=== PATIENT | female | born 1950 | race American Indian/Alaskan Native ===

== ENCOUNTER 2018-07-09 12:23 | Outpatient (RCR) | payer OTHER, SELFPAY ==
--- NOTE | 2018-07-09 16:00 | PT.OPPOC ---
Current Diagnoses Pain in right shoulder (07/09/18) Provider Visit Care Team Role Provider Type Gustavo Eng MD Attending Provider Physician Primary Care Provider Specialty: Internal Medicine Address: [address] [place] [address], [id number] Email: [email or web address] Plan Of Care PT-OP-T Assessment and Plan Start: 07/08/18 13:45 Freq: Status: Active Protocol: Document 07/09/18 13:00 AMB (Rec: 07/14/18 07:05 AMB [email or web address]) Physical Therapy Assessment Rehab Potential Rehabilitation Potential Good Evaluation Complexity Number of Personal Factors/Comorbidities 1-2 Number of Body Systems Impaired 4 or More Clinical Presentation at Evaluation Stable Impairments Impairments Pain Posture ROM Strength Goals Two Impairment pain with ADLS Short Term Goal (STG) Nayely will improve her strength to 4+/5 in all planes so that she can make her bed without pain. STG Duration 4 weeks Switch Cleaner Goal (LTG) Nayely will lift 10 pounds to shoulder height without an increase in pain. LTG Duration 8 weeks One Impairment ROM Short Term Goal (STG) Nayely will improve her right shoulder active abduction to 130 degrees without pain. STG Duration 4 weeks Group Home Goal (LTG) Nayely will improve her internal rotation and extension so that she can don her bra without an increase in shoulder pain. LTG Duration 8 weeks Progress Towards Goals Progress Towards Goals Slow Progress due to Activity Tolerance Assessment Summary Assessment Nayely attends physical therapy with right shoulder pain that has been present for 7 months . Unfortunately she was only able to stay for 30 minutes due to a work engagement, so the evaluation was shortened. She presents to physical therapy with weakness, pain, and reduced range of motion consistent with glenohumeral impingement likely due to rotator cuff weakness/ repetitive strain, although other impairements should be ruled in/out as her physical therapy progresses. Physical Therapy Plan Frequency and Duration Frequency of Treatment 2x/Week Duration of Treatment 8 weeks Plan of Care Start Date 07/14/18 Plan of Care End Date 09/08/18 Therapeutic Interventions Therapeutic Interventions Home Exercise Program Joint Mobilizations Manual Therapy Neuromuscular Re-education Self-Care/Home Management Therapeutic Activities Therapeutic Exercises Modalities Cold Pack/Ice Massage Electric Stimulation Hot Packs Ultrasound Next Visit Focus/Plan Next Note Type Treatment Note Next Visit Plan Special tests as needed, then progress HEP with light strengthening to begin to assess pt's tolerance Plan of Care Dates Plan of Care Start Date 07/14/18 Plan of Care End Date 09/08/18 Please Sign and Return: I have reviewed this Plan of Care and certify that the skilled therapy services above are required to meet the patient?s needs. Physician Signature Date Printed Name and Credentials Clinical Instructor Signature Printed Name and Credentials
--- NOTE | 2018-07-09 16:00 | PT.OIE ---
Current Diagnoses Pain in right shoulder (07/09/18) Past Medical History (Last Updated 09/08/17 @ 10:33 by Lavinia Cabrera) Depression (Chronic) Anxiety (Chronic) Chronic headaches (Chronic) Past Surgical History (Last Updated 05/18/18 @ 10:14 by Gustavo Eng MD) History of ankle surgery (Inactive) Provider Visit Care Team Role Provider Type Gustavo Eng MD Attending Provider Physician Primary Care Provider Specialty: Internal Medicine Address: [address] [place] [address], [facility] Email: [email or web address] Physical Therapy Initial Evaluation PT-OP-A Visit Information Start: 07/08/18 13:45 Freq: Status: Active Protocol: Document 07/09/18 13:00 AMB (Rec: 07/13/18 07:10 AMB [email or web address]) Out-Patient Physical Therapy Visit Information Visit Information Visit Type Initial Evaluation Visit Note pt had to leave 15 minutes early Visit Start Time 13:00 Visit Stop Time 13:30 Total Visit Minutes 30 Visit Number 1 Evaluation Information Evaluation Date 07/09/18 PT-OP-B Current Condition Start: 07/08/18 13:45 Freq: Status: Active Protocol: Document 07/09/18 13:00 AMB (Rec: 07/14/18 06:50 AMB [email or web address]) Current Condition History of Current Condition Onset Date November Current Complaints R shoulder pain History of Current Condition Nayely reports insidious onset right shoulder pain. Worse with lifting, pushing, and rotating (like to reach the back of her head, or behind her back). She is right hand dominant. The pain radiates up into her neck and down into her elbow. 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 Treatment Goals Patient/Caregiver Goals Reduce pain, be able to move the arm without pain Prior Functional Status Baseline Function- ADL's Independent Baseline Function- Mobility Independent Current Functional Impairments (Reported) 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- ADL's pain with dressing (donning bra). Pain with making the bed, lifting carrying. 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 Personal Factors Other Personal Factors That May Effect Headaches, neck pain, Therapy/Recovery dizziness, depression PT-OP-C Subjective Start: 07/08/18 13:45 Freq: Status: Active Protocol: Document 07/09/18 13:00 AMB (Rec: 07/14/18 06:50 AMB [email or web address]) Patient Questionnaires Quick Dash- Upper Extremity Quick Dash UE Score 63 Quick Dash UE Impairment 60 to 79% Impaired (Score 60- 79) OP-PT Pain Assessment Pain Assessment Grid Paper Pain Assessment Grid Completed Yes Location Right Shoulder Pain Location Details anterior/ lateral shoulder Intensity 3 Scale Used Numeric (1 - 10) PT-OP-J Posture/Palpation/Skin Start: 07/08/18 13:45 Freq: Status: Active Protocol: Document 07/09/18 13:00 AMB (Rec: 07/13/18 07:31 AMB [email or web address]) Posture Evaluation Comments Posture Comments Slight forward head/ rounded shoulders Palpation Assessment Location One Palpation Location right shoulder Palpation Findings Soft Tissue Tightness Muscle Guarding Tenderness Palpation Details Tenderness at biceps insertion and deltoid, radiating into upper trap and down into the elbow PT-OP-K Range of Motion Start: 07/08/18 13:45 Freq: Status: Active Protocol: Document 07/09/18 13:00 AMB (Rec: 07/13/18 07:31 AMB [email or web address]) Shoulder Goniometric Range of Motion Shoulder Measured in Degrees Left Active Testing Position Sitting Flexion 170 Abduction 130 External Rotation at 0 degrees Abduction 75 Right Active Testing Position Sitting Flexion 150 Extension 70 Abduction 110 External Rotation at 0 degrees Abduction 50 PT-OP-M Strength Start: 07/08/18 13:45 Freq: Status: Active Protocol: Document 07/09/18 13:00 AMB (Rec: 07/13/18 07:31 AMB [email or web address]) Shoulder Strength Shoulder Manual Muscle Testing Right Flexion 4 Good Abduction (C5) 4- Good- External Rotation 4- Good- Internal Rotation 4+ Good+ PT-OP-Q Treatments Start: 07/08/18 13:45 Freq: Status: Active Protocol: Document 07/09/18 13:00 AMB (Rec: 07/14/18 06:51 AMB [email or web address]) Therapeutic Exercises Standing Exercises 2 Standing Exercise Name ER isometric Reps/Minutes 3x5 1 Standing Exercise Name UT stretch Reps/Minutes 30x2 PT-OP-T Assessment and Plan Start: 07/08/18 13:45 Freq: Status: Active Protocol: Document 07/09/18 13:00 AMB (Rec: 05/29/19 07:05 AMB [email or web address]) Physical Therapy Assessment Rehab Potential Rehabilitation Potential Good Evaluation Complexity Number of Personal Factors/Comorbidities 1-2 Number of Body Systems Impaired 4 or More Clinical Presentation at Evaluation Stable Impairments Impairments Pain Posture ROM Strength Goals Two Impairment pain with ADLS Short Term Goal (STG) Nayely will improve her strength to 4+/5 in all planes so that she can make her bed without pain. STG Duration 4 weeks Medical Appointment Clerk Goal (LTG) Nayely will lift 10 pounds to shoulder height without an increase in pain. LTG Duration 8 weeks One Impairment ROM Short Term Goal (STG) Nayely will improve her right shoulder active abduction to 130 degrees without pain. STG Duration 4 weeks Intermediate Goal (LTG) Nayely will improve her internal rotation and extension so that she can don her bra without an increase in shoulder pain. LTG Duration 8 weeks Progress Towards Goals Progress Towards Goals Slow Progress due to Activity Tolerance Assessment Summary Assessment Nayely attends physical therapy with right shoulder pain that has been present for 7 months . Unfortunately she was only able to stay for 30 minutes due to a work engagement, so the evaluation was shortened. She presents to physical therapy with weakness, pain, and reduced range of motion consistent with glenohumeral impingement likely due to rotator cuff weakness/ repetitive strain, although other impairments should be ruled in/out as her physical therapy progresses. Physical Therapy Plan Frequency and Duration Frequency of Treatment 2x/Week Duration of Treatment 8 weeks Plan of Care Start Date 07/14/18 Plan of Care End Date 09/08/18 Therapeutic Interventions Therapeutic Interventions Home Exercise Program Joint Mobilizations Manual Therapy Neuromuscular Re-education Self-Care/Home Management Therapeutic Activities Therapeutic Exercises Modalities Cold Pack/Ice Massage Electric Stimulation Hot Packs Ultrasound Next Visit Focus/Plan Next Note Type Treatment Note Next Visit Plan Special tests as needed, then progress HEP with light strengthening to begin to assess pt's tolerance
--- NOTE | 2018-08-11 15:51 | PT.OPDS ---
Current Diagnoses Pain in right shoulder (07/09/18) Provider Visit Care Team Role Provider Type Gustavo Eng MD Attending Provider Physician Primary Care Provider Specialty: Internal Medicine Address: [address] [place] [address], [address] Email: [email or web address] Visit Number Visit Number 1 Discharge Summary PT-OP-B Current Condition Start: 07/08/18 13:45 Freq: Status: Active Protocol: Document 07/09/18 13:00 AMB (Rec: 07/14/18 06:50 AMB [email or web address]) Current Condition History of Current Condition Onset Date October Current Complaints R shoulder pain History of Current Condition Nayely reports insidious onset right shoulder pain. Worse with lifting, pushing, and rotating (like to reach the back of her head, or behind her back). She is right hand dominant. The pain radiates up into her neck and down into her elbow. 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 Treatment Goals Patient/Caregiver Goals Reduce pain, be able to move the arm without pain Prior Functional Status Baseline Function- ADL's Independent Baseline Function- Mobility Independent Current Functional Impairments (Reported) 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- ADL's pain with dressing (donning bra). Pain with making the bed, lifting carrying. 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 Personal Factors Other Personal Factors That May Effect Headaches, neck pain, Therapy/Recovery dizziness, depression PT-OP-C Subjective Start: 07/08/18 13:45 Freq: Status: Active Protocol: Document 07/09/18 13:00 AMB (Rec: 07/14/18 06:50 AMB [email or web address]) Patient Questionnaires Quick Dash- Upper Extremity Quick Dash UE Score 63 Quick Dash UE Impairment 60 to 79% Impaired (Score 60- 79) OP-PT Pain Assessment Pain Assessment Grid Paper Pain Assessment Grid Completed Yes Location Right Shoulder Pain Location Details anterior/ lateral shoulder Intensity 3 Scale Used Numeric (1 - 10) PT-OP-J Posture/Palpation/Skin Start: 07/08/18 13:45 Freq: Status: Active Protocol: Document 07/09/18 13:00 AMB (Rec: 07/13/18 07:31 AMB [email or web address]) Posture Evaluation Comments Posture Comments Slight forward head/ rounded shoulders Palpation Assessment Location One Palpation Location right shoulder Palpation Findings Soft Tissue Tightness Muscle Guarding Tenderness Palpation Details Tenderness at biceps insertion and deltoid, radiating into upper trap and down into the elbow PT-OP-K Range of Motion Start: 07/08/18 13:45 Freq: Status: Active Protocol: Document 07/09/18 13:00 AMB (Rec: 07/13/18 07:31 AMB [email or web address]) Shoulder Goniometric Range of Motion Shoulder Left Active Testing Position Sitting Flexion 170 Abduction 130 External Rotation at 0 degrees Abduction 75 Right Active Testing Position Sitting Flexion 150 Extension 70 Abduction 110 External Rotation at 0 degrees Abduction 50 PT-OP-M Strength Start: 07/08/18 13:45 Freq: Status: Active Protocol: Document 07/09/18 13:00 AMB (Rec: 07/13/18 07:31 AMB [email or web address]) Shoulder Strength Shoulder Manual Muscle Testing Right Flexion 4 Good Abduction (C5) 4- Good- External Rotation 4- Good- Internal Rotation 4+ Good+ PT-OP-T Assessment and Plan Start: 07/08/18 13:45 Freq: Status: Active Protocol: Document 08/11/18 15:49 AMB (Rec: 08/11/18 15:51 AMB [email or web address]) Physical Therapy Assessment Assessment Summary Assessment Nayely has not been seen since her initial evaluation she has canceled and no showed multiple appointments. Her voicemail is full so we have not been able to contact her. She would need a new MD referral to return to PT in the future. Physical Therapy Plan Discharge Physical Therapy Discharge Reasons No Longer Attending PT
== END 2018-08-12 10:48 | disposition home or self-care (01) ==
LOC: PHYS 12:23
PROVIDERS: PCP Internal Medicine; Visit Provider Internal Medicine
DX: M25.511 Pain in right shoulder (principal)
CPT/HCPCS: 97161

== ENCOUNTER → 2018-08-03 08:29 | Outpatient (CLI) | payer OTHER, SELFPAY ==
[2018-08-03 09:38] LABS: Alanine Aminotransferase 14 IU/L (9-52); Albumin Globulin Ratio 1.6 (1.0-2.8); Alkaline Phosphatase 84 U/L (38-126); Aspartate Aminotransferase 21 IU/L (14-36); BUN Creatinine Ratio 10.9 (6-22); Bilirubin Total 0.6 mg/dL (0.2-1.3); Blood Urea Nitrogen 12 mg/dL (7-17); Carbon Dioxide 30 mmol/L (22-32); Chloride 109 mmol/L (98-107); Cholesterol 189 mg/dL (140-199); Estimated Glomerular Filt Rate 49.5 mL/min (>60); Globulin 2.5 g/dL (1.7-4.1); Glucose 93 mg/dL (80-110); HDL Cholesterol 78 mg/dL (40-60); HEMOLYSIS < 15 (0-50); LDL Cholesterol Calculated 91 mg/dL (<100); Potassium 5.2 mmol/L (3.4-5.1); Sodium 143 mmol/L (137-145); Total Protein 6.5 g/dL (6.3-8.2); Triglycerides 99 mg/dL (35-150)
== END ==
PROVIDERS: PCP Internal Medicine; Visit Provider Internal Medicine
DX: F41.9 Anxiety disorder, unspecified (principal); R51 Headache; Z13.1 Encounter for screening for diabetes mellitus; Z13.6 Encounter for screening for cardiovascular disorders
CPT/HCPCS: 36415; 80053; 80061

== ENCOUNTER 2019-01-25 09:46 | Day surgery (SDC) | payer OTHER, SELFPAY ==
--- NOTE | 2019-01-25 | PATH_ITS ---
[facility] Accession Number: [id number] . 01 Material submitted: . colon - CECUM BIOPSY . 02 Diagnosis: Cecum, Biopsy: Tubular adenoma. MRV 01/27/2019 1233 Local . 02 Electronically signed: . Romana Orta MD, Pathologist NPI- [id number] . 01 Gross description: . CECUM BIOPSY: Received in formalin are multiple fragment(s) of bustillo, soft tissue measuring 0.6 x 0.6 x 0.1 cm in aggregate submitted entirely in 1 cassette(s) /QBJ 01/26/2019 0203 Local . 02 Pathologist provided ICD-10: D12.0 . 02 CPT . 073965 Performed at: 01 [facility] [address] [id number] MD Addison Calixto MD Phone: [phone] Performed at: 02 [facility] [address] [place], [place] [id number] MD Romana Orta MD Phone: [phone]
[2019-01-25] MEDS: SODIUM CHLORIDE 0.9% 1,000 ML 200 ML IV (10:15)
[2019-01-25 10:21] VITALS: BP 138/78; PULSE 77; RESP 15; TEMP 36.1; O2SAT 93; BMI 32.2
--- NOTE | 2019-01-25 10:47 | PM.HP.1 ---
History of Present Illness History of Present Illness Date Patient Seen: 01/25/19 Time Patient Seen: 10:47 Chief complaint: [id number] Narrative: The patient is a woman here for her 1st colonoscopy. She is not any blood per rectum and has no family history of colon cancer Patient History Medical History Anxiety (Chronic) Chronic headaches (Chronic) Chronic renal failure, stage 3 (moderate) (Chronic) Depression (Chronic) Surgical History History of ankle surgery (Inactive) Family & Social History Social History: household members spouse Tobacco & Substance use: Smoking Status Current some day smoker Meds Home Medications and Allergies Home Medications Medication Instructions Recorded Confirmed Type triamcinolone acetonide 0.1 % 1 applictn TOP TID #80 gram 08/23/18 01/25/19 Rx topical cream citalopram 20 mg tablet 30 mg PO QDAY #135 tab 12/10/18 01/25/19 Rx sodium,potassium,mag sulfates 17.5 177 ml PO DAILY #354 ml 01/24/19 01/25/19 Rx gram-3.13 gram-1.6 gram oral soln Allergies Allergy/AdvReac Type Severity Reaction Status Date / Time No Known Drug Allergies Allergy Verified 01/25/19 10:12 Review of Systems Review of Systems ROS Unobtainable: All systems reviewed & are unremarkable except as noted in HPI and below Exam Vital Signs (past 8 hours): - 01/25/19 10:21 Temperature 97.0 F L Pulse Rate 77 Respiratory Rate 15 Blood Pressure 138/78 Pulse Oximetry 93 Oxygen Delivery Method Room Air Narrative Exam Narrative: Pleasant cooperative patient no apparent distress. Lungs are clear to auscultation. No rales or rhonchi. Heart regular rate and rhythm no murmur gallop. Abdomen is soft nontender without mass. No obvious hernias. Patient is alert and oriented x3. Assessment & Plan Assessment & Plan narrative: The patient for a screening colonoscopy. I have discussed the procedure with them. Risks of bleeding, perforation which would necessitate major operation, failure to find remove all lesions, the potential tattoo were all discussed. All questions were answered. They wished to proceed.
--- NOTE | 2019-01-25 10:49 | PM.PREOP ---
Pre-operative Note Interval Note History & Physical reviewed/Exam performed by Physician: Yes Changes to H&P: No ASA Class (for procedural sedation): II
--- NOTE | 2019-01-25 10:52 | PM.PREOP ---
Pre-operative Note Interval Note History & Physical reviewed/Exam performed by Physician: Yes Changes to H&P: No ASA Class (for procedural sedation): II
[2019-01-25] MEDS: fentaNYL 250 MCG/5 ML INJ IV (11:00)
[2019-01-25] MEDS: MIDAZOLAM 5 MG/5 ML VIAL IV (11:00)
--- NOTE | 2019-01-25 11:27 | PM.OP.ENDO ---
Operative Date/Time/Diagnoses Date of procedure: 01/25/19 Time of procedure: 11:27 Pre-op diagnosis: Screening exam Post-op diagnosis: same (Possible cecal polyp. Biopsies taken and residual cauterized. Extensive asencio colonic diverticulosis) Procedure & Clinicians Study performed: Colonoscopy with cold biopsy and snare/cauterization of lesion Same procedure as scheduled: Yes Indications: Screening. This is her 1st colonoscopy Surgeon: Jacinto Bustos Procedure Notes SCOAP/Timeout: Performed Procedure in detail: The patient was placed in the left lateral decubitus position and underwent IV sedation directed by the surgeon consisting of fentanyl and Versed. Digital exam was normal. The scope was inserted and advanced through the rectum into the sigmoid, descending, transverse, and ascending colon. Patient was noted to have a rather tortuous colon with extensive sigmoid diverticulosis. There were diverticuli scattered elsewhere throughout the colon.. The cecum was reached identified by the ileocecal valve and the appendiceal opening. The ileocecal valve was successfully cannulated. The terminal ileum was normal in appearance. There was a lesion in the cecum that I could not tell if it was a small polyp or just an irregularity in the mucosa but I biopsied it and cauterized and snared a small piece and cauterized any residual. The scope was gradually brought out. No other Polyps were found. The scope ultimately was retroflexed in the rectum. The appearance was normal go to end. The scope was removed and the patient tolerated the procedure well. Prep was good Scope withdrawal time: 7 minutes Sedation minutes: 27 Findings: diverticulosis and polyp (Cecum lesion) Specimen(s): other (Cecal lesion) Complications: none Post-procedure Recommendations: Colonscopy in 3 years (If the lesion in the cecum is not neoplastic than 10 years would be more appropriate) Follow up: as needed Disposition: PACU
[2019-01-25 11:33] VITALS: BP 135/71; PULSE 74; RESP 16; TEMP 36.4; O2SAT 93
[2019-01-25 11:34] VITALS: BP 144/81; PULSE 76; RESP 19; O2SAT 95
[2019-01-25 11:39] VITALS: BP 148/77; PULSE 73; RESP 15; TEMP 36.9; O2SAT 95
--- NOTE | 2019-01-25 11:47 | SUR.PHASEI ---
Patient completed an entire cup of juice and asking for more. Tolerating PO well. VSS. To Phase 2 in stable condition. Report given to DARREN Manzanares.
[2019-01-25 12:03] VITALS: BP 143/79; PULSE 71; RESP 16; TEMP 37; O2SAT 99
== END 2019-01-25 12:12 | disposition home or self-care (01) ==
PROVIDERS: PCP Internal Medicine; Visit Provider Specialist
PROC: 0DJD8ZZ Inspection of Lower Intestinal Tract, Via Natural or Artificial Opening Endoscopic (ICD-10-PCS; CPT 45378; principal; 2019-01-25 10:45)
DX: Z12.11 Encounter for screening for malignant neoplasm of colon (principal); F41.9 Anxiety disorder, unspecified; N18.3 Chronic kidney disease, stage 3 (moderate); F32.9 Major depressive disorder, single episode, unspecified; R51 Headache; F17.210 Nicotine dependence, cigarettes, uncomplicated; K57.30 Diverticulosis of large intestine without perforation or abscess without bleeding; D12.0 Benign neoplasm of cecum
CPT/HCPCS: 45385; 99152; J2250; J3010

== ENCOUNTER 2019-11-11 13:30 | Emergency (ER) | payer OTHER, SELFPAY ==
[2019-11-11] VITALS (12 sets, daily range): BP systolic 154–182; BP diastolic 71–89; PULSE 75–87; RESP 15–24; TEMP 36.4–36.7; O2SAT 94–97; BMI 33.2
--- NOTE | 2019-11-11 14:00 | DI.RAD.S_ITS ---
PROCEDURE: XR CHEST 1V INDICATIONS: shortness of breath TECHNIQUE: One view of the chest was acquired. COMPARISON: [facility], CHEST 2 VIEW, 06/23/2009, 8:45. [facility], CHEST 1 VIEW, 12/17/2014, 16:57. [facility], CHEST 2 VIEW, 06/02/2016, 14:27. FINDINGS: Surgical changes and devices: None. Lungs and pleura: On this semiupright portable chest examination, no large pneumothorax or large pleural effusions are seen. No focal infiltrates are seen. The lungs are hyperexpanded. Mediastinum: The cardiac contours are within normal limits. The aorta demonstrates calcification and tortuosity. Bones and chest wall: Age-appropriate bony degenerative changes are seen. S-shaped scoliotic curvature is seen. No suspicious bony lesions. Overlying soft tissues appear unremarkable. IMPRESSION: Hyperexpanded lungs, without an acute cardiopulmonary process identified. Dictated by: Renny Barrera M.D. on 11/11/2019 at 13:24 Approved by: Renny Barrera M.D. on 11/11/2019 at 13:25
[2019-11-11 14:08] LABS: Add Manual Diff / Slide Review NO; Basophils Absolute Auto 100 /uL (0-100); Basophils Percent Auto 0.7 % (0-2); Eosinophils Absolute Auto 100 /uL (0-450); Hematocrit 46.6 % (36-46); Hemoglobin 16.1 g/dL (12.0-16.0); Lymphocytes Absolute Auto 2300 /uL (1100-4500); Lymphocytes Percent Auto 24.6 % (25-40); Mean Corpuscular HGB Conc 34.5 % (30-36); Mean Corpuscular Hemoglobin 32.1 PG (26-34); Mean Corpuscular Volume 92.9 fL (80-100); Monocytes Absolute Auto 700 /uL (0-900); Monocytes Percent Auto 7.3 % (3-14); Neutrophils Absolute Auto 6300 /uL (1500-7000); Neutrophils Percent Auto 66.4 % (50-75); Platelet Count 326 X10^3/uL (150-400); Red Blood Cell Count 5.02 X10^6/uL (4.0-5.2); Red Cell Distribution Width 14.2 % (11.6-14.8); White Blood Cell Count 9.5 X10^3/uL (4.5-11.0)
[2019-11-11 14:11] LABS: Prothrombin Time 11.4 SECONDS (10.1-12.7)
[2019-11-11 14:20] LABS: Alanine Aminotransferase 18 IU/L (<35); Albumin 4.4 g/dL (3.5-5.0); Albumin Globulin Ratio 1.3 (1.0-2.8); Alkaline Phosphatase 116 U/L (38-126); Aspartate Aminotransferase 31 IU/L (14-36); BUN Creatinine Ratio 12.5 (6-22); Bilirubin Total 0.5 mg/dL (0.2-1.3); Blood Urea Nitrogen 10 mg/dL (7-17); Calcium 9.1 mg/dL (8.4-10.2); Carbon Dioxide 26 mmol/L (22-32); Chloride 107 mmol/L (98-107); Estimated Glomerular Filt Rate > 60.0 mL/min (>60); Globulin 3.3 g/dL (1.7-4.1); Glucose 91 mg/dL (80-110); HEMOLYSIS 15 (0-50); Potassium 3.9 mmol/L (3.4-5.1); Sodium 142 mmol/L (137-145); Total Protein 7.7 g/dL (6.3-8.2)
[2019-11-11 14:21] LABS: Lactate (Lactic Acid) 1.3 mmol/L (0.7-2.1)
[2019-11-11 14:30] LABS: NT-proBNP (BNP-Adult 18+) 99 pg/mL (<125)
[2019-11-11 14:45] LABS: Creatine Kinase 52 U/L (30-135)
[2019-11-11] MEDS: ALBUTEROL HFA 200 PUFF/18 GM INH (COVID POS/VENT PTS) INH (14:46)
[2019-11-11 14:57] LABS: Troponin I < 0.012 ng/mL (0.01-0.034)
[2019-11-11 15:06] LABS: COVID19 -Nasal RAPID Negative (Negative)
--- NOTE | 2019-11-11 15:22 | ED_ITS ---
HPI - SOB/Dyspnea <KEVIN Adames - Last Filed: 11/11/19 17:18> General Chief Complaint: Shortness of Breath/Dyspnea Stated Complaint: shortness of breath,pain in stomach Time Seen by Provider: 11/11/19 14:05 Source: patient Mode of arrival: Ambulatory Limitations: no limitations History of Present Illness HPI Narrative: The patient is a 69-year-old female former smoker with history of depression anxiety and headaches who presents with a chief complaint of shortness of breath over the past month. Who quit 6 months ago. She states that she has an occasional dry cough, occasionally clear mucus. No fevers nausea vomiting or diarrhea. States that she had normal bowel movements. Denies any chest pain, but complains of tight breathing. She has not taken anything at home to feel better. She is concerned that she might have COPD. States that she had some left lower quadrant pain earlier, but that is improved and she is here for her breathing today. She again reiterates that her primary concern is her breathing. She denies any lightheadedness or dizziness, palpitations swelling some of her extremities. Related Data Previous Rx's Medication Instructions Recorded triamcinolone acetonide 0.1 % 1 applictn TOP TID #80 gram 08/23/18 topical cream sodium,potassium,mag sulfates 17.5 177 ml PO DAILY #354 ml 01/24/19 gram-3.13 gram-1.6 gram oral soln triamcinolone acetonide 0.1 % 1 applictn TOP TID #80 gram 05/09/19 topical cream citalopram 40 mg tablet 40 mg PO DAILY #30 tab 05/27/19 albuterol sulfate 2 puff INHALATION Q4-6H PRN #18 11/11/19 gram prednisone 40 mg PO DAILY 5 Days #10 tab 11/11/19 Allergies Allergy/AdvReac Type Severity Reaction Status Date / Time No Known Drug Allergies Allergy Verified 02/22/19 10:14 Review of Systems <KEVIN Adames - Last Filed: 11/11/19 17:18> Review of Systems Narrative: GENERAL: Denies chills, fatigue, malaise, fever, sweats. HEENT: Denies sinus pain, ear pain, sore throat, difficulty swallowing, dizziness. RESPIRATORY: See HPI CARDIOVASCULAR: Denies chest pain, palpitations, orthopnea, edema, GASTROINTESTINAL: See HPI : Denies dysuria, frequency, incontinence, hematuria, urinary retention. MUSCULOSKELETAL: denies weakness, joint pain, or bony pain SKIN: Denies rash, skin lesions, or other NEUROLOGIC: Denies weakness, headache, numbness, change in speech, confusion, seizures, incoordination. PSYCHIATRIC: No concerning psychosocial issues. 12 point review of systems is negative except for those stated above Patient History <KEVIN Adames - Last Filed: 11/11/19 17:18> Medical History Anxiety (Chronic) Chronic headaches (Chronic) Chronic renal failure, stage 3 (moderate) (Chronic) Depression (Chronic) Surgical History History of ankle surgery (Inactive) Social History household members: spouse Smoking Status: Former smoker Smoking Status: Former smoker Substance Use Type: does not use Exam <KEVIN Adames - Last Filed: 11/11/19 17:18> Narrative Exam Narrative: GENERAL: This is a well-nourished, well-developed patient, no a cute distress HEAD: Atraumatic. Normocephalic. No temporal or scalp tenderness. EYES: Pupils equal round and reactive. Extraocular motions intact. No scleral icterus. No injection or drainage. ENT: Nose without bleeding, purulent drainage or septal hematoma. Throat without erythema, tonsillar hypertrophy or exudate. Uvula midline. Airway patent. NECK: Trachea midline. No JVD or lymphadenopathy. Supple, nontender, no meningeal signs. CARDIOVASCULAR: Regular rate and rhythm RESPIRATORY: Coarse bilaterally to auscultation. Breath sounds equal bilaterally. No wheezes, rales, or rhonchi. No cough. No increased respiratory effort. Speaking full sentences. No retractions or accessory muscle use. GASTROINTESTINAL: Abdomen soft, non-tender, nondistended. No hepato- splenomegaly, or palpable masses. No guarding. Active bowel sounds all 4 quadrants. EXTREMITIES: No clubbing, cyanosis, or edema. No joint tenderness, effusion, or edema noted. BACK: Nontender without deformity or crepitance. No flank tenderness. NEURO: AOx3. SKIN: No rash or erythema had visible skin Initial Vital Signs Initial Vital Signs: Vital Signs Temperature 98.0 F 11/11/19 13:33 Pulse Rate 87 11/11/19 13:33 Respiratory Rate 16 11/11/19 13:33 Blood Pressure 170/89 H 11/11/19 13:33 Pulse Oximetry 97 11/11/19 13:33 <Stefany Ugalde MD - Last Filed: 11/11/19 17:45> Initial Vital Signs Initial Vital Signs: Vital Signs Temperature 98.0 F 11/11/19 13:33 Pulse Rate 87 11/11/19 13:33 Respiratory Rate 16 11/11/19 13:33 Blood Pressure 170/89 H 11/11/19 13:33 Pulse Oximetry 97 11/11/19 13:33 Scores <KEVIN Adames - Last Filed: 11/11/19 17:18> GCS [place] coma scale eye opening: Spontaneous [place] coma scale verbal response: Orientated [place] coma scale motor response: Obey commands [place] coma scale total score: 15 Wells' Criteria for PE Clinical signs and symptoms of DVT: No PE is #1 Dx or equally likely: No Heart rate > 100: No Immobilization at least 3 days or surg in previous 4 weeks: No History of PE or DVT: No Hemoptysis: No Malignancy w/Treatment within 6 months or palliative: No Wells' PE Score total: 0 Course <KEVIN Adames - Last Filed: 11/11/19 17:18> Orders Ordered: ED Orders 11/11/19 13:54 Complete Blood Count AUTO DIFF Stat Comprehensive Metabolic Panel Stat Lactate (Lactic Acid) Stat NT-proBNP (BNP-Adult 18+) Stat Prothrombin Time INR Stat Troponin & CK Cardiac Panel Stat 11/11/19 14:00 XR chest 1V Stat EKG-12 Lead Stat RT Consult Eval and Treat Now 11/11/19 14:38 COVID19 -ED/INPAT/OR/L&D Stat 11/11/19 15:59 Troponin & CK Cardiac Panel Stat Discontinued Medications Albuterol (Ventolin Hfa (Vent/Covid R/O)) 2 puff INH NOW ONE Stop: 11/11/19 14:28 Last Admin: 11/11/19 14:46 Dose: 2 puff Documented by: HUGO Prednisone (Deltasone) 40 mg PO NOW ONE Stop: 11/11/19 15:33 Last Admin: 11/11/19 15:49 Dose: 40 mg Documented by: GUILLERMO Vital Signs Vital signs: Vital Signs - 8 hr 11/11/19 13:33 11/11/19 14:24 11/11/19 14:30 Temperature 98.0 F Pulse Rate 87 80 Respiratory Rate 16 22 Blood Pressure 170/89 H 182/83 H Pulse Oximetry 97 96 11/11/19 14:46 11/11/19 15:00 11/11/19 15:30 Temperature Pulse Rate 80 79 76 Respiratory Rate 16 22 24 Blood Pressure 154/71 H 165/83 H Pulse Oximetry 96 94 94 11/11/19 16:00 11/11/19 16:01 11/11/19 16:30 Temperature Pulse Rate 77 76 77 Respiratory Rate 22 21 21 Blood Pressure 166/77 H Pulse Oximetry 95 96 94 11/11/19 16:31 11/11/19 17:00 11/11/19 17:08 Temperature 97.6 F Pulse Rate 75 75 Respiratory Rate 15 16 Blood Pressure 154/73 H 158/73 H Pulse Oximetry 96 94 <Stefany Ugalde MD - Last Filed: 11/11/19 17:45> Orders Ordered: ED Orders 11/11/19 13:54 Complete Blood Count AUTO DIFF Stat Comprehensive Metabolic Panel Stat Lactate (Lactic Acid) Stat NT-proBNP (BNP-Adult 18+) Stat Prothrombin Time INR Stat Troponin & CK Cardiac Panel Stat 11/11/19 14:00 XR chest 1V Stat EKG-12 Lead Stat RT Consult Eval and Treat Now 11/11/19 14:38 COVID19 -ED/INPAT/OR/L&D Stat 11/11/19 15:59 Troponin & CK Cardiac Panel Stat Discontinued Medications Albuterol (Ventolin Hfa (Vent/Covid R/O)) 2 puff INH NOW ONE Stop: 11/11/19 14:28 Last Admin: 11/11/19 14:46 Dose: 2 puff Documented by: HUGO Prednisone (Deltasone) 40 mg PO NOW ONE Stop: 11/11/19 15:33 Last Admin: 11/11/19 15:49 Dose: 40 mg Documented by: GUILLERMO Vital Signs Vital signs: Vital Signs - 8 hr 11/11/19 13:33 11/11/19 14:24 11/11/19 14:30 Temperature 98.0 F Pulse Rate 87 80 Respiratory Rate 16 22 Blood Pressure 170/89 H 182/83 H Pulse Oximetry 97 96 11/11/19 14:46 11/11/19 15:00 11/11/19 15:30 Temperature Pulse Rate 80 79 76 Respiratory Rate 16 22 24 Blood Pressure 154/71 H 165/83 H Pulse Oximetry 96 94 94 11/11/19 16:00 11/11/19 16:01 11/11/19 16:30 Temperature Pulse Rate 77 76 77 Respiratory Rate 22 21 21 Blood Pressure 166/77 H Pulse Oximetry 95 96 94 11/11/19 16:31 11/11/19 17:00 11/11/19 17:08 Temperature 97.6 F Pulse Rate 75 75 Respiratory Rate 15 16 Blood Pressure 154/73 H 158/73 H Pulse Oximetry 96 94 MDM - SOB/Dyspnea <CHLOE Adames-BC - Last Filed: 11/11/19 17:18> Lab Data Attestation: I reviewed the patient's lab results. Result diagrams: 11/11/19 13:54 11/11/19 13:54 Labs: Lab Results 11/11/19 11/11/19 11/11/19 Range/Units 13:54 13:54 13:54 WBC 9.5 (4.5-11.0) X10^3/uL RBC 5.02 (4.0-5.2) X10^6/uL Hgb 16.1 H (12.0-16.0) g/dL Hct 46.6 H (36-46) % MCV 92.9 (80-100) fL MCH 32.1 (26-34) PG MCHC 34.5 (30-36) % RDW 14.2 (11.6-14.8) % Plt Count 326 (150-400) X10^3/uL Neut % (Auto) 66.4 (50-75) % Lymph % (Auto) 24.6 L (25-40) % [place] % (Auto) 7.3 (3-14) % Eos % (Auto) 1.0 L (2-4) % Baso % (Auto) 0.7 (0-2) % Neut # (Auto) 6300 (5091-9198) /uL Lymph # (Auto) 2300 (6835-9360) /uL [place] # (Auto) 700 (0-900) /uL Eos # (Auto) 100 (0-450) /uL Baso # (Auto) 100 (0-100) /uL PT 11.4 (10.1-12.7) SECONDS INR 1.0 (0.9-1.3) Sodium 142 (137-145) mmol/L Potassium 3.9 (3.4-5.1) mmol/L Chloride 107 (98-107) mmol/L Carbon Dioxide 26 (22-32) mmol/L BUN 10 (7-17) mg/dL Creatinine 0.80 (0.52-1.04) mg/dL Estimated GFR > 60.0 (>60) mL/min BUN/Creatinine Ratio 12.5 (6-22) Glucose 91 (80-110) mg/dL Lactate (0.7-2.1) mmol/L Calcium 9.1 (8.4-10.2) mg/dL Total Bilirubin 0.5 (0.2-1.3) mg/dL AST 31 (14-36) IU/L ALT 18 (<35) IU/L Alkaline Phosphatase 116 (38-126) U/L Total Creatine Kinase (30-135) U/L CK-MB (CK-2) CK-MB (CK-2) Rel Index Troponin I (0.01-0.034) ng/mL NT-Pro-B Natriuret Pep 99 (<125) pg/mL Total Protein 7.7 (6.3-8.2) g/dL Albumin 4.4 (3.5-5.0) g/dL Globulin 3.3 (1.7-4.1) g/dL Albumin/Globulin Ratio 1.3 (1.0-2.8) COVID-19 PCR (Negative) 11/11/19 11/11/19 11/11/19 Range/Units 13:54 13:54 14:38 WBC (4.5-11.0) X10^3/uL RBC (4.0-5.2) X10^6/uL Hgb (12.0-16.0) g/dL Hct (36-46) % MCV (80-100) fL MCH (26-34) PG MCHC (30-36) % RDW (11.6-14.8) % Plt Count (150-400) X10^3/uL Neut % (Auto) (50-75) % Lymph % (Auto) (25-40) % [place] % (Auto) (3-14) % Eos % (Auto) (2-4) % Baso % (Auto) (0-2) % Neut # (Auto) (3531-4199) /uL Lymph # (Auto) (8249-8829) /uL [place] # (Auto) (0-900) /uL Eos # (Auto) (0-450) /uL Baso # (Auto) (0-100) /uL PT (10.1-12.7) SECONDS INR (0.9-1.3) Sodium (137-145) mmol/L Potassium (3.4-5.1) mmol/L Chloride (98-107) mmol/L Carbon Dioxide (22-32) mmol/L BUN (7-17) mg/dL Creatinine (0.52-1.04) mg/dL Estimated GFR (>60) mL/min BUN/Creatinine Ratio (6-22) Glucose (80-110) mg/dL Lactate 1.3 (0.7-2.1) mmol/L Calcium (8.4-10.2) mg/dL Total Bilirubin (0.2-1.3) mg/dL AST (14-36) IU/L ALT (<35) IU/L Alkaline Phosphatase (38-126) U/L Total Creatine Kinase 52 (30-135) U/L CK-MB (CK-2) TNP CK-MB (CK-2) Rel Index TNP Troponin I < 0.012 (0.01-0.034) ng/mL NT-Pro-B Natriuret Pep (<125) pg/mL Total Protein (6.3-8.2) g/dL Albumin (3.5-5.0) g/dL Globulin (1.7-4.1) g/dL Albumin/Globulin Ratio (1.0-2.8) COVID-19 PCR Negative (Negative) 11/11/19 Range/Units 15:59 WBC (4.5-11.0) X10^3/uL RBC (4.0-5.2) X10^6/uL Hgb (12.0-16.0) g/dL Hct (36-46) % MCV (80-100) fL MCH (26-34) PG MCHC (30-36) % RDW (11.6-14.8) % Plt Count (150-400) X10^3/uL Neut % (Auto) (50-75) % Lymph % (Auto) (25-40) % [place] % (Auto) (3-14) % Eos % (Auto) (2-4) % Baso % (Auto) (0-2) % Neut # (Auto) (6074-4517) /uL Lymph # (Auto) (6405-2585) /uL [place] # (Auto) (0-900) /uL Eos # (Auto) (0-450) /uL Baso # (Auto) (0-100) /uL PT (10.1-12.7) SECONDS INR (0.9-1.3) Sodium (137-145) mmol/L Potassium (3.4-5.1) mmol/L Chloride (98-107) mmol/L Carbon Dioxide (22-32) mmol/L BUN (7-17) mg/dL Creatinine (0.52-1.04) mg/dL Estimated GFR (>60) mL/min BUN/Creatinine Ratio (6-22) Glucose (80-110) mg/dL Lactate (0.7-2.1) mmol/L Calcium (8.4-10.2) mg/dL Total Bilirubin (0.2-1.3) mg/dL AST (14-36) IU/L ALT (<35) IU/L Alkaline Phosphatase (38-126) U/L Total Creatine Kinase 46 (30-135) U/L CK-MB (CK-2) TNP CK-MB (CK-2) Rel Index TNP Troponin I < 0.012 (0.01-0.034) ng/mL NT-Pro-B Natriuret Pep (<125) pg/mL Total Protein (6.3-8.2) g/dL Albumin (3.5-5.0) g/dL Globulin (1.7-4.1) g/dL Albumin/Globulin Ratio (1.0-2.8) COVID-19 PCR (Negative) Imaging Data Chest x-ray: Radiologist's Impression: [address] [place] [id number] XRay Report Signed Patient: Betsy Tellez CMR#: [id number] : [id number]:[id number] Age/Sex: 69 / FDate of Service: 11/11/19 Loc: ED Accession Number: [id number] Procedure: XR chest 1V Ordering Provider: Stefany Ugalde MD PROCEDURE: XR CHEST 1V INDICATIONS: shortness of breath TECHNIQUE: One view of the chest was acquired. COMPARISON: [facility], , CHEST 2 VIEW, 06/23/2009, 8:45. [facility], CHEST 1 VIEW, 12/17/2014, 16:57. [facility], CHEST 2 VIEW, 06/02/2016, 14:27. FINDINGS: Surgical changes and devices: None. Lungs and pleura: On this semiupright portable chest examination, no large pneumothorax or large pleural effusions are seen. No focal infiltrates are seen. The lungs are hyperexpanded. Mediastinum: The cardiac contours are within normal limits. The aorta demonstrates calcification and tortuosity. Bones and chest wall: Age-appropriate bony degenerative changes are seen. S- shaped scoliotic curvature is seen. No suspicious bony lesions. Overlying soft tissues appear unremarkable. IMPRESSION: Hyperexpanded lungs, without an acute cardiopulmonary process identified. Dictated by: Renny Barrera M.D. on 11/11/2019 at 13:24 Approved by: Renny Barrera M.D. on 11/11/2019 at 13:25 ECG Data Attestation: I personally reviewed and interpreted this ECG as follows: Interpretation: Sinus rhythm. Ventricular rate 80. P.r. interval 134. QRS 82. Viewed by Dr Tram CHRIS Narrative Medical decision making narrative: The patient is a 61-year-old female who presents with a chief complaint of shortness of breath for a month. She is concerned that she might have COPD that is undiagnosed, and feels much improved after the above-stated therapies. Her initial troponin is negative, repeat her troponin is negative as well. Will score is 0. The patient feels much improved after the above-stated therapies and is requesting prescriptions for inhalers. I did give this to her. I also gave her a quick burst of steroids. Encouraged follow-up with primary care provider in the next few days as well as come back to emergency department for any acute concerns such as significant shortness of breath, chest pain, concern of heart attack or stroke. The patient tested negative for coronavirus in the emergency department today. Patient has no questions or concerns upon discharge and states understanding return precautions as well as follow-up care. <Stefany Ugalde MD - Last Filed: 11/11/19 17:45> Lab Data Labs: Lab Results 11/11/19 11/11/19 11/11/19 Range/Units 13:54 13:54 13:54 WBC 9.5 (4.5-11.0) X10^3/uL RBC 5.02 (4.0-5.2) X10^6/uL Hgb 16.1 H (12.0-16.0) g/dL Hct 46.6 H (36-46) % MCV 92.9 (80-100) fL MCH 32.1 (26-34) PG MCHC 34.5 (30-36) % RDW 14.2 (11.6-14.8) % Plt Count 326 (150-400) X10^3/uL Neut % (Auto) 66.4 (50-75) % Lymph % (Auto) 24.6 L (25-40) % [place] % (Auto) 7.3 (3-14) % Eos % (Auto) 1.0 L (2-4) % Baso % (Auto) 0.7 (0-2) % Neut # (Auto) 6300 (5107-6558) /uL Lymph # (Auto) 2300 (8909-2273) /uL [place] # (Auto) 700 (0-900) /uL Eos # (Auto) 100 (0-450) /uL Baso # (Auto) 100 (0-100) /uL PT 11.4 (10.1-12.7) SECONDS INR 1.0 (0.9-1.3) Sodium 142 (137-145) mmol/L Potassium 3.9 (3.4-5.1) mmol/L Chloride 107 (98-107) mmol/L Carbon Dioxide 26 (22-32) mmol/L BUN 10 (7-17) mg/dL Creatinine 0.80 (0.52-1.04) mg/dL Estimated GFR > 60.0 (>60) mL/min BUN/Creatinine Ratio 12.5 (6-22) Glucose 91 (80-110) mg/dL Lactate (0.7-2.1) mmol/L Calcium 9.1 (8.4-10.2) mg/dL Total Bilirubin 0.5 (0.2-1.3) mg/dL AST 31 (14-36) IU/L ALT 18 (<35) IU/L Alkaline Phosphatase 116 (38-126) U/L Total Creatine Kinase (30-135) U/L CK-MB (CK-2) CK-MB (CK-2) Rel Index Troponin I (0.01-0.034) ng/mL NT-Pro-B Natriuret Pep 99 (<125) pg/mL Total Protein 7.7 (6.3-8.2) g/dL Albumin 4.4 (3.5-5.0) g/dL Globulin 3.3 (1.7-4.1) g/dL Albumin/Globulin Ratio 1.3 (1.0-2.8) COVID-19 PCR (Negative) 11/11/19 11/11/19 11/11/19 Range/Units 13:54 13:54 14:38 WBC (4.5-11.0) X10^3/uL RBC (4.0-5.2) X10^6/uL Hgb (12.0-16.0) g/dL Hct (36-46) % MCV (80-100) fL MCH (26-34) PG MCHC (30-36) % RDW (11.6-14.8) % Plt Count (150-400) X10^3/uL Neut % (Auto) (50-75) % Lymph % (Auto) (25-40) % [place] % (Auto) (3-14) % Eos % (Auto) (2-4) % Baso % (Auto) (0-2) % Neut # (Auto) (5410-1687) /uL Lymph # (Auto) (0631-6960) /uL [place] # (Auto) (0-900) /uL Eos # (Auto) (0-450) /uL Baso # (Auto) (0-100) /uL PT (10.1-12.7) SECONDS INR (0.9-1.3) Sodium (137-145) mmol/L Potassium (3.4-5.1) mmol/L Chloride (98-107) mmol/L Carbon Dioxide (22-32) mmol/L BUN (7-17) mg/dL Creatinine (0.52-1.04) mg/dL Estimated GFR (>60) mL/min BUN/Creatinine Ratio (6-22) Glucose (80-110) mg/dL Lactate 1.3 (0.7-2.1) mmol/L Calcium (8.4-10.2) mg/dL Total Bilirubin (0.2-1.3) mg/dL AST (14-36) IU/L ALT (<35) IU/L Alkaline Phosphatase (38-126) U/L Total Creatine Kinase 52 (30-135) U/L CK-MB (CK-2) TNP CK-MB (CK-2) Rel Index TNP Troponin I < 0.012 (0.01-0.034) ng/mL NT-Pro-B Natriuret Pep (<125) pg/mL Total Protein (6.3-8.2) g/dL Albumin (3.5-5.0) g/dL Globulin (1.7-4.1) g/dL Albumin/Globulin Ratio (1.0-2.8) COVID-19 PCR Negative (Negative) 11/11/19 Range/Units 15:59 WBC (4.5-11.0) X10^3/uL RBC (4.0-5.2) X10^6/uL Hgb (12.0-16.0) g/dL Hct (36-46) % MCV (80-100) fL MCH (26-34) PG MCHC (30-36) % RDW (11.6-14.8) % Plt Count (150-400) X10^3/uL Neut % (Auto) (50-75) % Lymph % (Auto) (25-40) % [place] % (Auto) (3-14) % Eos % (Auto) (2-4) % Baso % (Auto) (0-2) % Neut # (Auto) (6585-1964) /uL Lymph # (Auto) (9889-4955) /uL [place] # (Auto) (0-900) /uL Eos # (Auto) (0-450) /uL Baso # (Auto) (0-100) /uL PT (10.1-12.7) SECONDS INR (0.9-1.3) Sodium (137-145) mmol/L Potassium (3.4-5.1) mmol/L Chloride (98-107) mmol/L Carbon Dioxide (22-32) mmol/L BUN (7-17) mg/dL Creatinine (0.52-1.04) mg/dL Estimated GFR (>60) mL/min BUN/Creatinine Ratio (6-22) Glucose (80-110) mg/dL Lactate (0.7-2.1) mmol/L Calcium (8.4-10.2) mg/dL Total Bilirubin (0.2-1.3) mg/dL AST (14-36) IU/L ALT (<35) IU/L Alkaline Phosphatase (38-126) U/L Total Creatine Kinase 46 (30-135) U/L CK-MB (CK-2) TNP CK-MB (CK-2) Rel Index TNP Troponin I < 0.012 (0.01-0.034) ng/mL NT-Pro-B Natriuret Pep (<125) pg/mL Total Protein (6.3-8.2) g/dL Albumin (3.5-5.0) g/dL Globulin (1.7-4.1) g/dL Albumin/Globulin Ratio (1.0-2.8) COVID-19 PCR (Negative) Discharge Plan Departure Patient Disposition: Home Clinical Impression: Dyspnea Qualifiers: Dyspnea type: unspecified Qualified Code(s): R06.00 - Dyspnea, unspecified Discharge Date/Time: 11/11/19 17:08 Instructions: How to Use a Metered-Dose Inhaler, DI for Shortness of Breath, How to Manage Shortness of Breath Activity Restrictions/Additional Instructions: Thank you for trusting us with your care today. As discussed, please follow-up with primary care provider in the next 48-72 hours. You may need further evaluation such as further heart investigation and/or pulmonary function testing. I sent 2 prescriptions to [facility], including albuterol as well as steroids. Please start the prednisone tomorrow as you already had a dose here in the emergency department. Today you tested negative for coronavirus Please come back to the emergency department for any acute concerns such as concern of heart attack, stroke, significant shortness of breath etcetera Prescriptions: New prednisone 20 mg tablet 40 mg PO DAILY 5 Days Qty: 10 RF: 0 albuterol sulfate 90 mcg/actuation HFA aerosol inhaler 2 puff INHALATION Q4-6H PRN (Reason: shortness of breath or wheezing) Qty: 18 RF: 0 No Action triamcinolone acetonide 0.1 % cream 1 applictn TOP TID Qty: 80 RF: 0 sodium,potassium,mag sulfates 17.5-3.13-1.6 gram recon soln 177 ml PO DAILY Qty: 354 RF: 0 triamcinolone acetonide 0.1 % cream 1 applictn TOP TID Qty: 80 RF: 0 citalopram 40 mg tablet 40 mg PO DAILY Qty: 30 RF: 2 Referrals: Gustavo Eng MD [Primary Care Provider] - <Stefany Ugalde MD - Last Filed: 11/11/19 17:45> Cosign ED Attending Cosignature Attestation: [facility] throughout this patient's visit. I agree with documentation as above. Stefany Ugadle MD
[2019-11-11] MEDS: predniSONE 20 MG TABLET 40 MG PO (15:49)
[2019-11-11 16:14] LABS: Creatine Kinase 46 U/L (30-135)
[2019-11-11 16:26] LABS: Troponin I < 0.012 ng/mL (0.01-0.034)
== END 2019-11-11 17:08 | disposition home or self-care (01) ==
PROVIDERS: Emergency Medicine; Emergency Provider Nurse Practitioner Family; PCP Internal Medicine
DX: R06.00 Dyspnea, unspecified (principal)
CPT/HCPCS: 36415; 71045; 80053; 82550; 83605; 83880; 84484; 85025; 85610; 87635; 93005; 94640; 99284; A9270

== ENCOUNTER → 2021-08-12 10:41 | Outpatient (CLI) | payer SELFPAY ==
[2021-08-12 13:37] LABS: Alanine Aminotransferase 12 IU/L (<35); Albumin Globulin Ratio 1.3 (1.0-2.8); Alkaline Phosphatase 110 U/L (38-126); Aspartate Aminotransferase 24 IU/L (14-36); BUN Creatinine Ratio 10.8 (6-22); Bilirubin Total 0.5 mg/dL (0.2-1.3); Blood Urea Nitrogen 8 mg/dL (7-17); Calcium 8.4 mg/dL (8.4-10.2); Carbon Dioxide 23 mmol/L (22-32); Chloride 110 mmol/L (98-107); Cholesterol 184 mg/dL (140-199); Estimated Glomerular Filt Rate > 60 mL/min (>60); Glucose 97 mg/dL (80-110); HDL Cholesterol 71 mg/dL (40-60); HEMOLYSIS < 15 (0-50); LDL Cholesterol Calculated 87 mg/dL (<100); Potassium 3.9 mmol/L (3.4-5.1); Sodium 141 mmol/L (137-145); Triglycerides 128 mg/dL (35-150)
== END ==
PROVIDERS: PCP Internal Medicine; Referring Provider Internal Medicine; Visit Provider Internal Medicine
DX: F33.41 Major depressive disorder, recurrent, in partial remission (principal); F41.9 Anxiety disorder, unspecified; N18.30 Chronic kidney disease, stage 3 unspecified
CPT/HCPCS: 36415; 80053; 80061

== ENCOUNTER 2023-09-03 08:44 | Emergency (ER) | payer MEDICARE, OTHER, SELFPAY ==
[2023-09-03 08:54] VITALS: BP 147/72; PULSE 93; RESP 18; TEMP 36.2; O2SAT 95; BMI 32.0
--- NOTE | 2023-09-03 09:26 | DI.RAD.S_ITS ---
PROCEDURE: XR RIBS LT MIN 3V W CXR1V INDICATIONS: Fall with rib pain TECHNIQUE: 2 views of the left ribs were acquired, along with a single view chest. COMPARISON: None. FINDINGS: Surgical changes and devices: None. Bones and chest wall: No fractures or dislocations. No suspicious bony lesions. Overlying soft tissues appear unremarkable. Lungs and pleura: No pleural effusions or pneumothorax. Lungs appear clear. Mediastinum: Mediastinal contours appear normal. Heart size is normal. IMPRESSION: No displaced rib fracture or pneumothorax. Dictated by: Bee Pleitez MD, PhD on 09/03/2023 at 9:41 Approved by: Bee Pleitez MD, PhD on 09/03/2023 at 9:44
--- NOTE | 2023-09-03 09:45 | ED_ITS ---
HPI - Fall General Chief Complaint: Fall Stated Complaint: fall, fever, L rib pain Time Seen by Provider: 09/03/23 09:25 Source: patient Mode of arrival: Family Vehicle History of Present Illness HPI Narrative: Patient is here for evaluation of left-sided rib pain after a fall that occurred sometime within the past 24-48 hours. She also was reporting chills. No urinary symptoms. One episode of diarrhea. She also thinks she has a sinus infection. Discomfort is reproducible with palpation left side of the chest. It hurts with any sort of movement. No skin changes. Related Data Previous Rx's Medication Instructions Recorded triamcinolone acetonide 0.1 % 1 applictn topical TID #80 grams 08/23/18 topical cream fluticasone propionate 50 2 spray intranasal BEDTIME #16 03/14/22 mcg/actuation nasal grams spray,suspension albuterol sulfate 90 mcg/actuation 2 puff inhalation Q4-6H PRN 06/22/23 aerosol inhaler shortness of breath or wheezing #18 grams citalopram 20 mg tablet 30 mg (1.5 x 20 mg) PO DAILY #135 06/22/23 tabs Allergies Allergy/AdvReac Type Severity Reaction Status Date / Time No Known Drug Allergies Allergy Verified 09/03/23 09:05 Review of Systems Review of Systems Narrative: See HPI Patient History Medical History Hx of adenomatous colonic polyps Chronic asthma Chronic renal failure, stage 3 (moderate) Depression Anxiety Chronic headaches Surgical History History of ankle surgery Social History household members: spouse Smoking Status: Former smoker Smoking Status: Former smoker alcohol intake frequency: 0-2 drinks per day Substance Use Type: does not use Exam Initial Vital Signs Initial Vital Signs: Vital Signs Temperature 97.2 F L 09/03/23 08:54 Pulse Rate 93 H 09/03/23 08:54 Respiratory Rate 18 09/03/23 08:54 Blood Pressure 147/72 H 09/03/23 08:54 Pulse Oximetry 95 09/03/23 08:54 Oxygen Delivery Method Room Air 09/03/23 08:54 HENMT Head: normal to inspection and normocephalic Chest Chest: No crepitus and tenderness (Left-sided lateral lower chest) Resp Effort & Inspection: normal respiratory effort Auscultation: clear to auscultation bilaterally Cardio Rate: regular rate Rhythm: regular rhythm Skin General: no rashes or lesions noted Neuro General: patient alert, patient awake and moves all extremities Extrem General: normal to inspection Course Orders Ordered: ED Orders 09/03/23 09:26 XR ribs LT min 3V w CXR1V Stat 09/03/23 09:43 Covid-19 + FLU A/B + RSV - PCR Stat 09/03/23 09:46 Basic Metabolic Panel Stat Complete Blood Count AUTO DIFF Stat 09/03/23 09:55 Urine Culture Stat Urine Microscopic Stat Vital Signs Vital signs: Vital Signs - 8 hr 09/03/23 08:54 Temperature 97.2 F L Pulse Rate 93 H Respiratory Rate 18 Blood Pressure 147/72 H Pulse Oximetry 95 Oxygen Delivery Method Room Air MDM - Fall Lab Data 09/03/23 09:46 09/03/23 09:46 Labs: Lab Results 09/03/23 09/03/23 09/03/23 Range/Units 09:43 09:46 09:55 WBC 11.6 H (4.5-11.0) X10^3/uL RBC 4.29 (4.0-5.2) X10^6/uL Hgb 13.6 (12.0-16.0) g/dL Hct 40.7 (36-46) % MCV 95.0 (80-100) fL MCH 31.7 (26-34) PG MCHC 33.4 (30-36) % RDW 14.0 (11.6-14.8) % Plt Count 264 (150-400) X10^3/uL Neut % (Auto) 81.9 H (50-75) % Lymph % (Auto) 9.7 L (25-40) % [place] % (Auto) 7.4 (3-14) % Eos % (Auto) 0.6 L (2-4) % Baso % (Auto) 0.4 (0-2) % Neut # (Auto) 9500 H (3954-5947) /uL Lymph # (Auto) 1100 (4138-4953) /uL [place] # (Auto) 900 (0-900) /uL Eos # (Auto) 100 (0-450) /uL Baso # (Auto) 0 (0-100) /uL Sodium 140 (137-145) mmol/L Potassium 3.7 (3.4-5.1) mmol/L Chloride 111 H (98-107) mmol/L Carbon Dioxide 24 (22-32) mmol/L BUN 14 (7-17) mg/dL Creatinine 0.75 (0.52-1.04) mg/dL Estimated GFR > 60 (>60) mL/min BUN/Creatinine Ratio 18.7 (6-22) Glucose 137 H (80-110) mg/dL Calcium 8.2 L (8.4-10.2) mg/dL Urine RBC 1-5/hpf (0-5/HPF) Urine WBC 5-10/hpf H (0-5/HPF) Ur Squamous Epith Cells 5-10 /hpf H (0-5/HPF) Urine Bacteria Many (>30) H (None) Ur Culture Indicated? Specimen cultured Vol Urine Centrifuged 10ml (spun) SARS-CoV-2 (PCR) Negative (Negative) Influenza A (RT-PCR) Flu a negative (NEGATIVE) Influenza B (RT-PCR) Flu b negative (NEGATIVE) RSV (PCR) Negative (Negative) Urine Dip Bedside Urine Glucose Negative Bedside Urine Bilirubin - Negative Bedside Urine Ketone - Negative Urine Specific [place] 1.030 Bedside Urine Occult Blood +++ Bedside Urine pH 5.5 Bedside Urine Protein +/- 15 Bedside Urine Urobilinogen - Negative Bedside Urine Nitrite + Positive Bedside Urine Leukocytes +/- 15 Esterase Imaging Data rib x-ray: Radiologist's Impression: PROCEDURE: XR RIBS LT MIN 3V W CXR1V INDICATIONS: Fall with rib pain TECHNIQUE: 2 views of the left ribs were acquired, along with a single view chest. COMPARISON: None. FINDINGS: Surgical changes and devices: None. Bones and chest wall: No fractures or dislocations. No suspicious bony lesions. Overlying soft tissues appear unremarkable. Lungs and pleura: No pleural effusions or pneumothorax. Lungs appear clear. Mediastinum: Mediastinal contours appear normal. Heart size is normal. IMPRESSION: No displaced rib fracture or pneumothorax. MDM Narrative Medical decision making narrative: X-ray shows no signs of rib fracture or pneumonia. Urine is not convincing for urinary tract infection. A culture was pending at the time of discharge. COVID and flu were all negative. Patient does not have another source of a potential infection noted on the exam today. There was no indication for antibiotics. I discussed all this with her. Discussed Tylenol and ibuprofen. Discussed return precautions follow-up instructions. She expressed understanding and agreement. Discharge Plan Departure Patient Disposition: Home Clinical Impression: Contusion of rib on left side Instructions: DI for Rib Contusion Activity Restrictions/Additional Instructions: Continue to take all of your medications as directed. You can take Tylenol and or ibuprofen for any body aches or chills. Be sure that you were increasing your fluid intake. Return to the emergency department for new or worsening symptoms. Prescriptions: No Action triamcinolone acetonide 0.1 % cream 1 applictn TOP TID Qty: 80 0RF Rx Instructions: Ok to fill once per MATJ. 08/23/18 fluticasone propionate 50 mcg/actuation spray,suspension 2 spray intranasal BEDTIME Qty: 16 0RF Rx Instructions: administer into each nostril citalopram 20 mg tablet 30 mg PO DAILY Qty: 135 3RF albuterol sulfate 90 mcg/actuation HFA aerosol inhaler 2 puff INHALATION Q4-6H PRN (Reason: shortness of breath or wheezing) Qty: 18 2RF Referrals: Gustavo Eng MD [Primary Care Provider] - Stand Alone Forms: Patient Portal/API
[2023-09-03 10:01] LABS: Add Manual Diff / Slide Review NO; Basophils Absolute Auto 0 /uL (0-100); Basophils Percent Auto 0.4 % (0-2); Eosinophils Absolute Auto 100 /uL (0-450); Eosinophils Percent Auto 0.6 % (2-4); Hematocrit 40.7 % (36-46); Hemoglobin 13.6 g/dL (12.0-16.0); Lymphocytes Absolute Auto 1100 /uL (1100-4500); Lymphocytes Percent Auto 9.7 % (25-40); Mean Corpuscular HGB Conc 33.4 % (30-36); Mean Corpuscular Hemoglobin 31.7 PG (26-34); Monocytes Absolute Auto 900 /uL (0-900); Monocytes Percent Auto 7.4 % (3-14); Neutrophils Absolute Auto 9500 /uL (1500-7000); Neutrophils Percent Auto 81.9 % (50-75); Platelet Count 264 X10^3/uL (150-400); Red Blood Cell Count 4.29 X10^6/uL (4.0-5.2); White Blood Cell Count 11.6 X10^3/uL (4.5-11.0)
[2023-09-03 10:15] LABS: BUN Creatinine Ratio 18.7 (6-22); Blood Urea Nitrogen 14 mg/dL (7-17); Calcium 8.2 mg/dL (8.4-10.2); Carbon Dioxide 24 mmol/L (22-32); Chloride 111 mmol/L (98-107); Estimated Glomerular Filt Rate > 60 mL/min (>60); Glucose 137 mg/dL (80-110); HEMOLYSIS 16 (0-50); Potassium 3.7 mmol/L (3.4-5.1); Sodium 140 mmol/L (137-145)
[2023-09-03 10:19] LABS: Urine Volume 10mL (spun)
[2023-09-03 10:23] LABS: Bacteria Urine Many (>30); Culture Indicated Urine Specimen Cultured; RBC Urine 1-5/HPF (0-5/HPF); Squamous Epithelial Cell Urine 5-10 /HPF (0-5/HPF); WBC Urine 5-10/HPF (0-5/HPF)
[2023-09-03 10:33] LABS: COVID-19 CEPHEID 4-PLEX PCR Negative (Negative); Influenza A - CEPHEID Flu A NEGATIVE (NEGATIVE); Influenza B - CEPHEID Flu B NEGATIVE (NEGATIVE); Respiratory Syncytial Virus Negative (Negative)
[2023-09-03 10:54] VITALS: BP 127/59; PULSE 90; O2SAT 96
== END 2023-09-03 11:12 | disposition home or self-care (01) ==
PROVIDERS: Emergency Provider Emergency Medicine; PCP Internal Medicine
DX: S20.212A Contusion of left front wall of thorax, initial encounter (principal); W18.30XA Fall on same level, unspecified, initial encounter; Z11.52 Encounter for screening for COVID-19
CPT/HCPCS: 0241U; 36415; 71101; 80048; 81003; 81015; 85025; 87077; 87086; 87186; 99282; 99284

== ENCOUNTER → 2024-04-15 10:50 | Outpatient (CLI) | payer MEDICARE, OTHER, SELFPAY ==
[2024-04-15 12:07] LABS: Add Manual Diff / Slide Review NO; Basophils Absolute Auto 0 /uL (0-100); Basophils Percent Auto 0.5 % (0-2); Eosinophils Absolute Auto 100 /uL (0-450); Eosinophils Percent Auto 1.1 % (2-4); Hemoglobin 14.2 g/dL (12.0-16.0); Lymphocytes Absolute Auto 1500 /uL (1100-4500); Lymphocytes Percent Auto 23.6 % (25-40); Mean Corpuscular HGB Conc 33.9 % (30-36); Mean Corpuscular Hemoglobin 32.1 PG (26-34); Mean Corpuscular Volume 94.7 fL (80-100); Monocytes Absolute Auto 500 /uL (0-900); Monocytes Percent Auto 7.4 % (3-14); Neutrophils Absolute Auto 4400 /uL (1500-7000); Neutrophils Percent Auto 67.4 % (50-75); Platelet Count 379 X10^3/uL (150-400); Red Blood Cell Count 4.43 X10^6/uL (4.0-5.2); Red Cell Distribution Width 14.3 % (11.6-14.8); White Blood Cell Count 6.5 X10^3/uL (4.5-11.0)
[2024-04-15 12:38] LABS: Alanine Aminotransferase 12 IU/L (<35); Albumin 3.9 g/dL (3.5-5.0); Albumin Globulin Ratio 1.4 (1.0-2.8); Alkaline Phosphatase 107 U/L (38-126); Aspartate Aminotransferase 22 IU/L (14-36); BUN Creatinine Ratio 16.9 (6-22); Bilirubin Total 0.6 mg/dL (0.2-1.3); Blood Urea Nitrogen 13 mg/dL (7-17); Calcium 8.6 mg/dL (8.4-10.2); Carbon Dioxide 20 mmol/L (22-32); Chloride 110 mmol/L (98-107); Estimated Glomerular Filt Rate > 60 mL/min (>60); Globulin 2.8 g/dL (1.7-4.1); Glucose 87 mg/dL (80-110); HEMOLYSIS < 15 (0-50); Potassium 4.1 mmol/L (3.4-5.1); Sodium 139 mmol/L (137-145); Total Protein 6.7 g/dL (6.3-8.2)
[2024-04-15 12:52] LABS: Erythrocyte Sedimentation Rate 7 MM/HR (0-20)
== END ==
PROVIDERS: PCP Internal Medicine; Referring Provider Internal Medicine; Visit Provider Internal Medicine
DX: R07.9 Chest pain, unspecified (principal)
CPT/HCPCS: 36415; 80053; 85025; 85651

== ENCOUNTER → 2024-04-20 14:25 | Outpatient (CLI) | payer MEDICARE, OTHER, SELFPAY ==
--- NOTE | 2024-04-20 14:26 | DI.US.S_ITS ---
PROCEDURE: US CAROTID DOPPLER BI INDICATIONS: dizziness TECHNIQUE: Color and pulse Doppler interrogation was performed of both carotid systems, with image documentation and velocity measurements. COMPARISON: None. FINDINGS: Stenosis calculations are based on SRU (Society of Radiologists in Ultrasound) criteria. The flow velocities and the arterial waveforms are normal within both carotid arterial systems. Minimal atherosclerotic plaque is seen on both sides. The estimated degree of internal carotid artery stenosis is less than 50%. Antegrade flow is confirmed within both vertebral arteries. IMPRESSION: No hemodynamically significant stenosis is seen. Dictated by: Renny Barrera M.D. on 04/20/2024 at 16:59 Approved by: Renny Barrera M.D. on 04/20/2024 at 16:59
== END ==
PROVIDERS: PCP Internal Medicine; Referring Provider Internal Medicine; Visit Provider Internal Medicine
DX: R42 Dizziness and giddiness (principal)
CPT/HCPCS: 93880

== ENCOUNTER 2024-05-25 14:46 | Emergency (ER) | payer MEDICARE, OTHER, SELFPAY ==
[2024-05-25 14:51] VITALS: BP 142/73; PULSE 104; RESP 17; TEMP 36.6; O2SAT 98
[2024-05-25 15:23] LABS: Add Manual Diff / Slide Review NO; Basophils Absolute Auto 100 /uL (0-100); Basophils Percent Auto 0.7 % (0-2); Eosinophils Absolute Auto 100 /uL (0-450); Eosinophils Percent Auto 0.8 % (2-4); Hematocrit 42.8 % (36-46); Hemoglobin 14.6 g/dL (12.0-16.0); Lymphocytes Absolute Auto 1200 /uL (1100-4500); Lymphocytes Percent Auto 14.2 % (25-40); Mean Corpuscular HGB Conc 34.1 % (30-36); Mean Corpuscular Hemoglobin 32.4 PG (26-34); Monocytes Absolute Auto 900 /uL (0-900); Monocytes Percent Auto 10.8 % (3-14); Neutrophils Absolute Auto 6200 /uL (1500-7000); Neutrophils Percent Auto 73.5 % (50-75); Platelet Count 474 X10^3/uL (150-400); Red Blood Cell Count 4.51 X10^6/uL (4.0-5.2); Red Cell Distribution Width 15.6 % (11.6-14.8); White Blood Cell Count 8.4 X10^3/uL (4.5-11.0)
[2024-05-25 15:32] LABS: INR 1.1 (0.9-1.3); Prothrombin Time 12.2 SECONDS (9.4-12.5)
[2024-05-25 15:34] LABS: PTT Partial Thromboplastin Tim 36 SECONDS (25.1-36.5)
[2024-05-25 15:42] LABS: Alanine Aminotransferase 15 IU/L (<35); Albumin 3.6 g/dL (3.5-5.0); Alkaline Phosphatase 98 U/L (38-126); Aspartate Aminotransferase 28 IU/L (14-36); BUN Creatinine Ratio 21.3 (6-22); Bilirubin Total 1.3 mg/dL (0.2-1.3); Blood Urea Nitrogen 16 mg/dL (7-17); Calcium 8.5 mg/dL (8.4-10.2); Carbon Dioxide 19 mmol/L (22-32); Chloride 110 mmol/L (98-107); Estimated Glomerular Filt Rate > 60 mL/min (>60); Globulin 3.7 g/dL (1.7-4.1); Glucose 148 mg/dL (80-110); Potassium 3.5 mmol/L (3.4-5.1); Sodium 139 mmol/L (137-145); Total Protein 7.3 g/dL (6.3-8.2)
[2024-05-25 15:43] LABS: HEMOLYSIS 66 (0-50)
--- NOTE | 2024-05-25 16:01 | DI.CT.S_ITS ---
PROCEDURE: CT ANGIO ABD/PEL GI BLEED INDICATIONS: GI bleed TECHNIQUE: After the administration of intravenous contrast, 2.5 mm thick sections acquired from the diaphragm to the symphysis. 10 mm maximum-intensity projection (MIP) reformats were then acquired. For radiation dose reduction, the following was used: automated exposure control. COMPARISON: None. FINDINGS: Image Quality: Diagnostic. Abdominal aorta: No aortic aneurysm or evidence of acute aortic syndrome. Mesenteric arteries: Patent without hemodynamically significant stenosis. Renal arteries: Moderate to severe non ostial right renal artery stenosis. Reference coronal reformat image 69 of series 9. Left renal artery is patent. OTHER: Lower Chest: No significant findings. Liver: There is a left lobe liver hemangioma which measures approximately 1.3 x 4.2 x 2.2 cm. Reference coronal image 39 of series 9 and axial image 35 of series 5. Also reference venous phase image 25 of series 11. Gallbladder: Completely filled with stones. No gallbladder wall thickening. No inflammatory change in the adjacent fat. Biliary ducts: No biliary dilation. Pancreas: No ductal dilation. Spleen: Size is within normal limits. Adrenal Glands: 2.1 cm lipid-laden left adrenal adenoma. Kidneys and Ureters: No hydronephrosis. No solid mass. No complex renal cystic lesion which requires follow up. Stomach and Bowel: Normal colonic caliber, without significant wall thickening. Extensive sigmoid diverticulosis without evidence of acute diverticulitis. No active extravasation during the study. Peritoneum: No abnormal intraperitoneal fluid. No free air. Ventral Wall: No hernia. Abdominal Nodes: No retroperitoneal or mesenteric adenopathy by size criteria. Vessels: Aorta and inferior vena cava are normal in size. Internal hemorrhoids are present. There is an associated dilated refluxing inferior mesenteric vein. PELVIS: Pelvic Organs: Unremarkable. Bladder: Unremarkable. Pelvic Nodes: No enlarged lymph nodes. Miscellaneous: No inguinal hernias are seen. Bones: No aggressive osseous abnormality. IMPRESSION: 1. No active extravasation occurred during the study. 2. Extensive sigmoid diverticulosis without evidence of acute diverticulitis. 3. 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 4. Gallbladder is filled with stones. 5. Incidental hemangioma, left lobe of liver, 4.2 cm. Dictated by: Trent Casey M.D. on 05/25/2024 at 16:31 Approved by: Trent Casey M.D. on 05/25/2024 at 16:40
[2024-05-25 16:17] LABS: Urine Volume 10mL (spun)
[2024-05-25 16:18] LABS: Amorphous Sediment Urine 2+; Bacteria Urine Many (>30); Culture Indicated Urine Specimen Cultured; RBC Urine 5-10/HPF (0-5/HPF); Squamous Epithelial Cell Urine 5-10 /HPF (0-5/HPF); WBC Urine 5-10/HPF (0-5/HPF)
[2024-05-25 17:42] LABS: Hematocrit 40.2 % (36-46); Hemoglobin 13.3 g/dL (12.0-16.0)
--- NOTE | 2024-05-25 17:52 | ED_ITS ---
HPI - GI Bleed General Chief complaint: GI Bleed Stated complaint: nausea and vomiting since 05/07 Time Seen by Provider: 05/25/24 16:01 History of Present Illness HPI Narrative: 74-year-old female denies prior history of gastrointestinal bleeding, she has had lower endoscopy screening years ago and recalls having colonic polyps which were removed, no GI cancers recalled, no upper endoscopy recalled, a few days ago she had nausea and vomiting of some small flecks of red blood. She has had intermittent lower abdominal discomfort, and bright red blood per rectum a couple of times, last bowel movement yesterday. No black or red stools. Related Data Previous Rx's Medication Instructions Recorded triamcinolone acetonide 0.1 % 1 applictn topical TID #80 grams 08/23/18 topical cream fluticasone propionate 50 2 spray intranasal BEDTIME #16 03/14/22 mcg/actuation nasal grams spray,suspension albuterol sulfate 90 mcg/actuation 2 puff inhalation Q4-6H PRN 06/22/23 aerosol inhaler shortness of breath or wheezing #18 grams citalopram 20 mg tablet 30 mg (1.5 x 20 mg) PO DAILY #135 06/22/23 tabs omeprazole 20 mg capsule,delayed 20 mg PO DAILY upper abdominal 05/25/24 release pain 30 days #30 caps Allergies Allergy/AdvReac Type Severity Reaction Status Date / Time No Known Drug Allergies Allergy Verified 05/25/24 14:57 Patient History Medical History Hx of adenomatous colonic polyps Chronic asthma Chronic renal failure, stage 3 (moderate) Depression Anxiety Chronic headaches Surgical History History of ankle surgery Social History household members: spouse Smoking Status: Former smoker Smoking Status: Former smoker alcohol intake frequency: 0-2 drinks per day Exam Narrative Exam Narrative: GENERAL: Well-developed patient, in mild distress. HEAD: Atraumatic. Normocephalic. EYES: Pupils equal round and reactive. Extraocular motions intact. No scleral icterus. No injection or drainage. ENT: Nose without bleeding, purulent drainage. Throat without erythema, tonsillar hypertrophy or exudate. Airway patent. NECK: Trachea midline. Non tender CARDIOVASCULAR: Regular rate and rhythm without murmurs, gallops, or rubs. RESPIRATORY: Clear to auscultation. Breath sounds equal bilaterally. No wheezes, rales, or rhonchi. GASTROINTESTINAL: Abdomen soft, non-tender, nondistended. EXTREMITIES: No edema or joint tenderness. BACK: Nontender without deformity or crepitance. No flank tenderness. NEURO: AOx3. Motor functions grossly nonfocal SKIN: No rash or erythema of visible areas Initial Vital Signs Initial Vital Signs: Vital Signs Temperature 98 F 05/25/24 14:51 Pulse Rate 104 H 05/25/24 14:51 Respiratory Rate 17 05/25/24 14:51 Blood Pressure 142/73 H 05/25/24 14:51 Pulse Oximetry 98 05/25/24 14:51 Oxygen Delivery Method Room Air 05/25/24 14:51 Course Orders Ordered: Discontinued Medications Ondansetron HCl (Ondansetron 4 Mg/2 Ml Inj) 4 mg IV NOW PRN PRN Reason: Nausea And Vomiting Ondansetron HCl (Ondansetron 4 Mg Odt) 4 mg SL NOW PRN PRN Reason: Nausea And Vomiting Ondansetron HCl (Ondansetron 4 Mg Odt Prepack) 1 bottle MISC DIRECTED ONE Stop: 05/25/24 18:38 Last Admin: 05/25/24 18:44 Dose: 1 bottle Documented By: HERMES Vital Signs Vital signs: Vital Signs - 8 hr 05/25/24 14:51 Temperature 98 F Pulse Rate 104 H Respiratory Rate 17 Blood Pressure 142/73 H Pulse Oximetry 98 Oxygen Delivery Method Room Air MDM - GI Bleed Lab Data Attestation: I reviewed the patient's lab results. Lab results narrative: White blood cell count 8400, hemoglobin 14.6, platelets 474,000. Glucose 148 normal. Electrolytes unremarkable. BUN and creatinine normal. Repeat hemoglobin 13.3. Liver functions normal. INR normal. 05/25/24 17:35 05/25/24 15:12 Labs: Lab Results 05/25/24 05/25/24 05/25/24 Range/Units 15:12 16:05 17:35 WBC 8.4 (4.5-11.0) X10^3/uL RBC 4.51 (4.0-5.2) X10^6/uL Hgb 14.6 13.3 (12.0-16.0) g/dL Hct 42.8 40.2 (36-46) % MCV 95.0 (80-100) fL MCH 32.4 (26-34) PG MCHC 34.1 (30-36) % RDW 15.6 H (11.6-14.8) % Plt Count 474 H (150-400) X10^3/uL Neut % (Auto) 73.5 (50-75) % Lymph % (Auto) 14.2 L (25-40) % [place] % (Auto) 10.8 (3-14) % Eos % (Auto) 0.8 L (2-4) % Baso % (Auto) 0.7 (0-2) % Neut # (Auto) 6200 (2120-7782) /uL Lymph # (Auto) 1200 (7250-1035) /uL [place] # (Auto) 900 (0-900) /uL Eos # (Auto) 100 (0-450) /uL Baso # (Auto) 100 (0-100) /uL PT 12.2 (9.4-12.5) SECONDS INR 1.1 (0.9-1.3) APTT 36 (25.1-36.5) SECONDS Sodium 139 (137-145) mmol/L Potassium 3.5 (3.4-5.1) mmol/L Chloride 110 H (98-107) mmol/L Carbon Dioxide 19 L (22-32) mmol/L BUN 16 (7-17) mg/dL Creatinine 0.75 (0.52-1.04) mg/dL Estimated GFR > 60 (>60) mL/min BUN/Creatinine Ratio 21.3 (6-22) Glucose 148 H (80-110) mg/dL Calcium 8.5 (8.4-10.2) mg/dL Total Bilirubin 1.3 (0.2-1.3) mg/dL AST 28 (14-36) IU/L ALT 15 (<35) IU/L Alkaline Phosphatase 98 (38-126) U/L Total Protein 7.3 (6.3-8.2) g/dL Albumin 3.6 (3.5-5.0) g/dL Globulin 3.7 (1.7-4.1) g/dL Albumin/Globulin Ratio 1.0 (1.0-2.8) Urine RBC 5-10/hpf H (0-5/HPF) Urine WBC 5-10/hpf H (0-5/HPF) Ur Squamous Epith Cells 5-10 /hpf H (0-5/HPF) Amorphous Sediment 2+ Urine Bacteria Many (>30) H (None) Ur Culture Indicated? Specimen cultured Vol Urine Centrifuged 10ml (spun) Urine Dip Bedside Urine Glucose Negative Bedside Urine Bilirubin ++ 2 Bedside Urine Ketone ++ 40 Urine Specific [place] 1.025 Bedside Urine Occult Blood ++ Bedside Urine pH 6.0 Bedside Urine Protein + 30 Bedside Urine Urobilinogen 1+ 2mg Bedside Urine Nitrite + Positive Bedside Urine Leukocytes ++ 125 Esterase MDM Narrative Medical decision making narrative: 74-year-old female with blood flecks emesis a few days ago, occasional blood with bowel movements. No fever, no abdominal discomfort on exam. Sirs screen negative. White blood cell count normal, hemoglobin good reserve 14 noted, normal platelets, normal INR. CT abdomen and pelvis imaging GI bleed protocol ordered. CT angiogram abdomen and pelvis, no obvious source of GI bleeding, diverticulosis with diverticulitis noted. See radiology report. Case discussed with surgery on-call Dr Morales, who does upper/lower endoscopies in this area, Dr. Morales, does not feel that patient needs to be admitted at this time and would advise patient follow up for outpatient endoscopy services for now. Discussed recommendation with patient/family, advised use of omeprazole for now, follow up for endoscopy. DC home with family. Return precautions discussed. Discharge Plan Departure Patient Disposition: Home Clinical Impression: Gastrointestinal bleeding Activity Restrictions/Additional Instructions: Recent emesis with blood flecks a few days ago, occasional rectal blood as well. Abdomen exam benign. Vital signs normal. Hemoglobin normal range, no coagulopathy, you are not on blood thinner medications. CT angiogram of the abdomen and pelvis showed no active bleeding, no active abdominopelvic process. Case discussed with surgery Dr. Morales here who felt that you did not need emergent upper or lower endoscopy at this time, but could be scheduled as an outpatient. We will treat with antinausea medication to use if needed. We will treat with antacids to use regularly until follow up arrange. Follow up with your regular doctor to reschedule your upper and/or lower endoscopy procedures. Return to this/nearest emergency department for any change worsening symptoms or any concerns prior. Prescriptions: New omeprazole 20 mg capsule,delayed release(DR/EC) 20 mg PO DAILY 30 Days Qty: 30 0RF No Action triamcinolone acetonide 0.1 % cream 1 applictn TOP TID Qty: 80 0RF Rx Instructions: Ok to fill once per MATJ. 08/23/18 fluticasone propionate 50 mcg/actuation spray,suspension 2 spray intranasal BEDTIME Qty: 16 0RF Rx Instructions: administer into each nostril citalopram 20 mg tablet 30 mg PO DAILY Qty: 135 3RF albuterol sulfate 90 mcg/actuation HFA aerosol inhaler 2 puff INHALATION Q4-6H PRN (Reason: shortness of breath or wheezing) Qty: 18 2RF Referrals: Gustavo Eng MD [Primary Care Provider] - Stand Alone Forms: Patient Portal/API/Survey
[2024-05-25] MEDS: ONDANSETRON 4 MG ODT PREPACK 1 BOTTLE MISC (18:44)
[2024-05-25 18:49] VITALS: BP 145/73; PULSE 100; RESP 20; TEMP 36.4; O2SAT 99
== END 2024-05-25 18:50 | disposition home or self-care (01) ==
PROVIDERS: Emergency Provider Emergency Medicine; PCP Internal Medicine
DX: K92.2 Gastrointestinal hemorrhage, unspecified (principal); R10.30 Lower abdominal pain, unspecified
CPT/HCPCS: 36415; 74174; 80053; 81003; 81015; 85014; 85018; 85025; 85610; 85730; 87077; 87086; 87186; 99283; 99284; Q9967

== ENCOUNTER 2024-06-16 11:24 | Emergency (ER) | payer MEDICARE, OTHER, SELFPAY ==
[2024-06-16] VITALS (9 sets, daily range): BP systolic 106–140; BP diastolic 57–74; PULSE 74–92; RESP 13–18; O2SAT 97–99; BMI 27.5
--- NOTE | 2024-06-16 11:28 | DI.RAD.S_ITS ---
PROCEDURE: XR CHEST 1V INDICATIONS: chest pain TECHNIQUE: One view of the chest was acquired. COMPARISON: [facility], CR, XR CHEST 1V, 11/11/2019, 14:03. FINDINGS: Surgical changes and devices: None. Lungs and pleura: Lungs are clear. No pleural effusions or pneumothorax. Mediastinum: Mediastinal contours appear normal. Heart size is enlarged. Bones and chest wall: No suspicious bony lesions. Overlying soft tissues appear unremarkable. IMPRESSION: No acute pulmonary process. Dictated by: Lesley Dimas M.D. on 06/16/2024 at 12:10 Approved by: Lesley Dimas M.D. on 06/16/2024 at 12:10
--- NOTE | 2024-06-16 11:30 | EKG_ITS ---
[address] [address] Test Date: 2024-06-16 Pat Name: Betsy Tellez Department: Room: Gender: Female R&D Engineer: NACHO : 1950 Requested By: Order Number: [id number] Reading MD: El Reyes Measurements Intervals [place] Rate: 83 P: 48 DE: 128 QRS: 10 QRSD: 84 T: 61 QT: 402 QTc: 472 Interpretive Statements Normal sinus rhythm Electronically Signed On 06-16-2024 17:06:32 PDT by El Reyes
[2024-06-16 11:42] LABS: Add Manual Diff / Slide Review NO; Basophils Absolute Auto 0 /uL (0-100); Basophils Percent Auto 0.4 % (0-2); Eosinophils Absolute Auto 0 /uL (0-450); Eosinophils Percent Auto 0.4 % (2-4); Hematocrit 42.7 % (36-46); Hemoglobin 14.4 g/dL (12.0-16.0); Lymphocytes Absolute Auto 1800 /uL (1100-4500); Lymphocytes Percent Auto 18.9 % (25-40); Mean Corpuscular HGB Conc 33.7 % (30-36); Mean Corpuscular Hemoglobin 32.2 PG (26-34); Mean Corpuscular Volume 95.6 fL (80-100); Monocytes Absolute Auto 800 /uL (0-900); Monocytes Percent Auto 8.4 % (3-14); Neutrophils Absolute Auto 6700 /uL (1500-7000); Neutrophils Percent Auto 71.9 % (50-75); Platelet Count 423 X10^3/uL (150-400); Red Blood Cell Count 4.47 X10^6/uL (4.0-5.2); Red Cell Distribution Width 16.2 % (11.6-14.8); White Blood Cell Count 9.4 X10^3/uL (4.5-11.0)
[2024-06-16 11:45] LABS: Prothrombin Time 11.7 SECONDS (9.4-12.5)
[2024-06-16 11:48] LABS: PTT Partial Thromboplastin Tim 34 SECONDS (25.1-36.5)
[2024-06-16 11:49] LABS: Alanine Aminotransferase 16 IU/L (<35); Albumin 3.3 g/dL (3.5-5.0); Alkaline Phosphatase 111 U/L (38-126); Aspartate Aminotransferase 28 IU/L (14-36); BUN Creatinine Ratio 21.3 (6-22); Bilirubin Total 0.9 mg/dL (0.2-1.3); Blood Urea Nitrogen 17 mg/dL (7-17); Calcium 8.7 mg/dL (8.4-10.2); Carbon Dioxide 21 mmol/L (22-32); Chloride 109 mmol/L (98-107); Creatine Kinase 29 U/L (30-135); Estimated Glomerular Filt Rate > 60 mL/min (>60); Globulin 3.4 g/dL (1.7-4.1); Glucose 156 mg/dL (70-99); HEMOLYSIS < 15 (0-50); Lipase 58 U/L (23-300); Magnesium 1.6 mg/dL (1.6-2.3); Potassium 3.6 mmol/L (3.4-5.1); Sodium 138 mmol/L (137-145); Total Protein 6.7 g/dL (6.3-8.2)
[2024-06-16 12:01] LABS: NT-proBNP (BNP-Adult 18+) 320 pg/mL (<125); Troponin I < 0.012 ng/mL (0.01-0.034)
--- NOTE | 2024-06-16 12:17 | ED.SYNCOPE ---
HPI - Syncope <Chaz Howard MD - Last Filed: 06/20/24 18:29> General Chief Complaint: Syncope Stated Complaint: Syncope Time Seen by Provider: 06/16/24 12:15 Source: patient Mode of arrival: EMS Limitations: no limitations History of Present Illness HPI narrative: This is a 74-year-old female brought in by EMS after having a near syncopal episode at a thrift store earlier today. Patient reports not feeling well complaining of nutritional issues for the last 5-6 weeks. She reports nausea and vomiting 3 times in the last 24 hours. No diarrhea. No abdominal pain. She does admit to having chills and sweats for the last 3 weeks. She denies cough but admits to shortness of breath for the last 4 weeks with some wheezing. She denies any chest pain. She denies any dysuria but she did complain of back pain earlier today. She denies alcohol or illicit drug use. She reportedly walks independently. This morning she had 5 spoonfuls of oatmeal for breakfast. She currently lives with her daughter. She is still mildly lightheaded and mildly nauseated at this time. Related Data Previous Rx's Medication Instructions Recorded triamcinolone acetonide 0.1 % 1 applictn topical TID #80 grams 08/23/18 topical cream fluticasone propionate 50 2 spray intranasal BEDTIME #16 03/14/22 mcg/actuation nasal grams spray,suspension albuterol sulfate 90 mcg/actuation 2 puff inhalation Q4-6H PRN 06/22/23 aerosol inhaler shortness of breath or wheezing #18 grams omeprazole 20 mg capsule,delayed 20 mg PO DAILY upper abdominal 05/25/24 release pain 30 days #30 caps ondansetron 4 mg disintegrating 4 mg PO Q8H PRN nausea and 05/27/24 tablet vomiting #7 tabs citalopram 20 mg tablet 30 mg (1.5 x 20 mg) PO DAILY #135 06/09/24 tabs nitrofurantoin 100 mg PO Q12H 5 days #10 caps 06/18/24 monohydrate/macrocrystals 100 mg capsule (Macrobid) Allergies Allergy/AdvReac Type Severity Reaction Status Date / Time No Known Drug Allergies Allergy Verified 06/03/24 10:31 Review of Systems <Chaz Howard MD - Last Filed: 06/20/24 18:29> Review of Systems ROS Unobtainable: All systems reviewed & are unremarkable except as noted in HPI and below Patient History <Chaz Howard MD - Last Filed: 06/20/24 18:29> Medical History Hx of adenomatous colonic polyps Chronic asthma Chronic renal failure, stage 3 (moderate) Depression Anxiety Chronic headaches Surgical History History of ankle surgery Social History household members: spouse Smoking Status: Never smoker Smoking Status: Never smoker alcohol intake frequency: 0-2 drinks per day Exam <Chaz Howard MD - Last Filed: 06/20/24 18:29> Narrative Exam Narrative: Focused physical exam as follows: General: Well developed, well nourished HEENT: pink palpebral conjunctiva, anicteric sclera, IMTALI, moist mucous membranes Lungs; no respiratory distress, clear to auscultation without wheezes or crackles; equal breath sounds Heart: normal rate, regular rhythm, no appreciable murmurs Abdomen: soft, nontender, no rebound or rigidity Extremities: no pedal edema Neuro: AAOx3, GCS 15, nonfocal exam Psyche: no SI/HI, normal affect Initial Vital Signs Initial Vital Signs: Vital Signs Pulse Rate 81 06/16/24 11:30 Respiratory Rate 16 06/16/24 11:30 Blood Pressure 127/60 06/16/24 11:30 Pulse Oximetry 97 06/16/24 11:30 Oxygen Delivery Method Room Air 06/16/24 11:30 <Manuela Lopez MD - Last Filed: 06/16/24 18:11> Initial Vital Signs Initial Vital Signs: Vital Signs Pulse Rate 81 06/16/24 11:30 Respiratory Rate 16 06/16/24 11:30 Blood Pressure 127/60 06/16/24 11:30 Pulse Oximetry 97 06/16/24 11:30 Oxygen Delivery Method Room Air 06/16/24 11:30 Course <Chaz Howard MD - Last Filed: 06/20/24 18:29> Course Course Narrative: Pt interviewed and examined. AAOx3. GCS 15. Nonfocal neuro exam. VS noted to be stable. Work up initiated. Bedside EKG showed no ST elevation or ectopy. Work up initiated. IVF bolus, Zofran ordered while awaiting studies. Labs reviewed - reassuring although still awaiting urine sample to rule out UTI. Orthostatic VS checked and positive. Additional IVF bolus ordered. Transferred care to Dr. Lopez @ 1630 with work up and disposition pending. Chaz Howard MD 06/16/24 1600 Orders Ordered: Discontinued Medications Sodium Chloride (Normal Saline 0.9%) 1,000 mls @ 1,000 mls/hr IV BOLUS ONE Stop: 06/16/24 13:37 Last Infusion: 06/16/24 15:11 Dose: Infused Documented By: Admin: 06/16/24 13:44 Dose: 1,000 mls/hr Documented By: BRENDAN Sodium Chloride (Normal Saline 0.9%) 1,000 mls @ 1,000 mls/hr IV BOLUS ONE Stop: 06/16/24 16:17 Last Infusion: 06/16/24 16:37 Dose: Infused Documented By: Admin: 06/16/24 15:22 Dose: 1,000 mls/hr Documented By: BRENDAN Ondansetron HCl (Ondansetron 4 Mg/2 Ml Inj) 4 mg IV NOW ONE Stop: 06/16/24 12:39 Last Admin: 06/16/24 13:45 Dose: 4 mg Documented By: CTS Vital Signs Vital signs: Vital Signs - 8 hr 06/16/24 11:30 06/16/24 11:30 06/16/24 12:00 Pulse Rate 81 84 79 Pulse Rate [Orthostatic Lying] Pulse Rate [Orthostatic Sitting] Pulse Rate [Orthostatic Standing] Respiratory Rate 16 18 16 Blood Pressure 127/60 132/63 127/59 L Blood Pressure [Orthostatic Lying] Blood Pressure [Orthostatic Sitting] Blood Pressure [Orthostatic Standing] Pulse Oximetry 97 98 97 Oxygen Delivery Method Room Air Room Air Room Air 06/16/24 13:00 06/16/24 13:30 06/16/24 14:00 Pulse Rate 75 75 74 Pulse Rate [Orthostatic Lying] Pulse Rate [Orthostatic Sitting] Pulse Rate [Orthostatic Standing] Respiratory Rate 13 17 15 Blood Pressure 121/58 L 132/59 L 128/60 Blood Pressure [Orthostatic Lying] Blood Pressure [Orthostatic Sitting] Blood Pressure [Orthostatic Standing] Pulse Oximetry 98 98 98 Oxygen Delivery Method Room Air Room Air Room Air 06/16/24 15:17 06/16/24 16:35 06/16/24 16:57 Pulse Rate 76 Pulse Rate [Orthostatic Lying] 77 92 H Pulse Rate [Orthostatic Sitting] 89 88 Pulse Rate [Orthostatic Standing] 88 80 Respiratory Rate 16 Blood Pressure 136/74 Blood Pressure [Orthostatic Lying] 130/60 128/58 L Blood Pressure [Orthostatic Sitting] 120/57 L 134/63 Blood Pressure [Orthostatic Standing] 106/62 137/64 Pulse Oximetry 97 Oxygen Delivery Method Room Air <Manuela Lopez MD - Last Filed: 06/16/24 18:11> Orders Ordered: Discontinued Medications Sodium Chloride (Normal Saline 0.9%) 1,000 mls @ 1,000 mls/hr IV BOLUS ONE Stop: 06/16/24 13:37 Last Infusion: 06/16/24 15:11 Dose: Infused Documented By: Admin: 06/16/24 13:44 Dose: 1,000 mls/hr Documented By: CTS Sodium Chloride (Normal Saline 0.9%) 1,000 mls @ 1,000 mls/hr IV BOLUS ONE Stop: 06/16/24 16:17 Last Infusion: 06/16/24 16:37 Dose: Infused Documented By: Admin: 06/16/24 15:22 Dose: 1,000 mls/hr Documented By: CTS Ondansetron HCl (Ondansetron 4 Mg/2 Ml Inj) 4 mg IV NOW ONE Stop: 06/16/24 12:39 Last Admin: 06/16/24 13:45 Dose: 4 mg Documented By: CTS Vital Signs Vital signs: Vital Signs - 8 hr 06/16/24 11:30 06/16/24 11:30 06/16/24 12:00 Pulse Rate 81 84 79 Pulse Rate [Orthostatic Lying] Pulse Rate [Orthostatic Sitting] Pulse Rate [Orthostatic Standing] Respiratory Rate 16 18 16 Blood Pressure 127/60 132/63 127/59 L Blood Pressure [Orthostatic Lying] Blood Pressure [Orthostatic Sitting] Blood Pressure [Orthostatic Standing] Pulse Oximetry 97 98 97 Oxygen Delivery Method Room Air Room Air Room Air 06/16/24 13:00 06/16/24 13:30 06/16/24 14:00 Pulse Rate 75 75 74 Pulse Rate [Orthostatic Lying] Pulse Rate [Orthostatic Sitting] Pulse Rate [Orthostatic Standing] Respiratory Rate 13 17 15 Blood Pressure 121/58 L 132/59 L 128/60 Blood Pressure [Orthostatic Lying] Blood Pressure [Orthostatic Sitting] Blood Pressure [Orthostatic Standing] Pulse Oximetry 98 98 98 Oxygen Delivery Method Room Air Room Air Room Air 06/16/24 15:17 06/16/24 16:35 06/16/24 16:57 Pulse Rate 76 Pulse Rate [Orthostatic Lying] 77 92 H Pulse Rate [Orthostatic Sitting] 89 88 Pulse Rate [Orthostatic Standing] 88 80 Respiratory Rate 16 Blood Pressure 136/74 Blood Pressure [Orthostatic Lying] 130/60 128/58 L Blood Pressure [Orthostatic Sitting] 120/57 L 134/63 Blood Pressure [Orthostatic Standing] 106/62 137/64 Pulse Oximetry 97 Oxygen Delivery Method Room Air MDM - Syncope <Chaz Howard MD - Last Filed: 06/20/24 18:29> Lab Data 06/16/24 11:30 06/16/24 11:30 Labs: Lab Results 06/16/24 06/16/24 06/16/24 Range/Units 11:30 12:46 18:15 WBC 9.4 (4.5-11.0) X10^3/uL RBC 4.47 (4.0-5.2) X10^6/uL Hgb 14.4 (12.0-16.0) g/dL Hct 42.7 (36-46) % MCV 95.6 (80-100) fL MCH 32.2 (26-34) PG MCHC 33.7 (30-36) % RDW 16.2 H (11.6-14.8) % Plt Count 423 H (150-400) X10^3/uL Neut % (Auto) 71.9 (50-75) % Lymph % (Auto) 18.9 L (25-40) % [place] % (Auto) 8.4 (3-14) % Eos % (Auto) 0.4 L (2-4) % Baso % (Auto) 0.4 (0-2) % Neut # (Auto) 6700 (3784-1245) /uL Lymph # (Auto) 1800 (9768-3479) /uL [place] # (Auto) 800 (0-900) /uL Eos # (Auto) 0 (0-450) /uL Baso # (Auto) 0 (0-100) /uL PT 11.7 (9.4-12.5) SECONDS INR 1.0 (0.9-1.3) APTT 34 (25.1-36.5) SECONDS Sodium 138 (137-145) mmol/L Potassium 3.6 (3.4-5.1) mmol/L Chloride 109 H (98-107) mmol/L Carbon Dioxide 21 L (22-32) mmol/L BUN 17 (7-17) mg/dL Creatinine 0.80 (0.52-1.04) mg/dL Estimated GFR > 60 (>60) mL/min BUN/Creatinine Ratio 21.3 (6-22) Glucose 156 H (70-99) mg/dL Calcium 8.7 (8.4-10.2) mg/dL Magnesium 1.6 (1.6-2.3) mg/dL Total Bilirubin 0.9 (0.2-1.3) mg/dL AST 28 (14-36) IU/L ALT 16 (<35) IU/L Alkaline Phosphatase 111 (38-126) U/L Total Creatine Kinase 29 L (30-135) U/L Troponin I < 0.012 < 0.012 (0.01-0.034) ng/mL NT-Pro-B Natriuret Pep 320 H (<125) pg/mL Total Protein 6.7 (6.3-8.2) g/dL Albumin 3.3 L (3.5-5.0) g/dL Globulin 3.4 (1.7-4.1) g/dL Albumin/Globulin Ratio 1.0 (1.0-2.8) Lipase 58 (23-300) U/L Urine Color Yellow Urine Appearance Clear Urine pH 5.5 (4.5-8.0) Ur Specific [place] 1.020 (1.000-1.035) Urine Protein Negative (Negative) Urine Glucose (UA) Negative (Negative) g/dL Urine Ketones 1+ H (NEGATIVE) Urine Occult Blood 1+ H (Negative) Urine Nitrate Positive H (Negative) Urine Bilirubin Negative (NEGATIVE) Urine Urobilinogen 1.0 (0.2) E.U./dL Ur Leukocyte Esterase 1+ H (NEGATIVE) Urine RBC 1-5/hpf (0-5/HPF) Urine WBC 5-10/hpf H (0-5/HPF) Ur Squamous Epith Cells 1-5 /hpf (0-5/HPF) Amorphous Sediment 1+ Urine Bacteria Moderate (10-30) H (None) Ur Culture Indicated? Specimen cultured Vol Urine Centrifuged 10ml (spun) ECG Data Interpretation: 1245 - NSR @ 83; no STTW changes; QTc 402 <Manuela Lopez MD - Last Filed: 06/16/24 18:11> Differential Diagnosis Differential diagnosis: Likely syncope due to orthostatic hypotension, vasovagal syncope and dehydration Condition is:: Improved Chronic Condition is having:: Mild excerbation Condition is at treatment goal?: Yes Discussed with:: Nurse taking care of patient as patient wanting to catch ferry. Medical Records Medical records narrative: Patient was not able to give a urine for a UA. She did get 2 liters of NS and felt better. Was no longer orthostatic. Wanted to [place] ferry . Advised to follow-up next 5-7 days Lab Data Attestation: I reviewed the patient's lab results. Labs: Lab Results 06/16/24 06/16/24 06/16/24 Range/Units 11:30 12:46 18:15 WBC 9.4 (4.5-11.0) X10^3/uL RBC 4.47 (4.0-5.2) X10^6/uL Hgb 14.4 (12.0-16.0) g/dL Hct 42.7 (36-46) % MCV 95.6 (80-100) fL MCH 32.2 (26-34) PG MCHC 33.7 (30-36) % RDW 16.2 H (11.6-14.8) % Plt Count 423 H (150-400) X10^3/uL Neut % (Auto) 71.9 (50-75) % Lymph % (Auto) 18.9 L (25-40) % [place] % (Auto) 8.4 (3-14) % Eos % (Auto) 0.4 L (2-4) % Baso % (Auto) 0.4 (0-2) % Neut # (Auto) 6700 (5235-1649) /uL Lymph # (Auto) 1800 (7113-0057) /uL [place] # (Auto) 800 (0-900) /uL Eos # (Auto) 0 (0-450) /uL Baso # (Auto) 0 (0-100) /uL PT 11.7 (9.4-12.5) SECONDS INR 1.0 (0.9-1.3) APTT 34 (25.1-36.5) SECONDS Sodium 138 (137-145) mmol/L Potassium 3.6 (3.4-5.1) mmol/L Chloride 109 H (98-107) mmol/L Carbon Dioxide 21 L (22-32) mmol/L BUN 17 (7-17) mg/dL Creatinine 0.80 (0.52-1.04) mg/dL Estimated GFR > 60 (>60) mL/min BUN/Creatinine Ratio 21.3 (6-22) Glucose 156 H (70-99) mg/dL Calcium 8.7 (8.4-10.2) mg/dL Magnesium 1.6 (1.6-2.3) mg/dL Total Bilirubin 0.9 (0.2-1.3) mg/dL AST 28 (14-36) IU/L ALT 16 (<35) IU/L Alkaline Phosphatase 111 (38-126) U/L Total Creatine Kinase 29 L (30-135) U/L Troponin I < 0.012 < 0.012 (0.01-0.034) ng/mL NT-Pro-B Natriuret Pep 320 H (<125) pg/mL Total Protein 6.7 (6.3-8.2) g/dL Albumin 3.3 L (3.5-5.0) g/dL Globulin 3.4 (1.7-4.1) g/dL Albumin/Globulin Ratio 1.0 (1.0-2.8) Lipase 58 (23-300) U/L Urine Color Yellow Urine Appearance Clear Urine pH 5.5 (4.5-8.0) Ur Specific [place] 1.020 (1.000-1.035) Urine Protein Negative (Negative) Urine Glucose (UA) Negative (Negative) g/dL Urine Ketones 1+ H (NEGATIVE) Urine Occult Blood 1+ H (Negative) Urine Nitrate Positive H (Negative) Urine Bilirubin Negative (NEGATIVE) Urine Urobilinogen 1.0 (0.2) E.U./dL Ur Leukocyte Esterase 1+ H (NEGATIVE) Urine RBC 1-5/hpf (0-5/HPF) Urine WBC 5-10/hpf H (0-5/HPF) Ur Squamous Epith Cells 1-5 /hpf (0-5/HPF) Amorphous Sediment 1+ Urine Bacteria Moderate (10-30) H (None) Ur Culture Indicated? Specimen cultured Vol Urine Centrifuged 10ml (spun) Discharge Plan Departure Patient Disposition: Home Clinical Impression: Orthostatic hypotension Activity Restrictions/Additional Instructions: Stay well hydrated. Follow-up in the next 5-7 days for re-evaluation. Return to ER for any further syncopal episodes or dizziness. Prescriptions: New nitrofurantoin monohyd/m-cryst [Macrobid] 100 mg capsule 100 mg PO Q12H 5 Days Qty: 10 0RF Rx Instructions: must administer with a meal/food No Action triamcinolone acetonide 0.1 % cream 1 applictn TOP TID Qty: 80 0RF Rx Instructions: Ok to fill once per MATJ. 08/23/18 ondansetron 4 mg tablet,disintegrating 4 mg PO Q8H PRN (Reason: nausea and vomiting) Qty: 7 0RF citalopram 20 mg tablet 30 mg PO DAILY Qty: 135 3RF fluticasone propionate 50 mcg/actuation spray,suspension 2 spray intranasal BEDTIME Qty: 16 0RF Rx Instructions: administer into each nostril albuterol sulfate 90 mcg/actuation HFA aerosol inhaler 2 puff INHALATION Q4-6H PRN (Reason: shortness of breath or wheezing) Qty: 18 2RF omeprazole 20 mg capsule,delayed release(DR/EC) 20 mg PO DAILY 30 Days Qty: 30 0RF Referrals: Gustavo Eng MD [Primary Care Provider] - Stand Alone Forms: Patient Portal/API/Survey
[2024-06-16 13:21] LABS: Troponin I < 0.012 ng/mL (0.01-0.034)
[2024-06-16] MEDS: SODIUM CHLORIDE 0.9% 1,000 ML 1000 ML IV ×2 (13:44→15:22)
[2024-06-16] MEDS: ONDANSETRON 4 MG/2 ML INJ IV (13:45)
--- NOTE | 2024-06-16 18:19 | PC.NURSE ---
Provider notified of urine POC. Wants to send for UA/micro and follow up if culture grows anything. No new orders at this time. Okay to d/c.
[2024-06-16 18:24] LABS: Appearance Urine UA CLEAR; Bilirubin Urine UA NEGATIVE (NEGATIVE); Color Urine UA YELLOW; Glucose Urine UA NEGATIVE (Negative); Ketones Urine UA 1+ (NEGATIVE); Leukocyte Esterase Urine UA 1+ (NEGATIVE); Nitrite Urine UA POSITIVE (Negative); Occult Blood Urine UA 1+ (Negative); Protein Urine UA NEGATIVE (Negative)
[2024-06-16 18:34] LABS: pH Urine UA 5.5 (4.5-8.0)
[2024-06-16 18:37] LABS: Amorphous Sediment Urine 1+; Bacteria Urine Moderate (10-30); Culture Indicated Urine Specimen Cultured; RBC Urine 1-5/HPF (0-5/HPF); Squamous Epithelial Cell Urine 1-5 /HPF (0-5/HPF); Urine Volume 10mL (spun); WBC Urine 5-10/HPF (0-5/HPF)
== END 2024-06-16 18:22 | disposition home or self-care (01) ==
PROVIDERS: Emergency Medicine; Emergency Provider Emergency Medicine; PCP Internal Medicine
DX: I95.1 Orthostatic hypotension (principal); R11.2 Nausea with vomiting, unspecified
CPT/HCPCS: 36415; 71045; 80053; 81001; 82550; 83690; 83735; 83880; 84484; 85025; 85610; 85730; 87077; 87086; 87186; 93005; 96361; 96374; 99284; J2405

== ENCOUNTER 2024-07-04 09:51 | Emergency (ER) | payer MEDICARE, OTHER, SELFPAY ==
[2024-07-04] VITALS (8 sets, daily range): BP systolic 110–140; BP diastolic 57–65; PULSE 75–96; RESP 12–18; TEMP 36.4; O2SAT 95–98; BMI 27.5
--- NOTE | 2024-07-04 10:15 | PC.NURSE ---
Pt came to ED today because she has been having worsening n/v and aversion to PO intake since colonoscopy in April. States that sx started after colonoscopy and using bowel prep and getting the flu. Pt has not been able to eat & keep anything down States that food textures cause her to vomit. Pt has concerns of eating disorder and states that she is very weak. Pt has tried to drink ensure and boost but ends up vomiting. Also reports recent dx of UTI and believes that she still has UTI due to foul smelling urine and burning with urination. Pt a&ox4. Denies any pain at this time.
--- NOTE | 2024-07-04 11:21 | ED.WEAKNESS ---
HPI - Weakness General Chief complaint: Weakness Stated complaint: Not eating for several weeks Time Seen by Provider: 07/04/24 11:09 Mode of arrival: Wheelchair History of Present Illness HPI Narrative: this is a 74-year-old female here with complaints of anorexia. That has been going on for a couple of months. She says she intermittently feels hungry but when she eats she eats only small amount and then feels nauseated. She has not vomit. He is not having any diarrhea she is able to keep liquids down. Also says that her urine smells bad and it hurts a little bit when she urinates. She is not having abdominal pain she has had no previous abdominal surgeries. Presently transitioning her primary care to the [facility]. Says that she has been losing weight has lost about 30 lb since all this started. Related Data Previous Rx's Medication Instructions Recorded triamcinolone acetonide 0.1 % 1 applictn topical TID #80 grams 08/23/18 topical cream fluticasone propionate 50 2 spray intranasal BEDTIME #16 03/14/22 mcg/actuation nasal grams spray,suspension albuterol sulfate 90 mcg/actuation 2 puff inhalation Q4-6H PRN 06/22/23 aerosol inhaler shortness of breath or wheezing #18 grams ondansetron 4 mg disintegrating 4 mg PO Q8H PRN nausea and 05/27/24 tablet vomiting #7 tabs citalopram 20 mg tablet 30 mg (1.5 x 20 mg) PO DAILY #135 06/09/24 tabs cefdinir 300 mg capsule 300 mg PO BID #10 caps 07/04/24 metoclopramide HCl 5 mg tablet 5 mg PO QAC #30 tabs 07/04/24 Allergies Allergy/AdvReac Type Severity Reaction Status Date / Time No Known Drug Allergies Allergy Verified 07/04/24 09:58 Patient History Medical History Hx of adenomatous colonic polyps Chronic asthma Chronic renal failure, stage 3 (moderate) Depression Anxiety Chronic headaches Surgical History History of ankle surgery Social History household members: spouse Smoking Status: Unknown if ever smoked Smoking Status: Unknown if ever smoked alcohol intake frequency: 0-2 drinks per day Exam Initial Vital Signs Initial Vital Signs: Vital Signs Temperature 97.6 F 07/04/24 09:58 Pulse Rate 96 H 07/04/24 09:58 Respiratory Rate 14 07/04/24 09:58 Blood Pressure 114/64 07/04/24 09:58 Pulse Oximetry 98 07/04/24 09:58 Oxygen Delivery Method Room Air 07/04/24 09:58 Course Orders Ordered: ED Orders 07/04/24 11:47 Urine Culture Stat Urine Microscopic Stat Discontinued Medications Ceftriaxone Sodium 2,000 mg/ (Sodium Chloride) 100 mls @ 200 mls/hr IV NOW ONE Stop: 07/04/24 12:27 Last Infusion: 07/04/24 13:16 Dose: Infused Documented By: Admin: 07/04/24 12:32 Dose: 200 mls/hr Documented By: HERMES Vital Signs Vital signs: Vital Signs - 8 hr 07/04/24 11:30 07/04/24 11:30 07/04/24 12:00 Pulse Rate 75 78 Respiratory Rate 18 13 Blood Pressure 123/59 L Pulse Oximetry 97 96 07/04/24 12:00 07/04/24 12:30 07/04/24 12:30 Pulse Rate 79 Respiratory Rate Blood Pressure 120/57 L 121/57 L Pulse Oximetry 97 07/04/24 13:00 07/04/24 13:00 Pulse Rate 82 Respiratory Rate 13 Blood Pressure 116/59 L Pulse Oximetry 95 MDM - Weakness Lab Data Lab results narrative: No leukocytosis, lipase is normal, mildly decreased potassium albumin is slightly low suggesting some element of malnutrition. urinalysis does suggest infection 07/04/24 10:10 07/04/24 10:10 Labs: Lab Results 07/04/24 07/04/24 Range/Units 10:10 11:47 WBC 10.5 (4.5-11.0) X10^3/uL RBC 4.28 (4.0-5.2) X10^6/uL Hgb 13.8 (12.0-16.0) g/dL Hct 41.5 (36-46) % MCV 97.1 (80-100) fL MCH 32.3 (26-34) PG MCHC 33.3 (30-36) % RDW 16.7 H (11.6-14.8) % Plt Count 448 H (150-400) X10^3/uL Neut % (Auto) 82.7 H (50-75) % Lymph % (Auto) 10.4 L (25-40) % [place] % (Auto) 6.4 (3-14) % Eos % (Auto) 0.4 L (2-4) % Baso % (Auto) 0.1 (0-2) % Neut # (Auto) 8700 H (9289-3004) /uL Lymph # (Auto) 1100 (6451-0221) /uL [place] # (Auto) 700 (0-900) /uL Eos # (Auto) 0 (0-450) /uL Baso # (Auto) 0 (0-100) /uL Sodium 139 (137-145) mmol/L Potassium 3.2 L (3.4-5.1) mmol/L Chloride 110 H (98-107) mmol/L Carbon Dioxide 22 (22-32) mmol/L BUN 14 (7-17) mg/dL Creatinine 0.60 (0.52-1.04) mg/dL Estimated GFR > 60 (>60) mL/min BUN/Creatinine Ratio 23.3 H (6-22) Glucose 88 (70-99) mg/dL Calcium 7.8 L (8.4-10.2) mg/dL Total Bilirubin 0.8 (0.2-1.3) mg/dL AST 35 (14-36) IU/L ALT 15 (<35) IU/L Alkaline Phosphatase 103 (38-126) U/L Total Protein 6.0 L (6.3-8.2) g/dL Albumin 2.7 L (3.5-5.0) g/dL Globulin 3.3 (1.7-4.1) g/dL Albumin/Globulin Ratio 0.8 L (1.0-2.8) Lipase 19 L (23-300) U/L Urine RBC None seen (0-5/HPF) Urine WBC 1-5/hpf (0-5/HPF) Ur Squamous Epith Cells 0-1 /hpf (0-5/HPF) Urine Bacteria Many (>30) H (None) Ur Culture Indicated? Specimen cultured Vol Urine Centrifuged 10ml (spun) Urine Dip Bedside Urine Glucose Negative Bedside Urine Bilirubin - Negative Bedside Urine Ketone ++ 40 Urine Specific [place] 1.025 Bedside Urine Occult Blood + Bedside Urine pH 6.0 Bedside Urine Protein + 30 Bedside Urine Urobilinogen - Negative Bedside Urine Nitrite + Positive Bedside Urine Leukocytes + 70 Esterase MDM Narrative Medical decision making narrative: 74-year-old female who has developed anorexia. She is able to swallow solid foods, I do not think she has an esophageal obstruction, I do not think she has a bowel obstruction does not have pancreatitis abdomen is otherwise benign. Going to try some Reglan to see if that helps. Also appears to have a urinary tract infection without evidence of systemic illness. Patient was started on cefdinir. Discharge Plan Departure Patient Disposition: Home Clinical Impression: Anorexia Urinary tract infection Qualifiers: Urinary tract infection type: acute cystitis Activity Restrictions/Additional Instructions: emergency department workup today is reassuring, I do not think that there is an acute medical problem related to your lack of appetite. I have sent a prescription for a medicine called metoclopramide. I would like you to take this about a 1/2 hour before you try eating. try to take ensure or similar supplements in small amounts frequently during the day. It also looks like you have a urinary infection, starting tomorrow, take the prescribed Omnicef. I think it is important that you follow up with primary care as soon as possible. If you are transferring her care to the [facility] get in and see them MARIA M. Otherwise see your previous primary care provider. Return to the emergency department for fevers abdominal pain uncontrolled vomiting or other acute symptoms Prescriptions: New cefdinir 300 mg capsule 300 mg PO BID Qty: 10 0RF metoclopramide HCl 5 mg tablet 5 mg PO QAC Qty: 30 0RF Rx Instructions: administer 30 minutes before meals No Action triamcinolone acetonide 0.1 % cream 1 applictn TOP TID Qty: 80 0RF Rx Instructions: Ok to fill once per MATJ. 08/23/18 ondansetron 4 mg tablet,disintegrating 4 mg PO Q8H PRN (Reason: nausea and vomiting) Qty: 7 0RF citalopram 20 mg tablet 30 mg PO DAILY Qty: 135 3RF fluticasone propionate 50 mcg/actuation spray,suspension 2 spray intranasal BEDTIME Qty: 16 0RF Rx Instructions: administer into each nostril albuterol sulfate 90 mcg/actuation HFA aerosol inhaler 2 puff INHALATION Q4-6H PRN (Reason: shortness of breath or wheezing) Qty: 18 2RF Referrals: Gustavo Eng MD [Primary Care Provider] - Stand Alone Forms: Patient Portal/API/Survey
[2024-07-04 11:41] LABS: Add Manual Diff / Slide Review NO; Basophils Absolute Auto 0 /uL (0-100); Basophils Percent Auto 0.1 % (0-2); Eosinophils Absolute Auto 0 /uL (0-450); Eosinophils Percent Auto 0.4 % (2-4); Hematocrit 41.5 % (36-46); Hemoglobin 13.8 g/dL (12.0-16.0); Lymphocytes Absolute Auto 1100 /uL (1100-4500); Lymphocytes Percent Auto 10.4 % (25-40); Mean Corpuscular HGB Conc 33.3 % (30-36); Mean Corpuscular Hemoglobin 32.3 PG (26-34); Mean Corpuscular Volume 97.1 fL (80-100); Monocytes Absolute Auto 700 /uL (0-900); Monocytes Percent Auto 6.4 % (3-14); Neutrophils Absolute Auto 8700 /uL (1500-7000); Neutrophils Percent Auto 82.7 % (50-75); Platelet Count 448 X10^3/uL (150-400); Red Blood Cell Count 4.28 X10^6/uL (4.0-5.2); Red Cell Distribution Width 16.7 % (11.6-14.8); White Blood Cell Count 10.5 X10^3/uL (4.5-11.0)
[2024-07-04 11:47] LABS: Alanine Aminotransferase 15 IU/L (<35); Albumin 2.7 g/dL (3.5-5.0); Albumin Globulin Ratio 0.8 (1.0-2.8); Alkaline Phosphatase 103 U/L (38-126); Aspartate Aminotransferase 35 IU/L (14-36); BUN Creatinine Ratio 23.3 (6-22); Bilirubin Total 0.8 mg/dL (0.2-1.3); Blood Urea Nitrogen 14 mg/dL (7-17); Calcium 7.8 mg/dL (8.4-10.2); Carbon Dioxide 22 mmol/L (22-32); Chloride 110 mmol/L (98-107); Estimated Glomerular Filt Rate > 60 mL/min (>60); Globulin 3.3 g/dL (1.7-4.1); Glucose 88 mg/dL (70-99); HEMOLYSIS 17 (0-50); Lipase 19 U/L (23-300); Potassium 3.2 mmol/L (3.4-5.1); Sodium 139 mmol/L (137-145)
[2024-07-04 12:01] LABS: Urine Volume 10mL (spun)
[2024-07-04 12:02] LABS: RBC Urine None Seen (0-5/HPF); WBC Urine 1-5/HPF (0-5/HPF)
[2024-07-04 12:03] LABS: Bacteria Urine Many (>30); Culture Indicated Urine Specimen Cultured; Squamous Epithelial Cell Urine 0-1 /HPF (0-5/HPF)
[2024-07-04] MEDS: cefTRIAXone 2,000 MG in SODIUM CHLORIDE 0.9% 100 ML 200 MG IV (12:32)
== END 2024-07-04 13:30 | disposition home or self-care (01) ==
PROVIDERS: Emergency Provider Emergency Medicine; PCP Internal Medicine
DX: R63.0 Anorexia (principal); N39.0 Urinary tract infection, site not specified; R11.0 Nausea
CPT/HCPCS: 36415; 80053; 81003; 81015; 83690; 85025; 87077; 87086; 87186; 96365; 99284; J0696

== ENCOUNTER → 2024-07-13 14:53 | Outpatient (CLI) | payer MEDICARE, OTHER, SELFPAY | LOC: CAR 14:54 | PROVIDERS: PCP Internal Medicine; Referring Provider Internal Medicine; Visit Provider Internal Medicine | DX: R07.9 Chest pain, unspecified (principal) | CPT/HCPCS: 93246 ==

== ENCOUNTER 2024-07-23 10:15 | Emergency (ER) | payer MEDICARE, OTHER, SELFPAY ==
[2024-07-23 10:22] VITALS: BP 133/66; PULSE 95; RESP 16; TEMP 36.2; O2SAT 96; BMI 25.5
--- NOTE | 2024-07-23 12:06 | ED_ITS ---
<Statement entered by Gustavo Jessica, DO - 07/23/24 18:18> Dr. Jessica cosign statement I was available for consultation during this patient's emergency department visit. This chart is signed by myself for administrative purposes only. I do not have any direct contact with this patient during this visit. They were seen independently by the APC. HPI - Nausea/Vomiting/Diarrhea General Chief complaint: Nausea/Vomiting/Diarrhea Stated complaint: Not eating same problem from last ER visit Time Seen by Provider: 07/23/24 11:26 Mode of arrival: Wheelchair History of Present Illness HPI Narrative: Ms. Tellez is a very pleasant 74-year-old female with a past medical history of CKD, diverticulosis, gallstones, asthma, anxiety/depression who presents to the emergency department for anorexia since May 07. Patient states in April she did a colonoscopy prep and got sick and ever since then she has had total aversion to food, nausea with eating and difficulty tolerating food textures. She stopped taking citalopram 30 mg at this time to see if it would help. She has not seen a primary care doctor since April as she states she is in the process of starting with a new primary care doctor in [facility] but she does not yet have an appointment. She came to this emergency department for this problem on 07/04/2024 and had lab work and a urinalysis performed, she was treated for UTI and she was prescribed Reglan to take 30 minutes prior to eating. Patient states these medications have not helped her symptoms have persisted. For while she was drinking water and eating cod however she has began to throw the caught up. Yesterday she had ice water and some tori, today she has not eating or drinking anything. She is concerned that her symptoms could be neurologic and she would like to restart her citalopram however she does not currently have a primary care doctor to refill this for her. She denies any abdominal pain but states that she does get hunger pain at night however when she tries to eat she can not tolerate the food. She spends most of her nights crying because she is so hungry but can not eat. Her legs feel weak and she is scared that her organs are going to shut down because of her lack of nutrition. She is still urinating without discomfort or difficulty, and she still has frequent bowel movements that are nonpainful. She denies chest pain, shortness of breath, fevers, chills. She does not smoke or drink alcohol. Related Data Previous Rx's ?Medication ?Instructions ?Recorded triamcinolone acetonide 0.1 % 1 applictn topical TID # 80 grams 08/23/18 topical cream fluticasone propionate 50 2 spray intranasal BEDTIME # 16 03/14/22 mcg/actuation nasal grams spray,suspension albuterol sulfate 90 mcg/actuation 2 puff inhalation Q 4-6H PRN 06/22/23 aerosol inhaler shortness of breath or wheez ing #18 grams citalopram 20 mg tablet 30 mg (1.5 x 20 mg) PO DAILY #135 06/09/24 tabs cefdinir 300 mg capsule 300 mg PO BID #10 caps 07/04 cephalexin 500 mg capsule 500 mg PO BID 5 days #10 cap s 07/23/24 citalopram 20 mg tablet (Celexa) 20 mg PO DAILY 30 day s #30 tabs 07/23/24 Allergies Allergy/AdvReac Type Severity Reaction Status Date / Time No Known Drug Allergies Allergy Verified 07/23/24 10:27 Review of Systems Review of Systems ROS Unobtainable: All systems reviewed & are unremarkable except as noted in HPI and below Patient History Medical History Hx of adenomatous colonic polyps Chronic asthma Chronic renal failure, stage 3 (moderate) Depression Anxiety Chronic headaches Surgical History History of ankle surgery Social History household members: spouse alcohol intake frequency: 0-2 drinks per day Exam Narrative Exam Narrative: GENERAL: 74 year old patient appears stated age. Well-developed patient, in no acute distress. HEAD: Atraumatic. Normocephalic. EYES: Extraocular motions intact. No scleral icterus. No injection or drainage. ENT: Absence of teeth, no dentures in place. NECK: Trachea midline. Cervical ROM intact. CARDIOVASCULAR: Regular rate and rhythm. Zio patch in place left chest wall. RESPIRATORY: ?Nonlabored respirations. ?Speaking in clear, full sentences. ?Clear to auscultation. Breath sounds equal bilaterally. No wheezes, rales, or rhonchi. ? GASTROINTESTINAL: Abdomen soft, non-tender, nondistended. EXTREMITIES: Very mild BLE nonpitting edema. NEURO: AOx3. ?Clear speech. ?Moves all 4 extremities appropriately. SKIN: No rash or erythema of visible areas Initial Vital Signs Initial Vital Signs: Vital Signs Temperature 97.2 F L 07/23/24 10:22 Pulse Rate 95 H 07/23/24 10:22 Respiratory Rate 16 07/23/24 10:22 Blood Pressure 133/66 07/23/24 10:22 Pulse Oximetry 96 07/23/24 10:22 Oxygen Delivery Method Room Air 07/23/24 10:22 Course Orders Ordered: ED Orders 07/23/24 12:22 CT chest abd pel w con Stat 07/23/24 12:30 Complete Blood Count AUTO DIFF Stat Comprehensive Metabolic Panel Stat Lipase Stat Magnesium Stat 07/23/24 14:15 Urine Culture Stat Urine Microscopic Stat Discontinued Medications Sodium Chloride (Normal Saline 0.9%) 500 mls @ 500 mls/hr IV BOLUS ONE Stop: 07/23/24 13:22 Last Infusion: 07/23/24 14:43 Dose: Infused Documented By: Admin: 07/23/24 13:08 Dose: 500 mls/hr Documented By: CTS Ceftriaxone Sodium 1,000 mg/ (Sodium Chloride) 100 mls @ 200 mls/hr IV NOW ONE Stop: 07/23/24 14:41 Last Infusion: 07/23/24 15:41 Dose: Infused Documented By: Admin: 07/23/24 15:06 Dose: 200 mls/hr Documented By: RB Ondansetron HCl (Ondansetron 4 Mg/2 Ml Inj) 4 mg IV NOW ONE Stop: 07/23/24 12:23 Last Admin: 07/23/24 13:06 Dose: 4 mg Documented By: CTS Vital Signs Vital signs: Vital Signs - 8 hr 07/23/24 10:22 07/23/24 15:59 Temperature 97.2 F L 98.1 F Pulse Rate 95 H 78 Respiratory Rate 16 18 Blood Pressure 133/66 128/68 Pulse Oximetry 96 98 Oxygen Delivery Method Room Air Room Air MDM - Nausea/Vomiting/Diarrhea Medical Records Attestation: I reviewed the patient's medical records. Lab Data 07/23/24 12:30 07/23/24 12:30 Labs: Lab Results 07/23/24 07/23/24 Range/Units 12:30 14:15 WBC 7.7 (4.5-11.0) X10^3/uL RBC 3.81 L (4.0-5.2) X10^6/uL Hgb 12.5 (12.0-16.0) g/dL Hct 37.5 (36-46) % MCV 98.4 (80-100) fL MCH 32.7 (26-34) PG MCHC 33.2 (30-36) % RDW 17.4 H (11.6-14.8) % Plt Count 397 (150-400) X10^3/uL Neut % (Auto) 77.8 H (50-75) % Lymph % (Auto) 13.9 L (25-40) % [place] % (Auto) 7.2 (3-14) % Eos % (Auto) 0.3 L (2-4) % Baso % (Auto) 0.8 (0-2) % Neut # (Auto) 6000 (0116-5345) /uL Lymph # (Auto) 1100 (9026-9046) /uL [place] # (Auto) 600 (0-900) /uL Eos # (Auto) 0 (0-450) /uL Baso # (Auto) 100 (0-100) /uL Sodium 138 (137-145) mmol/L Potassium 3.4 (3.4-5.1) mmol/L Chloride 108 H (98-107) mmol/L Carbon Dioxide 26 (22-32) mmol/L BUN 13 (7-17) mg/dL Creatinine 0.63 (0.52-1.04) mg/dL Estimated GFR > 60 (>60) mL/min BUN/Creatinine Ratio 20.6 (6-22) Glucose 78 (70-99) mg/dL Calcium 7.4 L (8.4-10.2) mg/dL Magnesium 1.6 (1.6-2.3) mg/dL Total Bilirubin 1.4 H (0.2-1.3) mg/dL AST 38 H (14-36) IU/L ALT 13 (<35) IU/L Alkaline Phosphatase 95 (38-126) U/L Total Protein 5.8 L (6.3-8.2) g/dL Albumin 2.5 L (3.5-5.0) g/dL Globulin 3.3 (1.7-4.1) g/dL Albumin/Globulin Ratio 0.8 L (1.0-2.8) Lipase 31 (23-300) U/L Urine RBC None seen (0-5/HPF) Urine WBC 5-10/hpf H (0-5/HPF) Ur Squamous Epith Cells 0-1 /hpf (0-5/HPF) Urine Bacteria Few (2-10) H (None) Ur Culture Indicated? Specimen cultured Vol Urine Centrifuged 10ml (spun) Urine Dip Bedside Urine Glucose Negative Bedside Urine Bilirubin - Negative Bedside Urine Ketone +/- 5 Urine Specific [place] 1.005 Bedside Urine Occult Blood +/- Bedside Urine pH 6.0 Bedside Urine Protein - Negative Bedside Urine Urobilinogen 1+ 2mg Bedside Urine Nitrite - Negative Bedside Urine Leukocytes ++ 125 Esterase Imaging Data Chest/Abdomen/Pelvis CT: Radiologist's Impression: PROCEDURE: CT CHEST ABD PEL W CON INDICATIONS: weightloss, inability to eat, N/V x 3 months TECHNIQUE: After the administration of intravenous contrast, 5 mm thick sections acquired from the lung apices to the symphysis. 5 mm coronal and sagittal reformats were performed, with additional 7 mm MIP reformats through the lungs. For radiation dose reduction, the following was used: automated exposure control, adjustment of mA and/or kV according to patient size. COMPARISON: [facility], CT, CT ANGIO ABD/PEL GI BLEED, 05/25/2024, 16:08. FINDINGS: Image quality: Excellent. CHEST: Lower Neck: No enlarged lymph nodes. Thyroid: No thyroid nodules which require sonographic follow up, per consensus guidelines. Axillae: No enlarged lymph nodes. Chest Wall: Unremarkable. Lungs and Pleura: No pneumothorax or pleural effusions. No consolidation or suspicious nodules. Heart: Heart size is normal. No pericardial effusion. Thoracic Vessels: The aorta and pulmonary arteries demonstrate normal size. Mediastinum and [place]: No enlarged lymph nodes. Esophagus: No wall thickening. No hiatal hernia. ABDOMEN: Liver: The liver is diffusely decreased in attenuation without focal solid mass lesion. Left hepatic lobe typical hemangioma, stable Gallbladder: Cholelithiasis without pericholecystic inflammatory change Biliary ducts: No biliary dilation. Pancreas: No ductal dilation. Spleen: Size is within normal limits. Adrenal Glands: 2.1 cm left adrenal nodule measures 61 Hounsfield units on the prior noncontrast and 91 Hounsfield units on the current study. Kidneys and Ureters: No hydronephrosis. No solid mass. No complex renal cystic lesion which requires follow up. Stomach and Bowel: There is wall thickening and nondistention of the transverse and right colon. No obstruction.. Multiple diverticula arise from the descending and sigmoid colon without evidence of diverticulitis. Peritoneum: No abnormal intraperitoneal fluid. No free air. Ventral Wall: No significant ventral hernia. Abdominal Nodes: No retroperitoneal or mesenteric adenopathy by size criteria. Vessels: Aorta and inferior vena cava are normal in size. PELVIS: Pelvic Organs: Unremarkable. Bladder: No bladder wall thickening, accounting for underdistention. Pelvic Nodes: No enlarged lymph nodes. Miscellaneous: No inguinal hernias are seen. Bones: No aggressive osseous abnormality. IMPRESSION: Transverse and right colon bowel wall thickening without pericolonic inflammatory change. Differential would be simple nondistention versus subclinical colitis in the proper clinical setting. Left adrenal nodule. Consider formal MR or CT adrenal protocol to assess for adenoma Approved by: Frank Pandya M.D. on 07/23/2024 at 13:03 MDM Narrative Medical decision making narrative: 74-year-old female with a past medical history of CKD, diverticulosis, gallstones, asthma, anxiety/depression who presents to the emergency department for anorexia since May 07. Differential diagnosis includes but is not limited to anorexia, malignancy, obstruction, dehydration, electrolyte abnormality, etc. On exam patient is in no acute distress, nontoxic appearing, she is rather frail appearing however, vital signs within normal limits. Abdomen soft and nontender. Reviewed prior ED note from 07/04/2024 and prior abdomen pelvis CTA from 05/25/2024. After shared decision-making with the patient, she is agreeable to proceed with lab work, CT chest abdomen pelvis to evaluate for cause of her symptoms. She does have prescription of citalopram 30 mg daily on file, I am agreeable to refill this medication however we will start at 20 mg. 1pm: With the patient's consent, spoke with her daughter Jazz on the phone. They live on [address] [facility]. She discussed that they are very concerned about her mom, she has not eaten for months and they have no answers. Informed of the workup we will performed today in the importance of following up with the PCP and GI doctor. She said she will work on getting her a PCP appointment. Labs reveal normal WBC count 7.7, normal hemoglobin 12.5, decreased RBC count 3.81 and RDW increased at 17.4. Sodium 138, potassium 3.4 with hemolysis, BUN 13 creatinine 0.63 (good renal function despite documents hx of CKD3). Glucose 78. Calcium low at 7.4, total protein low 5.8, albumin low 2.5, lipase normal 31. CT chest/abdomen/pelvis reveals left adrenal nodule, transverse and right colon bowel wall thickening without pericolonic inflammatory change differential would be simple nondistention versus subclinical colitis in the proper clinical setting. Patient is not having any abdominal pain or diarrhea, she is not eating many solids so this is likely nondistention. Discussed all lab work and imaging results with the patient, printed and provided her a copy of her imaging results and we discussed all incidental findings. She is able to drink orange juice and Ensure juice here in the emergency department without difficulty. Her daughter just ordered the Ensure juice for home. She has only been drinking water and juice for the last few days and I recommended addition of taking a multivitamin pill, calcium and vitamin-D supplementation. She his no longer using the Reglan, advised that she does not take Reglan if she decides to resume her citalopram to avoid QT prolongation. Patient verbalized understanding all information, is agreeable to the plan, all questions answered. She is stable for discharge home, tolerating p.o.. Discharge Plan Departure Patient Disposition: Home Clinical Impression: Anorexia, Hypocalcemia, Hypokalemia, Medication refill Urinary tract infection Qualifiers: Urinary tract infection type: site unspecified Hematuria presence: without hematuria Qualified Code(s): N39.0 - Urinary tract infection, site not specified Instructions: DI for Nausea -- Adult, DI for Malnutrition - Older Adults Activity Restrictions/Additional Instructions: Dear Ms. Tellez, Thank you for coming to the emergency department. Today we completed a large workup which did not reveal a clear explanation for your decreased appetite, it is very important for you to follow up with a primary care doctor and a gastrointestinal doctor as soon as possible for further evaluation. Some of your electrolytes were decreased today (calcium, potassium) so it is important to incorporate a multivitamin into your diet and use diet supplements such as Ensure Juice. If you are not getting any calcium in your diet, you should be taking a calcium and vitamin-D supplement. Your urine test did reveal a urinary tract infection. You were treated with IV antibiotics today and should start taking the oral antibiotics tomorrow. Increased hydration and avoiding holding your bladder can help prevent UTIs. Your imaging today did reveal a left adrenal nodule which should have further evaluation with your primary care doctor and proceed with a colonoscopy for further evaluation. As requested, I have refilled your citalopram however I do not recommend taking this medication with Reglan/metoclopramide. Antidepressant/antianxiety medications need to be monitored by her primary care doctor or a psychiatrist. I recommend purchasing Ensure Clear Nutrition Drink as this has much more nutritional value than normal juice and you enjoyed it here in the emergency department. Please follow up with your primary care doctor within the next 2-3 days for ER follow-up. (If you do not have a PCP you can call [phone]. ?to schedule an appointment with an [facility] Primary Care Provider) IF YOU DEVELOP ANY NEW OR WORSENING SYMPTOMS, RETURN TO THE ER! Please read the attached instructions, they highlight more specific treatments and interventions for you at home. Thank you for letting me participate in your care, Magali Obrien PA-C Prescriptions: New cephalexin 500 mg capsule 500 mg PO BID 5 Days Qty: 10 0RF citalopram [Celexa] 20 mg tablet 20 mg PO DAILY 30 Days Qty: 30 0RF Discontinued ondansetron 4 mg tablet,disintegrating 4 mg PO Q8H PRN (Reason: nausea and vomiting) Qty: 7 0RF metoclopramide HCl 5 mg tablet 5 mg PO QAC Qty: 30 0RF Rx Instructions: administer 30 minutes before meals No Action triamcinolone acetonide 0.1 % cream 1 applictn TOP TID Qty: 80 0RF Rx Instructions: Ok to fill once per MATJ. 08/23/18 citalopram 20 mg tablet 30 mg PO DAILY Qty: 135 3RF fluticasone propionate 50 mcg/actuation spray,suspension 2 spray intranasal BEDTIME Qty: 16 0RF Rx Instructions: administer into each nostril albuterol sulfate 90 mcg/actuation HFA aerosol inhaler 2 puff INHALATION Q4-6H PRN (Reason: shortness of breath or wheezing) Qty: 18 2RF cefdinir 300 mg capsule 300 mg PO BID Qty: 10 0RF Referrals: Gustavo Eng MD [Primary Care Provider, Internal Medicine] Stand Alone Forms: Patient Portal/API
--- NOTE | 2024-07-23 12:22 | DI.CT.S_ITS ---
PROCEDURE: CT CHEST ABD PEL W CON INDICATIONS: weightloss, inability to eat, N/V x 3 months TECHNIQUE: After the administration of intravenous contrast, 5 mm thick sections acquired from the lung apices to the symphysis. 5 mm coronal and sagittal reformats were performed, with additional 7 mm MIP reformats through the lungs. For radiation dose reduction, the following was used: automated exposure control, adjustment of mA and/or kV according to patient size. COMPARISON: [facility], CT, CT ANGIO ABD/PEL GI BLEED, 05/25/2024, 16:08. FINDINGS: Image quality: Excellent. CHEST: Lower Neck: No enlarged lymph nodes. Thyroid: No thyroid nodules which require sonographic follow up, per consensus guidelines. Axillae: No enlarged lymph nodes. Chest Wall: Unremarkable. Lungs and Pleura: No pneumothorax or pleural effusions. No consolidation or suspicious nodules. Heart: Heart size is normal. No pericardial effusion. Thoracic Vessels: The aorta and pulmonary arteries demonstrate normal size. Mediastinum and [place]: No enlarged lymph nodes. Esophagus: No wall thickening. No hiatal hernia. ABDOMEN: Liver: The liver is diffusely decreased in attenuation without focal solid mass lesion. Left hepatic lobe typical hemangioma, stable Gallbladder: Cholelithiasis without pericholecystic inflammatory change Biliary ducts: No biliary dilation. Pancreas: No ductal dilation. Spleen: Size is within normal limits. Adrenal Glands: 2.1 cm left adrenal nodule measures 61 Hounsfield units on the prior noncontrast and 91 Hounsfield units on the current study. Kidneys and Ureters: No hydronephrosis. No solid mass. No complex renal cystic lesion which requires follow up. Stomach and Bowel: There is wall thickening and nondistention of the transverse and right colon. No obstruction.. Multiple diverticula arise from the descending and sigmoid colon without evidence of diverticulitis. Peritoneum: No abnormal intraperitoneal fluid. No free air. Ventral Wall: No significant ventral hernia. Abdominal Nodes: No retroperitoneal or mesenteric adenopathy by size criteria. Vessels: Aorta and inferior vena cava are normal in size. PELVIS: Pelvic Organs: Unremarkable. Bladder: No bladder wall thickening, accounting for underdistention. Pelvic Nodes: No enlarged lymph nodes. Miscellaneous: No inguinal hernias are seen. Bones: No aggressive osseous abnormality. IMPRESSION: Transverse and right colon bowel wall thickening without pericolonic inflammatory change. Differential would be simple nondistention versus subclinical colitis in the proper clinical setting. Left adrenal nodule. Consider formal MR or CT adrenal protocol to assess for adenoma Approved by: Frank Pandya M.D. on 07/23/2024 at 13:03
[2024-07-23 12:41] LABS: Add Manual Diff / Slide Review NO; Basophils Absolute Auto 100 /uL (0-100); Basophils Percent Auto 0.8 % (0-2); Eosinophils Absolute Auto 0 /uL (0-450); Eosinophils Percent Auto 0.3 % (2-4); Hematocrit 37.5 % (36-46); Hemoglobin 12.5 g/dL (12.0-16.0); Lymphocytes Absolute Auto 1100 /uL (1100-4500); Lymphocytes Percent Auto 13.9 % (25-40); Mean Corpuscular HGB Conc 33.2 % (30-36); Mean Corpuscular Hemoglobin 32.7 PG (26-34); Mean Corpuscular Volume 98.4 fL (80-100); Monocytes Absolute Auto 600 /uL (0-900); Monocytes Percent Auto 7.2 % (3-14); Neutrophils Absolute Auto 6000 /uL (1500-7000); Neutrophils Percent Auto 77.8 % (50-75); Platelet Count 397 X10^3/uL (150-400); Red Blood Cell Count 3.81 X10^6/uL (4.0-5.2); Red Cell Distribution Width 17.4 % (11.6-14.8); White Blood Cell Count 7.7 X10^3/uL (4.5-11.0)
[2024-07-23 13:00] LABS: Alanine Aminotransferase 13 IU/L (<35); Albumin 2.5 g/dL (3.5-5.0); Albumin Globulin Ratio 0.8 (1.0-2.8); Alkaline Phosphatase 95 U/L (38-126); BUN Creatinine Ratio 20.6 (6-22); Bilirubin Total 1.4 mg/dL (0.2-1.3); Blood Urea Nitrogen 13 mg/dL (7-17); Calcium 7.4 mg/dL (8.4-10.2); Carbon Dioxide 26 mmol/L (22-32); Chloride 108 mmol/L (98-107); Estimated Glomerular Filt Rate > 60 mL/min (>60); Globulin 3.3 g/dL (1.7-4.1); Glucose 78 mg/dL (70-99); Lipase 31 U/L (23-300); Sodium 138 mmol/L (137-145); Total Protein 5.8 g/dL (6.3-8.2)
[2024-07-23] MEDS: ONDANSETRON 4 MG/2 ML INJ IV (13:06)
[2024-07-23 13:08] LABS: Aspartate Aminotransferase 38 IU/L (14-36); HEMOLYSIS 123 (0-50); Potassium 3.4 mmol/L (3.4-5.1)
[2024-07-23] MEDS: SODIUM CHLORIDE 0.9% 500 ML IV (13:08)
[2024-07-23 13:36] LABS: Magnesium 1.6 mg/dL (1.6-2.3)
[2024-07-23] MEDS: cefTRIAXone 1,000 MG in SODIUM CHLORIDE 0.9% 100 ML 200 MG IV (15:06)
[2024-07-23 15:07] LABS: Urine Volume 10mL (spun)
[2024-07-23 15:08] LABS: Bacteria Urine Few (2-10); Culture Indicated Urine Specimen Cultured; RBC Urine None Seen (0-5/HPF); Squamous Epithelial Cell Urine 0-1 /HPF (0-5/HPF); WBC Urine 5-10/HPF (0-5/HPF)
[2024-07-23 15:59] VITALS: BP 128/68; PULSE 78; RESP 18; TEMP 36.7; O2SAT 98
== END 2024-07-23 16:02 | disposition home or self-care (01) ==
PROVIDERS: Emergency Provider Physician Assistant; PCP Internal Medicine
DX: R63.0 Anorexia (principal); E83.51 Hypocalcemia; R11.2 Nausea with vomiting, unspecified; E87.6 Hypokalemia; N39.0 Urinary tract infection, site not specified; Z76.0 Encounter for issue of repeat prescription; Z68.25 Body mass index [BMI] 25.0-25.9, adult
CPT/HCPCS: 36415; 71260; 74177; 80053; 81003; 81015; 83690; 83735; 85025; 87086; 96361; 96365; 96375; 99284; J0696; J2405; Q9967

== ENCOUNTER → 2024-09-13 15:10 | Outpatient (CLI) | payer MEDICARE, OTHER, SELFPAY ==
[2024-09-13 16:27] LABS: Add Manual Diff / Slide Review NO; Hematocrit 39.5 % (36-46); Hemoglobin 13.4 g/dL (12.0-16.0); Lymphocytes Absolute Auto 1900 /uL (1100-4500); Mean Corpuscular HGB Conc 33.9 % (30-36); Mean Corpuscular Hemoglobin 32.2 PG (26-34); Mean Corpuscular Volume 95.2 fL (80-100); Platelet Count 547 X10^3/uL (150-400)
[2024-09-13 17:05] LABS: Alanine Aminotransferase 22 IU/L (<35); Albumin 2.4 g/dL (3.5-5.0); Albumin Globulin Ratio 0.8 (1.0-2.8); Alkaline Phosphatase 169 U/L (38-126); Blood Urea Nitrogen 16 mg/dL (7-17); Calcium 8.3 mg/dL (8.4-10.2); Carbon Dioxide 21 mmol/L (22-32); Chloride 109 mmol/L (98-107); Estimated Glomerular Filt Rate > 60 mL/min (>60); Globulin 3.2 g/dL (1.7-4.1); Glucose 91 mg/dL (70-99); HEMOLYSIS < 15 (0-50); Potassium 3.7 mmol/L (3.4-5.1); Sodium 136 mmol/L (137-145); Total Protein 5.6 g/dL (6.3-8.2)
== END ==
PROVIDERS: Referring Provider Family Medicine; Visit Provider Family Medicine
DX: R63.0 Anorexia (principal)
CPT/HCPCS: 36415; 80053; 85025

== ENCOUNTER 2024-11-24 10:26 | Emergency (ER) | payer MEDICARE, OTHER, SELFPAY ==
[2024-11-24 10:28] VITALS: BP 107/70; PULSE 84; RESP 12; TEMP 36.4; O2SAT 98
--- NOTE | 2024-11-24 11:20 | ED.FALL ---
HPI - Fall <Edwardo Perez PA-C - Last Filed: 11/24/24 12:34> General Chief Complaint: Fall Stated Complaint: GLF,hit face,neg LOC,neg thinners Time Seen by Provider: 11/24/24 11:14 Source: EMS Mode of arrival: EMS History of Present Illness HPI Narrative: This is a 74-year-old female presenting to the emergency department due to a mechanical ground level fall where she tripped over a walker hitting your forehead against concrete. She was not lose conscious. She had not have a syncopal episode that caused her to have this fall, she just states that her walker was to light. She denies any nausea, vomiting, slurred speech, weakness, or any other concerning signs or symptoms, complaining primarily of forehead pain. Denies any neck pain. Related Data Previous Rx's ?Medication ?Instructions ?Recorded triamcinolone acetonide 0.1 % 1 applictn topical TID #80 grams 08/23/18 topical cream fluticasone propionate 50 2 spray intranasal BEDTIME #16 03/14/22 mcg/actuation nasal grams spray,suspension albuterol sulfate 90 mcg/actuation 2 puff inhalation Q4-6H PRN 06/22/23 aerosol inhaler shortness of breath or wheezing #18 grams citalopram 20 mg tablet 30 mg (1.5 x 20 mg) PO DAILY #135 06/09/24 tabs cefdinir 300 mg capsule 300 mg PO BID #10 caps 07/04/24 Disabled Parking #1 ea 08/08/24 Allergies Allergy/AdvReac Type Severity Reaction Status Date / Time No Known Drug Allergies Allergy Verified 07/23/24 10:27 Review of Systems <Edwardo Perez PA-C - Last Filed: 11/24/24 12:34> Review of Systems Narrative: GENERAL: Denies chills, fatigue, malaise, fever, sweats. HEENT: Reports left-sided forehead pain Denies sinus pain, ear pain, sore throat, difficulty swallowing, dizziness. RESPIRATORY: Denies dyspnea, cough, wheezing, hemoptysis, sputum. CARDIOVASCULAR: Denies chest pain, palpitations, orthopnea, edema, GASTROINTESTINAL: Denies nausea, vomiting, abdominal pain, diarrhea, constipation, melena. : Denies dysuria, frequency, incontinence, hematuria, urinary retention. MUSCULOSKELETAL: denies weakness, joint pain, or bony pain SKIN: Denies rash, skin lesions, or other NEUROLOGIC: Denies weakness, headache, numbness, change in speech, confusion, seizures, incoordination. PSYCHIATRIC: No concerning psychosocial issues. 12 point review of systems is negative except for those stated above Patient History <Edwardo Perez PA-C - Last Filed: 11/24/24 12:34> Medical History Hx of adenomatous colonic polyps Chronic asthma Chronic renal failure, stage 3 (moderate) Depression Anxiety Chronic headaches Surgical History History of ankle surgery Social History household members: spouse alcohol intake frequency: 0-2 drinks per day Exam <Edwardo Perez PA-C - Last Filed: 11/24/24 12:34> Narrative Exam Narrative: GENERAL: Well-developed patient, in mild distress. HEAD: Atraumatic. Normocephalic. EYES: Pupils equal round and reactive. Extraocular motions intact. No scleral icterus. No injection or drainage. ENT: Nose without bleeding, purulent drainage. Throat without erythema, tonsillar hypertrophy or exudate. Airway patent. NECK: Trachea midline. Non tender EXTREMITIES: No edema or joint tenderness. NEURO: AOx3. Cranial nerves 2-12 intact SKIN: Very superficial abrasion to the left side of the forehead, does not break the skin but there is some tenderness to palpation. Neck: No cervical midline or paraspinal tenderness to palpation Initial Vital Signs Initial Vital Signs: Vital Signs Temperature 97.6 F 11/24/24 10:28 Pulse Rate 84 11/24/24 10:28 Respiratory Rate 12 11/24/24 10:28 Blood Pressure 107/70 11/24/24 10:28 Pulse Oximetry 98 11/24/24 10:28 Oxygen Delivery Method Room Air 11/24/24 10:28 <Camila Moeller DO - Last Filed: 11/25/24 20:39> Initial Vital Signs Initial Vital Signs: Vital Signs Temperature 97.6 F 11/24/24 10:28 Pulse Rate 84 11/24/24 10:28 Respiratory Rate 12 11/24/24 10:28 Blood Pressure 107/70 11/24/24 10:28 Pulse Oximetry 98 11/24/24 10:28 Oxygen Delivery Method Room Air 11/24/24 10:28 Course <Edwardo Perez PA-C - Last Filed: 11/24/24 12:34> Orders Ordered: ED Orders 11/24/24 11:19 CT facial bones wo con Stat CT head/brain wo con Stat Vital Signs Vital signs: Vital Signs - 8 hr 11/24/24 10:28 Temperature 97.6 F Pulse Rate 84 Respiratory Rate 12 Blood Pressure 107/70 Pulse Oximetry 98 Oxygen Delivery Method Room Air <Camila Moeller DO - Last Filed: 11/25/24 20:39> Orders Ordered: ED Orders 11/24/24 11:19 CT facial bones wo con Stat CT head/brain wo con Stat Vital Signs Vital signs: Vital Signs - 8 hr 11/24/24 10:28 Temperature 97.6 F Pulse Rate 84 Respiratory Rate 12 Blood Pressure 107/70 Pulse Oximetry 98 Oxygen Delivery Method Room Air MDM - Fall <Edwardo Perez PA-C - Last Filed: 11/24/24 12:34> Imaging Data CT scan - head: Radiologist's Impression: [place] [address] CT Scan Report Signed Patient: Betsy Tellez MR#: [id number] : 1950 Acct:[id number] Age/Sex: 74 / F Date of Service: 11/24/24 Loc: ED Accession Number: [id number] Procedure: CT head/brain wo con Ordering Provider: Edwardo Perez PA-C PROCEDURE: CT HEAD/BRAIN WO CON INDICATIONS: Mechanical ground level fall, hit on concrete TECHNIQUE: Noncontrast 4.5 mm thick angled axial sections acquired from the foramen magnum to the vertex, with coronal and sagittal reformats. For radiation dose reduction, the following was used: automated exposure control, adjustment of mA and/or kV according to patient size. COMPARISON: [facility], CT, CT FACIAL BONES WO CON, 11/24/2024, 11:29. FINDINGS: Image quality: Diagnostic. CSF spaces: Basal cisterns are patent. No extra-axial fluid collections. The ventricles are symmetric in size and shape. Brain: No intracranial bleeds or mass effect. There is cerebral volume loss, with resultant ventricular and sulcal prominence. There are periventricular and deep white matter chronic small vessel ischemic changes. There is intracranial internal carotid artery atherosclerosis. Skull and face: Calvarium and visualized facial bones appear intact, without suspicious lesions. Left frontal scalp hematoma. Sinuses: Visualized sinuses and mastoids are clear. IMPRESSION: No acute intracranial pathology. Left frontal scalp hematoma. Atrophy and chronic microvascular ischemic changes. Dictated by: Lesley Dimas M.D. on 11/24/2024 at 12:20 Approved by: Lesley Dimas M.D. on 11/24/2024 at 12:21 CT Face : Radiologist's Impression: [address] [address] [address] Scan Report Signed Patient: Betsy Tellez MR#: [id number] : 1950 Acct:[id number] Age/Sex: 74 / F Date of Service: 11/24/24 Loc: ED Accession Number: [id number] Procedure: CT facial bones wo con Ordering Provider: Edwardo Perez PA-C PROCEDURE: CT FACIAL BONES WO CON INDICATIONS: Mechanical ground level fall, TTP L forehead TECHNIQUE: Noncontrast 2.5 mm thick axial images acquired from the mandible through the frontal sinuses, with coronal and sagittal reformatting. For radiation dose reduction, the following was used: automated exposure control, adjustment of mA and/or kV according to patient size. COMPARISON: None. FINDINGS: Image quality: Excellent. Bones and teeth: Orbital pleitez are intact. Sinus pleitez show no fracture or deformity. Nasal bones and septum are intact. Visualized portions of the mandible demonstrate no fractures or subluxation. Zygomatic arches are intact. Pterygoid plates are intact. Visualized portions of the skull base and auditory canals are intact. Sinuses: Paranasal sinuses are aerated, without fluid levels, mucosal thickening, or mucoceles. Mastoid air cells are aerated. Soft tissues: Left frontal scalp hematoma. No enlarged lymph nodes. No soft tissue lacerations or debris. Vascular: Visualized vascular structures appear normal in the absence of contrast. Bony vascular foramina and canals are intact. IMPRESSION: Left frontal scalp hematoma. Dictated by: Lesley Dimas M.D. on 11/24/2024 at 12:21 Approved by: Lesley Dimas M.D. on 11/24/2024 at 12:21 MDM Narrative Medical decision making narrative: ED course: This is 74 female presents to the emergency department due to mechanical ground fall where she hit her head. There was no LOC and she had a very reassuring neuro exam. CT head and face ordered which showed no acute abnormalities other than a left scalp hematoma. She was not reporting any neck pain or any other pain to the rest of body. Recommended supportive care. CC: Head pain Complicating co-morbidities: As below Data collected from: Previous notes Medical records reviewed: Patient was last seen in this emergency department 4 months ago due to nausea vomiting diarrhea. Past medical history of CKD, diverticulosis, gallstones, asthma, anxiety/depression. Differential considered, but not limited to: Intracranial bleed, skull fracture Exam documented above, pertinent findings include: Cranial nerves 2-12 intact, left forehead tenderness to palpation Lab Test results independently reviewed as above. Pertinent findings: None obtained Imaging studies independently reviewed: CT head and face showed no acute findings other than scalp hematoma Scores Used: None MIPS Elements: None Consultations: None Treatments: None Re-evaluations: None Discussion: Discussed plan with the patient was comfortable with the plan Diagnosis: Scalp hematoma Disposition: see below, along with detailed discharge instructions that have been reviewed with patient as well as indications for ED re-evaluation and additional outpatient follow up Discharge Plan Departure Patient Disposition: Home Clinical Impression: Hematoma of frontal scalp Qualifiers: Encounter type: initial encounter Qualified Code(s): S00.03XA - Contusion of scalp, initial encounter Activity Restrictions/Additional Instructions: Thank you for coming to the [facility] Emergency Department today. Your CT exam for reassuring. There was no evidence of intracranial bleed or skull fracture. You do have a small hematoma, ?goose egg?, to her forehead which should decrease over the next week or so. Please return to the emergency department if you develop any Slurred speech, head pain, nausea, vomiting, facial drooping, or any other concerning signs or symptoms. I hope you feel better soon. Please follow up with your primary care provider within a week if your symptoms continue. If you do not have a primary care provider please contact the [facility] Resource line at [phone]. They will ask some questions about your medical history and help you get set up with a provider in the community. Prescriptions: No Action triamcinolone acetonide 0.1 % cream 1 applictn TOP TID Qty: 80 0RF Rx Instructions: Ok to fill once per MATJ. 08/23/18 citalopram 20 mg tablet 30 mg PO DAILY Qty: 135 3RF (DME) Disabled Parking See Rx Instructions .ROUTE .MEDSUPPLY Qty: 1 0RF Rx Instructions: Patient qualifies for disabled parking as per the attached form. fluticasone propionate 50 mcg/actuation spray,suspension 2 spray intranasal BEDTIME Qty: 16 0RF Rx Instructions: administer into each nostril albuterol sulfate 90 mcg/actuation HFA aerosol inhaler 2 puff INHALATION Q4-6H PRN (Reason: shortness of breath or wheezing) Qty: 18 2RF cefdinir 300 mg capsule 300 mg PO BID Qty: 10 0RF Referrals: Miscellaneous,Doctor, [Primary Care Provider, Medical] Stand Alone Forms: Patient Portal/API ED Sign-out <Camila Moeller, DO - Last Filed: 11/25/24 20:39> Cosign ED Attending Cosignature Attestation: I was available for consultation.
[2024-11-24 12:50] VITALS: BP 158/69; PULSE 74; RESP 16; O2SAT 98
== END 2024-11-24 12:50 | disposition home or self-care (01) ==
PROVIDERS: Emergency Provider Physician Assistant Medical
DX: S00.03XA Contusion of scalp, initial encounter (principal); W18.30XA Fall on same level, unspecified, initial encounter
CPT/HCPCS: 70450; 70486; 99281; 99284

== ENCOUNTER 2024-11-30 10:05 | Emergency (ER) | payer MEDICARE, OTHER, SELFPAY ==
[2024-11-30] VITALS (26 sets, daily range): BP systolic 114–157; BP diastolic 57–76; PULSE 77–101; RESP 12–36; TEMP 36.9; O2SAT 87–100; BMI 21.7
--- NOTE | 2024-11-30 10:41 | ED_ITS ---
HPI - Abdominal Pain General Chief Complaint: Abdominal Pain Stated Complaint: RUQ abd pain,worse after eating Time Seen by Provider: 11/30/24 10:38 History of Present Illness HPI narrative: Patient is a 74-year-old female history of GERD, depression, anxiety, asencio colitis presenting today with right upper quadrant pain. She reports he has had pain for awhile progressively getting worse. She was recently hospitalized with [facility] for 10 days and then discharged to [facility]. She has only been it [facility] for less than 2 weeks. She reports that she has pain whenever she eats no nausea no vomiting. No chest pain Related Data Previous Rx's ?Medication ?Instructions ?Recorded triamcinolone acetonide 0.1 % 1 applictn topical TID # 80 grams 08/23/18 topical cream fluticasone propionate 50 2 spray intranasal BEDTIME # 16 03/14/22 mcg/actuation nasal grams spray,suspension albuterol sulfate 90 mcg/actuation 2 puff inhalation Q 4-6H PRN 06/22/23 aerosol inhaler shortness of breath or wheez ing #18 grams citalopram 20 mg tablet 30 mg (1.5 x 20 mg) PO DAILY #135 06/09/24 tabs cefdinir 300 mg capsule 300 mg PO BID #10 caps 07/04 Disabled Parking #1 ea 08/08/24 Allergies Allergy/AdvReac Type Severity Reaction Status Date / Time No Known Drug Allergies Allergy Verified 11/30/24 10:05 Patient History Medical History Hx of adenomatous colonic polyps Chronic asthma Chronic renal failure, stage 3 (moderate) Depression Anxiety Chronic headaches Surgical History History of ankle surgery Social History household members: spouse alcohol intake frequency: 0-2 drinks per day Exam Initial Vital Signs Initial Vital Signs: Vital Signs Temperature 98.5 F 11/30/24 10:09 Pulse Rate 89 11/30/24 10:09 Respiratory Rate 16 11/30/24 10:09 Blood Pressure 116/60 11/30/24 10:09 Pulse Oximetry 97 11/30/24 10:09 Oxygen Delivery Method Room Air 11/30/24 10:09 GENERAL: Alert well-appearing 74-year-old female and in no acute distress. HEENT: Head atraumatic,EOMI, pupils reactive, face symmetric, moist mucous membranes CARDIOVASCULAR: Regular rate and rhythm without murmurs, rubs or gallops. RESPIRATORY: Breath sounds equal bilaterally, no wheezes rales or rhonchi. ABDOMEN: Soft, tender right upper quadrant no guarding no rebound EXTREMITIES: Normal range of motion, no clubbing or edema. Neurovascularly intact NEUROLOGICAL: Alert and oriented x4.Normal gait and speech. Cranial nerves II through XII grossly intact. SKIN: Warm, dry, no laceration, no petechiae, no rashes or lesions. Course Orders Ordered: ED Orders 11/30/24 10:17 EKG-12 Lead Stat 11/30/24 10:50 Complete Blood Count AUTO DIFF Stat Comprehensive Metabolic Panel Stat Lipase Stat MAG [Magnesium] Stat 11/30/24 10:53 US abdomen limited Stat 11/30/24 11:44 CT abdomen pelvis w con Stat 11/30/24 17:45 BMP [Basic Metabolic Panel] Stat Sodium Chloride (Normal Saline 0.9%) 1,000 mls @ 100 mls/hr IV CONT [place] Last Admin: 11/30/24 17:33 Dose: Not Given Documented By: BRENDAN Ondansetron HCl (Ondansetron 4 Mg/2 Ml Inj) 4 mg IV NOW PRN PRN Reason: Nausea And Vomiting Last Admin: 11/30/24 16:19 Dose: 4 mg Documented By: KEENAN Ondansetron HCl (Ondansetron 4 Mg Odt) 4 mg PO NOW PRN PRN Reason: Nausea And Vomiting Discontinued Medications POTASSIUM CHLORIDE IN WATER (Potassium Cl 10 Meq/100 Ml Lisandra) 10 meq in 100 mls @ 100 mls/hr IV Q1H [place] Stop: 11/30/24 17:29 Last Infusion: 11/30/24 17:32 Dose: Infused Documented By: Admin: 11/30/24 16:51 Dose: 100 mls/hr Documented By: Infusion: 11/30/24 16:12 Dose: Infused Documented By: Admin: 11/30/24 15:12 Dose: 100 mls/hr Documented By: Infusion: 11/30/24 15:06 Dose: Infused Documented By: Admin: 11/30/24 12:15 Dose: 100 mls/hr Documented By: KEENAN Ketorolac Tromethamine (Ketorolac 30 Mg/Ml Vial) 15 mg IV NOW ONE Stop: 11/30/24 15:55 Last Admin: 11/30/24 16:19 Dose: 15 mg Documented By: KEENAN Potassium Chloride (Potassium Chloride 20 Meq/15 Ml Udc) 40 meq PO NOW ONE Stop: 11/30/24 11:27 Last Admin: 11/30/24 12:14 Dose: 40 meq Documented By: KEENAN Vital Signs Vital signs: Vital Signs - 8 hr 11/30/24 10:30 11/30/24 10:52 11/30/24 10:52 Pulse Rate 82 88 Respiratory Rate 14 Blood Pressure 115/59 L Pulse Oximetry 99 98 11/30/24 11:00 11/30/24 11:00 11/30/24 11:30 Pulse Rate 81 Respiratory Rate 17 Blood Pressure 114/57 L 130/58 L Pulse Oximetry 98 11/30/24 11:30 11/30/24 12:08 11/30/24 12:09 Pulse Rate 78 79 80 Respiratory Rate 13 14 Blood Pressure Pulse Oximetry 98 99 98 11/30/24 12:09 11/30/24 12:30 11/30/24 12:31 Pulse Rate 83 Respiratory Rate 18 Blood Pressure 115/76 135/62 Pulse Oximetry 99 11/30/24 12:31 11/30/24 13:00 11/30/24 13:30 Pulse Rate 82 80 77 Respiratory Rate 18 17 15 Blood Pressure Pulse Oximetry 98 98 99 11/30/24 14:00 11/30/24 14:30 11/30/24 15:00 Pulse Rate 90 83 78 Respiratory Rate 18 15 15 Blood Pressure Pulse Oximetry 97 99 99 11/30/24 15:30 11/30/24 16:00 11/30/24 16:30 Pulse Rate 85 79 81 Respiratory Rate 16 12 16 Blood Pressure Pulse Oximetry 99 99 100 11/30/24 17:00 11/30/24 17:21 11/30/24 17:21 Pulse Rate 97 H 81 Respiratory Rate 36 H 16 Blood Pressure 157/72 H Pulse Oximetry 99 11/30/24 17:30 11/30/24 17:31 11/30/24 17:31 Pulse Rate 101 H 97 H Respiratory Rate 26 H 31 H Blood Pressure 138/68 Pulse Oximetry 90 L 87 L 11/30/24 18:00 11/30/24 18:00 Pulse Rate 83 Respiratory Rate 24 Blood Pressure 120/62 Pulse Oximetry 100 MDM - Abdominal Pain Lab Data 11/30/24 10:50 11/30/24 17:45 Labs: Lab Results 11/30/24 11/30/24 Range/Units 10:50 17:45 WBC 9.0 (4.5-11.0) X10^3/uL RBC 2.81 L (4.0-5.2) X10^6/uL Hgb 9.4 L (12.0-16.0) g/dL Hct 27.4 L (36-46) % MCV 97.5 (80-100) fL MCH 33.5 (26-34) PG MCHC 34.4 (30-36) % RDW 21.8 H (11.6-14.8) % Plt Count 640 H (150-400) X10^3/uL Neut % (Auto) 72.4 (50-75) % Lymph % (Auto) 15.5 L (25-40) % Brooks % (Auto) 10.5 (3-14) % Eos % (Auto) 0.8 L (2-4) % Baso % (Auto) 0.8 (0-2) % Neut # (Auto) 6500 (6635-3222) /uL Lymph # (Auto) 1400 (2837-2536) /uL Brooks # (Auto) 1000 H (0-900) /uL Eos # (Auto) 100 (0-450) /uL Baso # (Auto) 100 (0-100) /uL Sodium 135 L 136 L (137-145) mmol/L Potassium 2.6 L* 4.2 D (3.4-5.1) mmol/L Chloride 110 H 112 H (98-107) mmol/L Carbon Dioxide 23 22 (22-32) mmol/L BUN 13 13 (7-17) mg/dL Creatinine 0.53 0.53 (0.52-1.04) mg/dL Estimated GFR > 60 > 60 (>60) mL/min BUN/Creatinine Ratio 24.5 H 24.5 H (6-22) Glucose 107 H 108 H (70-99) mg/dL Calcium 8.1 L 7.9 L (8.4-10.2) mg/dL Magnesium 1.7 (1.6-2.3) mg/dL Total Bilirubin 0.4 (0.2-1.3) mg/dL AST 19 (14-36) IU/L ALT 14 (<35) IU/L Alkaline Phosphatase 76 (38-126) U/L Total Protein 4.8 L (6.3-8.2) g/dL Albumin 2.0 L (3.5-5.0) g/dL Globulin 2.8 (1.7-4.1) g/dL Albumin/Globulin Ratio 0.7 L (1.0-2.8) Lipase 11 L (23-300) U/L Imaging Data CT scan - abdomen/pelvis: Radiologist's Impression: PROCEDURE: CT ABDOMEN PELVIS W CON INDICATIONS: ruq pain and liver mass TECHNIQUE: After the administration of intravenous contrast, axial sections acquired from the lung bases to the pubic symphysis. Coronal and sagittal reformats were performed. For radiation dose reduction, the following was used: automated exposure control, adjustment of mA and/or kV according to patient size. COMPARISON: [facility], MR, MR ABDOMEN LIVER PROTOCOL, 11/09/2024, 8:20. [facility], US, US ABDOMEN LIMITED, 11/30/2024, 11:36. [facility], CT, CT CHEST ABDOMEN PELVIS WITH CONTRAST, 11/08/2024, 17:52. [facility], CT, CT CHEST ABD PEL W CON, 07/23/2024, 12:42. FINDINGS: Image quality: Diagnostic. Lower Chest: Small ABDOMEN: Liver: There is a peripherally enhancing left liver dome lesion seen, which has been previously characterized as a liver hemangioma. Gallbladder: Numerous gallstones can be seen throughout the gallbladder. No definite additional CT findings of cholecystitis are seen. Biliary ducts: No biliary dilation. Pancreas: No ductal dilation. Spleen: Size is within normal limits. Adrenal Glands: There is a stable left adrenal nodule. No right adrenal nodules. Kidneys and Ureters: No hydronephrosis. No solid mass. No complex renal cystic lesion which requires follow up. Stomach and Bowel: Prominent stool is seen within the rectum, measuring 7.1 cm transversely. A moderate volume of stool is seen within the more proximal colon. Colonic diverticulosis is seen, without findings of active diverticulitis. No dilated loops of small bowel are seen. Peritoneum: There is a mild amount of ascites seen. No free air. Ventral Wall: No significant ventral hernia. Body wall edema is seen. Abdominal Nodes: No retroperitoneal or mesenteric adenopathy by size criteria. Vessels: Aorta and inferior vena cava are normal in size. PELVIS: Pelvic Organs: Unremarkable. Bladder: No bladder wall thickening, accounting for underdistention. Pelvic Nodes: No enlarged lymph nodes. Miscellaneous: No inguinal hernias are seen. Bones: No aggressive osseous abnormality. IMPRESSION: Numerous gallstones are seen within the gallbladder. (Please note that on the accompanying ultrasound, the gallbladder is not well evaluated, secondary to overlying bowel gas. Moderate stool seen within the rectum. There is a moderate amount of stool seen more proximally within the colon. Please correlate with an underlying history of constipation. Small bilateral pleural effusions are seen. A small amount of ascites is seen. Anasarca. Additional findings: Liver hemangioma Stable left adrenal nodule Diverticulosis, without active diverticulitis Dictated by: Renny Barrera M.D. on 11/30/2024 at 11:36 US - abdomen: Radiologist's Impression: PROCEDURE: US ABDOMEN LIMITED INDICATIONS: POSTPRANDIAL RIGHT UPPER QUADRANT PAIN TECHNIQUE: Real-time focused scanning was performed of the abdomen, with image documentation. COMPARISON: [facility], CT, CT CHEST ABDOMEN PELVIS WITH CONTRAST, 11/08/2024, 17:52. [facility], MR, MR ABDOMEN LIVER PROTOCOL, 11/09/2024, 8:20. [facility], CT, CT ABDOMEN PELVIS W CON, 11/30/2024, 12:01. FINDINGS: Evaluation of the liver is limited. No significant abnormality is seen Evaluation of the gallbladder is limited, secondary to overlying bowel gas. The biliary system is not well seen, secondary to overlying bowel gas. The pancreas is not well seen, secondary to overlying bowel gas. There is a likely trace right-sided pleural effusion. No free fluid is seen. IMPRESSION: The gallbladder is not well seen, secondary to overlying bowel gas. This is a nearly nondiagnostic study. Dictated by: Renny Barrera M.D. on 11/30/2024 at 11:33 MDM Narrative Medical decision making narrative: MDM CC: Right upper quadrant Complicating co-morbidities: Chronic malnutrition, benign neoplasm of the liver anxiety depression hypocalcemia Data collected from: Patient records Medical records reviewed: Some records from [facility] in August records from [facility] view reviewed Differential considered: Cholecystitis cholelithiasis liver mass pancreatic mass Exam documented above, pertinent findings include: Alert 74-year-old female choose then mildly tender in her right upper quadrant without Peña's sign Lab Test results independently reviewed as above. Pertinent findings: Critical potassium 2.6, no other electrolyte abnormality no QING Repeat potassium is 4.2 Bilirubin liver enzymes within normal limits lipase 111 CBC no leukocytosis or anemia Independently reviewed EKG as above Imaging studies independently reviewed: Ultrasound right upper quadrant nonconclusive CT does show cholelithiasis, angio no, but no liver and moderate Consultations: [ ] Treatments: IV potassium p.o. potassium, Toradol Re-evaluations: Patient is seems to be doing well. Unfortunately her IV infiltrated repeat blood work does show now normal potassium. Abdomen is soft nontender Discussion: Patient is 74-year-old female presenting today with just increasing weakness. She is found to be hypokalemic with a potassium of 2.6. She received p.o. potassium and IV replacement. After 30 mEq of IV potassium her IV infiltrated. Fortunately her repeat potassium is within normal limits. She has no leukocytosis. She has cholelithiasis without evidence of cholecystitis. Abdomen is soft nontender she is eating at bedside. At this time she does not meet any kind of admission criteria. She is also mildly anemic no active bleeding. She will need to have repeat outpatient blood work done for both hemoglobin and potassium. Discharge Plan Departure Patient Disposition: Home Clinical Impression: Acute hypokalemia, Cholelithiasis, Anemia Instructions: Gallstones Activity Restrictions/Additional Instructions: *You have been diagnosed with gallstones and low potassium *What to do: At this time please have your potassium rechecked in the next 1-2 days Your blood levels are also noted to be slightly low as well those also need to be rechecked *Continue to take medications as directed *Follow up with your primary care provider in 2-3 days or call [phone] *Return to ER if you should have increasing abdominal pain nausea vomiting weakness or any new, worsening or concerning symptoms Prescriptions: No Action triamcinolone acetonide 0.1 % cream 1 applictn TOP TID Qty: 80 0RF Rx Instructions: Ok to fill once per MATJ. 08/23/18 citalopram 20 mg tablet 30 mg PO DAILY Qty: 135 3RF (DME) Disabled Parking See Rx Instructions .ROUTE .MEDSUPPLY Qty: 1 0RF Rx Instructions: Patient qualifies for disabled parking as per the attached form. fluticasone propionate 50 mcg/actuation spray,suspension 2 spray intranasal BEDTIME Qty: 16 0RF Rx Instructions: administer into each nostril albuterol sulfate 90 mcg/actuation HFA aerosol inhaler 2 puff INHALATION Q4-6H PRN (Reason: shortness of breath or wheezing) Qty: 18 2RF cefdinir 300 mg capsule 300 mg PO BID Qty: 10 0RF Stand Alone Forms: Patient Portal/API
--- NOTE | 2024-11-30 10:53 | DI.US.S_ITS ---
PROCEDURE: US ABDOMEN LIMITED INDICATIONS: POSTPRANDIAL RIGHT UPPER QUADRANT PAIN TECHNIQUE: Real-time focused scanning was performed of the abdomen, with image documentation. COMPARISON: [facility], CT, CT CHEST ABDOMEN PELVIS WITH CONTRAST, 11/08/2024, 17:52. [facility], MR, MR ABDOMEN LIVER PROTOCOL, 11/09/2024, 8:20. [facility], CT, CT ABDOMEN PELVIS W CON, 11/30/2024, 12:01. FINDINGS: Evaluation of the liver is limited. No significant abnormality is seen Evaluation of the gallbladder is limited, secondary to overlying bowel gas. The biliary system is not well seen, secondary to overlying bowel gas. The pancreas is not well seen, secondary to overlying bowel gas. There is a likely trace right-sided pleural effusion. No free fluid is seen. IMPRESSION: The gallbladder is not well seen, secondary to overlying bowel gas. This is a nearly nondiagnostic study. Dictated by: Renny Barrera M.D. on 11/30/2024 at 11:33 Approved by: Renny Barrera M.D. on 11/30/2024 at 11:36
[2024-11-30 11:00] LABS: Add Manual Diff / Slide Review NO; Hematocrit 27.4 % (36-46); Hemoglobin 9.4 g/dL (12.0-16.0); Lymphocytes Absolute Auto 1400 /uL (1100-4500); Mean Corpuscular HGB Conc 34.4 % (30-36); Mean Corpuscular Hemoglobin 33.5 PG (26-34); Mean Corpuscular Volume 97.5 fL (80-100); Platelet Count 640 X10^3/uL (150-400)
[2024-11-30 11:15] LABS: Alanine Aminotransferase 14 IU/L (<35); Albumin 2.0 g/dL (3.5-5.0); Albumin Globulin Ratio 0.7 (1.0-2.8); Alkaline Phosphatase 76 U/L (38-126); Blood Urea Nitrogen 13 mg/dL (7-17); Calcium 8.1 mg/dL (8.4-10.2); Carbon Dioxide 23 mmol/L (22-32); Chloride 110 mmol/L (98-107); Estimated Glomerular Filt Rate > 60 mL/min (>60); Globulin 2.8 g/dL (1.7-4.1); Glucose 107 mg/dL (70-99); HEMOLYSIS < 15 (0-50); Lipase 11 U/L (23-300); Sodium 135 mmol/L (137-145); Total Protein 4.8 g/dL (6.3-8.2)
[2024-11-30 11:22] LABS: Potassium 2.6 mmol/L (3.4-5.1)
--- NOTE | 2024-11-30 11:24 | PC.NURSE ---
Pt moved to fast track area. RN ended care at 1120.
--- NOTE | 2024-11-30 11:44 | DI.CT.S_ITS ---
PROCEDURE: CT ABDOMEN PELVIS W CON INDICATIONS: ruq pain and liver mass TECHNIQUE: After the administration of intravenous contrast, axial sections acquired from the lung bases to the pubic symphysis. Coronal and sagittal reformats were performed. For radiation dose reduction, the following was used: automated exposure control, adjustment of mA and/or kV according to patient size. COMPARISON: [facility], MR, MR ABDOMEN LIVER PROTOCOL, 11/09/2024, 8:20. [facility], US, US ABDOMEN LIMITED, 11/30/2024, 11:36. [facility], CT, CT CHEST ABDOMEN PELVIS WITH CONTRAST, 11/08/2024, 17:52. [facility], CT, CT CHEST ABD PEL W CON, 07/23/2024, 12:42. FINDINGS: Image quality: Diagnostic. Lower Chest: Small ABDOMEN: Liver: There is a peripherally enhancing left liver dome lesion seen, which has been previously characterized as a liver hemangioma. Gallbladder: Numerous gallstones can be seen throughout the gallbladder. No definite additional CT findings of cholecystitis are seen. Biliary ducts: No biliary dilation. Pancreas: No ductal dilation. Spleen: Size is within normal limits. Adrenal Glands: There is a stable left adrenal nodule. No right adrenal nodules. Kidneys and Ureters: No hydronephrosis. No solid mass. No complex renal cystic lesion which requires follow up. Stomach and Bowel: Prominent stool is seen within the rectum, measuring 7.1 cm transversely. A moderate volume of stool is seen within the more proximal colon. Colonic diverticulosis is seen, without findings of active diverticulitis. No dilated loops of small bowel are seen. Peritoneum: There is a mild amount of ascites seen. No free air. Ventral Wall: No significant ventral hernia. Body wall edema is seen. Abdominal Nodes: No retroperitoneal or mesenteric adenopathy by size criteria. Vessels: Aorta and inferior vena cava are normal in size. PELVIS: Pelvic Organs: Unremarkable. Bladder: No bladder wall thickening, accounting for underdistention. Pelvic Nodes: No enlarged lymph nodes. Miscellaneous: No inguinal hernias are seen. Bones: No aggressive osseous abnormality. IMPRESSION: Numerous gallstones are seen within the gallbladder. (Please note that on the accompanying ultrasound, the gallbladder is not well evaluated, secondary to overlying bowel gas. Moderate stool seen within the rectum. There is a moderate amount of stool seen more proximally within the colon. Please correlate with an underlying history of constipation. Small bilateral pleural effusions are seen. A small amount of ascites is seen. Anasarca. Additional findings: Liver hemangioma Stable left adrenal nodule Diverticulosis, without active diverticulitis Dictated by: Renny Barrera M.D. on 11/30/2024 at 11:36 Approved by: Renny Barrera M.D. on 11/30/2024 at 11:40
[2024-11-30] MEDS: POTASSIUM CHLORIDE 20 MEQ/15 ML UDC 40 MEQ PO (12:14)
[2024-11-30] MEDS: POTASSIUM CHLORIDE IN WATER 10 MEQ/100 ML PIGGYBACK 100 MEQ IV ×3 (12:15→16:51)
[2024-11-30 12:26] LABS: Magnesium 1.7 mg/dL (1.6-2.3)
[2024-11-30] MEDS: KETOROLAC 30 MG/ML VIAL 15 MG IV (16:19)
[2024-11-30] MEDS: ONDANSETRON 4 MG/2 ML INJ IV (16:19)
--- NOTE | 2024-11-30 17:24 | PC.NURSE ---
Pump beeping and noticed infiltration at the IV site. stopped infusion. Primary RN Kimo made aware. IV removed. hot pack applied and wrapped with coban. Dr Moeller made aware.
[2024-11-30 18:04] LABS: Blood Urea Nitrogen 13 mg/dL (7-17); Calcium 7.9 mg/dL (8.4-10.2); Carbon Dioxide 22 mmol/L (22-32); Chloride 112 mmol/L (98-107); Estimated Glomerular Filt Rate > 60 mL/min (>60); Glucose 108 mg/dL (70-99); HEMOLYSIS < 15 (0-50); Potassium 4.2 mmol/L (3.4-5.1); Sodium 136 mmol/L (137-145)
--- NOTE | 2024-11-30 19:34 | PC.NURSE ---
Pt awake and alert lying in ED stretcher. Pt engages appropriately with RN. No distress noted at this time. Continued plan of care discussed with pt. All requests taken care of and no further requests or complaints at this time.
== END 2024-11-30 21:05 | disposition home or self-care (01) ==
PROVIDERS: Emergency Provider Emergency Medicine
DX: K80.20 Calculus of gallbladder without cholecystitis without obstruction (principal); E87.6 Hypokalemia; D64.9 Anemia, unspecified
CPT/HCPCS: 36415; 74177; 76705; 80048; 80053; 83690; 83735; 85025; 96365; 96366; 96375; 99284; J1885; J2405; Q9967

== ENCOUNTER 2024-12-13 12:51 | Inpatient (IN) | payer MEDICARE, OTHER, SELFPAY ==
[2024-12-13] VITALS (12 sets, daily range): BP systolic 123–148; BP diastolic 60–83; PULSE 83–96; RESP 13–18; TEMP 36.4–37.2; O2SAT 95–100; BMI 20.7
--- NOTE | 2024-12-13 13:27 | ED_ITS ---
HPI - Abdominal Pain General Chief Complaint: Abdominal Pain Stated Complaint: possible bowel obstruction Time Seen by Provider: 12/13/24 12:53 Source: patient and EMS Mode of arrival: EMS Limitations: no limitations History of Present Illness HPI narrative: 74-year-old female history of GERD, depression, anxiety, colitis, CKD stage 3, asthma presents with concern for abdominal pain x5 days, constipation. Patient denies fevers. Denies chest pain or shortness of breath. She has a intermittent abdominal pain that comes and goes. Patient has not had a bowel movement for several days. She had states she is passing flatus. She is unclear about where exactly it hurts in her abdomen. She denies any new dysuria urgency or frequency. No new vaginal bleeding or discharge. Patient was seen here on 11/30/2024. Related Data Previous Rx's ?Medication ?Instructions ?Recorded triamcinolone acetonide 0.1 % 1 applictn topical TID # 80 grams 08/23/18 topical cream fluticasone propionate 50 2 spray intranasal BEDTIME # 16 03/14/22 mcg/actuation nasal grams spray,suspension albuterol sulfate 90 mcg/actuation 2 puff inhalation Q 4-6H PRN 06/22/23 aerosol inhaler shortness of breath or wheez ing #18 grams citalopram 20 mg tablet 30 mg (1.5 x 20 mg) PO DAILY #135 06/09/24 tabs cefdinir 300 mg capsule 300 mg PO BID #10 caps 07/04 [address] Parking #1 ea 08/08/24 Allergies Allergy/AdvReac Type Severity Reaction Status Date / Time No Known Drug Allergies Allergy Verified 12/13/24 13:03 Review of Systems Review of Systems ROS Unobtainable: All systems reviewed & are unremarkable except as noted in HPI and below Patient History Medical History Hx of adenomatous colonic polyps Chronic asthma Chronic renal failure, stage 3 (moderate) Depression Anxiety Chronic headaches Surgical History History of ankle surgery Social History household members: spouse alcohol intake frequency: 0-2 drinks per day Exam Narrative Exam Narrative: GENERAL: Alert and oriented x three, female in moderate distress. Patient is intermittently in pain and then improves. HEENT: Head normocephalic, atraumatic, EOMI, pupils reactive, face symmetric, moist mucous membranes NECK: Supple, full range of motion CARDIOVASCULAR: Regular rate and rhythm without murmurs, rubs or gallops. RESPIRATORY: Breath sounds equal bilaterally, no wheezes rales or rhonchi. ABDOMEN: Soft, nontender. Normoactive bowel sounds all 4 quadrants. No guarding or rebound, rigidity, no mass : No CVA tenderness EXTREMITIES: Normal range of motion, no clubbing or edema. Neurovascularly intact NEUROLOGICAL: Cranial nerves II through XII grossly intact. Moving all extremities SKIN: Warm, dry, no petechiae, no rashes or lesions. Initial Vital Signs Initial Vital Signs: Vital Signs Temperature 98.9 F 12/13/24 13:03 Pulse Rate 94 H 12/13/24 13:03 Respiratory Rate 16 12/13/24 13:03 Blood Pressure 138/64 12/13/24 13:03 Pulse Oximetry 98 12/13/24 13:03 Oxygen Delivery Method Room Air 12/13/24 13:03 Course Orders Ordered: ED Orders 12/13/24 13:11 Complete Blood Count AUTO DIFF Stat Comprehensive Metabolic Panel Stat Lipase Stat Procalcitonin Stat 12/13/24 13:33 CT abdomen pelvis w con Stat 12/13/24 14:47 Blood Culture Stat Lactate (Lactic Acid) Stat Ondansetron HCl (Ondansetron 4 Mg/2 Ml Inj) 4 mg IV Q6HR PRN PRN Reason: Nausea And Vomiting Last Admin: 12/13/24 13:50 Dose: 4 mg Documented By: SUKHJINDER Discontinued Medications Sodium Chloride (Normal Saline 0.9%) 1,000 mls @ 1,000 mls/hr IV BOLUS ONE Stop: 12/13/24 14:31 Last Admin: 12/13/24 13:52 Dose: 1,000 mls/hr Documented By: SUKHJINDER Sodium Chloride (Normal Saline 0.9%) 1,000 mls @ 1,000 mls/hr IV BOLUS ONE Stop: 12/13/24 14:33 Piperacillin Sod/Tazobactam (Sod 4.5 gm/ Sodium Chloride) 100 mls @ 200 mls/hr IV NOW ONE Stop: 12/13/24 14:47 Lidocaine HCl (Lidocaine 2% (Glydo) 6 Ml Gel) 6 ml TOP NOW ONE Stop: 12/13/24 14:46 Mineral Oil (Mineral Oil 1 Each Enema) 1 each CO NOW ONE Stop: 12/13/24 14:46 Morphine Sulfate (Morphine 4 Mg/Ml Inj) 4 mg IV NOW ONE Stop: 12/13/24 13:33 Last Admin: 12/13/24 13:49 Dose: 4 mg Documented By: DKRobin Vital Signs Vital signs: Vital Signs - 8 hr 12/13/24 13:03 12/13/24 13:15 Temperature 98.9 F Pulse Rate 94 H 88 Respiratory Rate 16 Blood Pressure 138/64 Pulse Oximetry 98 100 Oxygen Delivery Method Room Air MDM - Abdominal Pain Lab Data 12/13/24 13:11 12/13/24 13:11 Labs: Lab Results 12/13/24 Range/Units 13:11 WBC 14.5 H (4.5-11.0) X10^3/uL RBC 3.27 L (4.0-5.2) X10^6/uL Hgb 11.1 L (12.0-16.0) g/dL Hct 33.5 L (36-46) % MCV 102.2 H (80-100) fL MCH 34.1 H (26-34) PG MCHC 33.3 (30-36) % RDW 17.4 H (11.6-14.8) % Plt Count 447 H (150-400) X10^3/uL Neut % (Auto) 88.8 H (50-75) % Lymph % (Auto) 5.2 L (25-40) % [place] % (Auto) 5.5 (3-14) % Eos % (Auto) 0.2 L (2-4) % Baso % (Auto) 0.3 (0-2) % Neut # (Auto) 50941 H (5786-4814) /uL Lymph # (Auto) 800 L (7987-3365) /uL [place] # (Auto) 800 (0-900) /uL Eos # (Auto) 0 (0-450) /uL Baso # (Auto) 0 (0-100) /uL Sodium 138 (137-145) mmol/L Potassium 3.6 (3.4-5.1) mmol/L Chloride 112 H (98-107) mmol/L Carbon Dioxide 23 (22-32) mmol/L BUN 15 (7-17) mg/dL Creatinine 0.50 L (0.52-1.04) mg/dL Estimated GFR > 60 (>60) mL/min BUN/Creatinine Ratio 30.0 H (6-22) Glucose 97 (70-99) mg/dL Calcium 7.7 L (8.4-10.2) mg/dL Total Bilirubin 1.1 (0.2-1.3) mg/dL AST 40 H (14-36) IU/L ALT 20 (<35) IU/L Alkaline Phosphatase 106 (38-126) U/L Total Protein 5.3 L (6.3-8.2) g/dL Albumin 2.4 L (3.5-5.0) g/dL Globulin 2.9 (1.7-4.1) g/dL Albumin/Globulin Ratio 0.8 L (1.0-2.8) Lipase < 10 L (23-300) U/L MDM Narrative Medical decision making narrative: Labs show white count of 14.5 was 9 on 11/30/2024 with a hemoglobin of 11 this is improved from hemoglobin of 9.4 on 11/30/2024 she has macrocytic with a platelets of 447 that is down from her last but does have a predominance of neutrophils. Electrolytes show a chloride of 112, sodium potassium CO2 and BUN are otherwise normal creatinine 0.5, glucose is 97 calcium 7.7 with a bilirubin of 1.1 AST is 40 normal ALT normal alk-phos lipase is less than 10. Procalcitonin is pending Blood cultures were obtained CT abdomen pelvis, large rectal stool ball with surrounding edema likely Seroquel proctocolitis diffuse colonic diverticuli seen segment areas of colonic wall thickening likely additional colitis central colonoscopy correlate following clinical treatment if not recently obtain no small-bowel obstruction small volume ascites small bilateral pleural effusions. Mild edema around the gallbladder which appears to be packed with stones, mildly prominent CBD, consider ultrasound LFT correlation. Patient has a intermittent pain, spoke with general surgery concern for diverticulitis with possible stercoral proctocolitis overlying constipation. Also she does not seem to be particularly tender overlying her right upper quadrant but gallbladder is known to have some mild edema and stones prominent CBD LFTs are overall appropriate, patient's AST is 40. Patient was covered with IV antibiotics. Patient received fluids, IV antibiotics, Zofran, pain medication. Patient meets septic criteria based on white count of 14 and heart rate in the 90s because of the patient's age fragility was not given a 30 cc/kilos bolus. Spoke with Dr. West, general surgery at 1515 will see patient for consult. Spoke with Dr. Gomez, hospitalist who accepts for admission. Discharge Plan Departure Patient Disposition: Admitted As Inpatient Clinical Impression: Cholelithiasis, Stercoral colitis Admit Date/Time: 12/13/24 15:20 Admit Provider: Stacia Gomez
--- NOTE | 2024-12-13 13:33 | DI.CT.S_ITS ---
PROCEDURE: CT ABDOMEN PELVIS W CON INDICATIONS: abd pain, TECHNIQUE: After the administration of intravenous contrast, axial sections acquired from the lung bases to the pubic symphysis. Coronal and sagittal reformats were performed. For radiation dose reduction, the following was used: automated exposure control, adjustment of mA and/or kV according to patient size. COMPARISON: [facility], CT, CT ABDOMEN PELVIS W CON, 11/30/2024, 12:01. FINDINGS: Image quality: Diagnostic Lower chest: Bibasal atelectasis. Heart size is within normal limits. Mild aortic valvular calcifications. Trace bilateral pleural effusions Liver: Possible hemangioma again seen at the left lobe dome similar to prior Gallbladder and biliary system: Pericholecystic edema and numerous gallstones. Mildly prominent CBD at 6-7 mm. Pancreas: No ductal dilation Spleen: Unremarkable Adrenals: 2 cm left adrenal nodule again seen. Kidneys: Mild bilateral cortical thinning. No hydronephrosis Vessels and lymph nodes: The main portal vein appears patent. No abdominal aneurysm. Mild atherosclerotic calcifications are seen. No enlarged lymph nodes by size criteria. Bowel and peritoneum: Small volume free fluid. Large rectal stool ball with surrounding edematous fat stranding. No bowel obstruction. Mild hyperemia and wall thickening also seen of the distal sigmoid colon, as well as a proximal colon. No drainable abscess Body wall: Diffuse anasarca Pelvis: Under distended urinary bladder. Reproductive organs are unremarkable on limited CT evaluation Bones: Diffuse degenerative osseous changes. No aggressive appearing osseous abnormality. IMPRESSION: Large rectal stool ball with surrounding edema, likely stercoral proctocolitis. Diffuse colonic diverticula also seen. Segmental areas of colonic wall thickening, likely additional colitis. Consider colonoscopy correlation following clinical treatment, if not recently obtained. No small bowel obstruction. Small volume ascites. Small bilateral pleural effusions. Mild edema around the gallbladder, which appears to be packed with stones. Mildly prominent CBD. Consider ultrasound and LFT correlation. Other findings above. Dictated by: Leonid Robbins M.D. on 12/13/2024 at 14:31 Approved by: Leonid Robbins M.D. on 12/13/2024 at 14:37
[2024-12-13] MEDS: MORPHINE 4 MG/ML INJ IV (13:49)
[2024-12-13 13:50] LABS: Add Manual Diff / Slide Review NO; Hematocrit 33.5 % (36-46); Hemoglobin 11.1 g/dL (12.0-16.0); Lymphocytes Absolute Auto 800 /uL (1100-4500); Mean Corpuscular HGB Conc 33.3 % (30-36); Mean Corpuscular Hemoglobin 34.1 PG (26-34); Mean Corpuscular Volume 102.2 fL (80-100); Platelet Count 447 X10^3/uL (150-400)
[2024-12-13] MEDS: ONDANSETRON 4 MG/2 ML INJ IV (13:50)
[2024-12-13] MEDS: SODIUM CHLORIDE 0.9% 1,000 ML 1000 ML IV (13:52)
[2024-12-13 13:55] LABS: Alanine Aminotransferase 20 IU/L (<35); Albumin 2.4 g/dL (3.5-5.0); Albumin Globulin Ratio 0.8 (1.0-2.8); Alkaline Phosphatase 106 U/L (38-126); Blood Urea Nitrogen 15 mg/dL (7-17); Calcium 7.7 mg/dL (8.4-10.2); Carbon Dioxide 23 mmol/L (22-32); Chloride 112 mmol/L (98-107); Estimated Glomerular Filt Rate > 60 mL/min (>60); Globulin 2.9 g/dL (1.7-4.1); Glucose 97 mg/dL (70-99); HEMOLYSIS 30 (0-50); Potassium 3.6 mmol/L (3.4-5.1); Sodium 138 mmol/L (137-145); Total Protein 5.3 g/dL (6.3-8.2)
[2024-12-13 13:56] LABS: Lipase < 10 U/L (23-300)
[2024-12-13 15:26] LABS: Procalcitonin 26.8 ng/mL (<0.5)
[2024-12-13 15:49] LABS: Lactate (Lactic Acid) 1.2 mmol/L (0.7-2.1)
[2024-12-13] MEDS: LIDOCAINE 2% (GLYDO) 6 ML GEL TOP (15:52)
[2024-12-13] MEDS: MINERAL OIL 1 EACH ENEMA PR (15:52)
[2024-12-13] MEDS: PIPERACILLIN/TAZO 4.5 GM in SODIUM CHLORIDE 0.9% 100 ML IV (15:57)
--- NOTE | 2024-12-13 16:32 | P.HP_ITS ---
History of Present Illness History of Present Illness Date Patient Seen: 12/13/24 Chief complaint: possible bowel obstruction Narrative: This is a 74-year-old female with a history of asthma, CKD 3, depression, anxiety and recent sepsis admission who presents from the [facility] with complaints of abdominal pain and constipation. She has stercoral proctitis/a large rectal stool ball on CT scan. Additionally there are segmental areas of colonic wall thickening, likely additional colitis along with diffuse colonic diverticula. There are small bilateral pleural effusions along with small volume ascites. The gallbladder is packed with stones with surrounding edema. After arrival on the medical floor she experiences large bowel movements, likely clearing the rectal ball of stool. She tells me that she has been living at the facility for 3 weeks after an admission for sepsis at a nearby hospital. Those details are not available. Assessment and plan: Abdominal pain with CT evidence of stercoral colitis, additional areas of colonic colitis seen. Present on admission. Active. -rectal stool ball probably relieved shortly after admission. We will observe. -if symptoms resolve she will be able to return to her detention facility with plans for outpatient colonoscopy/GI referral. -check TSH. She has not been on chronic opioids. Trial of MiraLax b.i.d.. Recent admission for sepsis, chronic. -no current imaging evidence of sepsis other than a white count of 14.5 and a procalcitonin of 26.1, follow -check chest x-ray and UA. Asthma, present on admission. Chronic. -albuterol Depression, present on admission. Chronic. -holding citalopram. Lovenox for DVT prevention Her is her backup decision maker. [facility] Medical History Hx of adenomatous colonic polyps Chronic asthma Chronic renal failure, stage 3 (moderate) Depression Anxiety Chronic headaches Surgical History History of ankle surgery Social History household members: spouse Meds Home Medications and Allergies Home Medications ?Medication ?Instructions ?Recorded ?Confirmed ?Type triamcinolone acetonide 0.1 % 1 applictn topical TID # 80 grams 08/23/18 06/03/24 Rx topical cream fluticasone propionate 50 2 spray intranasal BEDTIME # 16 03/14/22 06/03/24 Rx mcg/actuation nasal grams spray,suspension albuterol sulfate 90 mcg/actuation 2 puff inhalation Q 4-6H PRN 06/22/23 06/03/24 Rx aerosol inhaler shortness of breath or wheez ing #18 grams citalopram 20 mg tablet 30 mg (1.5 x 20 mg) PO DAILY #135 06/09/24 Rx tabs cefdinir 300 mg capsule 300 mg PO BID #10 caps 07/04 Rx Disabled Parking #1 ea 08/08/24 Rx Allergies Allergy/AdvReac Type Severity Reaction Status Date / Time No Known Drug Allergies Allergy Verified 12/13/24 13:03 Exam Vital Signs (past 8 hours): - 12/13/24 13:03 12/13/24 13:15 Temperature 98.9 F Pulse Rate 94 H 88 Respiratory Rate 16 Blood Pressure 138/64 Pulse Oximetry 98 100 Oxygen Delivery Method Room Air Oxygen Delivery Method Room Air Objective Labs 12/13/24 13:11 12/13/24 13:11 Labs: Laboratory Results - last 24 hr 12/13/24 12/13/24 13:11 15:10 WBC 14.5 H RBC 3.27 L Hgb 11.1 L Hct 33.5 L MCV 102.2 H MCH 34.1 H MCHC 33.3 RDW 17.4 H Plt Count 447 H Neut % (Auto) 88.8 H Lymph % (Auto) 5.2 L [place] % (Auto) 5.5 Eos % (Auto) 0.2 L Baso % (Auto) 0.3 Neut # (Auto) 88075 H Lymph # (Auto) 800 L [place] # (Auto) 800 Eos # (Auto) 0 Baso # (Auto) 0 Sodium 138 Potassium 3.6 Chloride 112 H Carbon Dioxide 23 BUN 15 Creatinine 0.50 L Estimated GFR > 60 BUN/Creatinine Ratio 30.0 H Glucose 97 Lactate 1.2 Calcium 7.7 L Total Bilirubin 1.1 AST 40 H ALT 20 Alkaline Phosphatase 106 Total Protein 5.3 L Albumin 2.4 L Globulin 2.9 Albumin/Globulin Ratio 0.8 L Lipase < 10 L Procalcitonin 26.8 H Assessment & Plan Time-Based Coding :: [TOTAL MINUTES] spent with patient and on the chart (including review of chart, obtaining history, exam, reviewing outside data, placing orders, documenting exam and treatment plan, and counseling patient) on [DATE].
[2024-12-13] MEDS: DEXTROSE 5%-0.9% NS 1,000 ML 125 ML IV (17:14)
--- NOTE | 2024-12-13 18:43 | DI.RAD.S_ITS ---
PROCEDURE: XR CHEST 1V INDICATIONS: Sepsis TECHNIQUE: One view of the chest was acquired. COMPARISON: [facility], CR, XR CHEST 1V, 06/16/2024, 11:51. [facility], CR, XR CHEST 1V, 11/11/2019, 14:03. [facility], CR, XR CHEST 2 VIEWS, 11/13/2024, 14:15. FINDINGS: Surgical changes and devices: None. Lungs and pleura: Stable left basilar atelectasis. No new consolidation. Mediastinum: Mediastinal contours appear normal. Heart size is normal. Bones and chest wall: No suspicious bony lesions. Overlying soft tissues appear unremarkable. IMPRESSION: Stable left basilar atelectasis, no new infiltrate or significant pleural effusion. Dictated by: Andriy Edmondson M.D. on 12/13/2024 at 19:40 Approved by: Andriy Edmondson M.D. on 12/13/2024 at 19:41
--- NOTE | 2024-12-13 20:00 | PM.CN.IH.1 ---
History of Present Illness Consult details Date Patient Seen: 12/13/24 Time Patient Seen: 20:00 Chief complaint: possible bowel obstruction Reason for consult: Abdominal pain Requesting provider: Nisreen Pang Narrative: Surgery consult requested by ED. Patient being admitted to hospitalist service. CT in ED demonstrated colitis and huge rectal impaction. Also shows gallstones and gallbladder edema. WBC 14. Patient just finished eating dinner in hospital room, ate 100% of meal. C/O upper and lower abd pain, Lower pain > upper. Meds Home Medications and Allergies Home Medications ?Medication ?Instructions ?Recorded ?Confirmed ?Type triamcinolone acetonide 0.1 % 1 applictn topical TID #80 grams 08/23/18 06/03/24 Rx topical cream fluticasone propionate 50 2 spray intranasal BEDTIME #16 03/14/22 06/03/24 Rx mcg/actuation nasal grams spray,suspension albuterol sulfate 90 mcg/actuation 2 puff inhalation Q4-6H PRN 06/22/23 06/03/24 Rx aerosol inhaler shortness of breath or wheezing #18 grams citalopram 20 mg tablet 30 mg (1.5 x 20 mg) PO DAILY #135 06/09/24 Rx tabs cefdinir 300 mg capsule 300 mg PO BID #10 caps 07/04/24 Rx Disabled Parking #1 ea 08/08/24 Rx Allergies Allergy/AdvReac Type Severity Reaction Status Date / Time No Known Drug Allergies Allergy Verified 12/13/24 13:03 Exam Vital Signs (past 8 hours): - 12/13/24 13:03 12/13/24 13:15 12/13/24 13:30 Temperature 98.9 F Pulse Rate 94 H 88 86 Respiratory Rate 16 18 Blood Pressure 138/64 Pulse Oximetry 98 100 99 Oxygen Delivery Method Room Air 12/13/24 14:00 12/13/24 14:30 12/13/24 15:00 Temperature Pulse Rate 85 94 H 86 Respiratory Rate 16 15 13 Blood Pressure Pulse Oximetry 97 100 95 Oxygen Delivery Method 12/13/24 15:24 12/13/24 15:24 12/13/24 15:30 Temperature Pulse Rate 86 87 Respiratory Rate 13 16 Blood Pressure 135/60 Pulse Oximetry 97 95 Oxygen Delivery Method 12/13/24 15:30 12/13/24 16:00 12/13/24 16:00 Temperature Pulse Rate 96 H Respiratory Rate 18 Blood Pressure 148/65 H 139/83 Pulse Oximetry 96 Oxygen Delivery Method 12/13/24 16:30 12/13/24 16:30 12/13/24 17:06 Temperature 97.5 F L Pulse Rate 85 85 Respiratory Rate 14 16 Blood Pressure 129/61 133/79 Pulse Oximetry 95 100 Oxygen Delivery Method Oxygen Delivery Method Room Air Const General: comfortable Resp Effort & Inspection: normal respiratory effort and able to speak in complete sentences Cardio Rate: regular rate GI Other: ABD: soft, non-peritoneal Objective Labs 12/13/24 13:11 12/13/24 13:11 Labs: Laboratory Results - last 24 hr 12/13/24 12/13/24 13:11 15:10 WBC 14.5 H RBC 3.27 L Hgb 11.1 L Hct 33.5 L MCV 102.2 H MCH 34.1 H MCHC 33.3 RDW 17.4 H Plt Count 447 H Neut % (Auto) 88.8 H Lymph % (Auto) 5.2 L [place] % (Auto) 5.5 Eos % (Auto) 0.2 L Baso % (Auto) 0.3 Neut # (Auto) 28609 H Lymph # (Auto) 800 L [place] # (Auto) 800 Eos # (Auto) 0 Baso # (Auto) 0 Sodium 138 Potassium 3.6 Chloride 112 H Carbon Dioxide 23 BUN 15 Creatinine 0.50 L Estimated GFR > 60 BUN/Creatinine Ratio 30.0 H Glucose 97 Lactate 1.2 Calcium 7.7 L Total Bilirubin 1.1 AST 40 H ALT 20 Alkaline Phosphatase 106 Total Protein 5.3 L Albumin 2.4 L Globulin 2.9 Albumin/Globulin Ratio 0.8 L Lipase < 10 L Procalcitonin 26.8 H PFSH Medical History Hx of adenomatous colonic polyps Chronic asthma Chronic renal failure, stage 3 (moderate) Depression Anxiety Chronic headaches Surgical History History of ankle surgery Social History household members: spouse Assessment & Plan Assessment and plan (1) Stercoral colitis: Status: Acute (2) Cholelithiasis: Qualifiers: Cholelithiasis location: gallbladder Cholecystitis presence: with cholecystitis Cholecystitis acuity: acute Biliary obstruction: without biliary obstruction Qualified Code(s): K80.00 - Calculus of gallbladder with acute cholecystitis without obstruction Status: Acute Plan Abdominal pain Rectal impaction/constipation certainly contributing to symptoms Plan disimpaction, enemas, MOM to clear stool burden Cholelithiasis, CT evidence for cholecystitis, consider biliary antibiotic coverage Reassess symptoms once severe impaction is cleared Will follow Time-Based Coding :: [TOTAL MINUTES] spent with patient and on the chart (including review of chart, obtaining history, exam, reviewing outside data, placing orders, documenting exam and treatment plan, and counseling patient) on [DATE]. PROFEE Charge Codes Inpatient or Observation consultation: [id number]
[2024-12-13 20:08] LABS: Thyroid Stimulating Hormone 9.33 uIU/mL (0.47-4.68)
[2024-12-13] MEDS: FLEETS ENEMA 1 EACH PR (22:40)
[2024-12-14 03:17] LABS: Appearance Urine UA CLEAR; Bilirubin Urine UA 1+ (NEGATIVE); Glucose Urine UA NEGATIVE (Negative); Ketones Urine UA NEGATIVE (NEGATIVE); Leukocyte Esterase Urine UA NEGATIVE (NEGATIVE); Nitrite Urine UA NEGATIVE (Negative); Occult Blood Urine UA NEGATIVE (Negative); Protein Urine UA NEGATIVE (Negative); Specific Gravity Urine UA 1.020 (1.000-1.035); Urobilinogen Urine UA 1.0 E.U./dL (0.2)
[2024-12-14 03:18] LABS: Color Urine UA Dark Yellow; pH Urine UA 5.5 (4.5-8.0)
[2024-12-14 03:24] LABS: Ictotest Urine Negative (Negative)
[2024-12-14 03:25] LABS: Culture Indicated Urine Cult Not Indicated
[2024-12-14 05:45] LABS: Alanine Aminotransferase 14 IU/L (<35); Albumin 2.0 g/dL (3.5-5.0); Albumin Globulin Ratio 0.8 (1.0-2.8); Alkaline Phosphatase 90 U/L (38-126); Blood Urea Nitrogen 12 mg/dL (7-17); Calcium 6.7 mg/dL (8.4-10.2); Carbon Dioxide 23 mmol/L (22-32); Chloride 117 mmol/L (98-107); Estimated Glomerular Filt Rate > 60 mL/min (>60); Globulin 2.6 g/dL (1.7-4.1); Glucose 94 mg/dL (70-99); HEMOLYSIS < 15 (0-50); Potassium 2.8 mmol/L (3.4-5.1); Sodium 141 mmol/L (137-145); Total Protein 4.6 g/dL (6.3-8.2)
[2024-12-14 05:48] LABS: Add Manual Diff / Slide Review NO; Hematocrit 29.1 % (36-46); Hemoglobin 9.7 g/dL (12.0-16.0); Lymphocytes Absolute Auto 700 /uL (1100-4500); Mean Corpuscular HGB Conc 33.2 % (30-36); Mean Corpuscular Hemoglobin 34.1 PG (26-34); Mean Corpuscular Volume 102.5 fL (80-100); Platelet Count 360 X10^3/uL (150-400)
--- NOTE | 2024-12-14 05:59 | DI.RAD.S_ITS ---
PROCEDURE: XR ABDOMEN 1V INDICATIONS: ?stool burden after enemas (huge rectal impaction on CT) TECHNIQUE: One view of the abdomen acquired. COMPARISON: [facility], CT, CT ABDOMEN PELVIS W CON, 12/13/2024, 13:46. FINDINGS: Surgical changes and devices: None. Bowel: No dilated bowel. Moderate volume stool noted in the large bowel. Overall decreased rectal stool volume. Soft tissues: Gallstones are visualized. Contrast noted in the urinary bladder and renal pelvis. Visualized solid organ contours appear normal in size. Bones: No suspicious bony lesions. No pneumoperitoneum. IMPRESSION: Persistent moderate volume of stool. Decreased stool burden in the rectum. Gallstones. Dictated by: Gladys Reyes M.D. on 12/14/2024 at 8:19 Approved by: Gladys Reyes M.D. on 12/14/2024 at 8:21
[2024-12-14 06:02] LABS: Procalcitonin 14.3 ng/mL (<0.5)
[2024-12-14 06:18] LABS: Magnesium 1.8 mg/dL (1.6-2.3)
[2024-12-14] MEDS: POTASSIUM CHLORIDE IN WATER 10 MEQ/100 ML PIGGYBACK 100 MEQ IV ×2 (06:40→08:00)
[2024-12-14] MEDS: DEXTROSE 5%-0.9% NS 1,000 ML 125 ML IV ×3 (06:58→23:46)
--- NOTE | 2024-12-14 07:30 | PM.PN.IH.1 ---
Subjective Subjective Date Patient Seen: 12/14/24 Time Patient Seen: 06:00 Interval history: Large BM last night Tolerating regular diet Exam Vital Signs (past 8 hours): Oxygen Delivery Method Room Air GI Other: ABD: soft, non-peritoneal exam Objective Labs 12/14/24 05:15 12/14/24 05:15 Labs: Laboratory Results - last 24 hr 12/13/24 12/13/24 12/13/24 07:06 13:11 15:10 WBC 14.5 H RBC 3.27 L Hgb 11.1 L Hct 33.5 L MCV 102.2 H MCH 34.1 H MCHC 33.3 RDW 17.4 H Plt Count 447 H Neut % (Auto) 88.8 H Lymph % (Auto) 5.2 L [place] % (Auto) 5.5 Eos % (Auto) 0.2 L Baso % (Auto) 0.3 Neut # (Auto) 86935 H Lymph # (Auto) 800 L [place] # (Auto) 800 Eos # (Auto) 0 Baso # (Auto) 0 Sodium 138 Potassium 3.6 Chloride 112 H Carbon Dioxide 23 BUN 15 Creatinine 0.50 L Estimated GFR > 60 BUN/Creatinine Ratio 30.0 H Glucose 97 Lactate 1.2 Calcium 7.7 L Magnesium Total Bilirubin 1.1 AST 40 H ALT 20 Alkaline Phosphatase 106 Total Protein 5.3 L Albumin 2.4 L Globulin 2.9 Albumin/Globulin Ratio 0.8 L Lipase < 10 L Procalcitonin 26.8 H TSH 9.33 H Urine Color Urine Appearance Urine pH Ur Specific [place] Urine Protein Urine Glucose (UA) Urine Ketones Urine Occult Blood Urine Nitrate Urine Bilirubin Ur Bilirubin Confirm Urine Urobilinogen Ur Leukocyte Esterase Urine RBC Urine WBC Ur Squamous Epith Cells Calcium Oxalate Crystal Urine Bacteria Ur Culture Indicated? Vol Urine Centrifuged 12/14/24 12/14/24 02:50 05:15 WBC 13.0 H RBC 2.84 L Hgb 9.7 L Hct 29.1 L MCV 102.5 H MCH 34.1 H MCHC 33.2 RDW 18.1 H Plt Count 360 Neut % (Auto) 88.7 H Lymph % (Auto) 5.0 L [place] % (Auto) 5.6 Eos % (Auto) 0.3 L Baso % (Auto) 0.4 Neut # (Auto) 89676 H Lymph # (Auto) 700 L [place] # (Auto) 700 Eos # (Auto) 0 Baso # (Auto) 100 Sodium 141 Potassium 2.8 L Chloride 117 H Carbon Dioxide 23 BUN 12 Creatinine 0.52 Estimated GFR > 60 BUN/Creatinine Ratio 23.1 H Glucose 94 Lactate Calcium 6.7 L Magnesium 1.8 Total Bilirubin 0.9 AST 22 ALT 14 Alkaline Phosphatase 90 Total Protein 4.6 L Albumin 2.0 L Globulin 2.6 Albumin/Globulin Ratio 0.8 L Lipase Procalcitonin 14.3 H TSH Urine Color Dark yellow Urine Appearance Clear Urine pH 5.5 Ur Specific [place] 1.020 Urine Protein Negative Urine Glucose (UA) Negative Urine Ketones Negative Urine Occult Blood Negative Urine Nitrate Negative Urine Bilirubin 1+ H Ur Bilirubin Confirm Negative Urine Urobilinogen 1.0 Ur Leukocyte Esterase Negative Urine RBC 0-1/hpf Urine WBC None seen Ur Squamous Epith Cells 0-1 /hpf Calcium Oxalate Crystal Occasional H Urine Bacteria None seen Ur Culture Indicated? Cult not indicated Vol Urine Centrifuged 10ml (spun) PFSH Medical History Hx of adenomatous colonic polyps Chronic asthma Chronic renal failure, stage 3 (moderate) Depression Anxiety Chronic headaches Surgical History History of ankle surgery Social History household members: spouse Smoking Status: Never smoker alcohol intake: never Assessment & Plan Assessment and plan (1) Stercoral colitis: Status: Acute (2) Cholelithiasis: Qualifiers: Biliary obstruction: without biliary obstruction Cholecystitis acuity: acute Cholecystitis presence: with cholecystitis Cholelithiasis location: gallbladder Qualified Code(s): K80.00 - Calculus of gallbladder with acute cholecystitis without obstruction Status: Acute Plan Constipation - resolving with enemas, large BM overnight, tolerating diet Colonoscopy 01/25/19 with tubular adenoma, patient due for elective screening colonoscopy Check AXR to assess stool burden Cholelithiasis - tolerating regular diet without n/v, afebrile on Zosyn, WBC downtrend 14 to 13. Hypokalemia - 2.8 this morning, replete per protocol Hgb down 11.1 to 9.7, ?dilutional, no clinical signs of bleeding Time-Based Coding :: [TOTAL MINUTES] spent with patient and on the chart (including review of chart, obtaining history, exam, reviewing outside data, placing orders, documenting exam and treatment plan, and counseling patient) on [DATE]. PROFEE [employer] Supervisor Document charge(s): Yes Charge Codes Subsequent inpatient/observation care: [id number]
--- NOTE | 2024-12-14 07:34 | PM.PN.1 ---
Subjective Subjective Date Patient Seen: 12/14/24 Interval history: Chief complaint: Abdominal pain and constipation with use stool burden rectal impaction cholelithiasis and imaging suggesting cholecystitis History of present illness: 12/13: 74-year-old female with a history of asthma, CKD 3, depression, anxiety and recent sepsis admission who presents from the [facility] with complaints of abdominal pain and constipation. She has stercoral proctitis/a large rectal stool ball on CT scan. Additionally there are segmental areas of colonic wall thickening, likely additional colitis along with diffuse colonic diverticula. There are small bilateral pleural effusions along with small volume ascites. The gallbladder is packed with stones with surrounding edema. After arrival on the medical floor she experiences large bowel movements, likely clearing the rectal ball of stool. She tells me that she has been living at the facility for 3 weeks after an admission for sepsis at a nearby hospital. Those details are not available. 12/14: WBC 13 hemoglobin 9.7 MCV 102.5 89% neutrophils sodium 141 potassium 2.8 BUN 12 creatinine 0.5 procalcitonin de-escalated from 27-14 Replace potassium continue Zosyn, monitor clinically and discuss with surgery whether or not cholelithiasis is active issue Review of systems: No fever or chills Nausea vomiting Physical exam: No acute distress Heart and lungs clear Abdomen nontender Assessment and plan: Fecal impaction with stercoral colitis: May have resolved, continue laxation Continue Zosyn Follow up KUB Discussion with surgeon Symptoms resolved may return to [facility] and plans for outpatient colonoscopy (has not had 1 for 20 years) Cholelithiasis and imaging suggesting possible cholecystitis Monitor clinical presentation Confirmed with surgery Continue Zosyn Chronic medical conditions: Hx of adenomatous colonic polyps Chronic asthma Chronic renal failure, stage 3 (moderate) Depression Anxiety Chronic headaches DVT prophylaxis: Enoxaparin Code status: Full code blue Disposition: Probable another 24 hours of inpatient care and [facility] Exam Vital Signs (past 8 hours): Oxygen Delivery Method Room Air Objective Labs 12/14/24 05:15 12/14/24 12:22 Labs: Laboratory Results - last 24 hr 12/13/24 12/13/24 12/13/24 07:06 13:11 15:10 WBC 14.5 H RBC 3.27 L Hgb 11.1 L Hct 33.5 L MCV 102.2 H MCH 34.1 H MCHC 33.3 RDW 17.4 H Plt Count 447 H Neut % (Auto) 88.8 H Lymph % (Auto) 5.[address] [place] % (Auto) 5.5 Eos % (Auto) 0.2 L Baso % (Auto) 0.3 Neut # (Auto) 28540 H Lymph # (Auto) [address] [place] # (Auto) 800 Eos # (Auto) 0 Baso # (Auto) 0 Sodium 138 Potassium 3.6 Chloride 112 H Carbon Dioxide 23 BUN 15 Creatinine 0.50 L Estimated GFR > 60 BUN/Creatinine Ratio 30.0 H Glucose 97 Lactate 1.2 Calcium 7.7 L Magnesium Total Bilirubin 1.1 AST 40 H ALT 20 Alkaline Phosphatase 106 Total Protein 5.3 L Albumin 2.4 L Globulin 2.9 Albumin/Globulin Ratio 0.8 L Lipase < 10 L Procalcitonin 26.8 H TSH 9.33 H Urine Color Urine Appearance Urine pH Ur Specific [place] Urine Protein Urine Glucose (UA) Urine Ketones Urine Occult Blood Urine Nitrate Urine Bilirubin Ur Bilirubin Confirm Urine Urobilinogen Ur Leukocyte Esterase Urine RBC Urine WBC Ur Squamous Epith Cells Calcium Oxalate Crystal Urine Bacteria Ur Culture Indicated? Vol Urine Centrifuged 12/14/24 12/14/24 02:50 05:15 WBC 13.0 H RBC 2.84 L Hgb 9.7 L Hct 29.1 L MCV 102.5 H MCH 34.1 H MCHC 33.2 RDW 18.1 H Plt Count 360 Neut % (Auto) 88.7 H Lymph % (Auto) 5.[address] [place] % (Auto) 5.6 Eos % (Auto) 0.3 L Baso % (Auto) 0.4 Neut # (Auto) 64973 H Lymph # (Auto) [address] [place] # (Auto) 700 Eos # (Auto) 0 Baso # (Auto) 100 Sodium 141 Potassium 2.8 L Chloride 117 H Carbon Dioxide 23 BUN 12 Creatinine 0.52 Estimated GFR > 60 BUN/Creatinine Ratio 23.1 H Glucose 94 Lactate Calcium 6.7 L Magnesium 1.8 Total Bilirubin 0.9 AST 22 ALT 14 Alkaline Phosphatase 90 Total Protein 4.6 L Albumin 2.0 L Globulin 2.6 Albumin/Globulin Ratio 0.8 L Lipase Procalcitonin 14.3 H TSH Urine Color Dark yellow Urine Appearance Clear Urine pH 5.5 Ur Specific [place] 1.020 Urine Protein Negative Urine Glucose (UA) Negative Urine Ketones Negative Urine Occult Blood Negative Urine Nitrate Negative Urine Bilirubin 1+ H Ur Bilirubin Confirm Negative Urine Urobilinogen 1.0 Ur Leukocyte Esterase Negative Urine RBC 0-1/hpf Urine WBC None seen Ur Squamous Epith Cells 0-1 /hpf Calcium Oxalate Crystal Occasional H Urine Bacteria None seen Ur Culture Indicated? Cult not indicated Vol Urine Centrifuged 10ml (spun) PFSH Medical History Hx of adenomatous colonic polyps Chronic asthma Chronic renal failure, stage 3 (moderate) Depression Anxiety Chronic headaches Surgical History History of ankle surgery Social History household members: children Smoking Status: Never smoker alcohol intake: never Assessment & Plan Time-Based Coding :: [TOTAL MINUTES] spent with patient and on the chart (including review of chart, obtaining history, exam, reviewing outside data, placing orders, documenting exam and treatment plan, and counseling patient) on [DATE].
[2024-12-14 08:07] VITALS: BP 120/72; PULSE 81; RESP 14; TEMP 37.6; O2SAT 100
[2024-12-14] MEDS: ACETAMINOPHEN 325 MG TABLET 650 MG PO ×2 (08:11→17:52)
[2024-12-14] MEDS: POTASSIUM CHLORIDE 20 MEQ/15 ML UDC 40 MEQ PO (08:11)
[2024-12-14] MEDS: ENOXAPARIN 40 MG/0.4 ML SYRINGE SUBCUT (08:12)
[2024-12-14] MEDS: PIPERACILLIN/TAZO 3.375 GM in SODIUM CHLORIDE 0.9% 100 ML IV ×2 (09:20→15:19)
[2024-12-14 12:42] LABS: Blood Urea Nitrogen 11 mg/dL (7-17); Calcium 6.8 mg/dL (8.4-10.2); Carbon Dioxide 20 mmol/L (22-32); Chloride 118 mmol/L (98-107); Estimated Glomerular Filt Rate > 60 mL/min (>60); Glucose 106 mg/dL (70-99); HEMOLYSIS 25 (0-50); Potassium 3.6 mmol/L (3.4-5.1); Sodium 142 mmol/L (137-145)
--- NOTE | 2024-12-14 13:46 | PC.NURSE ---
Patient A&O 1-2. Has frequent confusion about location and situation. New bruising on arms related to lab draws and IV infiltration. Spoke to RN at [facility] and informed that she is confused at baseline. Door open and call light in reach. Care continues.
--- NOTE | 2024-12-14 13:57 | OT.IP.EVAL ---
Current Diagnoses Other specified noninfective gastroenteritis and colitis (12/13/24) Calculus of gallbladder with acute cholecystitis without obstruction (12/13/24) Past Medical History (Last Reviewed 12/13/24 @ 15:20 by Nisreen Pang DO) Anxiety Chronic asthma Chronic headaches Chronic renal failure, stage 3 (moderate) Depression Hx of adenomatous colonic polyps Surgical History (Last Reviewed 12/13/24 @ 15:20 by Nisreen Pang DO) History of ankle surgery Occupational Therapy Inpatient Evaluation/Re-Eval M1 PT/OT-IP Prior Functional Status Start: 12/14/24 16:09 Freq: NEEDED Status: Active Protocol: Document 12/14/24 16:10 [facility] (Rec: 12/14/24 16:34 [facility] Desktop) Medical Review Prior Functional Status Communication Mobility and Gait Prior to [facility] pt was able to walk with a walker. Activities of Daily Pt insists that she was able to care for herself. Living and IADL's Prior Functional Pt has been at [facility] for the last 3-1/2 weeks for Level (Other details rehab and admitted to the hospital due to constipation. ) Social History Household Members children Living Arrangements Skilled Nurse Facility Additional Social Pt is at [facility] at this time. History Comment M2 OT-IP Current Condition Start: 12/14/24 16:09 Freq: Status: Active Protocol: Document 12/14/24 16:10 [facility] (Rec: 12/14/24 16:34 [facility] Desktop) Occupational Therapy Current Condition Current Condition Evaluation Date 12/14/24 Treatment Diagnosis Constipation, abdominal pain Diagnosis Onset Date 12/13/24 M3 OT- IP Subjective and Pain Start: 12/14/24 16:09 Freq: Status: Active Protocol: Document 12/14/24 16:10 [facility] (Rec: 12/14/24 16:34 [facility] Desktop) OT- Subjective Occupational Therapy Visit Type Type Initial Evaluation Visit Start Time 15:40 Visit Stop Time 16:03 Occupational Therapy Visit Comments Patient Comments Pt agreed to do SLUMS, SLUMS requested by pt's daughter and therefore OT orders for SLUMS. Patient/Caregiver TO go home. Goals OT Pain Assessment Pain When Pain Assessed At Rest Pain Present Pain Present Denied Pain M6 OT- IP Functional Cognition Start: 12/14/24 16:09 Freq: Status: Active Protocol: Document 12/14/24 16:10 [facility] (Rec: 12/14/24 16:34 [facility] Desktop) Cognitive Factors Limiting Selfcare Function Cognitive Ability Level of Alertness Alert,Confusional State Patient Orientation Name,Year,Place,Situation Attention Span Capable of Focused Attention,Capable of Sustained Ability Attention,Unable to Sustain Attention Ability to Follow Able to Follow One Step Commands with Increased Time, Commands Able to Follow One Step Commands with Repetition Memory Description Short Term Impaired Executive Function Unable to Remember Details Ability Cognitive Tests SLUMS Pt scored 15/30 which implies dementia, however pt insists that she has had so many visitors and feels that she is thinking well. Pt thought it was THurs versus Wed, able to recall 11 animals in one minute, able to recall 1/5 objects after time passed, not able to states 4 digit number backwards, not able to write the numbers or hour hands on the clock correctly, able to answer 2/4 questions right after paragraph read. Pt is very concrete and needing simple steps to follow. When asked pt to name animals, pt states, I do not see any animals in the room. Cognitive Comments Cognitive Assessment Called nursing staff at [facility] and they states pt Comments refuses to get up and is incontinent and has been there due to failure to thrive and severe malnutrition. In addition at [facility], per staff pt refuses to get up with therapy as well. OT- Vision and Hearing OT- Vision Assessment Vision Assessment Pt not able to read the clock correctly. Comments M8 OT- IP Objective Assessments Start: 12/14/24 16:09 Freq: Status: Active Protocol: Document 12/14/24 16:10 [facility] (Rec: 12/14/24 16:34 [facility] Desktop) OT Gross Range of Motion Upper Extremity Range of Motion Assessment Within Functional Limits OT Strength Upper Extremity Strength Assessment Right Impaired Comments Strength Comments RUE 4-/5 , LUE 4/5 OT- Coordination Assessment Upper Extremity Finger to Nose Test Left UE Impaired OT Sensation Assessment Edema Edema Present Edema Comments Right forearm swollen due to IV infiltration. M9 OT- IP Assessment and Plan Start: 12/14/24 16:09 Freq: Status: Active Protocol: Document 12/14/24 16:10 [facility] (Rec: 12/14/24 16:34 [facility] Desktop) OT Summary Assessment and Plan Potential Rehabilitation Fair Potential Analytic Complexity Moderate at Evaluation Summary Progress Towards Slow Progress due to Medical Issues,Slow Progress due Goals to Cognition Assessment Summary Received OT eval orders to assess cognition. Pt scored 15/30 which implies dementia, however pt feels that she had not rested well but feels that she is thinking well. Pt to return to [facility] when medically stable. Frequency of Treatment Frequency Of Discharge Treatment Discharge Recommendations OT Discharge SNF Rehab Recommendations
--- NOTE | 2024-12-14 14:23 | CM.DANOTE ---
Inital DCP Assessment Visit Note Reviewed EMR and team rounds for pt's medical status and updates. Pt presented to the ED from [facility], where she has been in rehab for the last 3-weeks. She lives modified ind. with a walker at baseline, however has not been mobilizing very much in the last month or so due to weakness and overall decline in functioning. She states that her children care for her. Plan is for her to return to [facility] at the time of d/c to resume rehab. Called dtr and left a message re: SERVICE DESK LEAD availability to assist, and that her mother was asking for her to come and to see her. Payor: RONY WILD, [facility] PCP: Dr. Reyes Pt is a 74 year-old F who presented to the ED via EMS from [facility] Rehab with c/o abdominal pain and constipation for the last 5-days, and poor appetite. CT abd/pelvis showed a large stool ball in her rectem, as well as surronding edema. CT also showed cholecystitis and large amounts of gallbladder stones. Surgery was consulted, and the plan was made to treat conservatively rather than surgically at this time. Plan was made to start her on IV antibiotics, IV fluids, and pain medication for symptom management, as well as admitted to the floor for continued monitoring and tx. Of note, once she got up to the floor, she did have a large BM that resolved the stool ball. [facility] will continue to monitor for final d/c needs and date/time. Facility will transport back to [facility] at d/c. Discharge Planning/Care Management CM Discharge Assessment Start: 12/13/24 16:57 Freq: Status: Active Protocol: Document 12/14/24 14:20 DPL (Rec: 12/14/24 14:23 DPL [id number]) Discharge Planning Assessment Assigned Discharge TOD [employer] Provider Dr. Reyes/[facility] Insurance RONY WILD Advance Directives? No History Provided By Patient Expected Length of 3 Stay Has Patient been Yes admitted in last 30 days? Prior Living House Arrangements Household Members children Comment Adult children. She came from [facility], has been there the last 3-weeks for rehab. Type of Relies on Others transporation used prior to admit Independent with ADL No: Mobilizes with a walker. 's Is patient alert and No: confused oriented? Needs Assistance Bathing,Meal Prep,Managing Medications,Home Chores / With Shopping Caregiver for No Another DME Already Rented / Elevated Toilet Seat,FWW / Walker Owned Patient/Family Half-Way Facility Preference Comment Return to [facility] to resume rehab at d/c. Barriers to No Discharge Discharge Plan Half-Way Facility Referrals Initiated None needed Review Status In Process Please Provide Date 12/14/24 Initial DC Assessment Was Performed
[2024-12-14 19:36] LABS: Acinetobacter calcoa-baumannii Not Detected (Not Detect); Bacteroides fragilis Not Detected (Not Detect); Candida auris Not Detected (Not Detect); Candida glabrata Not Detected (Not Detect); Cryptococcus neoformans/gatti Not Detected (Not Detect); Enterobacterales Not Detected (Not Detect); Enterococcus faecalis Not Detected (Not Detect); Enterococcus faecium Not Detected (Not Detect); Klebsiella aerogenes Not Detected (Not Detect); Proteus species Not Detected (Not Detect); Serratia marcescens Not Detected (Not Detect); Staphylococcus epidermidis Not Detected (Not Detect); Staphylococcus lugdunensis Not Detected (Not Detect); Staphylococcus species Not Detected (Not Detect); Stenotrophomonas maltophilia Not Detected (Not Detect); Streptococcus agalactiae (Gr B Not Detected (Not Detect); Streptococcus pneumonia Not Detected (Not Detect); Streptococcus pyogenes (Gr A) Not Detected (Not Detect); Streptococcus species Not Detected (Not Detect)
[2024-12-14 20:11] VITALS: BP 141/85; PULSE 71; RESP 16; TEMP 35.7; O2SAT 100
[2024-12-15] MEDS: PIPERACILLIN/TAZO 3.375 GM in SODIUM CHLORIDE 0.9% 100 ML IV ×3 (00:05→16:45)
[2024-12-15] MEDS: ACETAMINOPHEN 325 MG TABLET 650 MG PO ×3 (04:15→18:14)
--- NOTE | 2024-12-15 07:23 | PM.PN.IH.1 ---
Subjective Subjective Date Patient Seen: 12/15/24 Time Patient Seen: 07:23 Interval history: Tolerating diet without n/v Large stool output yesterday Exam Vital Signs (past 8 hours): Oxygen Delivery Method Room Air Oxygen Flow Rate 0 Const General: comfortable GI Other: ABD: soft, non-peritoneal Objective Labs 12/14/24 05:15 12/14/24 12:22 Labs: Laboratory Results - last 24 hr 12/13/24 12/14/24 15:10 12:22 Sodium 142 Potassium 3.6 Chloride 118 H Carbon Dioxide 20 L BUN 11 Creatinine 0.48 L Estimated GFR > 60 BUN/Creatinine Ratio 22.9 H Glucose 106 H Calcium 6.8 L A.calcoaceticus-baumannii cmplx PCR Not detected Bacteroides fragilis Not detected Shea albicans (PCR) Not detected Shea auris (PCR) Not detected C. glabrata (PCR) Not detected C. krusei (PCR) Not detected C. parapsilosis (PCR) Not detected C. tropicalis (PCR) Not detected C. neoform/gattii (PCR) Not detected Enterobacterales (PCR) Not detected E. cloacae complex PCR Not detected Enterococc faecalis PCR Not detected Enterococc faecium PCR Not detected E. coli (PCR) Not detected H. influenzae (PCR) Not detected Klebsiella aerogenes (PCR) Not detected Klebsiella oxytoca PCR Not detected Klebsiella pneumoniae Not detected List. monocytogenes PCR Not detected N. meningitidis (PCR) Not detected Proteus species (PCR) Not detected Salmonella spp. (PCR) Not detected Serratia marcescens PCR Not detected Staphylococcus sp PCR Not detected Staph aureus (PCR) Not detected mecA/C & MREJ Resist Gene Not applicable mecA/C-Methicil Resis Gene Not applicable mcr-1 Colistin Res Gene PCR Not applicable Staph epidermidis (PCR) Not detected Staph lugdunensis PCR Not detected S. maltophilia (PCR) Not detected Streptococcus sp PCR Not detected Group A Strep (PCR) Not detected Strep agalactiae (PCR) Not detected Strep pneumoniae (PCR) Not detected P. aeruginosa (PCR) Not detected Debbie/B-Vanco Res Genes Not applicable blaIMP Car res Gene PCR Not applicable KPC-Carbap Res Gene PCR Not applicable blaNDM Car Res Gene PCR Not applicable OXA-48 Carbapenem Resis Gene (PCR) Not applicable blaVIM Car Res Gene PCR Not applicable CTX-M Gene Resistance (PCR) Not applicable [facility] Medical History Hx of adenomatous colonic polyps Chronic asthma Chronic renal failure, stage 3 (moderate) Depression Anxiety Chronic headaches Surgical History History of ankle surgery Social History household members: children Smoking Status: Never smoker alcohol intake: never Assessment & Plan Assessment and plan (1) Cholelithiasis: Qualifiers: Biliary obstruction: without biliary obstruction Cholecystitis acuity: acute Cholecystitis presence: with cholecystitis Cholelithiasis location: gallbladder Qualified Code(s): K80.00 - Calculus of gallbladder with acute cholecystitis without obstruction Status: Acute (2) Stercoral colitis: Status: Acute Plan Constipation clearing Tolerating diet Blood culture +GNR, unclear etiology, await ID/sens Zosyn for acute cholecystitis Time-Based Coding :: [TOTAL MINUTES] spent with patient and on the chart (including review of chart, obtaining history, exam, reviewing outside data, placing orders, documenting exam and treatment plan, and counseling patient) on [DATE]. PROFEE Division Superintendent Document charge(s): Yes Charge Codes Subsequent inpatient/observation care: [id number]
--- NOTE | 2024-12-15 07:25 | PM.PN.IH.1 ---
Exam Vital Signs (past 8 hours): Oxygen Delivery Method Room Air Oxygen Flow Rate 0 Objective Labs 12/14/24 05:15 12/14/24 12:22 Labs: Laboratory Results - last 24 hr 12/13/24 12/14/24 15:10 12:22 Sodium 142 Potassium 3.6 Chloride 118 H Carbon Dioxide 20 L BUN 11 Creatinine 0.48 L Estimated GFR > 60 BUN/Creatinine Ratio 22.9 H Glucose 106 H Calcium 6.8 L A.calcoaceticus-baumannii cmplx PCR Not detected Bacteroides fragilis Not detected Shea albicans (PCR) Not detected Shea auris (PCR) Not detected C. glabrata (PCR) Not detected C. krusei (PCR) Not detected C. parapsilosis (PCR) Not detected C. tropicalis (PCR) Not detected C. neoform/gattii (PCR) Not detected Enterobacterales (PCR) Not detected E. cloacae complex PCR Not detected Enterococc faecalis PCR Not detected Enterococc faecium PCR Not detected E. coli (PCR) Not detected H. influenzae (PCR) Not detected Klebsiella aerogenes (PCR) Not detected Klebsiella oxytoca PCR Not detected Klebsiella pneumoniae Not detected List. monocytogenes PCR Not detected N. meningitidis (PCR) Not detected Proteus species (PCR) Not detected Salmonella spp. (PCR) Not detected Serratia marcescens PCR Not detected Staphylococcus sp PCR Not detected Staph aureus (PCR) Not detected mecA/C & MREJ Resist Gene Not applicable mecA/C-Methicil Resis Gene Not applicable mcr-1 Colistin Res Gene PCR Not applicable Staph epidermidis (PCR) Not detected Staph lugdunensis PCR Not detected S. maltophilia (PCR) Not detected Streptococcus sp PCR Not detected Group A Strep (PCR) Not detected Strep agalactiae (PCR) Not detected Strep pneumoniae (PCR) Not detected P. aeruginosa (PCR) Not detected Debbie/B-Vanco Res Genes Not applicable blaIMP Car res Gene PCR Not applicable KPC-Carbap Res Gene PCR Not applicable blaNDM Car Res Gene PCR Not applicable OXA-48 Carbapenem Resis Gene (PCR) Not applicable blaVIM Car Res Gene PCR Not applicable CTX-M Gene Resistance (PCR) Not applicable PFSH Medical History Hx of adenomatous colonic polyps Chronic asthma Chronic renal failure, stage 3 (moderate) Depression Anxiety Chronic headaches Surgical History History of ankle surgery Social History household members: children Smoking Status: Never smoker alcohol intake: never Assessment & Plan Time-Based Coding :: [TOTAL MINUTES] spent with patient and on the chart (including review of chart, obtaining history, exam, reviewing outside data, placing orders, documenting exam and treatment plan, and counseling patient) on [DATE].
[2024-12-15 07:45] VITALS: BP 142/75; PULSE 77; RESP 15; TEMP 37.7; O2SAT 99
[2024-12-15] MEDS: DEXTROSE 5%-0.9% NS 1,000 ML 125 ML IV ×2 (08:33→17:01)
--- NOTE | 2024-12-15 09:26 | P.DS_ITS ---
History of Present Illness History of Present Illness Date Patient Seen: 12/15/24 Chief complaint: possible bowel obstruction Narrative: Chief complaint: Abdominal pain and constipation with use stool burden rectal impaction cholelithiasis and imaging suggesting cholecystitis History of present illness: 12/13: 74-year-old female with a history of asthma, CKD 3, depression, anxiety and recent sepsis admission who presents from the [facility] with complaints of abdominal pain and constipation. She has stercoral proctitis/a large rectal stool ball on CT scan. Additionally there are segmental areas of colonic wall thickening, likely additional colitis along with diffuse colonic diverticula. There are small bilateral pleural effusions along with small volume ascites. The gallbladder is packed with stones with surrounding edema. After arrival on the medical floor she experiences large bowel movements, likely clearing the rectal ball of stool. She tells me that she has been living at the facility for 3 weeks after an admission for sepsis at a nearby hospital. Those details are not available. 12/14: WBC 13 hemoglobin 9.7 MCV 102.5 89% neutrophils sodium 141 potassium 2.8 BUN 12 creatinine 0.5 procalcitonin de-escalated from 27-14 Replace potassium continue Zosyn, monitor clinically and discuss with surgery whether or not cholelithiasis is active issue Review of systems: No fever or chills Nausea vomiting Physical exam: No acute distress Heart and lungs clear Abdomen nontender Assessment and plan: Fecal impaction with stercoral colitis: * Resolved * 7 days of oral metronidazole * 1/2 blood cultures Gram-negative rods but with no growth * Follow up K[facility] * Discussion with surgeon * Symptoms resolved may return to group home and plans for outpatient colonoscopy (has not had 1 for 20 years) Cholelithiasis asymptomatic * No surgery recommended Disposition: * Discharge back to [facility] today Time based billing: * 35 minutes were involved in evaluation of this patient including owan-ap-wren evaluation with the patient discussion of treatment plan physical examination review of objective laboratory and imaging findings and care management Discharge Providers Provider Date of admission: 12/13/24 15:20 Discharge Date: 12/15/24 Consults: 12/14/24 14:19 Consult to Occupational Therapy Evaluate & Treat Comment: SLUMS test for dementia screening Physician Instructions: Evaluate and treat Discharge provider: Aidan Magana MD Exam Vital Signs (past 8 hours): - 12/15/24 07:45 Temperature 99.8 F H Pulse Rate 77 Respiratory Rate 15 Blood Pressure 142/75 H Pulse Oximetry 99 Oxygen Flow Rate 0 Oxygen Delivery Method Room Air Oxygen Flow Rate 0 Objective Labs 12/14/24 05:15 12/14/24 12:22 Labs: Laboratory Results - last 24 hr 12/13/24 12/14/24 15:10 12:22 Sodium 142 Potassium 3.6 Chloride 118 H Carbon Dioxide 20 L BUN 11 Creatinine 0.48 L Estimated GFR > 60 BUN/Creatinine Ratio 22.9 H Glucose 106 H Calcium 6.8 L A.calcoaceticus-baumannii cmplx PCR Not detected Bacteroides fragilis Not detected Shea albicans (PCR) Not detected Shea auris (PCR) Not detected C. glabrata (PCR) Not detected C. krusei (PCR) Not detected C. parapsilosis (PCR) Not detected C. tropicalis (PCR) Not detected C. neoform/gattii (PCR) Not detected Enterobacterales (PCR) Not detected E. cloacae complex PCR Not detected Enterococc faecalis PCR Not detected Enterococc faecium PCR Not detected E. coli (PCR) Not detected H. influenzae (PCR) Not detected Klebsiella aerogenes (PCR) Not detected Klebsiella oxytoca PCR Not detected Klebsiella pneumoniae Not detected List. monocytogenes PCR Not detected N. meningitidis (PCR) Not detected Proteus species (PCR) Not detected Salmonella spp. (PCR) Not detected Serratia marcescens PCR Not detected Staphylococcus sp PCR Not detected Staph aureus (PCR) Not detected mecA/C & MREJ Resist Gene Not applicable mecA/C-Methicil Resis Gene Not applicable mcr-1 Colistin Res Gene PCR Not applicable Staph epidermidis (PCR) Not detected Staph lugdunensis PCR Not detected S. maltophilia (PCR) Not detected Streptococcus sp PCR Not detected Group A Strep (PCR) Not detected Strep agalactiae (PCR) Not detected Strep pneumoniae (PCR) Not detected P. aeruginosa (PCR) Not detected Debbie/B-Vanco Res Genes Not applicable blaIMP Car res Gene PCR Not applicable KPC-Carbap Res Gene PCR Not applicable blaNDM Car Res Gene PCR Not applicable OXA-48 Carbapenem Resis Gene (PCR) Not applicable blaVIM Car Res Gene PCR Not applicable CTX-M Gene Resistance (PCR) Not applicable PFSH Medical History Hx of adenomatous colonic polyps Chronic asthma Chronic renal failure, stage 3 (moderate) Depression Anxiety Chronic headaches Surgical History History of ankle surgery Social History household members: children Smoking Status: Never smoker alcohol intake: never Discharge Plan Discharge Plan Patient Disposition: SNF Transfer to: [facility] Discharge orders & Medications Prescriptions: New polyethylene glycol 3350 [Gavilax] 17 gram Powder In Packet 17 g PO BID Qty: 14 0RF metronidazole 250 mg tablet 250 mg PO TID Qty: 20 0RF Continued triamcinolone acetonide 0.1 % cream 1 applictn TOP TID Qty: 80 0RF Rx Instructions: Ok to fill once per MATJ. 08/23/18 citalopram 20 mg tablet 30 mg PO DAILY Qty: 135 3RF fluticasone propionate 50 mcg/actuation spray,suspension 2 spray intranasal BEDTIME Qty: 16 0RF Rx Instructions: administer into each nostril albuterol sulfate 90 mcg/actuation HFA aerosol inhaler 2 puff INHALATION Q4-6H PRN (Reason: shortness of breath or wheezing) Qty: 18 2RF Discontinued (DME) Disabled Parking See Rx Instructions .ROUTE .MEDSUPPLY Qty: 1 0RF Rx Instructions: Patient qualifies for disabled parking as per the attached form. cefdinir 300 mg capsule 300 mg PO BID Qty: 10 0RF Visit Report/Discharge Packet Stand Alone Forms: Patient Portal/API
[2024-12-15] MEDS: ENOXAPARIN 40 MG/0.4 ML SYRINGE SUBCUT (09:39)
--- NOTE | 2024-12-15 11:08 | PC.NURSE ---
Addendum entered by Joya Peña RN 12/15/24 18:35: Pt family and visiting PCP stated that pt and pt's family are adamant that she not go back to [facility], but are open to other SNFs. Family requesting that RADIO RIGGER start conversation re: alternate placement tomorrow 12/16. Pt also stated that APAP not sufficient for pain coverage, reporting 8/10 pain in RUQ; belly nontender, not distended, BS active. Notified MD Magana; no new orders at this time. Will notifiy FLORENTINO RN. Original Note: Answered pt call light; pt stated to this RN that MD informed her that she could d/c home; plan is for pt to d/c to to continue rehab. Informed pt of situation; pt expressed concerns about quality of care at and is adamant that she does not wish to refuse to [facility] and can instead d/c to her [place] on [address] which her family owns and that her family is capable of taking care of her. However, this AM pt was unable to ambulate w/FWW from chair to commode d/t weakness. Called daughter May who stated that her family is not able to provide adequate level of care, that the camper is actually a vehicle, and that pt's cognitive state fluctuates in capability. This RN expressed concerns to MD Magana and TOD Harding re: discharge plans. MD Tijerina and TOD Harding stated that [facility] remains most appropriate option for d/c at this time. RADIO RIGGER to follow up with family. Plan of care continues.
--- NOTE | 2024-12-15 11:36 | CM.DPC ---
DCP Cont. Reviewed EMR and team rounds for pt's status updates. Pt was cleared for d/c back to [facility], however she needs a new [facility] auth. Auth is being submitted today. Anticipate d/c tomorrow, 12/16, if the auth is in place. Monitoring closely.
--- NOTE | 2024-12-15 16:17 | CM.DPNOTE ---
Kristie requesting clinicals to be faxed so they can start pt's insurance auth for SNF today, sent requested clinicals. TOD Gaston
[2024-12-16] MEDS: PIPERACILLIN/TAZO 3.375 GM in SODIUM CHLORIDE 0.9% 100 ML IV ×4 (00:14→23:48)
[2024-12-16] MEDS: DEXTROSE 5%-0.9% NS 1,000 ML 125 ML IV ×3 (00:14→18:16)
[2024-12-16] MEDS: ACETAMINOPHEN 325 MG TABLET 650 MG PO ×2 (00:17→17:24)
[2024-12-16 01:14] VITALS: BP 168/88; PULSE 75; RESP 18; TEMP 36.2; O2SAT 99
--- NOTE | 2024-12-16 03:00 | PC.NURSE ---
Patient reports she takes norco at home for pain. Requested order from Dr. Miranda. He stated that it was discontinued and no new orders at this time.
[2024-12-16 08:00] VITALS: BP 128/72; PULSE 80; RESP 18; TEMP 36.2; O2SAT 100
[2024-12-16] MEDS: ENOXAPARIN 40 MG/0.4 ML SYRINGE SUBCUT (08:31)
--- NOTE | 2024-12-16 10:51 | CM.DPC ---
DCP Cont. Reviewed EMR and team rounds for pt's medical status and upates. Pt was medically cleared for d/c today to , however, she no longer wants to go there. Per family, sent a new referral and clinicals to [facility]- to review. Monitoring for acceptance.
--- NOTE | 2024-12-16 10:59 | DIET.CONS ---
Dietary Consultation Note Admission Date: 12/13/2024 15:20 Assessment: 74 y F admitted for abd pain, Cholelithiasis, Stercoral colitis. Dietitian screened for MNA score. Met with pt and friends at bedside. Reports difficulty with taste of food since April and difficulty with textures sometimes. Reports initial 65 lb loss since April, but has since regained some of weight loss by focusing on protein based breakfast. Enjoys the cream of wheat with milk. Would like to get back up to 125# (56.8kg) Noted hx CKD 3. Upon review of OT note, OT called [facility] and notes that pt is there for failure to thrive and severe malnutrition. SLUMs score indicating dementia. Ht: 154.94 cm Wt: 49.895 kg BMI: 20.7 UBW: 64 kg 06/16/24 (-22% weight loss in 8 months, severe) Last BM: 12/16/24 (12/16/24 05:44) MNA: 10 Eduard Score: 16 Diet: 12/14/24 Breakfast General (Regular) Diet Diet Modifications: Nutrition Percent Meal Consumed 25% 12/15/24 18:52 Percent Meal Consumed 0% 12/15/24 13:31 Percent Meal Consumed 70 12/15/24 09:16 Percent Meal Consumed 50% 12/14/24 19:24 Percent Meal Consumed 50% 12/14/24 14:30 Labs: RBC 2.84 X10^6/uL (4.0-5.2) L 12/14/24 05:15 Hgb 9.7 g/dL (12.0-16.0) L 12/14/24 05:15 Hct 29.1 % (36-46) L 12/14/24 05:15 Creatinine 0.48 mg/dL (0.52-1.04) L 12/14/24 12:22 Lactate 1.2 mmol/L (0.7-2.1) 12/13/24 15:10 Nutrition Diagnosis: Severe chronic protein calorie malnutrition r/t difficulty caring for self, altered GI function, inadequate oral intakes aeb -22% weight loss in 8 months, severe, <60% of estimated energy needs in >1 month Interventions: Discussed ways to add additional protein to cream of wheat, ONS or protein powder with friend who discusses preparing this for pt when at SNF Soymilk at meals and will trial ONS Small freq meals/snacks discussed with pt's friend Fiber sources for regular BMs EER: [id number] kcals (30-35 kcals/kg) 45-50 g protein (.8 g/kg of IBW per renal with PCM) Monitoring/Evaluations: PO intakes Electronically Signed by: Judy Knutson 12/16/24 10:59 Clinical Dietitian [address] [address]
[2024-12-16] MEDS: MEROPENEM 1 GM in SODIUM CHLORIDE 0.9% 100 ML IV (13:28)
--- NOTE | 2024-12-16 15:01 | P.PN_ITS ---
Subjective Subjective Date Patient Seen: 12/16/24 Interval history: Chief complaint: Abdominal pain and constipation with use stool burden rectal impaction cholelithiasis and imaging suggesting cholecystitis History of present illness: 12/13: 74-year-old female with a history of asthma, CKD 3, depression, anxiety and recent sepsis admission who presents from the [facility] with complaints of abdominal pain and constipation. She has stercoral proctitis/a large rectal stool ball on CT scan. Additionally there are segmental areas of colonic wall thickening, likely additional colitis along with diffuse colonic diverticula. There are small bilateral pleural effusions along with small volume ascites. The gallbladder is packed with stones with surrounding edema. After arrival on the medical floor she experiences large bowel movements, likely clearing the rectal ball of stool. She tells me that she has been living at the facility for 3 weeks after an admission for sepsis at a nearby hospital. Those details are not available. 12/14: WBC 13 hemoglobin 9.7 MCV 102.5 89% neutrophils sodium 141 potassium 2.8 BUN 12 creatinine 0.5 procalcitonin de-escalated from 27-14 Replace potassium continue Zosyn, monitor clinically and discuss with surgery whether or not cholelithiasis is active issue 12/15: No complaints 12/16: Blood culture identified positive as Acinetobacter species sensitive to meropenem midline placed for 6 days of meropenem that [facility] be completed at [facility] unfortunately patient is refusing to go back to [facility] and looking for a different [facility] facility Review of systems: No fever or chills Nausea vomiting Physical exam: No acute distress Heart and lungs clear Abdomen nontender Assessment and plan: Fecal impaction with stercoral colitis and Acinetobacter bacteremia: * Resolved * reurn to [facility] and plans for outpatient colonoscopy (has not had 1 for 20 years) * Six days of meropenem Cholelithiasis asymptomatic * No surgery recommended Disposition: * Discharge back to [facility] today Time based billing: * 35 minutes were involved in evaluation of this patient including [id number] evaluation with the patient discussion of treatment plan physical examination review of objective laboratory and imaging findings and care management Exam Vital Signs (past 8 hours): - 12/16/24 08:00 Temperature 97.1 F L Pulse Rate 80 Respiratory Rate 18 Blood Pressure 128/72 Pulse Oximetry 100 Oxygen Flow Rate 0 Oxygen Delivery Method Room Air Oxygen Flow Rate 0 Objective Labs 12/14/24 05:15 12/14/24 12:22 [facility] Medical History Hx of adenomatous colonic polyps Chronic asthma Chronic renal failure, stage 3 (moderate) Depression Anxiety Chronic headaches Surgical History History of ankle surgery Social History household members: children Smoking Status: Never smoker alcohol intake: never Assessment & Plan Time-Based Coding :: [TOTAL MINUTES] spent with patient and on the chart (including review of chart, obtaining history, exam, reviewing outside data, placing orders, documenting exam and treatment plan, and counseling patient) on [DATE].
--- NOTE | 2024-12-16 15:54 | DI.RAD.S_ITS ---
PROCEDURE: XR CHEST FOR PICC 1V INDICATIONS: [facility]16[facility], 11:51. FINDINGS: PICC was placed by the intravenous therapy team from the right side. Fluoroscopic spot film demonstrates the tip of PICC projecting to the area of mid SVC. IMPRESSION: Tip of PICC projects to the area of mid SVC. Dictated by: Bryant Barreto M.D. on 12/16/2024 at 16:32 Approved by: Bryant Barreto M.D. on 12/16/2024 at 16:32
[2024-12-16] MEDS: ONDANSETRON 4 MG/2 ML INJ IV (17:24)
[2024-12-16 20:18] VITALS: BP 142/70; PULSE 77; RESP 14; TEMP 36.5; O2SAT 99
[2024-12-17] MEDS: DEXTROSE 5%-0.9% NS 1,000 ML 125 ML IV ×3 (02:21→22:56)
--- NOTE | 2024-12-17 07:33 | P.PN_ITS ---
Subjective Subjective Date Patient Seen: 12/17/24 Interval history: Chief complaint: Abdominal pain and constipation with use stool burden rectal impaction cholelithiasis and imaging suggesting cholecystitis History of present illness: 12/13: 74-year-old female with a history of asthma, CKD 3, depression, anxiety and recent sepsis admission who presents from the [facility] with complaints of abdominal pain and constipation. She has stercoral proctitis/a large rectal stool ball on CT scan. Additionally there are segmental areas of colonic wall thickening, likely additional colitis along with diffuse colonic diverticula. There are small bilateral pleural effusions along with small volume ascites. The gallbladder is packed with stones with surrounding edema. After arrival on the medical floor she experiences large bowel movements, likely clearing the rectal ball of stool. She tells me that she has been living at the facility for 3 weeks after an admission for sepsis at a nearby hospital. Those details are not available. 12/14: WBC 13 hemoglobin 9.7 MCV 102.5 89% neutrophils sodium 141 potassium 2.8 BUN 12 creatinine 0.5 procalcitonin de-escalated from 27-14 Replace potassium continue Zosyn, monitor clinically and discuss with surgery whether or not cholelithiasis is active issue 12/15: No complaints tolerating meals 12/16: Large bowel movement yesterday. Blood culture identified positive as Acinetobacter species sensitive to meropenem midline placed for 6 days of meropenem that can be completed at residential unfortunately patient is refusing to go back to [facility] and looking for a different residential facility 11/16: PICC line placed yesterday tolerating meropenem no fevers recorded vital signs stable vision would prefer stay in the hospital but is willing to go residential if this is required Review of systems: No fever or chills Nausea vomiting Physical exam: No acute distress No labored respirations Abdomen nontender Assessment and plan: Fecal impaction with stercoral colitis and Acinetobacter bacteremia: * Resolved fecal impaction * reurn to residential and plans for outpatient colonoscopy (has not had 1 for 20 years) * Five days of meropenem remaining PICC line has been placed Cholelithiasis asymptomatic * No surgery recommended Moderately advanced dementia chronic: * Require supervised behavior direction for self-care deficits Disposition: * Discharge when alternate residential arrangements made Time based billing: * 35 minutes were involved in evaluation of this patient including [id number] evaluation with the patient discussion of treatment plan physical examination review of objective laboratory and imaging findings and care management Exam Vital Signs (past 8 hours): Oxygen Delivery Method Room Air Oxygen Flow Rate 0 Objective Labs 12/14/24 05:15 12/14/24 12:22 [facility] Medical History Hx of adenomatous colonic polyps Chronic asthma Chronic renal failure, stage 3 (moderate) Depression Anxiety Chronic headaches Surgical History History of ankle surgery Social History household members: children Smoking Status: Never smoker alcohol intake: never Assessment & Plan Time-Based Coding :: [TOTAL MINUTES] spent with patient and on the chart (including review of chart, obtaining history, exam, reviewing outside data, placing orders, documenting exam and treatment plan, and counseling patient) on [DATE].
[2024-12-17 08:00] VITALS: BP 154/88; PULSE 70; RESP 16; TEMP 37.5; O2SAT 100
[2024-12-17] MEDS: ENOXAPARIN 40 MG/0.4 ML SYRINGE SUBCUT (08:41)
[2024-12-17] MEDS: PIPERACILLIN/TAZO 3.375 GM in SODIUM CHLORIDE 0.9% 100 ML IV ×3 (08:42→22:56)
[2024-12-17 12:00] VITALS: BP 131/67; PULSE 73; RESP 17; TEMP 37.3; O2SAT 97
[2024-12-17] MEDS: MEROPENEM 1 GM in SODIUM CHLORIDE 0.9% 100 ML IV (13:31)
--- NOTE | 2024-12-17 15:02 | CM.DPNOTE ---
DCP note [employer] reviewed EMR [employer] lvm with Joana at [facility], no response as of 1500. 5 days left of IV abx. per provider stable to dc when auth secured. new PASRR needed due to dc to new facility. [employer] completed PASRR- hospitalist signature needed P DC to [facility] pending official acceptance/auth. will continue to follow closely for DCP Coordination TOD Torrez
[2024-12-17] MEDS: ONDANSETRON 4 MG/2 ML INJ IV (17:22)
[2024-12-17 19:00] VITALS: BP 133/73; PULSE 73; RESP 16; TEMP 37.6; O2SAT 98
[2024-12-17] MEDS: MELATONIN 3 MG TABLET 6 MG PO (20:01)
[2024-12-18] MEDS: ACETAMINOPHEN 325 MG TABLET 650 MG PO (01:54)
[2024-12-18 04:00] VITALS: BP 141/65; PULSE 75; RESP 16; TEMP 36.2; O2SAT 98
[2024-12-18] MEDS: DEXTROSE 5%-0.9% NS 1,000 ML 125 ML IV ×3 (06:16→21:47)
[2024-12-18] MEDS: PIPERACILLIN/TAZO 3.375 GM in SODIUM CHLORIDE 0.9% 100 ML IV (06:46)
[2024-12-18] MEDS: ENOXAPARIN 40 MG/0.4 ML SYRINGE SUBCUT (09:16)
[2024-12-18] MEDS: CALCIUM CARBONATE 500 MG TAB PO ×2 (09:45→18:37)
--- NOTE | 2024-12-18 12:44 | PM.PN.1 ---
Subjective Subjective Date Patient Seen: 12/18/24 Interval history: Chief complaint: Abdominal pain and constipation with use stool burden rectal impaction cholelithiasis and imaging suggesting cholecystitis History of present illness: 12/13: 74-year-old female with a history of asthma, CKD 3, depression, anxiety and recent sepsis admission who presents from the [facility] with complaints of abdominal pain and constipation. She has stercoral proctitis/a large rectal stool ball on CT scan. Additionally there are segmental areas of colonic wall thickening, likely additional colitis along with diffuse colonic diverticula. There are small bilateral pleural effusions along with small volume ascites. The gallbladder is packed with stones with surrounding edema. After arrival on the medical floor she experiences large bowel movements, likely clearing the rectal ball of stool. She tells me that she has been living at the facility for 3 weeks after an admission for sepsis at a nearby hospital. Those details are not available. 12/14: WBC 13 hemoglobin 9.7 MCV 102.5 89% neutrophils sodium 141 potassium 2.8 BUN 12 creatinine 0.5 procalcitonin de-escalated from 27-14 Replace potassium continue Zosyn, monitor clinically and discuss with surgery whether or not cholelithiasis is active issue 12/15: No complaints tolerating meals 12/16: Large bowel movement yesterday. Blood culture identified positive as Acinetobacter species sensitive to meropenem midline placed for 6 days of meropenem that can be completed at half-way unfortunately patient is refusing to go back to [facility] and looking for a different half-way facility 11/16: PICC line placed yesterday tolerating meropenem no fevers recorded vital signs stable vision would prefer stay in the hospital but is willing to go half-way if this is required 11/17: Tolerating Meropenem no chills or rigors overnight no fevers recorded vital signs stable Review of systems: No fever or chills Nausea vomiting Physical exam: No acute distress No labored respirations Abdomen nontender Assessment and plan: Fecal impaction with stercoral colitis and Acinetobacter bacteremia: Resolved fecal impaction reurn to half-way and plans for outpatient colonoscopy (has not had 1 for 20 years) four days of meropenem remaining PICC line has been placed Cholelithiasis asymptomatic No surgery recommended Moderately advanced dementia chronic: Require supervised behavior direction for self-care deficits Disposition: Discharge when alternate half-way arrangements made Time based billin minutes were involved in evaluation of this patient including [id number] evaluation with the patient discussion of treatment plan physical examination review of objective laboratory and imaging findings and care management Exam Vital Signs (past 8 hours): Oxygen Delivery Method Room Air Oxygen Flow Rate 0 Objective Labs 12/14/24 05:15 12/14/24 12:22 COUNTS INCLUDE 234 BEDS AT THE [facility] Medical History Hx of adenomatous colonic polyps Chronic asthma Chronic renal failure, stage 3 (moderate) Depression Anxiety Chronic headaches Surgical History History of ankle surgery Social History household members: children Smoking Status: Never smoker alcohol intake: never Assessment & Plan Time-Based Coding :: [TOTAL MINUTES] spent with patient and on the chart (including review of chart, obtaining history, exam, reviewing outside data, placing orders, documenting exam and treatment plan, and counseling patient) on [DATE].
[2024-12-18] MEDS: MEROPENEM 1 GM in SODIUM CHLORIDE 0.9% 100 ML IV (12:53)
--- NOTE | 2024-12-18 13:14 | CM.DPC ---
DCP Cont: Per MD, pt medically stable to d/c to SNF once secured and auth obtained. [facility] and left msg on admissions cell phone and office phone requesting call back to confirm they accept and if they submitted for [employer] auth. SW met bedside with pt, Sig Other, and Dtr and updated on above and pt confirms she is agreeable to d/c to [facility] and states they all just feel tired since she has been struggling with health issues since April 2024 this year. Pt feels disheartened. Family and pt requested assist as Medicaid application was being completed but [facility] needs proof of income and pt confirms she only has social security for income and SW suggested getting bank statement with her deposits for social security for the past couple months and family agreeable to assist getting this document towards Medicaid approval/review. SW explained this potentially could assist with SNF stay if pt needs to remain at SNF longer than [employer] will auth or potentially for in-home support depending on what she qualifies for. Pt and family appreciative. If auth obtained and SNF can accept and if pt does not want to d/c then will need to discussed appealing discharge. Pilar Faria MSW
[2024-12-18 20:31] VITALS: BP 133/65; PULSE 65; RESP 16; TEMP 36.7; O2SAT 94
[2024-12-18] MEDS: MELATONIN 3 MG TABLET 6 MG PO (21:43)
[2024-12-19] MEDS: DEXTROSE 5%-0.9% NS 1,000 ML 125 ML IV ×2 (05:54→16:33)
[2024-12-19 05:58] VITALS: BP 132/72; PULSE 74; RESP 17; TEMP 36.6; O2SAT 100
--- NOTE | 2024-12-19 07:37 | P.PN_ITS ---
Subjective Subjective Date Patient Seen: 12/19/24 Interval history: Chief complaint: Abdominal pain and constipation with use stool burden rectal impaction cholelithiasis and imaging suggesting cholecystitis History of present illness: 12/13: 74-year-old female with a history of asthma, CKD 3, depression, anxiety and recent sepsis admission who presents from the [facility] with complaints of abdominal pain and constipation. She has stercoral proctitis/a large rectal stool ball on CT scan. Additionally there are segmental areas of colonic wall thickening, likely additional colitis along with diffuse colonic diverticula. There are small bilateral pleural effusions along with small volume ascites. The gallbladder is packed with stones with surrounding edema. After arrival on the medical floor she experiences large bowel movements, likely clearing the rectal ball of stool. She tells me that she has been living at the facility for 3 weeks after an admission for sepsis at a nearby hospital. Those details are not available. 12/14: WBC 13 hemoglobin 9.7 MCV 102.5 89% neutrophils sodium 141 potassium 2.8 BUN 12 creatinine 0.5 procalcitonin de-escalated from 27-14 Replace potassium continue Zosyn, monitor clinically and discuss with surgery whether or not cholelithiasis is active issue 12/15: No complaints tolerating meals 12/16: Large bowel movement yesterday. Blood culture identified positive as Acinetobacter species sensitive to meropenem midline placed for 6 days of meropenem that can be completed at intermediate unfortunately patient is refusing to go back to [facility] and looking for a different intermediate facility 11/16: PICC line placed yesterday tolerating meropenem no fevers recorded vital signs stable vision would prefer stay in the hospital but is willing to go intermediate if this is required 11/17: Tolerating Meropenem no chills or rigors overnight no fevers recorded vital signs stable 11/18: The labs on 12/14 included a hemoglobin of 9.7 with a potassium of 3.6 and a creatinine of 0.48. The 12/13 TSH was 9.33. This was checked in relationship to her otherwise unexplained constipation so she will be started on Synthroid today. Her blood culture is growing Acinetobacter which is meropenem sensitive. PT and OT will evaluate her for potential placement need at [facility]. Review of systems: No fever or chills Nausea vomiting Physical exam: Alert and oriented x3. Appears quite weak. No apparent distress. Heart is regular rate and rhythm without murmur. Lungs are clear to auscultation bilaterally. Abdomen is soft, bowel sounds positive, nontender, no organomegaly. Extremities have 2+ pedal edema bilaterally. Assessment and plan: Fecal impaction with stercoral colitis and Acinetobacter bacteremia: * Resolved fecal impaction * reurn to intermediate and plans for outpatient colonoscopy (has not had 1 for 20 years) * Three more days of meropenem remaining PICC line has been placed * Levothyroxine 0.05 mg daily due to TSH of 9.33 and potential relationship of fecal impaction to hypothyroidism. Cholelithiasis/Cholecystitis asymptomatic * No surgery recommended * Originally on Zosyn, then switched to meropenem, surgery signed off. Moderately advanced dementia chronic: * Require supervised behavior direction for self-care deficits Sick Euthyroid Syndrome -bradykinesia and constipation present, we will treat with levothyroxine due to high TSH 9.33. Disposition: * Discharge to [facility] [place] when intermediate arrangements made. PT/OT eval. * Confirmed in discussions with the patient and her granddaughter. Exam Vital Signs (past 8 hours): - 12/19/24 05:58 Temperature 97.8 F Pulse Rate 74 Respiratory Rate 17 Blood Pressure 132/72 Pulse Oximetry 100 Oxygen Flow Rate 0 Oxygen Delivery Method Room Air Oxygen Flow Rate 0 Objective Labs 12/14/24 05:15 12/14/24 12:22 [facility] Medical History Hx of adenomatous colonic polyps Chronic asthma Chronic renal failure, stage 3 (moderate) Depression Anxiety Chronic headaches Surgical History History of ankle surgery Social History household members: children Smoking Status: Never smoker alcohol intake: never Assessment & Plan Time-Based Coding :: [TOTAL MINUTES] spent with patient and on the chart (including review of chart, obtaining history, exam, reviewing outside data, placing orders, documenting exam and treatment plan, and counseling patient) on [DATE].
[2024-12-19] MEDS: ENOXAPARIN 40 MG/0.4 ML SYRINGE SUBCUT (08:19)
[2024-12-19] MEDS: LEVOTHYROXINE 50 MCG TABLET PO (08:20)
[2024-12-19] MEDS: MEROPENEM 1 GM in SODIUM CHLORIDE 0.9% 100 ML IV (14:07)
--- NOTE | 2024-12-19 14:50 | OT.IPRE ---
Current Diagnoses Other specified noninfective gastroenteritis and colitis (12/13/24) Calculus of gallbladder with acute cholecystitis without obstruction (12/13/24) Past Medical History (Last Reviewed 12/13/24 @ 15:20 by Nisreen Pang DO) Anxiety Chronic asthma Chronic headaches Chronic renal failure, stage 3 (moderate) Depression Hx of adenomatous colonic polyps Surgical History (Last Reviewed 12/13/24 @ 15:20 by Nisreen Pang DO) History of ankle surgery Occupational Therapy Inpatient Evaluation/Re-Eval M2 OT-IP Current Condition Start: 12/14/24 16:09 Freq: Status: Active Protocol: Document 12/19/24 13:46 JARET (Rec: 12/19/24 14:12 JARET Jim) Occupational Therapy Current Condition Current Condition Evaluation Date 12/19/24 Treatment Diagnosis colitis, cholelithiasis, decreased self care Diagnosis Onset Date 12/13/24 M3 OT- IP Subjective and Pain Start: 12/14/24 16:09 Freq: Status: Active Protocol: Document 12/19/24 13:46 JARET (Rec: 12/19/24 14:12 JARET [employer]ktop) OT- Subjective Occupational Therapy Visit Type Type Re-Evaluation Visit Start Time 13:10 Visit Stop Time 13:40 Notes Pt was reclined in bed on entrance of OT/PT for co-eval . Occupational Therapy Visit Comments Patient Comments Pt felt strongly that all future therapy should be scheduled ahead of time so that she can get her energy ready for therapy. Pt reports that she has had 1 fall within the last month. Patient/Caregiver To get stronger Goals OT Pain Assessment Pain Present Pain Present Pain Reported Location Abdomen Scale Used not rated, states her gallbladder hurts M4 OT- IP ADL's Start: 12/14/24 16:09 Freq: Status: Active Protocol: Document 12/19/24 13:46 JARET (Rec: 12/19/24 14:12 JARET Desktop) OT [id number] Comments OT Self-Feeding not observed Comments OT ADL-Grooming Comments OT Grooming Comments offered pt opportunity to brush her hair and to wash her face. Pt refuses both. OT ADL-Oral Care Comments Oral Care Comments not observed. Pt edentulous. OT ADL-Dressing General Eval Lower Body Dressing Total Assistance Ability Areas Needing Socks Assistance Comments OT Dressing Comments Pt attempts to reach for sock while EOB, able to reach top of sock. OT ADL-Toileting Comments OT Toileting not observed. pt wearing brief. Comments OT ADL-Bathing Comments OT Bathing Comments not observed. sponge bath may be best at this time. M5 OT- IP IADL's Start: 12/14/24 16:09 Freq: Status: Active Protocol: Document 12/19/24 13:46 JARET (Rec: 12/19/24 14:12 [facility] Desktop) OT-Instrumental Activities of Daily Living Deficits IADL Deficits No Deficits Identified Home Safety Awareness Awareness of Need Good Awareness for Assistance at Home Medication Management Medication Caregiver Administers Management Money Management Money Management Caregiver Provides Assistance Meal Preparation Meal Preparation Caregiver Provides Assist Project Construction Assistant Manager Project Construction Assistant Manager Caregiver Provides Assist Driving Driving Caregiver Provides Assist M6 OT- IP Functional Cognition Start: 12/14/24 16:09 Freq: Status: Active Protocol: Document 12/19/24 13:46 JARET (Rec: 12/19/24 14:12 [facility] Cognitive Factors Limiting Selfcare Function Cognitive Ability Level of Alertness Alert Patient Orientation Name,Year,Place,Situation Attention Span Capable of Focused Attention,Capable of Sustained Ability Attention,Unable to Sustain Attention Ability to Follow Able to Follow One Step Commands with Increased Time, Commands Able to Follow One Step Commands with Repetition Memory Description Short Term Impaired Executive Function Unable to Remember Details Ability Cognitive Comments Cognitive Assessment Per OT eval on 12/14, pt scored a 15/30 on SLUMS which Comments implies dementia. Pt not willing to participate in SLUM re-eval at this time. M7 OT- IP Mobility and Balance Start: 12/14/24 16:09 Freq: Status: Active Protocol: Document 12/19/24 13:46 JARET (Rec: 12/19/24 14:12 [facility] Desktop) OT- Bed Mobility Assessment Rolling Type of Rolling Roll to Right Level of Assistance Minimal Assistance Supine to Sit Supine to Sit Assist Moderate Assistance Sit to Supine Sit to Supine Assist Minimal Assistance Scooting Scooting to Edge of Minimal Assistance Bed Scooting Up and Down Moderate Assistance in Bed OT-Transfer Assessment Sit to and From Stand Sit to and from Minimal Assistance Stand Technique Transfer Destination Bed Devices Transfer Assistive Gait Belt,Front Wheeled Walker Devices Comments Mobility Comments Pt declined to t/f to recliner. Pt takes several steps to HOB with CGA. OT- Balance Assessment Sitting Balance and Reactions Static Sitting Good Balance Ability Dynamic Sitting Fair Balance Ability Standing Balance and Reactions Static Standing Fair Balance Ability Dynamic Standing Fair Balance Ability M8 OT- IP Objective Assessments Start: 12/14/24 16:09 Freq: Status: Active Protocol: Document 12/19/24 13:46 [facility] (Rec: 12/19/24 14:12 [facility]) OT Gross Range of Motion Upper Extremity Range of Motion Assessment Within Functional Limits OT Strength Upper Extremity Strength Assessment Right Impaired Hand Sewer Contractor Strength Hand Dominance Right Comments Strength Comments RUE 4-/5 , LUE 4/5 OT- Coordination Assessment Upper Extremity Finger to Nose Test Left UE Impaired OT-Muscle Tone Assessment Muscle Tone WNL Yes OT Sensation Assessment Edema Edema Present Edema Comments Pt has swelling and bruising along R elbow and swelling on B LEs. Nsg notified. M9 OT- IP Assessment and Plan Start: 12/14/24 16:09 Freq: Status: Active Protocol: Document 12/19/24 13:46 [facility] (Rec: 12/19/24 14:12 [facility]) OT Summary Assessment and Plan Potential Rehabilitation Fair Potential Analytic Complexity Moderate at Evaluation Summary Progress Towards Slow Progress due to Medical Issues,Slow Progress due Goals to Cognition Assessment Summary Pt is a 74 yo F with recent sepsis admission presents from [facility] with abdominal pain complaint. Pt has reported varying level of assistance at baseline. Per eval on 12/14, pt was I with BADLs and per today pt required a lot of assistance for BADLs from her dtr. Pt was perseverating on therapists not making an appointment with her prior to starting the eval, this led to self limiting aspects of eval. Pt required min A for bed mobility, sup>sit with mod A, sit>stand with CGA. Pt required total A for socks and refused additional ADLs at this time. Pt may benefit from follow-up cognitive screening. Pt reports that she wants to go to a SNF for therapy as she is concerned if she goes home she will not be able to get out of bed. OT to trial pt to see if pt is willing to participate and promote return towards PLOF. Goals Grooming Goal Standby Assistance Dressing Goal Minimal Assistance,Long Handled Shoe Horn,Felled Seam Operator,Sock Aid Toileting Goal Minimal Assistance Bathing Goal Minimal Assistance Toilet Transfer Goal Contact Guard Assistance Shower Transfer Goal Contact Guard Assistance Days to Meet Goals 20 Frequency of Treatment Other frequency 5x/wk Treatment Plan OT Treatment Plan ADL Training,Functional Cognition Training,Functional Mobility,Therapeutic Exercises,Patient/Family Education ,Discharge Planning Discharge Recommendations OT Discharge SNF Rehab Recommendations Transportation Needs Wheelchair/Cabulance,Stretcher/Ambulance at Discharge
--- NOTE | 2024-12-19 15:16 | PT.IIE ---
Current Diagnoses Other specified noninfective gastroenteritis and colitis (12/13/24) Calculus of gallbladder with acute cholecystitis without obstruction (12/13/24) Surgical History (Last Reviewed 12/13/24 @ 15:20 by Nisreen Pang DO) History of ankle surgery Medical History (Last Reviewed 12/13/24 @ 15:20 by Nisreen Pang DO) Anxiety Chronic asthma Chronic headaches Chronic renal failure, stage 3 (moderate) Depression Hx of adenomatous colonic polyps Physical Therapy Inpatient Evaluation/Re-Eval M2 PT-IP Current Condition Start: 12/19/24 14:57 Freq: NEEDED Status: Active Protocol: Document 12/19/24 14:58 AMB (Rec: 12/19/24 15:13 AMB [id number]) Physical Therapy Current Condition Current Condition Evaluation Date 12/19/24 Treatment Diagnosis weakness with colitis Onset Date 12/13 M3 PT-IP Subjective Start: 12/19/24 14:57 Freq: NEEDED Status: Active Protocol: Document 12/19/24 14:58 AMB (Rec: 12/19/24 15:13 AMB [id number]) Subjective Physical Therapy Visit Type Type Initial Evaluation Visit Start Time 13:10 Visit Stop Time 13:40 Physical Therapy Visit Comments Patient Comments Pt was able to give some history, but story is convoluted and changes, when it was time to assess her mobility, she became upset that PT/OT did not give her a warning that we were going to expect her to move to day and continued to perseverate on us giving her a therapy schedule. Therapy Pain Assessment Pain When Pain Assessed At Rest Location Abdomen Description Aching M4 PT-IP Mobility and Gait Start: 12/19/24 14:57 Freq: NEEDED Status: Active Protocol: Document 12/19/24 14:58 AMB (Rec: 12/19/24 15:13 AMB [id number]) PT-Bed Mobility Assessment Rolling Type of Rolling Roll to Right Level of Assist Minimal Assistance,1 Person Assistance Supine to Sit Supine to Sit Moderate Assistance,1 Person Assistance,Head of Bed Elevated,Bedrails Sit to Supine Sit to Supine Minimal Assistance,1 Person Assistance,Head of Bed Elevated,Bedrails Scooting Scooting to Edge of Minimal Assistance Bed PT-Transfer Assessment Sit to and From Stand Sit to and from Contact Guard Assistance,1 Person Assistance,Use of Stand Upper Extremities Equipment Transfer Assistive Front Wheeled Walker Device Comments Mobility Comments Betsy was hesitant to participate in PT, but was able to perform bed mobility with Min/ModA, sit to stand from a tall bed with CGA and maintained standing for 1 minute at the FWW without physical assistance or loss of balance. Pt was not willing to attempt a transfer to the chair and instead requested to get back into bed. PT-Balance Assessment Sitting Balance and Reactions Static Sitting Good Balance Ability Dynamic Sitting Fair Balance Ability Standing Balance and Reactions Static Standing Fair Balance Ability M5 PT-IP Objective Assessments Start: 12/19/24 14:57 Freq: NEEDED Status: Active Protocol: Document 12/19/24 14:58 AMB (Rec: 12/19/24 15:13 AMB [id number]) Orientation Orientation/Cognition Level of Alertness Confus[place] Strength Comments Strength Comments grossly 3-4/5 bilaterally, but pt hesitant to participate with formal testing M7 PT-IP Assessment and Plan Start: 12/19/24 14:57 Freq: NEEDED Status: Active Protocol: Document 12/19/24 14:58 AMB (Rec: 12/19/24 15:13 AMB [id number]) PT Summary Assessment and Plan Potential Rehabilitation Fair Potential Status of Condition Evolving at Evaluation Summary Impairments Pain,Strength,Balance,Cognition,Bed Mobility,Transfers, Gait,Activity Tolerance Assessment Summary Significant time spent during evaluation trying to get information about pt's baseline. Pt states she has been sick for 200 days. She was at [facility] for sepsis, then went to [facility] where she became quite constipated, and then came to this hospital 6 days ago. Now that she is finishing up her IV antibiotics, we need to assess for a safe discharge plan. Prior to her hospitalization for sepsis she reports that she lived on [address] [facility] [address] [facility] with her significant other and daughter, and that her daughter helped her with most ADLs. She has a 4WW at home. Her SO and daughter may be in the process of moving? At this point it was difficult to assess her transfers or gait due to the patient declining these activities, but she requires Harry for most bed mobility and CGA for sit to stand. She would certainly benefit from rehab at a SNF, but would need to be willing to participate in therapies to get a benefit. PT would recommend SNF placement at this time, dependent on patient's willingness to participate in a rehab plan. Goals Bed Mobility Goal Standby Assistance Transfer Goal Contact Guard Assistance Gait Goal Contact Guard Assistance Gait Distance 150 Days to Meet Goals 10 Frequency of Treatment Frequency Of Once a Day Treatment Treatment Plan Physical Therapy Bed Mobility Training,Transfer Training,Gait Training, Treatment Plan Therapeutic Exercise,Neuromuscular Re-ed Recommendations To Nursing Amount of Assist 1 Person Assist Needed Discharge Recommendations PT Discharge SNF Rehab Recommendations Transportation Needs Wheelchair/Cabulance at Discharge - PT assist 1
--- NOTE | 2024-12-19 15:26 | CM.DPC ---
DCP SNF Cont: Per MD, pt remains stable to d/c to SNF and waiting for insurance auth. YAZMIN spoke to Joana at [facility] and confirms they can accept pt but auth still showing as pending but looks like [facility] request for auth still in place. YAZMIN faxed updated clinicals to [facility] to submit for SNF auth to [employer] SW asked [facility] to cancel their auth request and [facility] graciously completed and confirmed cancelled. Per PT/OT, pt was upset that PT/OT did not schedule ahead and alert her to working with her today and was not the most cooperative but they were able to do a little with her today and will continue as trying to determine if pt needs SNF for mobility or just IV abx (and course almost completed). Unclear how much assist family provides to pt at baseline as her answers have not been consistent to PT/OT. Plan: SW to follow in the AM with [facility] to see if auth obtained for SNF. If auth denied, then will need plan for back home with family and continue with the Medicaid application for LTC help. TOD Gaston
[2024-12-19] MEDS: FUROSEMIDE 40 MG TABLET PO (17:06)
[2024-12-19] MEDS: CITALOPRAM 10 MG TABLET 20 MG PO (17:06)
[2024-12-19] MEDS: MELATONIN 3 MG TABLET 6 MG PO (20:32)
[2024-12-20 05:00] VITALS: BP 133/65; PULSE 70; RESP 16; TEMP 36.6; O2SAT 100
[2024-12-20] MEDS: LEVOTHYROXINE 50 MCG TABLET PO (06:17)
--- NOTE | 2024-12-20 07:52 | P.DS_ITS ---
History of Present Illness History of Present Illness Date Patient Seen: 12/20/24 Chief complaint: possible bowel obstruction Narrative: This is a 74-year-old female with a history of asthma, CKD 3, depression, anxiety and recent sepsis admission who presents from the [facility] with complaints of abdominal pain and constipation. She has stercoral proctitis/a large rectal stool ball on CT scan. Additionally there are segmental areas of colonic wall thickening, likely additional colitis along with diffuse colonic diverticula. There are small bilateral pleural effusions along with small volume ascites. The gallbladder is packed with stones with surrounding edema. After arrival on the medical floor she experiences large bowel movements, likely clearing the rectal ball of stool. She tells me that she has been living at the facility for 3 weeks after an admission for sepsis at a nearby hospital. Those details are not available. Discharge Providers Provider Date of admission: 12/13/24 15:20 Discharge Date: 12/20/24 Consults: 12/14/24 14:19 Consult to Occupational Therapy Evaluate & Treat Comment: SLUMS test for dementia screening Physician Instructions: Evaluate and treat 12/19/24 11:55 Consult to Physical Therapy Evaluate & Treat Comment: Physician Instructions: Evaluate and Treat 12/19/24 11:56 Consult to Occupational Therapy Evaluate & Treat Comment: Physician Instructions: Evaluate and treat Discharge provider: Stacia Gomez MD Summary Hospital Course Hospital Course: 12/13: 74-year-old female with a history of asthma, CKD 3, depression, anxiety and recent sepsis admission who presents from the [facility] with complaints of abdominal pain and constipation. She has stercoral proctitis/a large rectal stool ball on CT scan. Additionally there are segmental areas of colonic wall thickening, likely additional colitis along with diffuse colonic diverticula. There are small bilateral pleural effusions along with small volume ascites. The gallbladder is packed with stones with surrounding edema. After arrival on the medical floor she experiences large bowel movements, likely clearing the rectal ball of stool. She tells me that she has been living at the facility for 3 weeks after an admission for sepsis at a nearby hospital. Those details are not available. 12/14: WBC 13 hemoglobin 9.7 MCV 102.5 89% neutrophils sodium 141 potassium 2.8 BUN 12 creatinine 0.5 procalcitonin de-escalated from 27-14 Replace potassium continue Zosyn, monitor clinically and discuss with surgery whether or not cholelithiasis is active issue 12/15: No complaints tolerating meals 12/16: Large bowel movement yesterday. Blood culture identified positive as Acinetobacter species sensitive to meropenem midline placed for 6 days of meropenem that can be completed at prison unfortunately patient is refusing to go back to [facility] and looking for a different prison facility 11/16: PICC line placed yesterday tolerating meropenem no fevers recorded vital signs stable vision would prefer stay in the hospital but is willing to go prison if this is required 11/17: Tolerating Meropenem no chills or rigors overnight no fevers recorded vital signs stable 11/18: The labs on 12/14 included a hemoglobin of 9.7 with a potassium of 3.6 and a creatinine of 0.48. The 12/13 TSH was 9.33. This was checked in relationship to her otherwise unexplained constipation so she will be started on Synthroid today. Her blood culture is growing Acinetobacter which is meropenem sensitive. PT and OT will evaluate her for potential placement need at [facility]. PLAN: Fecal impaction with stercoral colitis and Acinetobacter bacteremia: * Resolved fecal impaction * reurn to prison and plans for outpatient colonoscopy (has not had 1 for 20 years) * Three more days of meropenem remaining, PICC line has been placed * Levothyroxine 0.05 mg daily due to TSH of 9.33 and potential relationship of fecal impaction to hypothyroidism. Cholelithiasis/Cholecystitis asymptomatic * No surgery recommended * Originally on Zosyn, then switched to meropenem, surgery signed off. Moderately advanced dementia chronic: * Require supervised behavior direction for self-care deficits Sick Euthyroid Syndrome -bradykinesia and constipation present, we will treat with levothyroxine due to high TSH 9.33. Peripheral edema -started on Lasix 12/19. She will need a BNP done within 3 days of arrival at the prison facility and the Lasix may need to be stopped, depending on the pedal edema/electrolyte response. Disposition: * Discharge to [facility] * Confirmed in discussions with the patient and her granddaughter. Status at Discharge Cognitive/behavioral status at discharge: at baseline, oriented Functional status at discharge: uses cane/walker Overall status at discharge: patient is progressing back to baseline Time Spent with Patient Time spent: Greater than 30 minutes Exam Vital Signs (past 8 hours): - 12/20/24 05:00 Temperature 98 F Pulse Rate 70 Respiratory Rate 16 Blood Pressure 133/65 Pulse Oximetry 100 Oxygen Delivery Method Room Air Oxygen Flow Rate 0 Narrative Exam Narrative: Alert and oriented x3. Very anxious and has lots of questions about today's transfer plans. She explains that the reason she refused to participate with PT/OT here is because she does not like interruptions in a sequence of treatments so does not want to start the treatment until she gets to the facility she is moving to. She has lots of family support. Heart is regular rate and rhythm without murmur. Lungs are clear to auscultation bilaterally. Extremities have no ankle edema. Abdomen is soft, bowel sounds positive, nontender, no organomegaly. There is no pedal or ankle edema today. Objective Labs 12/14/24 05:15 12/14/24 12:22 [facility] Medical History Hx of adenomatous colonic polyps Chronic asthma Chronic renal failure, stage 3 (moderate) Depression Anxiety Chronic headaches Surgical History History of ankle surgery Social History household members: children Smoking Status: Never smoker alcohol intake: never Discharge Plan Discharge Plan Patient Disposition: SNF Transfer to: [facility] Under care of provider: Facility Clinical Operations Leader Discharge orders & Medications Prescriptions: New polyethylene glycol 3350 [Gavilax] 17 gram Powder In Packet 17 g PO BID Qty: 14 0RF metronidazole 250 mg tablet 250 mg PO TID Qty: 20 0RF furosemide 40 mg Tablet 40 mg PO DAILY Qty: 30 0RF melatonin 3 mg Tablet 6 mg PO BEDTIME PRN (Reason: insominia) Qty: 30 0RF levothyroxine [Synthroid] 50 mcg Tablet 50 mcg PO DAILY@0600 Qty: 30 0RF meropenem 1 gram recon soln 1 g IV Q8H Continued triamcinolone acetonide 0.1 % cream 1 applictn TOP TID Qty: 80 0RF Rx Instructions: Ok to fill once per MATJ. 08/23/18 citalopram 20 mg tablet 30 mg PO DAILY Qty: 135 3RF fluticasone propionate 50 mcg/actuation spray,suspension 2 spray intranasal BEDTIME Qty: 16 0RF Rx Instructions: administer into each nostril albuterol sulfate 90 mcg/actuation HFA aerosol inhaler 2 puff INHALATION Q4-6H PRN (Reason: shortness of breath or wheezing) Qty: 18 2RF Discontinued (DME) Disabled Parking See Rx Instructions .ROUTE .MEDSUPPLY Qty: 1 0RF Rx Instructions: Patient qualifies for disabled parking as per the attached form. cefdinir 300 mg capsule 300 mg PO BID Qty: 10 0RF Diet/Activity/Treatments Diet: Regular Liquid consistency: Normal/Thin Food texture: Regular [facility] Reason for rehabilitation: Recovery r/t decondition Rehab type: Physical therapy and Occupational therapy Visit Report/Discharge Packet Stand Alone Forms: Patient Portal/API
[2024-12-20] MEDS: ACETAMINOPHEN 325 MG TABLET 650 MG PO (08:25)
[2024-12-20] MEDS: FUROSEMIDE 40 MG TABLET PO (08:25)
[2024-12-20] MEDS: CITALOPRAM 10 MG TABLET 20 MG PO (08:25)
[2024-12-20] MEDS: ENOXAPARIN 40 MG/0.4 ML SYRINGE SUBCUT (08:26)
[2024-12-20] MEDS: MEROPENEM 1 GM in SODIUM CHLORIDE 0.9% 100 ML IV (12:17)
--- NOTE | 2024-12-20 12:50 | CM.DPNOTE ---
DCP Continued: Reviewed EMR and team rounds for pt?s medical status. Per Provider, pt cleared to discharge to [facility]. Signed med list and prescriptions obtained with Signed PAS[facility]. Per Joana at [facility], pt has obtained an authorization from [employer] insurance and be accepted today at 1300. Discharge clinicals sent to [facility] via secure email. Provided RN report# to patient RN. Tiesha from [facility] arrived at unit and wanted to speak with patient as pt has been making calls to their team requesting placement at their facility. STORAGE BATTERY TESTER briefed Tiesha of pt status and she met with pt at bedside to provide education of their facility for after rehab admission. Plan: Anticipating discharge to [facility] at 1300 via their facility van. CM Team will continue to follow for coordination of discharge plans. CHILO Mays
--- NOTE | 2024-12-20 13:51 | PC.NURSE ---
Discharge Note Patient A&O, VSS, RA, no complaints of pain/discomfort. Patient/family agreeable to discharge plan. PICC stayed in place for outpatient antibiotics. Patient able to dress self and pack all belongings with family assistance. This RN attempted to give report to receiving facility, left message with facility staff and RN to call back for report. Discharge packet given to transport personnel. Patient taken down via wheelchair by transport team to transport vehicle accompanied by family and belongings.
== END 2024-12-20 13:15 | DRG 392 ==
LOC: ED 13:45 → AC 15:21
PROVIDERS: Surgery; Admitting Provider Family Medicine; Emergency Provider Emergency Medicine; Referring Provider Emergency Medicine; Visit Provider Family Medicine
DX: K52.89 Other specified noninfective gastroenteritis and colitis (principal); K80.00 Calculus of gallbladder with acute cholecystitis without obstruction; R78.81 Bacteremia; K56.41 Fecal impaction; J45.909 Unspecified asthma, uncomplicated; F32.A Depression, unspecified; E87.6 Hypokalemia; F03.B0 Unspecified dementia, moderate, without behavioral disturbance, psychotic disturbance, mood disturbance, and anxiety; E07.81 Sick-euthyroid syndrome; E03.9 Hypothyroidism, unspecified; R60.0 Localized edema; B96.89 Other specified bacterial agents as the cause of diseases classified elsewhere
CPT/HCPCS: 36415; 36569; 71045; 74018; 74177; 80048; 80053; 81001; 83605; 83690; 83735; 84145; 84443; 85025; 87040; 87154; 87186; 96361; 96365; 96375; 97129; 97162; 97165; 97166; 99284; J1642; J1650; J2185; J2272; J2405; J2543; J7030; J7042; J7050; Q9967

== ENCOUNTER 2024-12-30 13:03 | Inpatient (IN) | payer MEDICARE, OTHER, SELFPAY ==
[2024-12-13 16:57] VITALS: BMI 20.7
[2024-12-30] VITALS (30 sets, daily range): BP systolic 107–139; BP diastolic 53–64; PULSE 72–91; RESP 13–27; TEMP 36.6; O2SAT 86–100; BMI 22.6; BMI 23.0
--- NOTE | 2024-12-30 13:52 | DI.CT.S_ITS ---
PROCEDURE: CT HEAD/BRAIN WO CON INDICATIONS: slurred speech left leg weak TECHNIQUE: Noncontrast 4.5 mm thick angled axial sections acquired from the foramen magnum to the vertex, with coronal and sagittal reformats. For radiation dose reduction, the following was used: automated exposure control, adjustment of mA and/or kV according to patient size. COMPARISON: [facility], CT, CT CHEST ABD PEL W CON, 12/30/2024, 14:23. [facility], CT, CT ANGIO HEAD AND NECK, 12/30/2024, 14:23. [facility], CT, CT HEAD/BRAIN WO CON, 11/24/2024, 11:29. FINDINGS: Image quality: Diagnostic. CSF spaces: Basal cisterns are patent. No extra-axial fluid collections. The ventricles are symmetric in size and shape. Brain: No intracranial bleeds or mass effect. There is cerebral volume loss, with resultant ventricular and sulcal prominence. There are periventricular and deep white matter chronic small vessel ischemic changes. There is intracranial internal carotid artery atherosclerosis. Skull and face: Calvarium and visualized facial bones appear intact, without suspicious lesions. Sinuses: Moderate mucosal thickening within the left maxillary sinus is partially seen. Milder mucosal thickening can be seen elsewhere within the paranasal sinuses. IMPRESSION: No acute intracranial hemorrhage is seen. Age no sal noncontrast CT findings of acute stroke are identified. If there is strong clinical suspicion for an acute stroke in this patient with this given history, please consider a brain MRI for further evaluation, as it is more sensitive (assuming that there is no contraindication to MRI). Dictated by: Renny Barrera M.D. on 12/30/2024 at 15:34 Approved by: Renny Barrera M.D. on 12/30/2024 at 15:36
--- NOTE | 2024-12-30 13:52 | DI.CT.S_ITS ---
PROCEDURE: CT ANGIO HEAD AND NECK INDICATIONS: slurred speech left leg weak TECHNIQUE: After the administration of intravenous contrast, 1 mm thick sections acquired from the aortic arch through the [place]. 3-dimensional yqwxcje-shdldconj-rfuqinsvls (MIP) and/or volume rendering reformats were acquired of the central intracranial vasculature and neck separately. For radiation dose reduction, the following was used: automated exposure control, adjustment of mA and/or kV according to patient size. COMPARISON: [facility], CT, CT HEAD/BRAIN WO CON, 12/30/2024, 14:23. [facility], CT, CT CHEST ABD PEL W CON, 12/30/2024, 14:23. FINDINGS: Image quality: Limited by bolus timing, with venous contamination. Cerebral CT Angiogram: Internal carotid arteries: No acute findings. Intracranial ICA are patent with no significant stenosis. No occlusion. No aneurysm. Anterior cerebral arteries: There is a hypoplastic right A1 segment, with a corresponding robust left A1 segment. This is considered to be a normal developmental variant of the [place] of [place], of typically no clinical consequence. The flow within the paired anterior cerebral arteries is otherwise normal and symmetric. The flow within the middle cerebral arteries is normal and symmetric. The anterior communicating artery is seen. No aneurysms are seen. Middle cerebral arteries: Unremarkable. No significant stenosis. No occlusion. No aneurysm. Posterior cerebral arteries: There is a prominent right posterior communicating artery seen, with an accompanying diminutive right P1 segment. This is attributed to a type origin of the right posterior cerebral artery, which is considered to be a normal developmental variant of typically no clinical consequence. The flow within the posterior cerebral arteries is normal and symmetric. No aneurysms are seen. Basilar artery: Unremarkable. No significant stenosis. No occlusion. No aneurysm. Vertebral arteries: Unremarkable as visualized. Dural venous sinuses: Unremarkable given phase of enhancement. Other: Arterial phase appearance of the brain parenchyma is unremarkable. Neck CT Angiogram: Internal carotid arteries: Unremarkable. No significant stenosis. No dissection or occlusion. Common carotid arteries: Unremarkable. No significant stenosis. No dissection or occlusion. External carotid arteries: Unremarkable. No occlusion. Vertebral arteries: Unremarkable. No significant stenosis. No dissection or occlusion. Aortic Arch and Mediastinum: Partially visualized aortic arch unremarkable without evidence of aneurysm. Origins of the great vessels unremarkable. Other: Age-appropriate bony degenerative changes are seen. Bilateral pleural effusions are partially seen, left larger than right. IMPRESSION: No significant intracranial arterial abnormality is seen. No significant abnormality is seen within the arteries of the neck. Additional findings: Mwsxwu-xy-Ecmjgk developmental anomalies. Any quantitative measurements of stenosis were performed using NASCET criteria. Dictated by: Renny Barrera M.D. on 12/30/2024 at 15:36 Approved by: Renny Barrera M.D. on 12/30/2024 at 15:39
--- NOTE | 2024-12-30 13:52 | DI.CT.S_ITS ---
PROCEDURE: CT CHEST ABD PEL W CON INDICATIONS: abdominal pain/diarrhea TECHNIQUE: After the administration of intravenous contrast, 5 mm thick sections acquired from the lung apices to the symphysis. 5 mm coronal and sagittal reformats were performed, with additional 7 mm MIP reformats through the lungs. For radiation dose reduction, the following was used: automated exposure control, adjustment of mA and/or kV according to patient size. COMPARISON: [facility], CT, CT ABDOMEN PELVIS W CON, 12/13/2024, 13:46. [facility], CT, CT CHEST ABD PEL W CON, 07/23/2024, 12:42. [facility], CT, CT HEAD/BRAIN WO CON, 12/30/2024, 14:23. [facility], CT, CT ANGIO HEAD AND NECK, 12/30/2024, 14:23. [facility], MR, MR ABDOMEN LIVER PROTOCOL, 11/09/2024, 8:20. [facility], CT, CT CHEST ABDOMEN PELVIS WITH CONTRAST, 11/08/2024, 17:52. FINDINGS: Image quality: Excellent. CHEST: Lower Neck: No enlarged lymph nodes. Thyroid: No thyroid nodules which require sonographic follow up, per consensus guidelines. Axillae: No enlarged lymph nodes. Chest Wall: Unremarkable. Lungs and Pleura: There is a small right-sided and moderate left-sided pleural effusion present. Overlying atelectasis can be seen. No pneumothorax is seen. Heart: Heart size is normal. No pericardial effusion. Thoracic Vessels: The aorta and pulmonary arteries demonstrate normal size. Mediastinum and [place]: No enlarged lymph nodes. Esophagus: No wall thickening. No hiatal hernia. ABDOMEN: Liver: A left liver hemangioma is again seen. No new liver lesion is seen. Gallbladder: Numerous gallstones can be seen within the gallbladder. No additional focal CT findings cholecystitis are seen. Biliary ducts: No biliary dilation. Pancreas: No ductal dilation. Spleen: Size is within normal limits. Adrenal Glands: There is a stable left adrenal nodule seen. No right adrenal nodules. Kidneys and Ureters: No hydronephrosis. No solid mass. No complex renal cystic lesion which requires follow up. Stomach and Bowel: The stomach is decompressed which limits its evaluation. However, the gastric wall appears thickened and hyperenhancing. There is moderate thickening seen involving the transverse colon. The colon elsewhere demonstrates no significant abnormality. Colonic diverticulosis is seen, without findings of active diverticulitis. No dilated loops of small bowel are seen. Peritoneum: Mild ascites is seen which is largely seen adjacent to the liver and the spleen. No free air. Ventral Wall: No significant ventral hernia. Abdominal Nodes: No retroperitoneal or mesenteric adenopathy by size criteria. Vessels: Aorta and inferior vena cava are normal in size. PELVIS: Pelvic Organs: Unremarkable. Bladder: No bladder wall thickening, accounting for underdistention. Pelvic Nodes: No enlarged lymph nodes. Miscellaneous: No inguinal hernias are seen. Bones: No aggressive osseous abnormality. IMPRESSION: The gastric wall appears thickened and hyperenhancing. Please consider gastritis. There is also wall thickening seen involving the transverse colon. Please consider colitis. Bilateral pleural effusions are seen, left larger than right. A small amount of ascites is seen. Additional findings: Left liver hemangioma Gallstones Stable left adrenal nodule, previously characterized as benign Dictated by: Renny Barrera M.D. on 12/30/2024 at 15:39 Approved by: Renny Barrera M.D. on 12/30/2024 at 15:44
--- NOTE | 2024-12-30 13:54 | ED.AMS ---
HPI - Altered Mental Status <Walt Whitmore MD - Last Filed: 01/02/25 16:05> General Chief Complaint: Weakness Stated Complaint: bowel infection? dehydration? Time Seen by Provider: 12/30/24 13:40 Source: patient and EMS Mode of arrival: EMS History of Present Illness HPI narrative: patient brought in by ambulance from home. Granddaughter at bedside. Patient lives with and children and sister. Patient just discharged here over this month after treatment for cholecystitis with antibiotics. Patient is on Flagyl still. Patient was not a candidate for surgical intervention for cholecystitis. Patient has not been home for 5 months. She was at [facility] when she was admitted here. She was then discharged to [facility] rehab. Patient had left against medical advice 3 days ago and currently at home. Since then she has had watery diarrhea lower abdominal pain. Last well known uncertain as patient started having slurred speech expressive aphasia and stuttering which is new for her. She has left leg weakness. Granddaughter states they noticed it this morning. However family coming here to give more details Related Data Home Medications ?Medication ?Instructions ?Recorded ?Confirmed citalopram 20 mg tablet 10 mg PO DAILY 01/01/25 01/01/25 polyethylene glycol 3350 17 gram 17 g PO DAILY PRN constipation 01/01/25 01/01/25 oral powder packet (Gavilax) Previous Rx's ?Medication ?Instructions ?Recorded furosemide 40 mg tablet 40 mg PO DAILY #30 tabs 12/20/24 levothyroxine 50 mcg tablet 50 mcg PO DAILY@0600 #30 tabs 12/20/24 (Synthroid) melatonin 3 mg tablet 6 mg (2 x 3 mg) PO BEDTIME PRN 12/20/24 insominia #30 tabs Allergies Allergy/AdvReac Type Severity Reaction Status Date / Time No Known Drug Allergies Allergy Verified 12/13/24 13:03 Review of Systems <Walt Whitmore MD - Last Filed: 01/02/25 16:05> Review of Systems Narrative: GENERAL: Negative chills, fatigue, malaise, fever, sweats. HEENT: Negative sinus pain, ear pain, sore throat RESPIRATORY: Negative dyspnea, cough CARDIOVASCULAR: Negative chest pain, palpitations GASTROINTESTINAL: Negative vomiting, nausea, negative bloody stool, Positive diarrhea andabdominal pain : Negative dysuria, frequency, hematuria MUSCULOSKELETAL: Negative muscle or bony pain SKIN: Negative rash, skin lesions NEUROLOGIC: Negative weakness, numbness, positive slurred speech ROS Unobtainable: All systems reviewed & are unremarkable except as noted in HPI and below Patient History <Walt Whitmore MD - Last Filed: 01/02/25 16:05> Medical History Hx of adenomatous colonic polyps Chronic asthma Chronic renal failure, stage 3 (moderate) Depression Anxiety Chronic headaches Surgical History History of ankle surgery Social History household members: children Smoking Status: Never smoker alcohol intake: never Smoking Status: Never smoker alcohol intake frequency: 0-2 drinks per day Exam <Walt Whitmore MD - Last Filed: 01/02/25 16:05> Narrative Exam Narrative: GENERAL: in no distress, not toxic not dyspneic HEAD: Normocephalic. EYES: Pupils equal round ENT: Mucous membranes moist. NECK: Trachea midline. CARDIOVASCULAR: Regular rate and rhythm RESPIRATORY: Clear to auscultation. Breath sounds equal bilaterally. No wheezes, rales, or rhonchi. GASTROINTESTINAL: Abdomen soft, non-tender BACK: No flank tenderness. EXTREMITIES: No gross deformities. NEURO: AOx 2. Patient has slurred speech with expressive aphasia and stuttered. Left leg weakness with drop to the bed immediately. 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 No pronator drift. . No drift with right leg. SKIN: Warm and dry PSYCH: Not anxious, is cooperative Initial Vital Signs Initial Vital Signs: Vital Signs Pulse Rate 76 12/30/24 13:05 Pulse Oximetry 97 12/30/24 13:05 <Gian Crawford DO - Last Filed: 12/30/24 17:49> Initial Vital Signs Initial Vital Signs: Vital Signs Pulse Rate 76 12/30/24 13:05 Pulse Oximetry 97 12/30/24 13:05 Scores <Walt Whitmore MD - Last Filed: 01/02/25 16:05> NIH Stroke Scale Level of Conciousness: Alert, keenly responsive Ask month/age: Answers both questions correctly. Open/close eyes, close hand: Performs both tasks correctly Best gaze horizontal: Normal Visual pulido: No visual loss Facial palsy: Normal symetrical movement Left arm drift: No drift for full 10 sec Right arm drift: No drift for full 10 sec Left leg drift: No movement Right leg drift: No drift for full 5 sec Limb ataxia: Absent Sensory on face/arms/legs: Normal, no sensory loss Best language: Mild to moderate, slurs some words Dysarthria: Mild to mod,some slurring Extinction or inattention: No abnormality Total NIH Stroke scale score: 6 <Gian Crawford DO - Last Filed: 12/30/24 17:49> NIH Stroke Scale Total NIH Stroke scale score: 6 Course <Walt Whitmore MD - Last Filed: 01/02/25 16:05> Orders Ordered: Acetaminophen (Acetaminophen 325 Mg Tablet) 650 mg PO Q6H PRN PRN Reason: Fever/Mild Pain (1-3) Citalopram Hydrobromide (Citalopram 10 Mg Tablet) 10 mg PO DAILY [facility] Last Admin: 01/02/25 09:10 Dose: 10 mg Documented By: LUIS ENRIQUE Heparin Sodium (Porcine) (Heparin 5,000 Unit/Ml Vial) 5,000 unit SUBCUT BID [facility] On Hold: 12/31/24 14:27 Last Admin: 12/31/24 08:30 Dose: Not Given Documented By: Admin: 12/30/24 21:18 Dose: 5,000 unit Documented By: HALEIGH Dextrose/Sodium Chloride (Dextrose 5%-0.9% Ns) 1,000 mls @ 100 mls/hr IV CONT [facility] Last Admin: 01/02/25 05:54 Dose: 100 mls/hr Documented By: Infusion: 01/02/25 05:54 Dose: Infused Documented By: Admin: 01/01/25 20:13 Dose: 100 mls/hr Documented By: Infusion: 01/01/25 20:13 Dose: Infused Documented By: Admin: 01/01/25 11:15 Dose: 100 mls/hr Documented By: Infusion: 01/01/25 11:01 Dose: Infused Documented By: Admin: 01/01/25 01:01 Dose: 100 mls/hr Documented By: Infusion: 01/01/25 01:01 Dose: Infused Documented By: Admin: 12/31/24 17:01 Dose: 100 mls/hr Documented By: Infusion: 12/31/24 16:40 Dose: Infused Documented By: Admin: 12/31/24 06:40 Dose: 100 mls/hr Documented By: Infusion: 12/31/24 06:34 Dose: Infused Documented By: Admin: 12/30/24 20:34 Dose: 100 mls/hr Documented By: NH Levothyroxine Sodium (Levothyroxine 50 Mcg Tablet) 50 mcg PO DAILY@0600 [facility] Last Admin: 01/02/25 09:25 Dose: Not Given Documented By: AV Magnesium Oxide (Magnesium Oxide 400 Mg Tablet) 400 mg PO BID [facility] Last Admin: 01/02/25 09:09 Dose: 400 mg Documented By: LUIS ENRIQUE Admin: 01/01/25 20:27 Dose: 400 mg Documented By: Admin: 01/01/25 09:22 Dose: 400 mg Documented By: Melatonin (Melatonin 3 Mg Tablet) 6 mg PO BEDTIME [facility] Last Admin: 01/01/25 20:27 Dose: 6 mg Documented By: Admin: 12/31/24 20:10 Dose: 6 mg Documented By: Admin: 12/30/24 22:39 Dose: 6 mg Documented By: HALEIGH Melatonin (Melatonin 3 Mg Tablet) 6 mg PO BEDTIME PRN PRN Reason: insominia Naloxone HCl (Naloxone 0.4 Mg/Ml Vial) 0.2 mg IV Q2MIN PRN PRN Reason: Opiate Reversal Ondansetron HCl (Ondansetron 4 Mg/2 Ml Inj) 4 mg IV NOW PRN PRN Reason: Nausea And Vomiting Last Admin: 12/30/24 17:23 Dose: 4 mg Documented By: LINDA Oxycodone HCl (Oxycodone Ir 5 Mg Tablet) 5 mg PO Q4HR PRN PRN Reason: pain Last Admin: 01/02/25 10:06 Dose: 5 mg Documented By: LUIS ENRIQUE Admin: 12/31/24 05:01 Dose: 5 mg Documented By: HALEIGH Pantoprazole Sodium (Pantoprazole 40 Mg Vial) 40 mg IV DAILY [facility] Last Admin: 01/02/25 09:09 Dose: 40 mg Documented By: Admin: 01/01/25 09:22 Dose: 40 mg Documented By: Admin: 12/31/24 15:00 Dose: 40 mg Documented By: ROSALINA Polyethylene Glycol (Polyethylene Glycol 3350 17 Gm Powd.Pack) 17 gm PO DAILY [facility] Last Admin: 01/02/25 09:15 Dose: 17 gm Documented By: LUIS ENRIQUE Admin: 01/01/25 09:22 Dose: 17 gm Documented By: MS Polyethylene Glycol (Polyethylene Glycol 3350 17 Gm Powd.Pack) 17 gm PO DAILY PRN PRN Reason: Constipation Potassium Chloride (Potassium Chloride 20 Meq Tab) 40 meq PO BIDWM [facility] Last Admin: 01/02/25 09:09 Dose: 40 meq Documented By: AV Sennosides (Sennosides 8.6 Mg Tablet) 8.6 mg PO BID [facility] Last Admin: 01/02/25 09:14 Dose: 8.6 mg Documented By: Admin: 01/01/25 20:29 Dose: 8.6 mg Documented By: Admin: 01/01/25 09:22 Dose: 8.6 mg Documented By: MS Discontinued Medications POTASSIUM CHLORIDE IN WATER (Potassium Cl 10 Meq/100 Ml Lisandra) 10 meq in 100 mls @ 100 mls/hr IV Q1H [place] Stop: 12/30/24 16:59 Last Infusion: 12/30/24 18:30 Dose: Infused Documented By: Admin: 12/30/24 17:23 Dose: 100 mls/hr Documented By: Infusion: 12/30/24 17:07 Dose: Infused Documented By: Admin: 12/30/24 16:07 Dose: 100 mls/hr Documented By: ES Calcium Gluconate 4.65 meq/ (Sodium Chloride) 60 mls @ 180 mls/hr IV NOW ONE Stop: 12/30/24 15:08 Last Infusion: 12/30/24 16:36 Dose: Infused Documented By: Admin: 12/30/24 16:06 Dose: 180 mls/hr Documented By: ES POTASSIUM CHLORIDE IN WATER (Potassium Cl 10 Meq/100 Ml Lisandra) 10 meq in 100 mls @ 100 mls/hr IV Q1H [place] Stop: 12/31/24 02:14 Last Infusion: 12/31/24 07:19 Dose: Infused Documented By: Admin: 12/31/24 01:32 Dose: 100 mls/hr Documented By: Infusion: 12/31/24 01:23 Dose: Infused Documented By: Admin: 12/31/24 00:23 Dose: 100 mls/hr Documented By: Infusion: 12/31/24 00:16 Dose: Infused Documented By: Admin: 12/30/24 23:16 Dose: 100 mls/hr Documented By: Infusion: 12/30/24 23:16 Dose: Infused Documented By: Admin: 12/30/24 23:16 Dose: 100 mls/hr Documented By: Infusion: 12/30/24 23:12 Dose: Infused Documented By: Admin: 12/30/24 22:12 Dose: 100 mls/hr Documented By: Infusion: 12/30/24 22:09 Dose: Infused Documented By: Admin: 12/30/24 21:09 Dose: 100 mls/hr Documented By: Infusion: 12/30/24 21:02 Dose: Infused Documented By: Admin: 12/30/24 20:02 Dose: 100 mls/hr Documented By: Infusion: 12/30/24 19:36 Dose: Infused Documented By: Admin: 12/30/24 18:36 Dose: 100 mls/hr Documented By: SBF Calcium Gluconate 9.3 meq/ (Sodium Chloride) 70 mls @ 140 mls/hr IV NOW ONE Stop: 12/30/24 18:44 Last Infusion: 12/30/24 20:32 Dose: Infused Documented By: Admin: 12/30/24 20:02 Dose: 140 mls/hr Documented By: [place] POTASSIUM CHLORIDE IN WATER (Potassium Cl 10 Meq/100 Ml Lisandra) 10 meq in 100 mls @ 100 mls/hr IV Q1H [place] Stop: 12/31/24 08:14 Last Infusion: 12/31/24 07:38 Dose: Infused Documented By: Admin: 12/31/24 07:17 Dose: Not Given Documented By: Admin: 12/31/24 07:17 Dose: Not Given Documented By: Admin: 12/31/24 07:17 Dose: Not Given Documented By: Admin: 12/31/24 07:17 Dose: Not Given Documented By: Admin: 12/31/24 07:17 Dose: Not Given Documented By: Admin: 12/31/24 07:16 Dose: Not Given Documented By: Admin: 12/31/24 06:38 Dose: 100 mls/hr Documented By: Infusion: 12/31/24 05:25 Dose: Infused Documented By: Admin: 12/31/24 04:25 Dose: 100 mls/hr Documented By: HALEIGH Calcium Gluconate 4.65 meq/ (Sodium Chloride) 60 mls @ 60 mls/hr IV NOW ONE Stop: 12/31/24 01:10 Last Infusion: 12/31/24 02:47 Dose: Infused Documented By: Admin: 12/31/24 01:47 Dose: 60 mls/hr Documented By: HALEIGH Magnesium Sulfate (Magnesium Sulfate) 2 gm in 50 mls @ 25 mls/hr IV NOW ONE Stop: 12/31/24 09:14 Last Infusion: 12/31/24 09:38 Dose: Infused Documented By: ROSALINA Co-signed By: HAN Admin: 12/31/24 07:38 Dose: 25 mls/hr Documented By: ROSALINA Co-signed By: RU POTASSIUM CHLORIDE IN WATER (Potassium Cl 10 Meq/100 Ml Lisandra) 10 meq in 100 mls @ 100 mls/hr IV Q1H [facility] Stop: 12/31/24 13:29 Last Infusion: 12/31/24 14:23 Dose: Infused Documented By: Admin: 12/31/24 13:10 Dose: 100 mls/hr Documented By: Infusion: 12/31/24 13:04 Dose: Infused Documented By: Admin: 12/31/24 12:04 Dose: 100 mls/hr Documented By: Infusion: 12/31/24 12:00 Dose: Infused Documented By: Admin: 12/31/24 11:00 Dose: 100 mls/hr Documented By: Infusion: 12/31/24 10:58 Dose: Infused Documented By: Admin: 12/31/24 09:58 Dose: 100 mls/hr Documented By: Infusion: 12/31/24 09:57 Dose: Infused Documented By: Admin: 12/31/24 08:57 Dose: 100 mls/hr Documented By: Infusion: 12/31/24 08:38 Dose: Infused Documented By: Admin: 12/31/24 07:38 Dose: 100 mls/hr Documented By: ROSALINA POTASSIUM CHLORIDE IN WATER (Potassium Cl 10 Meq/100 Ml Lisandra) 10 meq in 100 mls @ 100 mls/hr IV Q1H [facility] Stop: 12/31/24 21:59 Last Infusion: 12/31/24 22:19 Dose: Infused Documented By: Admin: 12/31/24 21:19 Dose: 100 mls/hr Documented By: Infusion: 12/31/24 21:10 Dose: Infused Documented By: Admin: 12/31/24 20:10 Dose: 100 mls/hr Documented By: Infusion: 12/31/24 20:10 Dose: Infused Documented By: Admin: 12/31/24 19:11 Dose: 100 mls/hr Documented By: Infusion: 12/31/24 19:06 Dose: Infused Documented By: Admin: 12/31/24 18:06 Dose: 100 mls/hr Documented By: Infusion: 12/31/24 18:00 Dose: Infused Documented By: Admin: 12/31/24 17:00 Dose: 100 mls/hr Documented By: Infusion: 12/31/24 16:56 Dose: Infused Documented By: Admin: 12/31/24 15:56 Dose: 100 mls/hr Documented By: DM POTASSIUM CHLORIDE IN WATER (Potassium Cl 10 Meq/100 Ml Lisandra) 10 meq in 100 mls @ 100 mls/hr IV Q1H [facility] Stop: 01/02/25 09:44 Last Infusion: 01/02/25 11:02 Dose: Infused Documented By: Admin: 01/02/25 09:09 Dose: 100 mls/hr Documented By: Infusion: 01/02/25 08:55 Dose: Infused Documented By: Admin: 01/02/25 07:55 Dose: 100 mls/hr Documented By: Infusion: 01/02/25 07:48 Dose: Infused Documented By: Admin: 01/02/25 06:48 Dose: 100 mls/hr Documented By: Infusion: 01/02/25 06:45 Dose: Infused Documented By: Admin: 01/02/25 05:45 Dose: 100 mls/hr Documented By: NH Calcium Gluconate 4.65 meq/ (Sodium Chloride) 60 mls @ 60 mls/hr IV NOW ONE Stop: 01/02/25 06:59 Last Infusion: 01/02/25 09:25 Dose: Infused Documented By: Admin: 01/02/25 06:50 Dose: 60 mls/hr Documented By: NH Calcium Gluconate 4.65 meq/ (Sodium Chloride) 60 mls @ 180 mls/hr IV NOW ONE Stop: 01/02/25 08:01 Last Infusion: 01/02/25 08:53 Dose: Infused Documented By: LUIS ENRIQUE Admin: 01/02/25 08:12 Dose: 180 mls/hr Documented By: LUIS ENRIQUE Melatonin (Melatonin 3 Mg Tablet) 6 mg PO BEDTIME [facility] Potassium Chloride (Potassium Chloride 20 Meq Tab) 40 meq PO Q6H [facility] Stop: 12/31/24 00:16 Last Admin: 12/31/24 01:07 Dose: Not Given Documented By: Admin: 12/30/24 21:46 Dose: Not Given Documented By: HALEIGH Potassium Chloride (Potassium Chloride 20 Meq Tab) 40 meq PO NOW ONE Stop: 01/01/25 07:01 Last Admin: 01/01/25 08:16 Dose: 40 meq Documented By: Vital Signs Vital signs: Vital Signs - 8 hr 12/30/24 13:05 12/30/24 13:08 12/30/24 13:08 Temperature Pulse Rate 76 77 Respiratory Rate 18 Blood Pressure 111/54 L Pulse Oximetry 97 96 Oxygen Delivery Method 12/30/24 13:14 12/30/24 13:30 12/30/24 13:31 Temperature 98 F Pulse Rate 77 80 85 Respiratory Rate 16 19 16 Blood Pressure 111/54 L Pulse Oximetry 93 94 93 Oxygen Delivery Method Room Air 12/30/24 13:31 12/30/24 14:00 12/30/24 14:00 Temperature Pulse Rate 74 Respiratory Rate 24 Blood Pressure 115/55 L 118/57 L Pulse Oximetry 98 Oxygen Delivery Method 12/30/24 14:30 12/30/24 14:31 12/30/24 14:31 Temperature Pulse Rate 75 72 Respiratory Rate 16 14 Blood Pressure 109/53 L Pulse Oximetry 99 98 Oxygen Delivery Method 12/30/24 15:02 12/30/24 15:03 12/30/24 15:03 Temperature Pulse Rate 72 73 Respiratory Rate 13 Blood Pressure 107/53 L Pulse Oximetry 93 97 Oxygen Delivery Method 12/30/24 15:30 12/30/24 15:30 12/30/24 16:03 Temperature Pulse Rate 75 82 Respiratory Rate 17 Blood Pressure 117/57 L Pulse Oximetry 97 96 Oxygen Delivery Method 12/30/24 16:04 12/30/24 16:04 12/30/24 16:30 Temperature Pulse Rate 80 75 Respiratory Rate 14 Blood Pressure 109/64 Pulse Oximetry 96 98 Oxygen Delivery Method 12/30/24 16:30 12/30/24 17:00 12/30/24 17:00 Temperature Pulse Rate 75 Respiratory Rate 21 Blood Pressure 107/55 L 113/57 L Pulse Oximetry 98 Oxygen Delivery Method 12/30/24 17:30 12/30/24 17:30 Temperature Pulse Rate 74 Respiratory Rate 23 Blood Pressure 118/56 L Pulse Oximetry 97 Oxygen Delivery Method <Gian Crawford, DO - Last Filed: 12/30/24 17:49> Orders Ordered: Acetaminophen (Acetaminophen 325 Mg Tablet) 650 mg PO Q6H PRN PRN Reason: Fever/Mild Pain (1-3) Citalopram Hydrobromide (Citalopram 10 Mg Tablet) 10 mg PO DAILY [facility] Last Admin: 01/02/25 09:10 Dose: 10 mg Documented By: AV Heparin Sodium (Porcine) (Heparin 5,000 Unit/Ml Vial) 5,000 unit SUBCUT BID [place] On Hold: 12/31/24 14:27 Last Admin: 12/31/24 08:30 Dose: Not Given Documented By: Admin: 12/30/24 21:18 Dose: 5,000 unit Documented By: HALEIGH Dextrose/Sodium Chloride (Dextrose 5%-0.9% Ns) 1,000 mls @ 100 mls/hr IV CONT [facility] Last Admin: 01/02/25 05:54 Dose: 100 mls/hr Documented By: Infusion: 01/02/25 05:54 Dose: Infused Documented By: Admin: 01/01/25 20:13 Dose: 100 mls/hr Documented By: Infusion: 01/01/25 20:13 Dose: Infused Documented By: Admin: 01/01/25 11:15 Dose: 100 mls/hr Documented By: Infusion: 01/01/25 11:01 Dose: Infused Documented By: Admin: 01/01/25 01:01 Dose: 100 mls/hr Documented By: Infusion: 01/01/25 01:01 Dose: Infused Documented By: Admin: 12/31/24 17:01 Dose: 100 mls/hr Documented By: Infusion: 12/31/24 16:40 Dose: Infused Documented By: Admin: 12/31/24 06:40 Dose: 100 mls/hr Documented By: Infusion: 12/31/24 06:34 Dose: Infused Documented By: Admin: 12/30/24 20:34 Dose: 100 mls/hr Documented By: HALEIGH Levothyroxine Sodium (Levothyroxine 50 Mcg Tablet) 50 mcg PO DAILY@0600 [facility] Last Admin: 01/02/25 09:25 Dose: Not Given Documented By: LUIS ENRIQUE Magnesium Oxide (Magnesium Oxide 400 Mg Tablet) 400 mg PO BID [facility] Last Admin: 01/02/25 09:09 Dose: 400 mg Documented By: Admin: 01/01/25 20:27 Dose: 400 mg Documented By: Admin: 01/01/25 09:22 Dose: 400 mg Documented By: Melatonin (Melatonin 3 Mg Tablet) 6 mg PO BEDTIME [facility] Last Admin: 01/01/25 20:27 Dose: 6 mg Documented By: Admin: 12/31/24 20:10 Dose: 6 mg Documented By: Admin: 12/30/24 22:39 Dose: 6 mg Documented By: HALEIGH Melatonin (Melatonin 3 Mg Tablet) 6 mg PO BEDTIME PRN PRN Reason: insominia Naloxone HCl (Naloxone 0.4 Mg/Ml Vial) 0.2 mg IV Q2MIN PRN PRN Reason: Opiate Reversal Ondansetron HCl (Ondansetron 4 Mg/2 Ml Inj) 4 mg IV NOW PRN PRN Reason: Nausea And Vomiting Last Admin: 12/30/24 17:23 Dose: 4 mg Documented By: LINDA Oxycodone HCl (Oxycodone Ir 5 Mg Tablet) 5 mg PO Q4HR PRN PRN Reason: pain Last Admin: 01/02/25 10:06 Dose: 5 mg Documented By: LUIS ENRIQUE Admin: 12/31/24 05:01 Dose: 5 mg Documented By: HALEIGH Pantoprazole Sodium (Pantoprazole 40 Mg Vial) 40 mg IV DAILY [facility] Last Admin: 01/02/25 09:09 Dose: 40 mg Documented By: LUIS ENRIQUE Admin: 01/01/25 09:22 Dose: 40 mg Documented By: Admin: 12/31/24 15:00 Dose: 40 mg Documented By: ROSALINA Polyethylene Glycol (Polyethylene Glycol 3350 17 Gm Powd.Pack) 17 gm PO DAILY [facility] Last Admin: 01/02/25 09:15 Dose: 17 gm Documented By: Admin: 01/01/25 09:22 Dose: 17 gm Documented By: MS Polyethylene Glycol (Polyethylene Glycol 3350 17 Gm Powd.Pack) 17 gm PO DAILY PRN PRN Reason: Constipation Potassium Chloride (Potassium Chloride 20 Meq Tab) 40 meq PO BIDWM [facility] Last Admin: 01/02/25 09:09 Dose: 40 meq Documented By: AV Sennosides (Sennosides 8.6 Mg Tablet) 8.6 mg PO BID [facility] Last Admin: 01/02/25 09:14 Dose: 8.6 mg Documented By: Admin: 01/01/25 20:29 Dose: 8.6 mg Documented By: Admin: 01/01/25 09:22 Dose: 8.6 mg Documented By: MS Discontinued Medications POTASSIUM CHLORIDE IN WATER (Potassium Cl 10 Meq/100 Ml Lisandra) 10 meq in 100 mls @ 100 mls/hr IV Q1H [facility] Stop: 12/30/24 16:59 Last Infusion: 12/30/24 18:30 Dose: Infused Documented By: Admin: 12/30/24 17:23 Dose: 100 mls/hr Documented By: Infusion: 12/30/24 17:07 Dose: Infused Documented By: Admin: 12/30/24 16:07 Dose: 100 mls/hr Documented By: ES Calcium Gluconate 4.65 meq/ (Sodium Chloride) 60 mls @ 180 mls/hr IV NOW ONE Stop: 12/30/24 15:08 Last Infusion: 12/30/24 16:36 Dose: Infused Documented By: Admin: 12/30/24 16:06 Dose: 180 mls/hr Documented By: ES POTASSIUM CHLORIDE IN WATER (Potassium Cl 10 Meq/100 Ml Lisandra) 10 meq in 100 mls @ 100 mls/hr IV Q1H [facility] Stop: 12/31/24 02:14 Last Infusion: 12/31/24 07:19 Dose: Infused Documented By: Admin: 12/31/24 01:32 Dose: 100 mls/hr Documented By: Infusion: 12/31/24 01:23 Dose: Infused Documented By: Admin: 12/31/24 00:23 Dose: 100 mls/hr Documented By: Infusion: 12/31/24 00:16 Dose: Infused Documented By: Admin: 12/30/24 23:16 Dose: 100 mls/hr Documented By: Infusion: 12/30/24 23:16 Dose: Infused Documented By: Admin: 12/30/24 23:16 Dose: 100 mls/hr Documented By: Infusion: 12/30/24 23:12 Dose: Infused Documented By: Admin: 12/30/24 22:12 Dose: 100 mls/hr Documented By: Infusion: 12/30/24 22:09 Dose: Infused Documented By: Admin: 12/30/24 21:09 Dose: 100 mls/hr Documented By: Infusion: 12/30/24 21:02 Dose: Infused Documented By: Admin: 12/30/24 20:02 Dose: 100 mls/hr Documented By: Infusion: 12/30/24 19:36 Dose: Infused Documented By: Admin: 12/30/24 18:36 Dose: 100 mls/hr Documented By: SBF Calcium Gluconate 9.3 meq/ (Sodium Chloride) 70 mls @ 140 mls/hr IV NOW ONE Stop: 12/30/24 18:44 Last Infusion: 12/30/24 20:32 Dose: Infused Documented By: Admin: 12/30/24 20:02 Dose: 140 mls/hr Documented By: [place] POTASSIUM CHLORIDE IN WATER (Potassium Cl 10 Meq/100 Ml Lisandra) 10 meq in 100 mls @ 100 mls/hr IV Q1H [facility] Stop: 12/31/24 08:14 Last Infusion: 12/31/24 07:38 Dose: Infused Documented By: Admin: 12/31/24 07:17 Dose: Not Given Documented By: Admin: 12/31/24 07:17 Dose: Not Given Documented By: Admin: 12/31/24 07:17 Dose: Not Given Documented By: Admin: 12/31/24 07:17 Dose: Not Given Documented By: Admin: 12/31/24 07:17 Dose: Not Given Documented By: Admin: 12/31/24 07:16 Dose: Not Given Documented By: Admin: 12/31/24 06:38 Dose: 100 mls/hr Documented By: Infusion: 12/31/24 05:25 Dose: Infused Documented By: Admin: 12/31/24 04:25 Dose: 100 mls/hr Documented By: HALEIGH Calcium Gluconate 4.65 meq/ (Sodium Chloride) 60 mls @ 60 mls/hr IV NOW ONE Stop: 12/31/24 01:10 Last Infusion: 12/31/24 02:47 Dose: Infused Documented By: Admin: 12/31/24 01:47 Dose: 60 mls/hr Documented By: HALEIGH Magnesium Sulfate (Magnesium Sulfate) 2 gm in 50 mls @ 25 mls/hr IV NOW ONE Stop: 12/31/24 09:14 Last Infusion: 12/31/24 09:38 Dose: Infused Documented By: ROSALINA Co-signed By: HAN Admin: 12/31/24 07:38 Dose: 25 mls/hr Documented By: ROSALINA Co-signed By: RU POTASSIUM CHLORIDE IN WATER (Potassium Cl 10 Meq/100 Ml Lisandra) 10 meq in 100 mls @ 100 mls/hr IV Q1H [facility] Stop: 12/31/24 13:29 Last Infusion: 12/31/24 14:23 Dose: Infused Documented By: Admin: 12/31/24 13:10 Dose: 100 mls/hr Documented By: Infusion: 12/31/24 13:04 Dose: Infused Documented By: Admin: 12/31/24 12:04 Dose: 100 mls/hr Documented By: Infusion: 12/31/24 12:00 Dose: Infused Documented By: Admin: 12/31/24 11:00 Dose: 100 mls/hr Documented By: Infusion: 12/31/24 10:58 Dose: Infused Documented By: Admin: 12/31/24 09:58 Dose: 100 mls/hr Documented By: Infusion: 12/31/24 09:57 Dose: Infused Documented By: Admin: 12/31/24 08:57 Dose: 100 mls/hr Documented By: Infusion: 12/31/24 08:38 Dose: Infused Documented By: Admin: 12/31/24 07:38 Dose: 100 mls/hr Documented By: ROSALINA POTASSIUM CHLORIDE IN WATER (Potassium Cl 10 Meq/100 Ml Lisandra) 10 meq in 100 mls @ 100 mls/hr IV Q1H [place] Stop: 12/31/24 21:59 Last Infusion: 12/31/24 22:19 Dose: Infused Documented By: Admin: 12/31/24 21:19 Dose: 100 mls/hr Documented By: Infusion: 12/31/24 21:10 Dose: Infused Documented By: Admin: 12/31/24 20:10 Dose: 100 mls/hr Documented By: Infusion: 12/31/24 20:10 Dose: Infused Documented By: Admin: 12/31/24 19:11 Dose: 100 mls/hr Documented By: Infusion: 12/31/24 19:06 Dose: Infused Documented By: Admin: 12/31/24 18:06 Dose: 100 mls/hr Documented By: Infusion: 12/31/24 18:00 Dose: Infused Documented By: Admin: 12/31/24 17:00 Dose: 100 mls/hr Documented By: Infusion: 12/31/24 16:56 Dose: Infused Documented By: Admin: 12/31/24 15:56 Dose: 100 mls/hr Documented By: DM POTASSIUM CHLORIDE IN WATER (Potassium Cl 10 Meq/100 Ml Lisandra) 10 meq in 100 mls @ 100 mls/hr IV Q1H [place] Stop: 01/02/25 09:44 Last Infusion: 01/02/25 11:02 Dose: Infused Documented By: Admin: 01/02/25 09:09 Dose: 100 mls/hr Documented By: Infusion: 01/02/25 08:55 Dose: Infused Documented By: Admin: 01/02/25 07:55 Dose: 100 mls/hr Documented By: Infusion: 01/02/25 07:48 Dose: Infused Documented By: Admin: 01/02/25 06:48 Dose: 100 mls/hr Documented By: Infusion: 01/02/25 06:45 Dose: Infused Documented By: Admin: 01/02/25 05:45 Dose: 100 mls/hr Documented By: [place] Calcium Gluconate 4.65 meq/ (Sodium Chloride) 60 mls @ 60 mls/hr IV NOW ONE Stop: 01/02/25 06:59 Last Infusion: 01/02/25 09:25 Dose: Infused Documented By: Admin: 01/02/25 06:50 Dose: 60 mls/hr Documented By: H[place]IGH Calcium Gluconate 4.65 meq/ (Sodium Chloride) 60 mls @ 180 mls/hr IV NOW ONE Stop: 01/02/25 08:01 Last Infusion: 01/02/25 08:53 Dose: Infused Documented By: LUIS ENRIQUE Admin: 01/02/25 08:12 Dose: 180 mls/hr Documented By: LUIS ENRIQUE Melatonin (Melatonin 3 Mg Tablet) 6 mg PO BEDTIME [place] Potassium Chloride (Potassium Chloride 20 Meq Tab) 40 meq PO Q6H [place] Stop: 12/31/24 00:16 Last Admin: 12/31/24 01:07 Dose: Not Given Documented By: Admin: 12/30/24 21:46 Dose: Not Given Documented By: NH Potassium Chloride (Potassium Chloride 20 Meq Tab) 40 meq PO NOW ONE Stop: 01/01/25 07:01 Last Admin: 01/01/25 08:16 Dose: 40 meq Documented By: Vital Signs Vital signs: Vital Signs - 8 hr 12/30/24 13:05 12/30/24 13:08 12/30/24 13:08 Temperature Pulse Rate 76 77 Respiratory Rate 18 Blood Pressure 111/54 L Pulse Oximetry 97 96 Oxygen Delivery Method 12/30/24 13:14 12/30/24 13:30 12/30/24 13:31 Temperature 98 F Pulse Rate 77 80 85 Respiratory Rate 16 19 16 Blood Pressure 111/54 L Pulse Oximetry 93 94 93 Oxygen Delivery Method Room Air 12/30/24 13:31 12/30/24 14:00 12/30/24 14:00 Temperature Pulse Rate 74 Respiratory Rate 24 Blood Pressure 115/55 L 118/57 L Pulse Oximetry 98 Oxygen Delivery Method 12/30/24 14:30 12/30/24 14:31 12/30/24 14:31 Temperature Pulse Rate 75 72 Respiratory Rate 16 14 Blood Pressure 109/53 L Pulse Oximetry 99 98 Oxygen Delivery Method 12/30/24 15:02 12/30/24 15:03 12/30/24 15:03 Temperature Pulse Rate 72 73 Respiratory Rate 13 Blood Pressure 107/53 L Pulse Oximetry 93 97 Oxygen Delivery Method 12/30/24 15:30 12/30/24 15:30 12/30/24 16:03 Temperature Pulse Rate 75 82 Respiratory Rate 17 Blood Pressure 117/57 L Pulse Oximetry 97 96 Oxygen Delivery Method 12/30/24 16:04 12/30/24 16:04 12/30/24 16:30 Temperature Pulse Rate 80 75 Respiratory Rate 14 Blood Pressure 109/64 Pulse Oximetry 96 98 Oxygen Delivery Method 12/30/24 16:30 12/30/24 17:00 12/30/24 17:00 Temperature Pulse Rate 75 Respiratory Rate 21 Blood Pressure 107/55 L 113/57 L Pulse Oximetry 98 Oxygen Delivery Method 12/30/24 17:30 12/30/24 17:30 Temperature Pulse Rate 74 Respiratory Rate 23 Blood Pressure 118/56 L Pulse Oximetry 97 Oxygen Delivery Method MDM - Altered Mental Status <Walt Whitmore MD - Last Filed: 01/02/25 16:05> Lab Data 01/02/25 04:22 01/02/25 12:09 Labs: Lab Results 12/30/24 Range/Units 14:16 WBC 9.5 (4.5-11.0) X10^3/uL RBC 2.65 L (4.0-5.2) X10^6/uL Hgb 9.2 L (12.0-16.0) g/dL Hct 26.0 L (36-46) % MCV 97.9 (80-100) fL MCH 34.8 H (26-34) PG MCHC 35.5 (30-36) % RDW 17.2 H (11.6-14.8) % Plt Count 264 (150-400) X10^3/uL Neut % (Auto) 84.6 H (50-75) % Lymph % (Auto) 8.6 L (25-40) % [place] % (Auto) 6.6 (3-14) % Eos % (Auto) 0.0 L (2-4) % Baso % (Auto) 0.2 (0-2) % Neut # (Auto) 8000 H (7818-9279) /uL Lymph # (Auto) 800 L (2782-4731) /uL [place] # (Auto) 600 (0-900) /uL Eos # (Auto) 0 (0-450) /uL Baso # (Auto) 0 (0-100) /uL PT 15.8 H (9.4-12.5) SECONDS INR 1.4 H (0.9-1.3) Sodium 138 (137-145) mmol/L Potassium 1.4 L* (3.4-5.1) mmol/L Chloride 102 (98-107) mmol/L Carbon Dioxide 34 H (22-32) mmol/L BUN 14 (7-17) mg/dL Creatinine 0.67 (0.52-1.04) mg/dL Estimated GFR > 60 (>60) mL/min BUN/Creatinine Ratio 20.9 (6-22) Glucose 71 (70-99) mg/dL Calcium 6.0 L* (8.4-10.2) mg/dL Magnesium 1.7 (1.6-2.3) mg/dL Total Bilirubin 1.1 (0.2-1.3) mg/dL AST 27 (14-36) IU/L ALT 17 (<35) IU/L Alkaline Phosphatase 79 (38-126) U/L Total Creatine Kinase 33 (30-135) U/L Troponin I 0.035 H (0.01-0.034) ng/mL Total Protein 4.4 L (6.3-8.2) g/dL Albumin 1.8 L (3.5-5.0) g/dL Globulin 2.6 (1.7-4.1) g/dL Albumin/Globulin Ratio 0.7 L (1.0-2.8) Lipase 27 (23-300) U/L MDM Narrative Medical decision making narrative: patient brought in by ambulance from home. Granddaughter at bedside. Patient lives with and children and sister. Patient just discharged here over this month after treatment for cholecystitis with antibiotics. Patient is on Flagyl still. Patient was not a candidate for surgical intervention for cholecystitis. Patient has not been home for 5 months. She was at [facility] when she was admitted here. She was then discharged to [facility] rehab. Patient had left against medical advice 3 days ago and currently at home. Since then she has had watery diarrhea lower abdominal pain. Last well known uncertain as patient started having slurred speech expressive aphasia and stuttering which is new for her. She has left leg weakness. Granddaughter states they noticed it this morning. However family coming here to give more details MDM After history and exam, CT head CT angio head and neck CT abdomen pelvis EKG troponin GI panel urinalysis CBC CMP Differential considered: Includes but not limited to TIA stroke C diff obstruction cholelithiasis cholecystitis Medical records reviewed: discharge summary December 20, 2024 from this hospital. Lab Test results independently reviewed as above. Pertinent findings: WBC 9.5 hemoglobin 9.2 INR 1.4 sodium 138 potassium 1.4 BUN 14 creatinine 0.67 calcium 6.0 glucose 71 troponin 0.035 Independently reviewed EKG Normal sinus rhythm rate 73 Imaging studies independently reviewed: Consultations: Re-evaluations: 3:16 p.m.. Has been now at bedside with granddaughter. Reviewed with them hypokalemia hypocalcemia knees admission. Last well known 9:00 p.m. last night. Patient outside window for TNK. However CT angiogram needs to be done for large vessel occlusion. Discussion: Patient outside window for TNK. Diagnosis: Hypokalemia hypocalcemia 3:[address] Whitmore. Sign out to Dr Crawford, patient needs to be admitted for hypokalemia hypocalcemia. However CT angiogram head and neck is pending. <Gian Crawford, DO - Last Filed: 12/30/24 17:49> Lab Data Labs: Lab Results 12/30/24 Range/Units 14:16 WBC 9.5 (4.5-11.0) X10^3/uL RBC 2.65 L (4.0-5.2) X10^6/uL Hgb 9.2 L (12.0-16.0) g/dL Hct 26.0 L (36-46) % MCV 97.9 (80-100) fL MCH 34.8 H (26-34) PG MCHC 35.5 (30-36) % RDW 17.2 H (11.6-14.8) % Plt Count 264 (150-400) X10^3/uL Neut % (Auto) 84.6 H (50-75) % Lymph % (Auto) 8.6 L (25-40) % [place] % (Auto) 6.6 (3-14) % Eos % (Auto) 0.0 L (2-4) % Baso % (Auto) 0.2 (0-2) % Neut # (Auto) 8000 H (8041-6583) /uL Lymph # (Auto) 800 L (3484-9984) /uL [place] # (Auto) 600 (0-900) /uL Eos # (Auto) 0 (0-450) /uL Baso # (Auto) 0 (0-100) /uL PT 15.8 H (9.4-12.5) SECONDS INR 1.4 H (0.9-1.3) Sodium 138 (137-145) mmol/L Potassium 1.4 L* (3.4-5.1) mmol/L Chloride 102 (98-107) mmol/L Carbon Dioxide 34 H (22-32) mmol/L BUN 14 (7-17) mg/dL Creatinine 0.67 (0.52-1.04) mg/dL Estimated GFR > 60 (>60) mL/min BUN/Creatinine Ratio 20.9 (6-22) Glucose 71 (70-99) mg/dL Calcium 6.0 L* (8.4-10.2) mg/dL Magnesium 1.7 (1.6-2.3) mg/dL Total Bilirubin 1.1 (0.2-1.3) mg/dL AST 27 (14-36) IU/L ALT 17 (<35) IU/L Alkaline Phosphatase 79 (38-126) U/L Total Creatine Kinase 33 (30-135) U/L Troponin I 0.035 H (0.01-0.034) ng/mL Total Protein 4.4 L (6.3-8.2) g/dL Albumin 1.8 L (3.5-5.0) g/dL Globulin 2.6 (1.7-4.1) g/dL Albumin/Globulin Ratio 0.7 L (1.0-2.8) Lipase 27 (23-300) U/L [facility] Narrative Medical decision making narrative: patient brought in by ambulance from home. Granddaughter at bedside. Patient lives with and children and sister. Patient just discharged here over this month after treatment for cholecystitis with antibiotics. Patient is on Flagyl still. Patient was not a candidate for surgical intervention for cholecystitis. Patient has not been home for 5 months. She was at [facility] when she was admitted here. She was then discharged to [facility] rehab. Patient had left against medical advice 3 days ago and currently at home. Since then she has had watery diarrhea lower abdominal pain. Last well known uncertain as patient started having slurred speech expressive aphasia and stuttering which is new for her. She has left leg weakness. Granddaughter states they noticed it this morning. However family coming here to give more details MDM After history and exam, CT head CT angio head and neck CT abdomen pelvis EKG troponin GI panel urinalysis CBC CMP Differential considered: Includes but not limited to TIA stroke C diff obstruction cholelithiasis cholecystitis Medical records reviewed: discharge summary December 20, 2024 from this hospital. Lab Test results independently reviewed as above. Pertinent findings: WBC 9.5 hemoglobin 9.2 INR 1.4 sodium 138 potassium 1.4 BUN 14 creatinine 0.67 calcium 6.0 glucose 71 troponin 0.035 Independently reviewed EKG Normal sinus rhythm rate 73 Imaging studies independently reviewed: Consultations: Re-evaluations: 3:16 p.m.. Has been now at bedside with granddaughter. Reviewed with them hypokalemia hypocalcemia knees admission. Last well known 9:00 p.m. last night. Patient outside window for TNK. However CT angiogram needs to be done for large vessel occlusion. Discussion: Patient outside window for TNK. Diagnosis: Hypokalemia hypocalcemia 3:[address] Whitmore. Sign out to Dr Crawford, patient needs to be admitted for hypokalemia hypocalcemia. However CT angiogram head and neck is pending. 1530: patient was signed out to me by Dr. Whitmore, patient was brought in by family from home via EMS for altered mental status, to note patient was recently at rehab Center several days ago but left against medical advice and wanted to go home. In addition to this patient recently /currently on antibiotics for cholecystitis patient was treated with IV antibiotics instead of surgery. she was brought in due to the fact that patient has been having persistent watery diarrhea low abdominal pain and altered mental status, granddaughter states that she has been having some slurred speech expressive aphasia and stuttering with some left leg weakness that started at 9:00 a.m.. To note patient is WBC normal, however has a significant electrolyte derangement, potassium 1.4, calcium 6.0, potassium and calcium has already been ordered by previous provider, patient is still pending CT scans re-evaluation Patient's CT scan without any acute stroke, did note new small and moderate pleural effusions to the lungs but patient not requiring any supplemental oxygen, given patient with severe electrolyte derangement we will require admission to the hospital The patient's management plan was discussed Dr. Reyes, who agrees to admit the patient to their service and assumes care of this patient at this time. Full admission orders will be placed by the primary team. Discharge Plan Departure Patient Disposition: Admitted As Inpatient Clinical Impression: Acute metabolic encephalopathy, Acute hypokalemia, Hypocalcemia, Bilateral pleural effusion Admit Date/Time: 12/30/24 17:52 Admit Provider: El Reyes
--- NOTE | 2024-12-30 14:05 | EKG_ITS ---
[facility] [address] [place] [address] Test Date: 2024-12-30 Pat Name: Betsy Tellez Department: 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
--- NOTE | 2024-12-30 14:20 | PC.NURSE ---
12/31at 1345 this nurse with [employer] changed brief, chayito care, and changed linens. applied barrier cream, boosted pt
[2024-12-30 14:25] LABS: Add Manual Diff / Slide Review NO; Hematocrit 26.0 % (36-46); Hemoglobin 9.2 g/dL (12.0-16.0); Lymphocytes Absolute Auto 800 /uL (1100-4500); Mean Corpuscular HGB Conc 35.5 % (30-36); Mean Corpuscular Hemoglobin 34.8 PG (26-34); Mean Corpuscular Volume 97.9 fL (80-100); Platelet Count 264 X10^3/uL (150-400)
[2024-12-30 14:33] LABS: INR 1.4 (0.9-1.3); Prothrombin Time 15.8 SECONDS (9.4-12.5)
[2024-12-30 14:39] LABS: Alanine Aminotransferase 17 IU/L (<35); Albumin 1.8 g/dL (3.5-5.0); Albumin Globulin Ratio 0.7 (1.0-2.8); Alkaline Phosphatase 79 U/L (38-126); Blood Urea Nitrogen 14 mg/dL (7-17); Carbon Dioxide 34 mmol/L (22-32); Chloride 102 mmol/L (98-107); Creatine Kinase 33 U/L (30-135); Estimated Glomerular Filt Rate > 60 mL/min (>60); Globulin 2.6 g/dL (1.7-4.1); Glucose 71 mg/dL (70-99); HEMOLYSIS 24 (0-50); Lipase 27 U/L (23-300); Sodium 138 mmol/L (137-145); Total Protein 4.4 g/dL (6.3-8.2)
[2024-12-30 14:41] LABS: Calcium 6.0 mg/dL (8.4-10.2); Potassium 1.4 mmol/L (3.4-5.1)
[2024-12-30 14:50] LABS: Troponin I 0.035 ng/mL (0.01-0.034)
[2024-12-30 15:05] LABS: Magnesium 1.7 mg/dL (1.6-2.3)
[2024-12-30] MEDS: CALCIUM GLUCONATE 4.65 MEQ in SODIUM CHLORIDE 0.9% 50 ML 180 MEQ IV (16:06)
[2024-12-30] MEDS: POTASSIUM CHLORIDE IN WATER 10 MEQ/100 ML PIGGYBACK 100 MEQ IV ×7 (16:07→23:16)
[2024-12-30] MEDS: ONDANSETRON 4 MG/2 ML INJ IV (17:23)
--- NOTE | 2024-12-30 18:17 | PM.HP.1 ---
History of Present Illness History of Present Illness Date Patient Seen: 12/30/24 Time Patient Seen: 18:17 Chief complaint: bowel infection? dehydration? Narrative: The patient was a 74-year-old female recently discharged from the hospital for colitis and acinobacteria bacteremia. She was discharged on antibiotics and ultimately apparently returned home. She was brought in today because of generalized weakness and found to be volume depleted and profoundly hypokalemic as well as hypocalcemic. The patient was a minimal historian who does not speak that much. She states she was had no appetite and has not eaten for a 180 days. She does feel thirsty and globally weak. She denies any focal pain, including her abdomen. No recent diarrhea. She also denies any dyspnea or chest pain. No recent fevers, or chills. [facility] Medical History Hx of adenomatous colonic polyps Chronic asthma Chronic renal failure, stage 3 (moderate) Depression Anxiety Chronic headaches Surgical History History of ankle surgery Social History household members: children Smoking Status: Never smoker alcohol intake: never Meds Home Medications and Allergies Home Medications ?Medication ?Instructions ?Recorded ?Confirmed ?Type triamcinolone acetonide 0.1 % 1 applictn topical TID #80 grams 08/23/18 06/03/24 Rx topical cream fluticasone propionate 50 2 spray intranasal BEDTIME #16 03/14/22 06/03/24 Rx mcg/actuation nasal grams spray,suspension albuterol sulfate 90 mcg/actuation 2 puff inhalation Q4-6H PRN 06/22/23 06/03/24 Rx aerosol inhaler shortness of breath or wheezing #18 grams citalopram 20 mg tablet 30 mg (1.5 x 20 mg) PO DAILY #135 06/09/24 Rx tabs polyethylene glycol 3350 17 gram 17 g PO BID #14 ea 12/15/24 Rx oral powder packet (Gavilax) furosemide 40 mg tablet 40 mg PO DAILY #30 tabs 12/20/24 Rx levothyroxine 50 mcg tablet 50 mcg PO DAILY@0600 #30 tabs 12/20/24 Rx (Synthroid) melatonin 3 mg tablet 6 mg (2 x 3 mg) PO BEDTIME PRN 12/20/24 Rx insominia #30 tabs meropenem 1 gram intravenous 1 g IV Q8H 12/20/24 Rx solution Allergies Allergy/AdvReac Type Severity Reaction Status Date / Time No Known Drug Allergies Allergy Verified 12/13/24 13:03 Review of Systems Review of Systems Narrative: All else reviewed and otherwise unremarkable except as noted in the history and physical. Exam Vital Signs (past 8 hours): - 12/30/24 13:05 12/30/24 13:08 12/30/24 13:08 Temperature Pulse Rate 76 77 Respiratory Rate 18 Blood Pressure 111/54 L Pulse Oximetry 97 96 Oxygen Delivery Method 12/30/24 13:14 12/30/24 13:30 12/30/24 13:31 Temperature 98 F Pulse Rate 77 80 85 Respiratory Rate 16 19 16 Blood Pressure 111/54 L Pulse Oximetry 93 94 93 Oxygen Delivery Method Room Air 12/30/24 13:31 12/30/24 14:00 12/30/24 14:00 Temperature Pulse Rate 74 Respiratory Rate 24 Blood Pressure 115/55 L 118/57 L Pulse Oximetry 98 Oxygen Delivery Method 12/30/24 14:30 12/30/24 14:31 12/30/24 14:31 Temperature Pulse Rate 75 72 Respiratory Rate 16 14 Blood Pressure 109/53 L Pulse Oximetry 99 98 Oxygen Delivery Method 12/30/24 15:02 12/30/24 15:03 12/30/24 15:03 Temperature Pulse Rate 72 73 Respiratory Rate 13 Blood Pressure 107/53 L Pulse Oximetry 93 97 Oxygen Delivery Method 12/30/24 15:30 12/30/24 15:30 12/30/24 16:03 Temperature Pulse Rate 75 82 Respiratory Rate 17 Blood Pressure 117/57 L Pulse Oximetry 97 96 Oxygen Delivery Method 12/30/24 16:04 12/30/24 16:04 12/30/24 16:30 Temperature Pulse Rate 80 75 Respiratory Rate 14 Blood Pressure 109/64 Pulse Oximetry 96 98 Oxygen Delivery Method 12/30/24 16:30 12/30/24 17:00 12/30/24 17:00 Temperature Pulse Rate 75 Respiratory Rate 21 Blood Pressure 107/55 L 113/57 L Pulse Oximetry 98 Oxygen Delivery Method 12/30/24 17:30 12/30/24 17:30 Temperature Pulse Rate 74 Respiratory Rate 23 Blood Pressure 118/56 L Pulse Oximetry 97 Oxygen Delivery Method Oxygen Delivery Method Room Air Narrative Exam Narrative: NAD, alert and oriented, fluent speech, calm. She was a flat affect and quiet voice. Her oral mucosa is dry. Normocephalic skull, EOMI, anicteric sclera, symmetric pupils. Oropharynx unremarkable, no droop. Neck supple, midline trachea, no adenopathy. Lungs clear, normal rate and effort. Heart regular, no murmur gallop or rub. Abdomen is soft, non distended and non tender. Extremities are free of edema. Skin is free of rash or lesions. Joints are not swollen or deformed. Judgment appears to be abnormal. Objective ECG Impression: ntervals [place] Rate: 73 P: 18 MI: 114 QRS: 55 QRSD: 82 T: 270 QT: 294 QTc: 323 Interpretive Statements Normal sinus rhythm Low voltage QRS Nonspecific ST and T wave abnormality Imaging Multiple studies:: Radiologist's impression: Head and neck CTA: No significant intracranial arterial abnormality is seen. No significant abnormality is seen within the arteries of the neck. Additional findings: [id number] developmental anomalies. Head CT: No acute intracranial hemorrhage is seen. Age no sal noncontrast CT findings of acute stroke are identified. Chest, abdomen, pelvis CT: The gastric wall appears thickened and hyperenhancing. Please consider gastritis. There is also wall thickening seen involving the transverse colon. Please consider colitis. Bilateral pleural effusions are seen, left larger than right. A small amount of ascites is seen. Additional findings: Left liver hemangioma Labs 12/30/24 14:16 12/30/24 14:16 Labs: Laboratory Results - last 24 hr 12/30/24 14:16 WBC 9.5 RBC 2.65 L Hgb 9.2 L Hct 26.0 L MCV 97.9 MCH 34.8 H MCHC 35.5 RDW 17.2 H Plt Count 264 Neut % (Auto) 84.6 H Lymph % (Auto) 8.6 L [place] % (Auto) 6.6 Eos % (Auto) 0.0 L Baso % (Auto) 0.2 Neut # (Auto) 8000 H Lymph # (Auto) 800 L [place] # (Auto) 600 Eos # (Auto) 0 Baso # (Auto) 0 PT 15.8 H INR 1.4 H Sodium 138 Potassium 1.4 L* Chloride 102 Carbon Dioxide 34 H BUN 14 Creatinine 0.67 Estimated GFR > 60 BUN/Creatinine Ratio 20.9 Glucose 71 Calcium 6.0 L* Magnesium 1.7 Total Bilirubin 1.1 AST 27 ALT 17 Alkaline Phosphatase 79 Total Creatine Kinase 33 Troponin I 0.035 H Total Protein 4.4 L Albumin 1.8 L Globulin 2.6 Albumin/Globulin Ratio 0.7 L Lipase 27 Assessment & Plan Assessment & Plan narrative: 1. Profound hypokalemia, active. 2. Hypocalcemia, active. 3. Low protein with some 3rd spacing and pleural effusions, active. 4. Protein caloric malnutrition, active. 5. Known cholelithiasis and possible cholecystitis which was treated with Zosyn in lieu of surgery. 6. Recent acinobacter bacteremia, resolved. PLAN: -we will aggressively replace potassium with both IV and oral routes tonight. -we will replace calcium tonight. -we will recheck all electrolytes at about 11:30 p.m.. -screening blood cultures. -IV fluids for volume depletion with D5 NS. She appears severely debilitated and we will very likely require rehabilitation with care home again at the time of her discharge. Full code Anticipate greater than 3 midnights in the hospital, supports inpatient status. Time-Based Coding :: [TOTAL MINUTES] spent with patient and on the chart (including review of chart, obtaining history, exam, reviewing outside data, placing orders, documenting exam and treatment plan, and counseling patient) on [DATE]. Quality MIPS - Admit I confirm the patient?s Advance Care Plan is present, Code status is documented, Surrogate decision maker is in patient?s record [If Yes, STOP here]: Yes MIPS - Meds 'Current medications' to include all prescriptions, [id number] products, herbals, cannabis/cannabidiol products, and vitamin/mineral/dietary (nutritional) supplements. I have utilized all available resources to obtain, update, or review the patient?s current medications. [If Yes, STOP here]: Yes
[2024-12-30] MEDS: CALCIUM GLUCONATE 9.3 MEQ in SODIUM CHLORIDE 0.9% 50 ML 140 MEQ IV (20:02)
[2024-12-30] MEDS: DEXTROSE 5%-0.9% NS 1,000 ML 100 ML IV (20:34)
[2024-12-30] MEDS: HEPARIN 5,000 UNIT/ML VIAL 5000 UNIT SUBCUT (21:18)
--- NOTE | 2024-12-30 21:26 | PC.WOUNDPHOT ---
^blanchable redness on sacrum
[2024-12-30] MEDS: MELATONIN 3 MG TABLET 6 MG PO (22:39)
[2024-12-30 23:42] LABS: Alanine Aminotransferase 18 IU/L (<35); Albumin 1.7 g/dL (3.5-5.0); Albumin Globulin Ratio 0.7 (1.0-2.8); Alkaline Phosphatase 72 U/L (38-126); Blood Urea Nitrogen 13 mg/dL (7-17); Calcium 6.5 mg/dL (8.4-10.2); Carbon Dioxide 33 mmol/L (22-32); Chloride 103 mmol/L (98-107); Estimated Glomerular Filt Rate > 60 mL/min (>60); Globulin 2.5 g/dL (1.7-4.1); Glucose 129 mg/dL (70-99); HEMOLYSIS 23 (0-50); Magnesium 1.6 mg/dL (1.6-2.3); Sodium 138 mmol/L (137-145); Total Protein 4.2 g/dL (6.3-8.2)
[2024-12-30 23:49] LABS: Potassium 1.8 mmol/L (3.4-5.1)
[2024-12-31] VITALS (54 sets, daily range): BP systolic 98–139; BP diastolic 55–69; PULSE 70–95; RESP 11–30; TEMP 36.1–36.6; O2SAT 92–99
[2024-12-31] MEDS: POTASSIUM CHLORIDE IN WATER 10 MEQ/100 ML PIGGYBACK 100 MEQ IV ×16 (00:23→21:19)
[2024-12-31 00:25] LABS: MRSA (Nasal) PCR NOT DETECTED (Not Detect)
[2024-12-31] MEDS: CALCIUM GLUCONATE 4.65 MEQ in SODIUM CHLORIDE 0.9% 50 ML 60 MEQ IV (01:47)
--- NOTE | 2024-12-31 03:18 | PC.NURSE ---
Unable to obtain a Ultrasound guided IV after multiple attempts. Dr. Calixto contacted and he gave verbal order for to place a central line, due to unsuccessful attempts and low K+.
--- NOTE | 2024-12-31 03:22 | PC.NURSE ---
Pt has had 3 peripheral IV's. All have gone bad and ER x2 people have attempted with US. MD Calixto ordered central line. Notified KYLER Dupree.
--- NOTE | 2024-12-31 04:31 | DI.RAD.S_ITS ---
PROCEDURE: XR CHEST 1V INDICATIONS: central line TECHNIQUE: One view of the chest was acquired. COMPARISON: [facility], , XR CHEST FOR PICC 1V, 12/16/2024, 15:47. FINDINGS: Surgical changes and devices: Right central line with tip within the right atria Lungs and pleura: Left upper lobe he has ear space opacity. No pleural effusion. No pneumothorax. Mediastinum: Mediastinal contours appear normal. Heart size is normal. Bones and chest wall: No suspicious bony lesions. Overlying soft tissues appear unremarkable. IMPRESSION: Central line tip within the right atria. Left upper lobe airspace opacity. Interpretation is concordant with overnight read. Dictated by: Walt Stacy M.D. on 12/31/2024 at 8:28 Approved by: Walt Stacy M.D. on 12/31/2024 at 8:30
--- NOTE | 2024-12-31 04:57 | PC.NURSE ---
KYLER Dupree inserted R IJ. Timeout was performed and placement was confirmed by xray
[2024-12-31 05:01] LABS: Add Manual Diff / Slide Review NO; Hematocrit 22.5 % (36-46); Hemoglobin 8.1 g/dL (12.0-16.0); Lymphocytes Absolute Auto 1000 /uL (1100-4500); Mean Corpuscular HGB Conc 36.2 % (30-36); Mean Corpuscular Hemoglobin 35.3 PG (26-34); Mean Corpuscular Volume 97.6 fL (80-100); Platelet Count 283 X10^3/uL (150-400)
--- NOTE | 2024-12-31 05:10 | PM.PROC.1 ---
Procedures Date/Time Date of procedure: 12/31/24 Time of procedure: 04:17 Central Line Placement Time out performed: Yes Patient placed on monitor/pulse ox: Yes MD prep: mask, gown and gloves Central line prep: Chlorhexidine scrub and sterile drapes applied Local anesthesia used: lidocaine 1% Amount of anesthesia used (ml): 3 Ultrasound used for placement: Yes Central line lumen inserted: triple Post procedure: sutured in place, good blood return, all ports aspirated, flushed, capped and sterile dressing applied Patient tolerated procedure: well and no complications Complications: none
[2024-12-31 05:15] LABS: Alanine Aminotransferase 15 IU/L (<35); Albumin 1.7 g/dL (3.5-5.0); Albumin Globulin Ratio 0.7 (1.0-2.8); Alkaline Phosphatase 76 U/L (38-126); Blood Urea Nitrogen 13 mg/dL (7-17); Calcium 6.8 mg/dL (8.4-10.2); Carbon Dioxide 33 mmol/L (22-32); Chloride 104 mmol/L (98-107); Estimated Glomerular Filt Rate > 60 mL/min (>60); Globulin 2.5 g/dL (1.7-4.1); Glucose 100 mg/dL (70-99); HEMOLYSIS < 15 (0-50); Magnesium 1.6 mg/dL (1.6-2.3); Sodium 138 mmol/L (137-145); Total Protein 4.2 g/dL (6.3-8.2)
[2024-12-31 05:21] LABS: Potassium 1.9 mmol/L (3.4-5.1)
[2024-12-31 05:29] LABS: Anisocytosis 1+; Microcytosis 1+; Schistocytes 1+
[2024-12-31] MEDS: DEXTROSE 5%-0.9% NS 1,000 ML 100 ML IV ×2 (06:40→17:01)
[2024-12-31] MEDS: MAGNESIUM SULFATE 2 GM/50 ML PIGGYBACK IV (07:38)
[2024-12-31 09:43] LABS: Clostridium difficile toxin AB Not Detected (Not Detect); Enteroaggregative E.coli Not Detected (Not Detect); Enteropathogenic E.coli Not Detected (Not Detect); Enterotoxigenic E.coli It/st Not Detected (Not Detect); Plesiomonsa shigelloides Not Detected (Not Detect); Shiga-like toxin-prod E.coli Not Detected (Not Detect)
--- NOTE | 2024-12-31 12:25 | CM.DANOTE ---
Patient is a 74 yo female who was Re-admitted INPT Status on 12/30/24 for Constipation/Abnormal Labs. Pt has [employer] MCR for insurance and her PCP is Walt Reyes. EMR was reviewed. Per MD, pt recently admitted for colitis and acinobacteria and was discharged to SNF and returns 10 days later with constipation and abnormal potassium and labs. Not yet stable for discharge. SW met bedside with pt, sleeping soundly, and her POA/Sig Other and her Dtr Jazz and life long friend and explained role. They confirm that pt discharged to [facility] on 12/20/24 and thought she was only going there for the duration of her IV Abx which ended a couple days after getting to SNF and wanted to leave and ended up leaving AMA back to Dtr's house on [facility]. Family provided transportation. They state pt is so deconditioned over the past few months that she cannot sit upright independently or ambulate but is able to feed herself and do a few ADLs herself and is trying hard to maintain her independence and pride. Family and friends have been providing pt's care to her at home but aware that they cannot provide all the care that is needed. Family and POA confirm that preference is for pt to return home with their assist while they are working on Material Preparation Worker Plan. Dtr states she has to complete the Medicaid LTC application again as they did not get the financial information in time. SW strongly encouraged them to complete the application krystle and go to the bank for the statements needed and then SW could fax in with Expedited Referral. Discussed that likely could still take a couple weeks to month to get Medicaid HUEY set up and family acknowledges understanding and still state they feel they can care for her at home while working on the ocean transportation intermediary plan. Pt has hx now of SNF at [facility] a couple months ago and now [facility] about 2 weeks ago. No hx of HH. Family requests referral to [facility] the [facility] to determine if they are still covering [facility] and would accept her [employer] for HH RN/PT/FEED MIXER. Made referral to [facility] and awaiting response. Family also interested in w/c van for transportation to appointments. SW to check Thursday if pt has Medicaid Transportation benefits in place otherwise family aware that would need to complete the Medicaid application to see if transport is an option in the future or applying for [employer]. Plan: SW to follow closely for plan of discharge home with family and friend support and [facility] review to see if they can accept for [facility] and family to complete the [facility] LTC application to be faxed in with Expedited Form prior to d/c. TOD Gaston Discharge Planning/Care Management CM Discharge Assessment Start: 12/30/24 18:01 Freq: Status: Active Protocol: Document 12/31/24 12:14 BF (Rec: 12/31/24 12:25 BF [id number]) Discharge Planning Assessment Assigned Discharge TOD Quezada Seo Professional Provider Walt iPayment Insurance [employer] DPOA/Assigned Sig Other Designee Name Advance Directives? Yes Advance Directives Yes on File History Provided By Patient,Family Member,Friend,Significant Other,Medical Record Has Patient been Yes admitted in last 30 days? Comment Just discharged on 12/20/24 to [facility] and left AMA Prior Living House Arrangements Comment daughter's home Household Members children Type of Relies on Others transporation used prior to admit Independent with ADL No 's Is patient alert and Yes: mostly, fairly groggy oriented? Needs Assistance Meal Prep,Managing Medications,Home Chores / Shopping With Caregiver for No Another Comment Recently at SNF for IV Abx and left AMA to home Patient/Family Home with Home Health Preference Comment Would likely benefit from SNF but pt and family want home with HH Barriers to No Discharge Discharge Plan Home with Home Health Community Services Physical Therapy,Home Health Aid,Home Health Nurse Transportation Family bedside and plans to transport, interested to Arrangement see if pt has Medicaid transport benefits on Thursday Referrals Initiated Home Health Additional Comment Waiting to see if [facility] will go to [facility] and take [employer] [facility] Medicare Choice List Yes Provided Medicare choice list family reviewed on electronic tablet with SNF/HH Preference [facility] Whiteboard Updated Yes in Patient Room with name and ext. # of Climate Change Risk Assessor Review Status In Process Please Provide Date 12/31/24 Initial DC Assessment Was Performed Next Review Type Continued Stay Review
--- NOTE | 2024-12-31 14:12 | P.PN_ITS ---
Subjective Subjective Interval history: 74-year-old female with history of CKD 3, depression, anxiety, chronic headaches, asthma, recently admitted from December 13 through December 15 with colitis and Acinetobacter bacteremia who was admitted yesterday with weakness, dehydration, severe hypokalemia, and hypocalcemia. Patient reports she continues to feel weak. She denies any diarrhea and in fact reports she is feeling constipated. She denies any nausea. No shortness of breath or chest pain. Exam Vital Signs (past 8 hours): - 12/31/24 06:30 12/31/24 07:00 12/31/24 07:00 Temperature Pulse Rate 78 78 Respiratory Rate 13 12 Blood Pressure 107/58 L Pulse Oximetry 93 96 Oxygen Delivery Method 12/31/24 07:30 12/31/24 08:00 12/31/24 08:01 Temperature Pulse Rate 80 76 77 Respiratory Rate 19 12 13 Blood Pressure Pulse Oximetry 97 95 95 Oxygen Delivery Method 12/31/24 08:01 12/31/24 08:30 12/31/24 08:30 Temperature Pulse Rate 78 Respiratory Rate 12 Blood Pressure 116/64 Pulse Oximetry 97 Oxygen Delivery Method Room Air 12/31/24 09:00 12/31/24 09:30 12/31/24 09:52 Temperature 97.8 F Pulse Rate 81 83 Respiratory Rate 17 13 Blood Pressure Pulse Oximetry 92 97 Oxygen Delivery Method 12/31/24 10:00 12/31/24 10:02 12/31/24 10:02 Temperature Pulse Rate 90 87 Respiratory Rate 14 11 L Blood Pressure 107/56 L Pulse Oximetry 98 95 Oxygen Delivery Method 12/31/24 10:30 12/31/24 11:00 12/31/24 11:00 Temperature Pulse Rate 82 82 Respiratory Rate 13 14 Blood Pressure 104/55 L Pulse Oximetry 97 99 Oxygen Delivery Method 12/31/24 11:30 12/31/24 12:00 12/31/24 12:00 Temperature Pulse Rate 80 84 Respiratory Rate 11 L 13 Blood Pressure 112/69 Pulse Oximetry 98 99 Oxygen Delivery Method 12/31/24 12:30 12/31/24 13:00 12/31/24 13:00 Temperature 97.9 F Pulse Rate 88 82 Respiratory Rate 13 14 Blood Pressure 98/60 Pulse Oximetry 99 97 Oxygen Delivery Method Oxygen Delivery Method Room Air Oxygen Flow Rate 2 Narrative Exam Narrative: GEN: Elderly female, chronically ill-appearing, Alert and oriented x 3, NAD HEENT:NC, Face symmetric, edentulous CHEST: Respiratory excursions symmetric, CTAB CV: RRR, no M/R/G ABD: Soft, NT/ND, BT present in all 4 quadrants, no organomegaly or masses EXTR: warm, well perfused, no C/C/E SKIN: warm and dry, no rash NEURO: Alert and oriented x 3, nonfocal Objective Labs 12/31/24 04:50 12/31/24 04:50 Labs: Laboratory Results - last 24 hr 12/30/24 12/30/24 12/30/24 14:16 21:35 23:23 WBC 9.5 RBC 2.65 L Hgb 9.2 L Hct 26.0 L MCV 97.9 MCH 34.8 H MCHC 35.5 RDW 17.2 H Plt Count 264 Neut % (Auto) 84.6 H Lymph % (Auto) 8.6 L [place] % (Auto) 6.6 Eos % (Auto) 0.0 L Baso % (Auto) 0.2 Neut # (Auto) 8000 H Lymph # (Auto) 800 L [place] # (Auto) 600 Eos # (Auto) 0 Baso # (Auto) 0 Platelet Estimate RBC Morphology Anisocytosis Microcytosis Schistocytes PT 15.8 H INR 1.4 H Sodium 138 138 Potassium 1.4 L* 1.8 L* Chloride 102 103 Carbon Dioxide 34 H 33 H BUN 14 13 Creatinine 0.67 0.64 Estimated GFR > 60 > 60 BUN/Creatinine Ratio 20.9 20.3 Glucose 71 129 H Calcium 6.0 L* 6.5 L Magnesium 1.7 1.6 Total Bilirubin 1.1 0.9 AST 27 26 ALT 17 18 Alkaline Phosphatase 79 72 Total Creatine Kinase 33 Troponin I 0.035 H Total Protein 4.4 L 4.2 L Albumin 1.8 L 1.7 L Globulin 2.6 2.5 Albumin/Globulin Ratio 0.7 L 0.7 L Lipase 27 Nasal Screen MRSA (PCR) Not detected Stl C. cayetanensis PCR Stool Rotavirus (PCR) Stool Adenovirus (PCR) Stool Astrovirus (PCR) Stool Cryptosporidium PCR Stl E.coli Shiga Tox PCR St Sh/Enteroin Ecoli PCR Stl Enterotoxigenic E PCR Stool EPEC (PCR) Stl E. histolytica PCR Stool Giardia Lamblia PCR Stool Sapovirus (PCR) Stl P. shigelloides PCR St Y.enterocolitica PCR Stool Vibrio (PCR) Stl Vibrio cholerae PCR Stl Enteroaggr Ecoli PCR Stl Norovirus GI/GII PCR Campylobacter (PCR) C. difficile Tox (PCR) Salmonella (PCR) 12/31/24 12/31/24 04:50 08:19 WBC 10.4 RBC 2.31 L Hgb 8.1 L Hct 22.5 L MCV 97.6 MCH 35.3 H MCHC 36.2 H RDW 17.4 H Plt Count 283 Neut % (Auto) 83.0 H Lymph % (Auto) 9.4 L [place] % (Auto) 7.0 Eos % (Auto) 0.3 L Baso % (Auto) 0.3 Neut # (Auto) 8600 H Lymph # (Auto) 1000 L [place] # (Auto) 700 Eos # (Auto) 0 Baso # (Auto) 0 Platelet Estimate Adequate on smear RBC Morphology See below Anisocytosis 1+ H Microcytosis 1+ H Schistocytes 1+ H PT INR Sodium 138 Potassium 1.9 L* Chloride 104 Carbon Dioxide 33 H BUN 13 Creatinine 0.64 Estimated GFR > 60 BUN/Creatinine Ratio 20.3 Glucose 100 H Calcium 6.8 L Magnesium 1.6 Total Bilirubin 0.8 AST 23 ALT 15 Alkaline Phosphatase 76 Total Creatine Kinase Troponin I Total Protein 4.2 L Albumin 1.7 L Globulin 2.5 Albumin/Globulin Ratio 0.7 L Lipase Nasal Screen MRSA (PCR) Stl C. cayetanensis PCR Not detected Stool Rotavirus (PCR) Not detected Stool Adenovirus (PCR) Not detected Stool Astrovirus (PCR) Not detected Stool Cryptosporidium PCR Not detected Stl E.coli Shiga Tox PCR Not detected St Sh/Enteroin Ecoli PCR Not detected Stl Enterotoxigenic E PCR Not detected Stool EPEC (PCR) Not detected Stl E. histolytica PCR Not detected Stool Giardia Lamblia PCR Not detected Stool Sapovirus (PCR) Not detected Stl P. shigelloides PCR Not detected St Y.enterocolitica PCR Not detected Stool Vibrio (PCR) Not detected Stl Vibrio cholerae PCR Not detected Stl Enteroaggr Ecoli PCR Not detected Stl Norovirus GI/GII PCR Not detected Campylobacter (PCR) Not detected C. difficile Tox (PCR) Not detected Salmonella (PCR) Not detected PFSH Medical History Hx of adenomatous colonic polyps Chronic asthma Chronic renal failure, stage 3 (moderate) Depression Anxiety Chronic headaches Surgical History History of ankle surgery Social History household members: children Smoking Status: Never smoker alcohol intake: never Assessment & Plan Assessment & Plan narrative: 1. Severe hypokalemia Patient was admitted with a potassium level of 1.4. With aggressive repletion it is up to 1.9 today. Will continue aggressive repletion and recheck labs later this morning/early this afternoon. Continue monitoring in the ICU with telemetry. 2. Relative hypomagnesemia Will give 2 g of magnesium sulfate with a goal magnesium level of 2.0. 3. Hypocalcemia Calcium level was 6.0 on admission. It is up to 6.8. Correcting for her low albumin, it is nearly normal. 4. Possible gastritis Although she has not complaining of any GI symptoms, will place on a PPI prophylactically. 5. Ongoing evidence of colitis No current loose stools. She complains of constipation. She received treatment during her prior admission with a 7 day course of metronidazole. 6. Bilateral pleural effusions, left greater than right Likely related to hydration in the setting of very low albumin state. 7. Normocytic anemia Possibly hemodilutional, but it is quite a bit lower than it was during her last hospitalization. We will monitor for bleeding. 8. Severe protein calorie malnutrition Shows a very low albumin and is edentulous, which she likely decreases her oral intake. We will monitor her nutritional intake. 9. Depression Appears to be on citalopram on an outpatient basis. Await medication reconciliation 10. Hypothyroidism TSH was 9.33 on December 13. She was initiated on levothyroxine during her last hospital stay. This will be continued. Code status Full Prophylaxis Holding heparin secondary to low hemoglobin Disposition Pending Time-Based Coding :: [TOTAL MINUTES] spent with patient and on the chart (including review of chart, obtaining history, exam, reviewing outside data, placing orders, documenting exam and treatment plan, and counseling patient) on [DATE].
[2024-12-31] MEDS: PANTOPRAZOLE 40 MG VIAL IV (15:00)
[2024-12-31 15:19] LABS: Add Manual Diff / Slide Review NO; Hematocrit 23.4 % (36-46); Hemoglobin 8.3 g/dL (12.0-16.0); Lymphocytes Absolute Auto 1100 /uL (1100-4500); Mean Corpuscular HGB Conc 35.5 % (30-36); Mean Corpuscular Hemoglobin 34.9 PG (26-34); Mean Corpuscular Volume 98.2 fL (80-100); Platelet Count 284 X10^3/uL (150-400)
[2024-12-31 15:29] LABS: Magnesium 2.0 mg/dL (1.6-2.3)
[2024-12-31 15:30] LABS: Alanine Aminotransferase 21 IU/L (<35); Albumin 1.7 g/dL (3.5-5.0); Albumin Globulin Ratio 0.7 (1.0-2.8); Alkaline Phosphatase 77 U/L (38-126); Blood Urea Nitrogen 11 mg/dL (7-17); Calcium 6.7 mg/dL (8.4-10.2); Carbon Dioxide 29 mmol/L (22-32); Chloride 107 mmol/L (98-107); Estimated Glomerular Filt Rate > 60 mL/min (>60); Globulin 2.4 g/dL (1.7-4.1); Glucose 164 mg/dL (70-99); HEMOLYSIS < 15 (0-50); Potassium 2.9 mmol/L (3.4-5.1); Sodium 137 mmol/L (137-145); Total Protein 4.1 g/dL (6.3-8.2)
--- NOTE | 2024-12-31 18:21 | PC.NURSE ---
PT A/OX4 THROUGHOUT SHIFT. ROOM AIR WITH NO C/O SOB OR S/S OF RESPI DISTRESS NOTED. VITAL SIGNS STABLE. SEE EMAR FOR MEDICATIONS GIVEN AND CHART FOR LABS. DR CHAMBERS IN ROOM TO SEE PATIENT. POTASSIUM RECHECKED AT 1500 AND CURRENTLY BEING REPLACED. IVF RUNNING. SMALL LOOSE BM X3 TODAY. SMALL INCONTINENT VOIDS X2. BLADDER SCAN 334 MLS AT 1740. ORDER TO STRAIGHT CATH PER REYES. ATEMPT X2 WITH NO SUCCESS. PLAN TO GIVE PATIENT TIME TO REST AND REATTEMPT BY ANOTHER RN. TOLERATED SMALL BITES OF MEALS/ SNACKS THROUGHOUT SHIFT. STATES SHE HASNT EATEN MUCH SINCE APRIL AND TODAY IS THE FIRST HER APPETITE HAS BEEN BACK. FAMILY AT BEDSIDE ALL DAY INTERACTING WITH PATIENT. TURNED Q2H. BARRIER CREAM APPLIED TO EXCORIATED, MOISTURE RELATED BOTTOM. ALL QUESTIONS ANSWERED. CARE ONGOING.
[2024-12-31] MEDS: MELATONIN 3 MG TABLET 6 MG PO (20:10)
[2025-01-01] VITALS (44 sets, daily range): BP systolic 105–129; BP diastolic 63–82; PULSE 79–109; RESP 14–24; TEMP 35.9–36.5; O2SAT 94–98
[2025-01-01] MEDS: DEXTROSE 5%-0.9% NS 1,000 ML 100 ML IV ×3 (01:01→20:13)
[2025-01-01 04:36] LABS: Add Manual Diff / Slide Review NO; Hematocrit 22.6 % (36-46); Hemoglobin 7.9 g/dL (12.0-16.0); Lymphocytes Absolute Auto 1200 /uL (1100-4500); Mean Corpuscular HGB Conc 35.0 % (30-36); Mean Corpuscular Hemoglobin 34.6 PG (26-34); Mean Corpuscular Volume 98.8 fL (80-100); Platelet Count 257 X10^3/uL (150-400)
[2025-01-01 04:54] LABS: Alanine Aminotransferase 18 IU/L (<35); Albumin 1.4 g/dL (3.5-5.0); Albumin Globulin Ratio 0.6 (1.0-2.8); Alkaline Phosphatase 73 U/L (38-126); Blood Urea Nitrogen 8 mg/dL (7-17); Calcium 6.5 mg/dL (8.4-10.2); Carbon Dioxide 28 mmol/L (22-32); Chloride 110 mmol/L (98-107); Estimated Glomerular Filt Rate > 60 mL/min (>60); Globulin 2.4 g/dL (1.7-4.1); Glucose 116 mg/dL (70-99); HEMOLYSIS < 15 (0-50); Magnesium 1.8 mg/dL (1.6-2.3); Potassium 3.2 mmol/L (3.4-5.1); Sodium 136 mmol/L (137-145); Total Protein 3.8 g/dL (6.3-8.2)
--- NOTE | 2025-01-01 05:39 | P.PN_ITS ---
Subjective Subjective Interval history: 74-year-old female with history of CKD 3, depression, anxiety, chronic headaches, asthma, recently admitted from December 13 through December 15 with colitis and Acinetobacter bacteremia who was admitted 12/31/2024 with weakness, dehydration, severe hypokalemia, and hypocalcemia. This morning, she reports she feels a little bit better. She states she has not yet had a bowel movement. Nursing notes that she has been unwilling to do much, wanting to just stay in bed wrapped in blankets. She tells me that she had a bad experience at alf last time. She states she did not like working with physical therapy. She states the whole experience went poorly. She is not particularly interested in returning to a alf facility. Over the course of the day today patient refused turning, refused to offload pressure. She declined to eat despite ordering meals. She reported to family that she had been calling for 4 hours but getting no response from family. She had not been using her call light at all. She declined being sat upright to eat multiple meals cereal. Patient's daughter and ROOM SERVICE WAITER had conversations about consideration of hospice given the patient's overall refusal to participate in her care. Daughter has expressed an interest in talking with social work and care management tomorrow regarding options available moving forward. Exam Vital Signs (past 8 hours): - 12/31/24 22:00 12/31/24 22:00 12/31/24 22:30 Temperature Pulse Rate 86 95 H Respiratory Rate 19 22 Blood Pressure 112/63 Pulse Oximetry 97 96 12/31/24 23:00 12/31/24 23:00 12/31/24 23:30 Temperature Pulse Rate 80 81 Respiratory Rate 17 19 Blood Pressure 112/63 112/63 Pulse Oximetry 97 97 01/01/25 00:00 01/01/25 00:00 01/01/25 00:30 Temperature Pulse Rate 80 82 Respiratory Rate 15 16 Blood Pressure 123/67 Pulse Oximetry 98 96 01/01/25 01:00 01/01/25 01:00 01/01/25 01:30 Temperature 96.6 F L Pulse Rate 82 79 Respiratory Rate 18 15 Blood Pressure 115/64 Pulse Oximetry 98 96 01/01/25 02:00 01/01/25 02:00 01/01/25 02:30 Temperature Pulse Rate 82 84 Respiratory Rate 15 14 Blood Pressure 119/63 Pulse Oximetry 97 97 11/16/25 03:00 01/01/25 03:00 01/01/25 03:30 Temperature Pulse Rate 84 84 Respiratory Rate 15 16 Blood Pressure 124/66 Pulse Oximetry 98 97 01/01/25 04:00 01/01/25 04:00 01/01/25 04:30 Temperature Pulse Rate 85 95 H Respiratory Rate 16 16 Blood Pressure 128/66 Pulse Oximetry 94 97 01/01/25 04:49 Temperature 97 F L Pulse Rate Respiratory Rate Blood Pressure Pulse Oximetry Oxygen Delivery Method Room Air Oxygen Flow Rate 2 Narrative Exam Narrative: GEN: Elderly female, chronically ill-appearing, Alert and oriented x 3, NAD HEENT:NC, Face symmetric, edentulous CHEST: Respiratory excursions symmetric, CTAB CV: RRR, no M/R/G ABD: Soft, NT/ND, BT present in all 4 quadrants, no organomegaly or masses EXTR: warm, well perfused, no C/C/E SKIN: warm and dry, no rash NEURO: Alert and oriented x 3, nonfocal Objective Labs 01/01/25 04:15 01/01/25 04:15 Labs: Laboratory Results - last 24 hr 12/31/24 12/31/24 12/31/24 08:19 15:00 15:06 WBC 9.8 RBC 2.39 L Hgb 8.3 L Hct 23.4 L MCV 98.2 MCH 34.9 H MCHC 35.5 RDW 18.2 H Plt Count 284 Neut % (Auto) 81.2 H Lymph % (Auto) 11.3 L [place] % (Auto) 6.8 Eos % (Auto) 0.6 L Baso % (Auto) 0.1 Neut # (Auto) 7900 H Lymph # (Auto) 1100 [place] # (Auto) 700 Eos # (Auto) 100 Baso # (Auto) 0 Sodium 137 Potassium Cancelled 2.9 L Chloride 107 Carbon Dioxide 29 BUN 11 Creatinine 0.61 Estimated GFR > 60 BUN/Creatinine Ratio 18.0 Glucose 164 H Calcium Cancelled Magnesium 2.0 Total Bilirubin AST ALT Alkaline Phosphatase Total Protein Albumin Globulin Albumin/Globulin Ratio Stl C. cayetanensis PCR Not detected Stool Rotavirus (PCR) Not detected Stool Adenovirus (PCR) Not detected Stool Astrovirus (PCR) Not detected Stool Cryptosporidium PCR Not detected Stl E.coli Shiga Tox PCR Not detected St Sh/Enteroin Ecoli PCR Not detected Stl Enterotoxigenic E PCR Not detected Stool EPEC (PCR) Not detected Stl E. histolytica PCR Not detected Stool Giardia Lamblia PCR Not detected Stool Sapovirus (PCR) Not detected Stl P. shigelloides PCR Not detected St Y.enterocolitica PCR Not detected Stool Vibrio (PCR) Not detected Stl Vibrio cholerae PCR Not detected Stl Enteroaggr Ecoli PCR Not detected Stl Norovirus GI/GII PCR Not detected Campylobacter (PCR) Not detected C. difficile Tox (PCR) Not detected Salmonella (PCR) Not detected 12/31/24 01/01/25 15:06 04:15 WBC 7.9 RBC 2.28 L Hgb 7.9 L Hct 22.6 L MCV 98.8 MCH 34.6 H MCHC 35.0 RDW 17.9 H Plt Count 257 Neut % (Auto) 76.4 H Lymph % (Auto) 15.3 L [place] % (Auto) 7.2 Eos % (Auto) 0.9 L Baso % (Auto) 0.2 Neut # (Auto) 6000 Lymph # (Auto) 1200 [place] # (Auto) 600 Eos # (Auto) 100 Baso # (Auto) 0 Sodium 136 L Potassium 3.2 L Chloride 110 H Carbon Dioxide 28 BUN 8 Creatinine 0.54 Estimated GFR > 60 BUN/Creatinine Ratio 14.8 Glucose 116 H Calcium 6.7 L 6.5 L Magnesium 1.8 Total Bilirubin 0.6 0.4 AST 26 22 ALT 21 18 Alkaline Phosphatase 77 73 Total Protein 4.1 L 3.8 L Albumin 1.7 L 1.4 L Globulin 2.4 2.4 Albumin/Globulin Ratio 0.7 L 0.6 L Stl C. cayetanensis PCR Stool Rotavirus (PCR) Stool Adenovirus (PCR) Stool Astrovirus (PCR) Stool Cryptosporidium PCR Stl E.coli Shiga Tox PCR St Sh/Enteroin Ecoli PCR Stl Enterotoxigenic E PCR Stool EPEC (PCR) Stl E. histolytica PCR Stool Giardia Lamblia PCR Stool Sapovirus (PCR) Stl P. shigelloides PCR St Y.enterocolitica PCR Stool Vibrio (PCR) Stl Vibrio cholerae PCR Stl Enteroaggr Ecoli PCR Stl Norovirus GI/GII PCR Campylobacter (PCR) C. difficile Tox (PCR) Salmonella (PCR) PFSH Medical History Hx of adenomatous colonic polyps Chronic asthma Chronic renal failure, stage 3 (moderate) Depression Anxiety Chronic headaches Surgical History History of ankle surgery Social History household members: children Smoking Status: Never smoker alcohol intake: never Assessment & Plan Assessment & Plan narrative: 1. Severe hypokalemia Patient was admitted with a potassium level of 1.4. With aggressive repletion it got up to 2.9 yesterday. Up to 3.2 this am. Will continue to replete. 2. Relative hypomagnesemia She received 2 gm of mag sulfate yesterday. Mag was up to 2.0 yesterday. Equilibrated to 1.8 today. Will replete orally. 3. Hypocalcemia Calcium level was 6.0 on admission. It was up to 6.8. Correcting for her low albumin, it is nearly normal. 4. Possible gastritis Although she has not complaining of any GI symptoms, CT findings were concerning for possible gastritis. She was placed on a PPI empirically yesterday. 5. Ongoing evidence of colitis No current loose stools. She complains of constipation. She received treatment during her prior admission with a 7 day course of metronidazole. 6. Bilateral pleural effusions, left greater than right Likely related to hydration in the setting of very low albumin state. 7. Normocytic anemia Possibly hemodilutional, but it is quite a bit lower than it was during her last hospitalization. We will monitor for bleeding. H/H is stable from yesterday. 8. Severe protein calorie malnutrition Shows a very low albumin and is edentulous, which she likely decreases her oral intake. We will monitor her nutritional intake. 9. Depression Appears to be on citalopram on an outpatient basis. Await medication reconciliation 10. Hypothyroidism TSH was 9.33 on December 13. She was initiated on levothyroxine during her last hospital stay. This will be continued. Code status Full Prophylaxis Holding heparin secondary to low hemoglobin Disposition Pending; likely will need SNF for rehab versus home with hospice depending on her goals of care Time-Based Coding :: [TOTAL MINUTES] spent with patient and on the chart (including review of chart, obtaining history, exam, reviewing outside data, placing orders, documenting exam and treatment plan, and counseling patient) on [DATE].
[2025-01-01] MEDS: POTASSIUM CHLORIDE 20 MEQ TAB 40 MEQ PO (08:16)
[2025-01-01] MEDS: PANTOPRAZOLE 40 MG VIAL IV (09:22)
[2025-01-01] MEDS: SENNOSIDES 8.6 MG TABLET PO ×2 (09:22→20:29)
[2025-01-01] MEDS: MAGNESIUM OXIDE 400 MG TABLET PO ×2 (09:22→20:27)
--- NOTE | 2025-01-01 17:07 | PC.NURSE ---
Dayshift note: Pt refusing to turn, wants to lay supine, bridged with pillows and bundled in blankets, despite education pt declines off loading pressure by being turned side to side. Pt declines to eat, orders meals then declines to eat when food is presented. Pt states that she has been calling for 4 hours (call light within reach the whole time), states I know where the call light is and how to use it, but proceeds to tell family that she was left alone for 4 hours. Pt refusing to sit all of the way up to eat malt o meal cereal, educated pt on sitting up before eating, pt statesI will eat it. No further needs at this time, call light within reach, care ongoing.
[2025-01-01] MEDS: MELATONIN 3 MG TABLET 6 MG PO (20:27)
[2025-01-02] VITALS (8 sets, daily range): BP systolic 101–133; BP diastolic 64–84; PULSE 96–104; RESP 12–20; TEMP 36.2–36.4; O2SAT 95–98
[2025-01-02 04:33] LABS: Add Manual Diff / Slide Review NO; Hematocrit 26.4 % (36-46); Hemoglobin 9.2 g/dL (12.0-16.0); Lymphocytes Absolute Auto 1100 /uL (1100-4500); Mean Corpuscular HGB Conc 34.9 % (30-36); Mean Corpuscular Hemoglobin 34.7 PG (26-34); Mean Corpuscular Volume 99.4 fL (80-100); Platelet Count 263 X10^3/uL (150-400)
[2025-01-02 04:52] LABS: Alanine Aminotransferase 18 IU/L (<35); Albumin 1.5 g/dL (3.5-5.0); Albumin Globulin Ratio 0.6 (1.0-2.8); Alkaline Phosphatase 72 U/L (38-126); Blood Urea Nitrogen 5 mg/dL (7-17); Carbon Dioxide 26 mmol/L (22-32); Chloride 114 mmol/L (98-107); Estimated Glomerular Filt Rate > 60 mL/min (>60); Globulin 2.5 g/dL (1.7-4.1); Glucose 106 mg/dL (70-99); HEMOLYSIS < 15 (0-50); Magnesium 1.7 mg/dL (1.6-2.3); Potassium 2.9 mmol/L (3.4-5.1); Sodium 139 mmol/L (137-145); Total Protein 4.0 g/dL (6.3-8.2)
[2025-01-02 04:56] LABS: Calcium 6.3 mg/dL (8.4-10.2)
[2025-01-02] MEDS: POTASSIUM CHLORIDE IN WATER 10 MEQ/100 ML PIGGYBACK 100 MEQ IV ×4 (05:45→09:09)
[2025-01-02] MEDS: DEXTROSE 5%-0.9% NS 1,000 ML 100 ML IV ×2 (05:54→16:13)
[2025-01-02] MEDS: CALCIUM GLUCONATE 4.65 MEQ in SODIUM CHLORIDE 0.9% 50 ML 60 MEQ IV (06:50)
[2025-01-02] MEDS: CALCIUM GLUCONATE 4.65 MEQ in SODIUM CHLORIDE 0.9% 50 ML 180 MEQ IV (08:12)
[2025-01-02] MEDS: POTASSIUM CHLORIDE 20 MEQ TAB 40 MEQ PO (09:09)
[2025-01-02] MEDS: MAGNESIUM OXIDE 400 MG TABLET PO ×2 (09:09→20:27)
[2025-01-02] MEDS: PANTOPRAZOLE 40 MG VIAL IV (09:09)
[2025-01-02] MEDS: CITALOPRAM 10 MG TABLET PO (09:10)
[2025-01-02] MEDS: SENNOSIDES 8.6 MG TABLET PO ×2 (09:14→20:27)
[2025-01-02 13:02] LABS: HEMOLYSIS 21 (0-50); Magnesium 1.7 mg/dL (1.6-2.3); Potassium 3.6 mmol/L (3.4-5.1)
--- NOTE | 2025-01-02 14:33 | CM.DPC ---
DCP COnt: Per MD and RN, pt's labs still abnormal and getting further IV medications but making improvements and now able to stay more alert and communicate. PT/OT not ordered as pt does not have interest in working with therapies at this time. SW met with pt's Dtr Kelly [phone] and Dtr Jazz [phone] [facility] and they confirm that pt resides on [facility] with Dtr Jazz, Life Partner Luis, pt's son/their brother and nephew. Jazz provides a majority of the care, Luis wants to assist but has significant medical needs himself and not able to provide physical assist, and pt mostly trusts catalino Clinton to provide care and refuses from other family members. Catalino Clinton lives in [facility] and can only come assist during the day. Concern with enough care at night. Had lengthy Goals of Care discussion with family as pt has dementia/forgetfulness and some paranoia and refuses any cognitive assessments. Pt refuses SNF or facility and preference is home with family but does not realize her refusals are making home plan difficult. Discussed Hospice services and care that is provided and they confirm pt currently triggered by the word Hospice but it would meet her Goals of Care. Requested Hospice referral with Info Visit with Dtr May. Catalino Clinton confirms that Medicaid LTC application was already previously submitted and unfortunately since pt left [facility] her case has to be transitioned from SNF team to Home team at Home and [facility] and waiting for SW to be assigned for assessment. SW called [facility] and they confirm pt's case in transition and no assigned worker yet. SW faxed Expedited Referral to [facility] to attempt to speed up the process. Discussed potential CG who can assist at home that pt trusts on [facility] until [facility] HUEY can be secured. No official POA pwk completed and provided blank copy and plan is PCP Dr. Reyes from the [facility] in [facility] already scheduled to meet with pt and family in person at home or in the hospital for ongoing Goals of Care/DNR discussion and better plan for the patient to meet her needs. They will work on POA pwk at that time as pt has good relationship with her PCP and trusts him. Family aware that pt likely getting medically stable for discharge by tomorrow Tu01/03/25 and some concerns about going home but aware pt is not agreeable to any other option and they will figure out a way to provide her care at home while waiting for potentially Hospice and/or HUEY. Updated MD and RN. TOD Gaston
--- NOTE | 2025-01-02 14:48 | P.PN_ITS ---
Subjective Subjective Date Patient Seen: 01/02/25 Interval history: Chief complaint: Severe weakness hypokalemia hypocalcemia failure to thrive dementia History of present illness: 12/30: 74-year-old female recently discharged from the hospital for colitis and acinobacteria bacteremia. She was discharged on antibiotics and ultimately apparently returned home. She was brought in today because of generalized weakness and found to be volume depleted and profoundly hypokalemic as well as hypocalcemic. The patient was a minimal historian who does not speak that much. She states she was had no appetite and has not eaten for a 180 days. She does feel thirsty and globally weak. She denies any focal pain, including her abdomen. No recent diarrhea. She also denies any dyspnea or chest pain. No recent fevers, or chills. 01/01: This morning, she reports she feels a little bit better. She states she has not yet had a bowel movement. Nursing notes that she has been unwilling to do much, wanting to just stay in bed wrapped in blankets. She tells me that she had a bad experience at group home last time. She states she did not like working with physical therapy. She states the whole experience went poorly. She is not particularly interested in returning to a group home facility. Over the course of the day today patient refused turning, refused to offload pressure. She declined to eat despite ordering meals. She reported to family that she had been calling for 4 hours but getting no response from family. She had not been using her call light at all. She declined being sat upright to eat multiple meals cereal. Patient's daughter and PHP ARCHITECT had conversations about consideration of hospice given the patient's overall refusal to participate in her care. Daughter has expressed an interest in talking with social work and care management tomorrow regarding options available moving forward. 01/02: Patient having minimal p.o. intake at this is getting repletion of calcium IV and potassium Review of systems: Does not want to eat No nausea vomiting No diarrhea No chest pain or shortness Physical exam: Chronically ill premorbid appearing elderly female HEENT edentulous Heart sounds distant no murmurs Lungs clear Abdomen is scaphoid nondistended Moves all extremities Assessment and plan: 1. Severe hypokalemia Patient was admitted with a potassium level of 1.4. With aggressive repletion it got up to 2.9 yesterday. Up to 3.2 this am. Will continue to replete. 2. Relative hypomagnesemia She received 2 gm of mag sulfate yesterday. Mag was up to 2.0 yesterday. Equilibrated to 1.8 today. Will replete orally. 3. Hypocalcemia Calcium level was 6.0 on admission. It was up to 6.8. Correcting for her low albumin, it is nearly normal. 4. Possible gastritis Although she has not complaining of any GI symptoms, CT findings were concerning for possible gastritis. She was placed on a PPI empirically yesterday. 5. Ongoing evidence of colitis No current loose stools. She complains of constipation. She received treatment during her prior admission with a 7 day course of metronidazole. 6. Bilateral pleural effusions, left greater than right Likely related to hydration in the setting of very low albumin state. 7. Normocytic anemia Possibly hemodilutional, but it is quite a bit lower than it was during her last hospitalization. We will monitor for bleeding. H/H is stable from yesterday. 8. Severe protein calorie malnutrition Shows a very low albumin and is edentulous, which she likely decreases her oral intake. We will monitor her nutritional intake. 9. Depression Appears to be on citalopram on an outpatient basis. Await medication reconciliation 10. Hypothyroidism TSH was 9.33 on December 13. She was initiated on levothyroxine during her last hospital stay. This will be continued. Code status Full Prophylaxis Holding heparin secondary to low hemoglobin Disposition: * Pending; likely will need SNF for rehab versus home with hospice depending on her goals of care Case Management notation: * pt discharged to [facility] on 12/20/24 and thought she was only going there for the duration of her IV Abx which ended a couple days after getting to SNF and wanted to leave and ended up leaving AMA back to [facility]'s house on [address]. Family provided transportation. They state pt is so deconditioned over the past few months that she cannot sit upright independently or ambulate but is able to feed herself and do a few ADLs herself and is trying hard to maintain her independence and pride. Family and friends have been providing pt's care to her at home but aware that they cannot provide all the care that is needed. * Family and POA confirm that preference is for pt to return home with their assist while they are working on [facility] Plan. Dtr states she has to complete the Medicaid LTC application again as they did not get the financial information in time. SW strongly encouraged them to complete the application krystle and go to the bank for the statements needed and then SW could fax in with Expedited Referral. Discussed that likely could still take a couple weeks to month to get Medicaid HUEY set up and family acknowledges understanding and still state they feel they can care for her at home while working on the [place] [facility] plan. * Pt has hx now of SNF at [facility] a couple months ago and now [facility] about 2 weeks ago. No hx of HH. Family requests referral to [facility] to determine if they are still covering [facility] and would accept her [employer] for HH RN/PT/COTTON JAMMER. Made referral to [facility] and awaiting response. * Family also interested in w/c van for transportation to appointments. SW to check Thursday if pt has Medicaid Transportation benefits in place otherwise family aware that would need to complete the Medicaid application to see if transport is an option in the future or applying for Para[employer]. * Plan: SW to follow closely for plan of discharge home with family and friend support and [facility] review to see if they can accept for [facility] and family to complete the [facility] LTC application to be faxed in with Expedited Form prior to d/c. TOD Gaston Time-Based Coding :: 35 minutes spent with patient and on the chart (including review of chart, obtaining history, exam, reviewing outside data, placing orders, documenting exam and treatment plan, and counseling patient). Exam Vital Signs (past 8 hours): - 01/02/25 07:00 Oxygen Delivery Method Room Air Oxygen Delivery Method Room Air Oxygen Flow Rate 2 Objective Labs 01/02/25 04:22 01/02/25 12:09 Labs: Laboratory Results - last 24 hr 01/02/25 01/02/25 04:22 12:09 WBC 8.9 RBC 2.66 L Hgb 9.2 L Hct 26.4 L MCV 99.4 MCH 34.7 H MCHC 34.9 RDW 17.8 H Plt Count 263 Neut % (Auto) 78.9 H Lymph % (Auto) 12.9 L [place] % (Auto) 7.5 Eos % (Auto) 0.5 L Baso % (Auto) 0.2 Neut # (Auto) 7000 Lymph # (Auto) 1100 [place] # (Auto) 700 Eos # (Auto) 0 Baso # (Auto) 0 Sodium 139 Potassium 2.9 L 3.6 Chloride 114 H Carbon Dioxide 26 BUN 5 L Creatinine 0.45 L Estimated GFR > 60 BUN/Creatinine Ratio 11.1 Glucose 106 H Calcium 6.3 L* Magnesium 1.7 1.7 Total Bilirubin 0.5 AST 22 ALT 18 Alkaline Phosphatase 72 Total Protein 4.0 L Albumin 1.5 L Globulin 2.5 Albumin/Globulin Ratio 0.6 L PFSH Medical History Hx of adenomatous colonic polyps Chronic asthma Chronic renal failure, stage 3 (moderate) Depression Anxiety Chronic headaches Surgical History History of ankle surgery Social History household members: children Smoking Status: Never smoker alcohol intake: never Assessment & Plan Time-Based Coding :: [TOTAL MINUTES] spent with patient and on the chart (including review of chart, obtaining history, exam, reviewing outside data, placing orders, documenting exam and treatment plan, and counseling patient) on [DATE].
--- NOTE | 2025-01-02 16:55 | PC.NURSE ---
Pt in bed laying flat most of shift, did not want turns. Little appetite. Many family and friends visiting at bedside. Generalized pain reported, PRN oxy given. Brief changed throughout shift and skin barrier applied.
[2025-01-02] MEDS: MELATONIN 3 MG TABLET 6 MG PO (20:27)
[2025-01-02] MEDS: MAGNESIUM CHLORIDE 64 MG TABLET 128 MG PO (20:27)
[2025-01-03] MEDS: DEXTROSE 5%-0.9% NS 1,000 ML 100 ML IV ×3 (01:41→21:13)
[2025-01-03 04:00] VITALS: BP 112/71; PULSE 104; RESP 15; O2SAT 100
[2025-01-03 06:42] LABS: Blood Urea Nitrogen 4 mg/dL (7-17); Calcium 6.7 mg/dL (8.4-10.2); Carbon Dioxide 22 mmol/L (22-32); Chloride 116 mmol/L (98-107); Estimated Glomerular Filt Rate > 60 mL/min (>60); Glucose 104 mg/dL (70-99); HEMOLYSIS < 15 (0-50); Magnesium 1.6 mg/dL (1.6-2.3); Potassium 3.6 mmol/L (3.4-5.1); Sodium 139 mmol/L (137-145)
--- NOTE | 2025-01-03 06:46 | PC.NURSE ---
car shifter RN note pt A&Ox3, forgetful at times, tolerated meds in applesauce, agreeable to micro turns overnight, pt educated on importance of repositioning to maintain skin integrity, brief changed as needed for incont of urine and loose stools, barrier cream applied, call perera within reach, personal items within reach, labs as ordered, care on going
[2025-01-03 08:00] VITALS: BP 105/71; PULSE 117; RESP 23; TEMP 36.6; O2SAT 94
[2025-01-03] MEDS: PANTOPRAZOLE 40 MG VIAL IV (09:03)
[2025-01-03] MEDS: CITALOPRAM 10 MG TABLET PO (09:03)
[2025-01-03] MEDS: MAGNESIUM OXIDE 400 MG TABLET PO ×2 (09:03→20:07)
[2025-01-03] MEDS: LEVOTHYROXINE 50 MCG TABLET PO (09:04)
[2025-01-03] MEDS: POTASSIUM CHLORIDE 20 MEQ TAB 40 MEQ PO (09:04)
--- NOTE | 2025-01-03 11:05 | DIET.CONS ---
Dietary Consultation Note Admission Date: 12/30/2024 17:52 Assessment: Pt screened by dietitian for low MNA score. Confirmed in rounds pt is going home on hospice. No interventions needed. Ht: 152.4 cm Wt: 54 kg BMI: 23.0 Last BM: 01/03/25 (01/03/25 06:23) MNA: 6 Eduard Score: 13 Diet: 12/30/24 Dinner General (Regular) Diet Diet Modifications: Food Texture: Level 7 - Regular Liquid Consistency: Level 0 - Thin Nutrition Percent Meal Consumed 5 01/02/25 18:00 Percent Meal Consumed 25% 01/01/25 18:00 Labs: RBC 2.66 X10^6/uL (4.0-5.2) L 01/02/25 04:22 Hgb 9.2 g/dL (12.0-16.0) L 01/02/25 04:22 Hct 26.4 % (36-46) L 01/02/25 04:22 Creatinine 0.47 mg/dL (0.52-1.04) L 01/03/25 06:15 Electronically Signed by: Judy Knutson 01/03/25 11:05 Clinical Dietitian [address] [address]
[2025-01-03] MEDS: MAGNESIUM CHLORIDE 64 MG TABLET 128 MG PO (11:50)
[2025-01-03 12:00] VITALS: BP 110/72; PULSE 109; RESP 17; O2SAT 94
--- NOTE | 2025-01-03 12:21 | PM.DS.1 ---
History of Present Illness History of Present Illness Date Patient Seen: 01/03/25 Chief complaint: bowel infection? dehydration? Narrative: Chief complaint: Severe weakness hypokalemia hypocalcemia failure to thrive dementia History of present illness: 12/30: 74-year-old female recently discharged from the hospital for colitis and acinobacteria bacteremia. She was discharged on antibiotics and ultimately apparently returned home. She was brought in today because of generalized weakness and found to be volume depleted and profoundly hypokalemic as well as hypocalcemic. The patient was a minimal historian who does not speak that much. She states she was had no appetite and has not eaten for a 180 days. She does feel thirsty and globally weak. She denies any focal pain, including her abdomen. No recent diarrhea. She also denies any dyspnea or chest pain. No recent fevers, or chills. 01/01: This morning, she reports she feels a little bit better. She states she has not yet had a bowel movement. Nursing notes that she has been unwilling to do much, wanting to just stay in bed wrapped in blankets. She tells me that she had a bad experience at intermediate last time. She states she did not like working with physical therapy. She states the whole experience went poorly. She is not particularly interested in returning to a intermediate facility. Over the course of the day today patient refused turning, refused to offload pressure. She declined to eat despite ordering meals. She reported to family that she had been calling for 4 hours but getting no response from family. She had not been using her call light at all. She declined being sat upright to eat multiple meals cereal. Patient's daughter and CLERK OF SCALES had conversations about consideration of hospice given the patient's overall refusal to participate in her care. Daughter has expressed an interest in talking with social work and care management tomorrow regarding options available moving forward. 01/02: Patient having minimal p.o. intake at this is getting repletion of calcium IV and potassium Review of systems: Does not want to eat No nausea vomiting No diarrhea No chest pain or shortness Physical exam: Chronically ill premorbid appearing elderly female HEENT edentulous Heart sounds distant no murmurs Lungs clear Abdomen is scaphoid nondistended Moves all extremities Assessment and plan: 1. Severe hypokalemia Patient was admitted with a potassium level of 1.4. Repleted 2. Relative hypomagnesemia Replete 3. Hypocalcemia Replete l. 4. Possible gastritis Although she has not complaining of any GI symptoms, CT findings were concerning for possible gastritis. She was placed on a PPI empirically yesterday. 5. Ongoing evidence of colitis No current loose stools. She complains of constipation. She received treatment during her prior admission with a 7 day course of metronidazole. 6. Bilateral pleural effusions, left greater than right Likely related to hydration in the setting of very low albumin state. 7. Normocytic anemia Possibly hemodilutional, but it is quite a bit lower than it was during her last hospitalization. We will monitor for bleeding. H/H is stable from yesterday. 8. Severe protein calorie malnutrition due to terminal anorexia Expect this to be terminal in this patient 9. Depression Appears to be on citalopram on an outpatient basis. Await medication reconciliation 10. Hypothyroidism TSH was 9.33 on December 13. She was initiated on levothyroxine during her last hospital stay. This will be continued. Code status Full Prophylaxis Holding heparin secondary to low hemoglobin Disposition: Pending; likely will need SNF for rehab versus home with hospice depending on her goals of care Case Management notation: pt discharged to [facility] on 12/20/24 and thought she was only going there for the duration of her IV Abx which ended a couple days after getting to SNF and wanted to leave and ended up leaving AMA back to Dtr's house on [address]. Family provided transportation. They state pt is so deconditioned over the past few months that she cannot sit upright independently or ambulate but is able to feed herself and do a few ADLs herself and is trying hard to maintain her independence and pride. Family and friends have been providing pt's care to her at home but aware that they cannot provide all the care that is needed. Family and POA confirm that preference is for pt to return home with their assist while they are working on [employer] Fixture Builder Plan. Dtr states she has to complete the Medicaid LTC application again as they did not get the financial information in time. SW strongly encouraged them to complete the application krystle and go to the bank for the statements needed and then SW could fax in with Expedited Referral. Discussed that likely could still take a couple weeks to month to get Medicaid HUEY set up and family acknowledges understanding and still state they feel they can care for her at home while working on the remote computer terminal operator plan. Pt has hx now of SNF at [facility] a couple months ago and now [facility] about [facility] weeks [facility]. No hx of HH. Family requests referral to [facility] to determine if they are still covering [facility] and would accept her [employer] for HH RN/PT/INTERNAL CORROSION SPECIALIST. Made referral to [facility] and awaiting response. Family also interested in w/c van for transportation to appointments. SW to check Thursday if pt has Medicaid Transportation benefits in place otherwise family aware that would need to complete the Medicaid application to see if transport is an option in the future or applying for Para[employer]it. Plan: SW to follow closely for plan of discharge home with family and friend support and [facility] review to see if they can accept for [facility] and family to complete the [facility] LTC application to be faxed in with Expedited Form prior to d/c. TOD Gaston Time-Based Coding :: 35 minutes spent with patient and on the chart (including review of chart, obtaining history, exam, reviewing outside data, placing orders, documenting exam and treatment plan, and counseling patient). Discharge Providers Provider Date of admission: 12/30/24 17:52 Discharge Date: 01/03/25 Primary care physician: Walt Reyes PA-C Discharge provider: Aidan Magana MD Exam Vital Signs (past 8 hours): Oxygen Delivery Method Room Air Oxygen Flow Rate 0 Objective Labs 01/02/25 04:22 01/03/25 06:15 Labs: Laboratory Results - last 24 hr 01/02/25 01/03/25 12:09 06:15 Sodium 139 Potassium 3.6 3.6 Chloride 116 H Carbon Dioxide 22 BUN 4 L Creatinine 0.47 L Estimated GFR > 60 BUN/Creatinine Ratio 8.5 Glucose 104 H Calcium 6.7 L Magnesium 1.7 1.6 PFSH Medical History Hx of adenomatous colonic polyps Chronic asthma Chronic renal failure, stage 3 (moderate) Depression Anxiety Chronic headaches Surgical History History of ankle surgery Social History household members: children Smoking Status: Never smoker alcohol intake: never Discharge Plan Discharge Plan Patient Disposition: Hospice - Home Discharge orders & Medications Prescriptions: Continued melatonin 3 mg Tablet 6 mg PO BEDTIME PRN (Reason: insominia) Qty: 30 0RF levothyroxine [Synthroid] 50 mcg Tablet 50 mcg PO DAILY@0600 Qty: 30 0RF polyethylene glycol 3350 [Gavilax] 17 gram Powder In Packet 17 g PO DAILY PRN (Reason: constipation) citalopram 20 mg tablet 10 mg PO DAILY Discontinued furosemide 40 mg Tablet 40 mg PO DAILY Qty: 30 0RF Follow up/Referrals: Walt Reyes PA-C [Primary Care Provider, Medical] Visit Report/Discharge Packet Stand Alone Forms: Patient Portal/API, Stroke Signs & Symptoms Discharge Data Primary Care Provider: Walt Reyes
--- NOTE | 2025-01-03 15:09 | CM.DPNOTE ---
DCP Continued: Reviewed EMR and team rounds for pt?s medical status. Per hospitalist, pt is medically cleared for discharge home. SOCIAL MEDIA DEVELOPER spoke with pt daughter, May, and discussed discharge plans. She is hoping to connect with Hospice to get DME delivered before discharge home. She is also coordinating caregivers/family to be in the home with pt. SOCIAL MEDIA DEVELOPER spoke with Hospice of the , they have been attempting to contact daughter for informational visit as of 1500 today. They will continue to attempt to connect. SOCIAL MEDIA DEVELOPER pre-completed BLS form, will need hospitalist signature. SOCIAL MEDIA DEVELOPER notified hosptialist of above, requested to revisit pt code status/POLST prior to dc. Hospitalist agreed to have pt remain admitted until all supports/DME in place before dc home. Plan: Anticipating discharge home via BLS, family to assist with care with Hospice of the care to follow. CM Team will continue to follow for coordination of discharge plans. CHILO Mays
[2025-01-03 16:00] VITALS: BP 101/55; PULSE 101; RESP 15; TEMP 36.7; O2SAT 97
--- NOTE | 2025-01-03 18:55 | PC.NURSE ---
Day Shift Note Patient mostly sleeping, wakes up for meals. Intermittently refuses repositioning and meds. Declined IV start for IV fluids and removal of central line. Family at bedside. Call light within reach, using appropriately to make needs known.
[2025-01-03 20:00] VITALS: BP 144/75; PULSE 104; RESP 15; O2SAT 92
[2025-01-03] MEDS: MELATONIN 3 MG TABLET 6 MG PO (20:07)
[2025-01-04 05:47] LABS: Blood Urea Nitrogen 4 mg/dL (7-17); Calcium 6.5 mg/dL (8.4-10.2); Carbon Dioxide 21 mmol/L (22-32); Chloride 119 mmol/L (98-107); Estimated Glomerular Filt Rate > 60 mL/min (>60); Glucose 95 mg/dL (70-99); HEMOLYSIS < 15 (0-50); Magnesium 1.6 mg/dL (1.6-2.3); Potassium 3.8 mmol/L (3.4-5.1); Sodium 139 mmol/L (137-145)
[2025-01-04 08:00] VITALS: TEMP 36.2
[2025-01-04] MEDS: CITALOPRAM 10 MG TABLET PO (08:36)
[2025-01-04] MEDS: PANTOPRAZOLE 40 MG VIAL IV (08:39)
[2025-01-04] MEDS: DEXTROSE 5%-0.9% NS 1,000 ML 100 ML IV (08:39)
[2025-01-04] MEDS: LEVOTHYROXINE 50 MCG TABLET PO (08:40)
[2025-01-04] MEDS: POTASSIUM CHLORIDE 20 MEQ TAB 40 MEQ PO (08:40)
[2025-01-04] MEDS: MAGNESIUM OXIDE 400 MG TABLET PO (08:40)
--- NOTE | 2025-01-04 11:18 | P.DS_ITS ---
History of Present Illness History of Present Illness Date Patient Seen: 01/04/25 Chief complaint: bowel infection? dehydration? Narrative: Chief complaint: Severe weakness hypokalemia hypocalcemia failure to thrive dementia History of present illness: 12/30: 74-year-old female recently discharged from the hospital for colitis and acinobacteria bacteremia. She was discharged on antibiotics and ultimately apparently returned home. She was brought in today because of generalized weakness and found to be volume depleted and profoundly hypokalemic as well as hypocalcemic. The patient was a minimal historian who does not speak that much. She states she was had no appetite and has not eaten for a 180 days. She does feel thirsty and globally weak. She denies any focal pain, including her abdomen. No recent diarrhea. She also denies any dyspnea or chest pain. No recent fevers, or chills. 01/01: This morning, she reports she feels a little bit better. She states she has not yet had a bowel movement. Nursing notes that she has been unwilling to do much, wanting to just stay in bed wrapped in blankets. She tells me that she had a bad experience at longterm last time. She states she did not like working with physical therapy. She states the whole experience went poorly. She is not particularly interested in returning to a longterm facility. Over the course of the day today patient refused turning, refused to offload pressure. She declined to eat despite ordering meals. She reported to family that she had been calling for 4 hours but getting no response from family. She had not been using her call light at all. She declined being sat upright to eat multiple meals cereal. Patient's daughter and HVAC SERVICE TECHNICIAN had conversations about consideration of hospice given the patient's overall refusal to participate in her care. Daughter has expressed an interest in talking with social work and care management tomorrow regarding options available moving forward. 01/02: Patient having minimal p.o. intake at this is getting repletion of calcium IV and potassium Review of systems: Does not want to eat No nausea vomiting No diarrhea No chest pain or shortness Physical exam: Chronically ill premorbid appearing elderly female HEENT edentulous Heart sounds distant no murmurs Lungs clear Abdomen is scaphoid nondistended Moves all extremities Assessment and plan: 1. Severe hypokalemia Patient was admitted with a potassium level of 1.4. Repleted 2. Relative hypomagnesemia Replete 3. Hypocalcemia Replete l. 4. Possible gastritis Although she has not complaining of any GI symptoms, CT findings were concerning for possible gastritis. She was placed on a PPI empirically yesterday. 5. Ongoing evidence of colitis No current loose stools. She complains of constipation. She received treatment during her prior admission with a 7 day course of metronidazole. 6. Bilateral pleural effusions, left greater than right Likely related to hydration in the setting of very low albumin state. 7. Normocytic anemia Possibly hemodilutional, but it is quite a bit lower than it was during her last hospitalization. We will monitor for bleeding. H/H is stable from yesterday. 8. 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 Depression Appears to be on citalopram on an outpatient basis. Await medication reconciliation 10. Hypothyroidism TSH was 9.33 on December 13. She was initiated on levothyroxine during her last hospital stay. This will be continued. Code status Full Prophylaxis Holding heparin secondary to low hemoglobin Disposition: Home with hospice and multiple support today Time-Based Coding :: 35 minutes spent with patient and on the chart (including review of chart, obtaining history, exam, reviewing outside data, placing orders, documenting exam and treatment plan, and counseling patient). Discharge Providers Provider Date of admission: 12/30/24 17:52 Discharge Date: 01/04/25 Primary care physician: Walt Reyes PA-C Discharge provider: Aidan Magana MD Exam Vital Signs (past 8 hours): - 01/04/25 08:00 Temperature 97.2 F L Oxygen Delivery Method Room Air Oxygen Flow Rate 0 Objective Labs 01/02/25 04:22 01/04/25 05:20 Labs: Laboratory Results - last 24 hr 01/04/25 05:20 Sodium 139 Potassium 3.8 Chloride 119 H Carbon Dioxide 21 L BUN 4 L Creatinine 0.50 L Estimated GFR > 60 BUN/Creatinine Ratio 8.0 Glucose 95 Calcium 6.5 L Magnesium 1.6 PFSH Medical History Hx of adenomatous colonic polyps Chronic asthma Chronic renal failure, stage 3 (moderate) Depression Anxiety Chronic headaches Surgical History History of ankle surgery Social History household members: children Smoking Status: Never smoker alcohol intake: never Discharge Plan Discharge Plan Patient Disposition: Hospice - Home Discharge orders & Medications Prescriptions: Continued melatonin 3 mg Tablet 6 mg PO BEDTIME PRN (Reason: insominia) Qty: 30 0RF levothyroxine [Synthroid] 50 mcg Tablet 50 mcg PO DAILY@0600 Qty: 30 0RF polyethylene glycol 3350 [Gavilax] 17 gram Powder In Packet 17 g PO DAILY PRN (Reason: constipation) citalopram 20 mg tablet 10 mg PO DAILY Discontinued furosemide 40 mg Tablet 40 mg PO DAILY Qty: 30 0RF Follow up/Referrals: Walt Reyes PA-C [Primary Care Provider, Medical] Visit Report/Discharge Packet Stand Alone Forms: Patient Portal/API, Stroke Signs & Symptoms Discharge Data Primary Care Provider: Walt Reyes
[2025-01-04 12:00] VITALS: BP 115/68; PULSE 111; RESP 17; TEMP 36.6; O2SAT 98
--- NOTE | 2025-01-04 12:38 | CM.DPC ---
DCP Cont. Reviewed EMR and team rounds for pt's status and updates. Pt has been medically cleared for home d/c. [facility] will do the info visit at 1:30pm, DME has already been delivered, and pt will be transported home via EMS at 4:00pm. No further CM d/c needs are identified at this time.
== END 2025-01-04 16:10 | disposition hospice, home (50) | DRG 640 ==
LOC: ED 17:49 → AC 17:53 → ICU 18:20
PROVIDERS: Emergency Medicine; Family Medicine; Pharmacist Pharmacist Clinician (PhC)/ Clinical Pharmacy Specialist; Admitting Provider Hospitalist; Emergency Provider Student in an Organized Health Care Education/Training Program; PCP Physician Assistant; Referring Provider Student in an Organized Health Care Education/Training Program; Visit Provider Hospitalist
DX: E87.6 Hypokalemia (principal); E43 Unspecified severe protein-calorie malnutrition; J90 Pleural effusion, not elsewhere classified; E83.51 Hypocalcemia; E86.0 Dehydration; R53.1 Weakness; E83.42 Hypomagnesemia; F32.A Depression, unspecified; E03.9 Hypothyroidism, unspecified; F03.90 Unspecified dementia, unspecified severity, without behavioral disturbance, psychotic disturbance, mood disturbance, and anxiety; R62.7 Adult failure to thrive; K29.70 Gastritis, unspecified, without bleeding; K52.9 Noninfective gastroenteritis and colitis, unspecified; D64.9 Anemia, unspecified; K59.00 Constipation, unspecified; Z79.890 Hormone replacement therapy; Z68.23 Body mass index [BMI] 23.0-23.9, adult
CPT/HCPCS: 36415; 36592; 70450; 70496; 70498; 71045; 71260; 74177; 80048; 80053; 82550; 83690; 83735; 84132; 84484; 85025; 85610; 87507; 87797; 93005; 96365; 96366; 96367; 96368; 96375; 99284; J0612; J1644; J2405; J2470; J3475; J7042; Q9967